=== PATIENT | female | born 1945 | race Caucasian/White ===

== ENCOUNTER → 2016-10-20 | Outpatient (CLI) | payer MEDICARE ==
--- NOTE | 2016-10-21 10:04 | MM ---
Reason for exam: screening (asymptomatic). Last mammogram was performed 4 years and 4 months ago. History: Patient is postmenopausal. Family history of breast cancer in sister at age 60 and breast cancer in sister at age 69. Cyst aspiration of the right breast. Excisional biopsy of the right breast. Physical Findings: A clinical breast exam by your physician is recommended on an annual basis and results should be correlated with mammographic findings. MG 3D Screening Mammo W/Cad Bilateral CC and MLO view(s) were taken. Prior study comparison: June 17, 2012, bilateral digital screening mammo w/CAD. December 24, 2006, bilateral screening mammogram w/CAD. The breast tissue is almost entirely fat. Asymmetric breast tissue in ther right breast negative 3D. ASSESSMENT: Probably benign, BI-RAD 3 RECOMMENDATION: Follow-up diagnostic mammogram of the right breast in 6 months.
== END | disposition home or self-care (01) ==
LOC: RADMAMWWP 13:44
PROVIDERS: ATTEND Family Medicine
DX: Z12.31 Encounter for screening mammogram for malignant neoplasm of breast (principal)
CPT/HCPCS: 77063; G0202

== ENCOUNTER → 2018-06-09 | Outpatient (CLI) | payer MEDICARE ==
[2018-06-09 08:58] LABS: Basophils % (A) 1 %; Eosinophils # (A) 0.1 k/uL (0-0.7); Eosinophils % (A) 2 %; HCT 44.5 % (34.0-46.0); HGB 14.1 gm/dL (11.4-16.0); Lymphocytes # (A) 1.7 k/uL (1.0-4.8); Lymphocytes % (A) 22 %; MCH 28.6 pg (25.0-35.0); MCHC 31.8 g/dL (31.0-37.0); MCV 89.9 fL (80.0-100.0); Mean Platelet Volume 6.6; Monocytes # (A) 0.5 k/uL (0-1.0); Monocytes % (A) 6 %; Neutrophils # (A) 5.2 k/uL (1.3-7.7); Neutrophils % (A) 68 %; Platelet Count 241 k/uL (150-450); RBC 4.95 m/uL (3.80-5.40); RDW 13.5 % (11.5-15.5); WBC 7.6 k/uL (3.8-10.6)
[2018-06-09 09:00] LABS: Albumin 4.2 g/dL (3.5-5.0); Calcium 9.8 mg/dL (8.4-10.2); Potassium 4.7 mmol/L (3.5-5.1); Total Bilirubin 0.4 mg/dL (0.2-1.3); Total Protein 7.2 g/dL (6.3-8.2)
[2018-06-09 20:05] LABS: Hemoglobin A1C 9.2 % (4.0-6.0)
--- NOTE | 2018-06-13 10:34 | MM ---
Reason for exam: screening (asymptomatic). Last mammogram was performed 1 year and 8 months ago. History: Patient is postmenopausal. Family history of breast cancer in sister at age 60 and breast cancer in sister at age 69. Cyst aspiration of the right breast. Excisional biopsy of the right breast. Physical Findings: A clinical breast exam by your physician is recommended on an annual basis and results should be correlated with mammographic findings. MG 3D Screening Mammo W/Cad Bilateral CC and MLO view(s) were taken. XCCL view(s) were taken of the left breast. Prior study comparison: October 20, 2016, bilateral MG 3d screening mammo w/cad. June 17, 2012, bilateral digital screening mammo w/CAD. The breast tissue is heterogeneously dense. This may lower the sensitivity of mammography. Finding: There are typically benign vascular, dystrophic, round calcifications in both breasts. There is no discrete abnormality. ASSESSMENT: Benign, BI-RAD 2 RECOMMENDATION: Routine screening mammogram of both breasts in 1 year.
== END | disposition home or self-care (01) ==
LOC: RADMAMWWP 08:01
PROVIDERS: ATTEND Family Medicine
DX: Z12.31 Encounter for screening mammogram for malignant neoplasm of breast (principal); E11.9 Type 2 diabetes mellitus without complications; I10 Essential (primary) hypertension; E55.9 Vitamin D deficiency, unspecified
CPT/HCPCS: 77063; 77067; 80053; 80061; 82306; 83036; 84443; 85025

== ENCOUNTER → 2019-02-11 | Outpatient (CLI) | payer MEDICARE | END | disposition home or self-care (01) | LOC: LABWHC1 09:27 | PROVIDERS: ATTEND Family Medicine | DX: E11.9 Type 2 diabetes mellitus without complications (principal) | CPT/HCPCS: 36415; 80061; 82550; 84450; 84460 ==

== ENCOUNTER 2023-08-07 18:30 | Inpatient (IN) | payer MEDICARE ==
[2023-08-07] MEDS ORDERED: SODIUM CHLORIDE 0.9% 1,000 ML IV STA (18:36)
[2023-08-07] MEDS ORDERED: SODIUM CHLORIDE 0.9% 500 ML 500 ML IV ONE (18:36)
--- NOTE | 2023-08-07 18:43 | ED ---
Altered Mental Status HPI - General Stated Complaint: Possible CVA Time Seen by Provider: 08/07/23 18:30 Source: patient, EMS, RN notes reviewed, old records reviewed Mode of arrival: EMS - History of Present Illness Initial Comments: 77-year-old female with a history of thyroid disorder possibly heart disease who apparently does not like to see doctors who is brought in by EMS after they were called because the patient was less responsive only awake alert oriented times one with generalized weakness she apparently found on the floor with broken glasses on the floor. Her twin sister apparently been trying to get over last several days and neighbor states that she's talked her yesterday and she seemed the most part okay. Formation at this time is otherwise limited she was noted per paramedics have a markedly elevated blood pressure 180/122 blood glucose of 411 on Accu-Chek. Report also of a possible history of diabetes. MD Complaint: altered mental status, confusion, decreased responsiveness, weakness - Related Data Home Medications Medication Instructions Recorded Confirmed LORazepam [Ativan] 1 mg PO TID PRN 08/07/23 08/07/23 Losartan Potassium 100 mg PO DAILY 08/07/23 08/07/23 Metoprolol Tartrate [Lopressor] 25 mg PO TID 08/07/23 08/07/23 Allergies Allergy/AdvReac Type Severity Reaction Status Date / Time Penicillins Allergy Unknown Verified 08/07/23 21:01 metformin AdvReac Nausea & Verified 08/07/23 21:01 Vomiting & Diarrhea Review of Systems ROS Statement: Those systems with pertinent positive or pertinent negative responses have been documented in the HPI. ROS Other: All systems not noted in ROS Statement are negative. Limitations: ROS unobtainable due to patients medical condition General Exam - General Exam Comments Initial Comments: This a well-developed lethargic female who is slow to respond. No evidence of external trauma General appearance: lethargic Head exam: Present: atraumatic, normocephalic, normal inspection Eye exam: Present: normal appearance, PERRL, EOMI. Absent: scleral icterus, conjunctival injection, periorbital swelling ENT exam: Present: mucous membranes dry Neck exam: Present: normal inspection, full ROM, other (No stridor JVD or bru its). Absent: tenderness, meningismus, lymphadenopathy Respiratory exam: Present: decreased breath sounds. Absent: respiratory distress, wheezes, rales, rhonchi, stridor Cardiovascular Exam: Present: regular rate, normal rhythm, normal heart sounds. Absent: systolic murmur, diastolic murmur, rubs, gallop, clicks GI/Abdominal exam: Present: soft, normal bowel sounds. Absent: distended, tenderness, guarding, rebound, rigid, bruit, pulsatile mass Rectal exam: Present: deferred Extremities exam: Present: normal inspection, full ROM, normal capillary refill. Absent: tenderness, pedal edema, joint swelling, calf tenderness Back exam: Present: normal inspection, full ROM Neurological exam: Present: alert, altered, CN II-XII intact. Absent: motor sensory deficit (She does demonstrate generalized weakness but has equal good music manager strength bilaterally she is able to raise both her arms and does attempt to raise both legs though they're weak she can move her feet without difficulty. Her toes without difficulty no apparent sensory deficits) Psychiatric exam: Present: flat affect Skin exam: Present: warm, dry, intact, normal color. Absent: rash Course Vital Signs 08/07/23 08/07/23 08/07/23 18:30 19:53 20:55 Temperature 97.0 F L Pulse Rate 82 79 89 Respiratory 18 17 21 Rate Blood Pressure 94/63 113/76 113/76 O2 Sat by Pulse 95 94 L 95 Oximetry 08/07/23 22:31 Temperature Pulse Rate 94 Respiratory 25 H Rate Blood Pressure 124/64 O2 Sat by Pulse 95 Oximetry Medical Decision Making - Medical Decision Making I did reevaluate the patient on multiple occasions she does appear to be responding to fluids I did discuss case also with patient with sister was present. Patient was found to have hyperglycemia she is a type II diabetic additionally she also was found have acute kidney injury and a markedly elevated BNP over lung sounds are actually fairly clear at this time with good oxygenation. Patient will be placed on IV antibiotics for what appears to be UTI evidence. Gentle hydration subcutaneous insulin and Lasix and also nephrology will be consulted. Was pt. sent in by a medical professional or institution (LORENE Dimas, CHIEF TELEPHONE OPERATOR, urgent care, hospital, or custodial...) When possible be specific @ -No Did you speak to anyone other than the patient for history (EMS, parent, family, police, friend...)? What history was obtained from this source @ -[place]ax upon arrival also the patient's twin sister Did you review nursing and triage notes (agree or disagree)? Why? @ -I reviewed and agree with nursing and triage notes Were old charts reviewed (outside hosp., previous admission, EMS record, old EKG, old radiological studies, urgent care reports/EKG's, custodial records)? Report findings @ - old charts were reviewed Differential Diagnosis (chest pain, altered mental status, abdominal pain women, abdominal pain men, vaginal bleeding, weakness, fever, dyspnea, syncope, headache, dizziness, GI bleed, back pain, seizure, CVA, palpatations, mental health, musculoskeletal)? @ -CVA, altered mental status, hyperglycemia, dehydration EKG interpreted by me (3pts min.). @ -As above EKG interpreted by me normal sinus rhythm 82. Interval 160 QRS duration 91 QT/QTC 399/437 X-rays interpreted by me (1pt min.). @ -Chest x-ray. By me evidence of increased pulmonary vascular markings CT interpreted by me (1pt min.). @ -CT brain interpreted by me no acute process at this time U/S interpreted by me (1pt. min.). @ -None done What testing was considered but not performed or refused? (CT, X-rays, U/S, labs)? Why? @ -None What meds were considered but not given or refused? Why? @ -None Did you discuss the management of the patient with other professionals (pro fessionals i.e. , PA, CHIEF TELEPHONE OPERATOR, lab, RT, psych nurse, social worker assistant, gm video, teacher, safety patrol officer, pillowcase folder)? Give summary @ -Roslyn Boucher Was smoking cessation discussed for >3mins.? @ -No Was critical care preformed (if so, how long)? @ -49 minutes Were there social determinants of health that impacted care today? How? (Homelessness, low income, unemployed, alcoholism, drug addiction, transportation, low edu. Level, literacy, decrease access to med. care, longterm, r ehab)? @ -No Was there de-escalation of care discussed even if they declined (Discuss DNR or withdrawal of care, Hospice)? DNR status @ -No What co-morbidities impacted this encounter? (DM, HTN, Smoking, COPD, CAD, Cancer, CVA, ARF, Chemo, Hep., AIDS, mental health diagnosis, sleep apnea, morbid obesity)? @ -Type 2 diabetes] Was patient admitted / discharged? Hospital course, mention meds given and route, prescriptions, significant lab abnormalities, going to OR and other pertinent info. @ -hospital course the patient was admitted for inpatient evaluation and treatment Undiagnosed new problem with uncertain prognosis? @ -Acute kidney injury, lactic acidosis, uncontrolled diabetes Drug Therapy requiring intensive monitoring for toxicity (Heparin, Nitro, Insulin, Cardizem)? @ -Insulin Were any procedures done? @ -No Diagnosis/symptom? @ -Altered mental status, dehydration, acute kidney injury, hyperglycemia, lactic acidosis, UTI, hypomagnesemia, elevated troponin, elevated BNP Acute, or Chronic, or Acute on Chronic? @ -Acute Uncomplicated (without systemic symptoms) or Complicated (systemic symptoms)? @ -Complicated Side effects of treatment? @ -No Exacerbation, Progression, or Severe Exacerbation? @ -No Poses a threat to life or bodily function? How? (Chest pain, [place], [place], pneumonia, PE, COPD, DKA, ARF, appy, cholecystitis, CVA, Diverticulitis, Homicidal, Suicidal, threat to staff... and all critical care pts) @ -Uncontrolled diabetes, acute kidney injury, elevated troponin - Lab Data Result diagrams: 08/07/23 18:58 08/07/23 18:58 Lab Results 08/07/23 08/07/23 08/07/23 Range/Units 16:35 18:45 18:58 WBC 30.8 H (3.8-10.6) k/uL RBC 5.12 (3.80-5.40) m/uL Hgb 15.2 (11.4-16.0) gm/dL Hct 46.3 H (34.0-46.0) % MCV 90.5 (80.0-100.0) fL MCH 29.6 (25.0-35.0) pg MCHC 32.7 (31.0-37.0) g/dL RDW 13.3 (11.5-15.5) % Plt Count 124 L (150-450) k/uL MPV 10.4 Neutrophils % Not Reportable Neutrophils % (Manual) 59 % Band Neuts % (Manual) 33 % Lymphocytes % Not Reportable Lymphocytes % (Manual) 2 % Monocytes % Not Reportable Monocytes % (Manual) 4 % Eosinophils % Not Reportable Basophils % Not Reportable Metamyelocytes % 2 % Myelocytes % 1 % Neutrophils # Not Reportable Neutrophils # (Manual) 28.30 H (1.3-7.7) k/uL Lymphocytes # Not Reportable Lymphocytes # (Manual) 0.62 L (1.0-4.8) k/uL Monocytes # Not Reportable Monocytes # (Manual) 1.23 H (0-1.0) k/uL Eosinophils # Not Reportable Basophils # Not Reportable Metamyelocytes # (Man) 0.62 H (0) k/uL Myelocytes # (Manual) 0.31 H (0) k/uL Nucleated RBCs 0 (0-0) /100 WBC Manual Slide Review Performed Toxic Granulation Present Toxic Vacuolation Present RBC Morphology Normal PT (10.0-12.5) sec INR (<1.2) APTT (22.0-30.0) sec VBG pH 7.26 L (7.31-7.41) VBG pCO2 45 (37-51) mmHg VBG HCO3 20 L (24-28) mmol/L Sodium (137-145) mmol/L Potassium (3.5-5.1) mmol/L Chloride (98-107) mmol/L Carbon Dioxide (22-30) mmol/L Anion Gap mmol/L BUN (7-17) mg/dL Creatinine (0.52-1.04) mg/dL Est GFR (CKD-EPI)AfAm (>60 ml/min/1.73 sqM) Est GFR (CKD-EPI)NonAf (>60 ml/min/1.73 sqM) Glucose (74-99) mg/dL POC Glucose (mg/dL) 311 H (70-110) mg/dL POC Glu Military Equipment Specialist ID Tesha Petersen Lactic Ac Sepsis Rflx Plasma Lactic Acid Raghavendra (0.7-2.0) mmol/L Calcium (8.4-10.2) mg/dL Magnesium (1.6-2.3) mg/dL Total Bilirubin (0.2-1.3) mg/dL AST (14-36) U/L ALT (4-34) U/L Alkaline Phosphatase (38-126) U/L Ammonia (<30) umol/L Troponin I (0.000-0.034) ng/mL NT-Pro-B Natriuret Pep pg/mL Total Protein (6.3-8.2) g/dL Albumin (3.5-5.0) g/dL TSH (0.465-4.680) mIU/L Urine Color Urine Appearance (Clear) Urine pH (5.0-8.0) Ur Specific [place] (1.001-1.035) Urine Protein (Negative) Urine Glucose (UA) (Negative) Urine Ketones (Negative) Urine Blood (Negative) Urine Nitrite (Negative) Urine Bilirubin (Negative) Urine Urobilinogen (<2.0) mg/dL Ur Leukocyte Esterase (Negative) Urine RBC (0-5) /hpf Urine WBC (0-5) /hpf Ur Squamous Epith Cells (0-4) /hpf Urine Bacteria (None) /hpf Hyaline Casts (0-2) /lpf Urine Mucus (None) /hpf Urine Opiates Screen (NotDetected) Ur Oxycodone Screen (NotDetected) Urine Methadone Screen (NotDetected) Ur Propoxyphene Screen (NotDetected) Ur Barbiturates Screen (NotDetected) U Tricyclic Antidepress (NotDetected) Ur Phencyclidine Scrn (NotDetected) Ur Amphetamines Screen (NotDetected) U Methamphetamines Scrn (NotDetected) U Benzodiazepines Scrn (NotDetected) Urine Cocaine Screen (NotDetected) U Marijuana (THC) Screen (NotDetected) Acetone, Qual (Negative) Influenza Type A (PCR) (Not Detectd) Influenza Type B (PCR) (Not Detectd) RSV (PCR) (Not Detectd) SARS-CoV-2 (PCR) (Not Detectd) 08/07/23 08/07/23 08/07/23 Range/Units 18:58 18:58 18:58 WBC (3.8-10.6) k/uL RBC (3.80-5.40) m/uL Hgb (11.4-16.0) gm/dL Hct (34.0-46.0) % MCV (80.0-100.0) fL MCH (25.0-35.0) pg MCHC (31.0-37.0) g/dL RDW (11.5-15.5) % Plt Count (150-450) k/uL MPV Neutrophils % Neutrophils % (Manual) % Band Neuts % (Manual) % Lymphocytes % Lymphocytes % (Manual) % Monocytes % Monocytes % (Manual) % Eosinophils % Basophils % Metamyelocytes % % Myelocytes % % Neutrophils # Neutrophils # (Manual) (1.3-7.7) k/uL Lymphocytes # Lymphocytes # (Manual) (1.0-4.8) k/uL Monocytes # Monocytes # (Manual) (0-1.0) k/uL Eosinophils # Basophils # Metamyelocytes # (Man) (0) k/uL Myelocytes # (Manual) (0) k/uL Nucleated RBCs (0-0) /100 WBC Manual Slide Review Toxic Granulation Toxic Vacuolation RBC Morphology PT 14.1 H (10.0-12.5) sec INR 1.4 H (<1.2) APTT 28.0 (22.0-30.0) sec VBG pH (7.31-7.41) VBG pCO2 (37-51) mmHg VBG HCO3 (24-28) mmol/L Sodium 131 L (137-145) mmol/L Potassium 4.8 (3.5-5.1) mmol/L Chloride 93 L (98-107) mmol/L Carbon Dioxide 15 L (22-30) mmol/L Anion Gap 23 mmol/L BUN 57 H (7-17) mg/dL Creatinine 4.26 H (0.52-1.04) mg/dL Est GFR (CKD-EPI)AfAm 11 (>60 ml/min/1.73 sqM) Est GFR (CKD-EPI)NonAf 10 (>60 ml/min/1.73 sqM) Glucose 456 H (74-99) mg/dL POC Glucose (mg/dL) (70-110) mg/dL POC Glu Military Equipment Specialist ID Lactic Ac Sepsis Rflx Plasma Lactic Acid Raghavendra (0.7-2.0) mmol/L Calcium 8.6 (8.4-10.2) mg/dL Magnesium 1.2 L (1.6-2.3) mg/dL Total Bilirubin 1.1 (0.2-1.3) mg/dL AST 58 H (14-36) U/L ALT 33 (4-34) U/L Alkaline Phosphatase 105 (38-126) U/L Ammonia (<30) umol/L Troponin I (0.000-0.034) ng/mL NT-Pro-B Natriuret Pep 14034 pg/mL Total Protein 6.9 (6.3-8.2) g/dL Albumin 3.6 (3.5-5.0) g/dL TSH 1.650 (0.465-4.680) mIU/L Urine Color Colorless Urine Appearance Cloudy H (Clear) Urine pH 5.0 (5.0-8.0) Ur Specific [place] 1.014 (1.001-1.035) Urine Protein Trace H (Negative) Urine Glucose (UA) 4+ H (Negative) Urine Ketones Negative (Negative) Urine Blood Negative (Negative) Urine Nitrite Negative (Negative) Urine Bilirubin Negative (Negative) Urine Urobilinogen <2.0 (<2.0) mg/dL Ur Leukocyte Esterase Large H (Negative) Urine RBC 2 (0-5) /hpf Urine WBC 72 H (0-5) /hpf Ur Squamous Epith Cells 1 (0-4) /hpf Urine Bacteria Many H (None) /hpf Hyaline Casts 14 H (0-2) /lpf Urine Mucus Rare H (None) /hpf Urine Opiates Screen Not Detected (NotDetected) Ur Oxycodone Screen Not Detected (NotDetected) Urine Methadone Screen Not Detected (NotDetected) Ur Propoxyphene Screen Not Detected (NotDetected) Ur Barbiturates Screen Not Detected (NotDetected) U Tricyclic Antidepress Not Detected (NotDetected) Ur Phencyclidine Scrn Not Detected (NotDetected) Ur Amphetamines Screen Not Detected (NotDetected) U Methamphetamines Scrn Not Detected (NotDetected) U Benzodiazepines Scrn Detected H (NotDetected) Urine Cocaine Screen Not Detected (NotDetected) U Marijuana (THC) Screen Not Detected (NotDetected) Acetone, Qual Negative (Negative) Influenza Type A (PCR) (Not Detectd) Influenza Type B (PCR) (Not Detectd) RSV (PCR) (Not Detectd) SARS-CoV-2 (PCR) (Not Detectd) 08/07/23 08/07/23 08/07/23 Range/Units 18:58 18:58 18:58 WBC (3.8-10.6) k/uL RBC (3.80-5.40) m/uL Hgb (11.4-16.0) gm/dL Hct (34.0-46.0) % MCV (80.0-100.0) fL MCH (25.0-35.0) pg MCHC (31.0-37.0) g/dL RDW (11.5-15.5) % Plt Count (150-450) k/uL MPV Neutrophils % Neutrophils % (Manual) % Band Neuts % (Manual) % Lymphocytes % Lymphocytes % (Manual) % Monocytes % Monocytes % (Manual) % Eosinophils % Basophils % Metamyelocytes % % Myelocytes % % Neutrophils # Neutrophils # (Manual) (1.3-7.7) k/uL Lymphocytes # Lymphocytes # (Manual) (1.0-4.8) k/uL Monocytes # Monocytes # (Manual) (0-1.0) k/uL Eosinophils # Basophils # Metamyelocytes # (Man) (0) k/uL Myelocytes # (Manual) (0) k/uL Nucleated RBCs (0-0) /100 WBC Manual Slide Review Toxic Granulation Toxic Vacuolation RBC Morphology PT (10.0-12.5) sec INR (<1.2) APTT (22.0-30.0) sec VBG pH (7.31-7.41) VBG pCO2 (37-51) mmHg VBG HCO3 (24-28) mmol/L Sodium (137-145) mmol/L Potassium (3.5-5.1) mmol/L Chloride (98-107) mmol/L Carbon Dioxide (22-30) mmol/L Anion Gap mmol/L BUN (7-17) mg/dL Creatinine (0.52-1.04) mg/dL Est GFR (CKD-EPI)AfAm (>60 ml/min/1.73 sqM) Est GFR (CKD-EPI)NonAf (>60 ml/min/1.73 sqM) Glucose (74-99) mg/dL POC Glucose (mg/dL) (70-110) mg/dL POC Glu Military Equipment Specialist ID Lactic Ac Sepsis Rflx Plasma Lactic Acid Raghavendra 4.6 H* (0.7-2.0) mmol/L Calcium (8.4-10.2) mg/dL Magnesium (1.6-2.3) mg/dL Total Bilirubin (0.2-1.3) mg/dL AST (14-36) U/L ALT (4-34) U/L Alkaline Phosphatase (38-126) U/L Ammonia <9 (<30) umol/L Troponin I 0.076 H* (0.000-0.034) ng/mL NT-Pro-B Natriuret Pep pg/mL Total Protein (6.3-8.2) g/dL Albumin (3.5-5.0) g/dL TSH (0.465-4.680) mIU/L Urine Color Urine Appearance (Clear) Urine pH (5.0-8.0) Ur Specific [place] (1.001-1.035) Urine Protein (Negative) Urine Glucose (UA) (Negative) Urine Ketones (Negative) Urine Blood (Negative) Urine Nitrite (Negative) Urine Bilirubin (Negative) Urine Urobilinogen (<2.0) mg/dL Ur Leukocyte Esterase (Negative) Urine RBC (0-5) /hpf Urine WBC (0-5) /hpf Ur Squamous Epith Cells (0-4) /hpf Urine Bacteria (None) /hpf Hyaline Casts (0-2) /lpf Urine Mucus (None) /hpf Urine Opiates Screen (NotDetected) Ur Oxycodone Screen (NotDetected) Urine Methadone Screen (NotDetected) Ur Propoxyphene Screen (NotDetected) Ur Barbiturates Screen (NotDetected) U Tricyclic Antidepress (NotDetected) Ur Phencyclidine Scrn (NotDetected) Ur Amphetamines Screen (NotDetected) U Methamphetamines Scrn (NotDetected) U Benzodiazepines Scrn (NotDetected) Urine Cocaine Screen (NotDetected) U Marijuana (THC) Screen (NotDetected) Acetone, Qual (Negative) Influenza Type A (PCR) Not Detected (Not Detectd) Influenza Type B (PCR) Not Detected (Not Detectd) RSV (PCR) Not Detected (Not Detectd) SARS-CoV-2 (PCR) Not Detected (Not Detectd) 08/07/23 Range/Units 20:00 WBC (3.8-10.6) k/uL RBC (3.80-5.40) m/uL Hgb (11.4-16.0) gm/dL Hct (34.0-46.0) % MCV (80.0-100.0) fL MCH (25.0-35.0) pg MCHC (31.0-37.0) g/dL RDW (11.5-15.5) % Plt Count (150-450) k/uL MPV Neutrophils % Neutrophils % (Manual) % Band Neuts % (Manual) % Lymphocytes % Lymphocytes % (Manual) % Monocytes % Monocytes % (Manual) % Eosinophils % Basophils % Metamyelocytes % % Myelocytes % % Neutrophils # Neutrophils # (Manual) (1.3-7.7) k/uL Lymphocytes # Lymphocytes # (Manual) (1.0-4.8) k/uL Monocytes # Monocytes # (Manual) (0-1.0) k/uL Eosinophils # Basophils # Metamyelocytes # (Man) (0) k/uL Myelocytes # (Manual) (0) k/uL Nucleated RBCs (0-0) /100 WBC Manual Slide Review Toxic Granulation Toxic Vacuolation RBC Morphology PT (10.0-12.5) sec INR (<1.2) APTT (22.0-30.0) sec VBG pH (7.31-7.41) VBG pCO2 (37-51) mmHg VBG HCO3 (24-28) mmol/L Sodium (137-145) mmol/L Potassium (3.5-5.1) mmol/L Chloride (98-107) mmol/L Carbon Dioxide (22-30) mmol/L Anion Gap mmol/L BUN (7-17) mg/dL Creatinine (0.52-1.04) mg/dL Est GFR (CKD-EPI)AfAm (>60 ml/min/1.73 sqM) Est GFR (CKD-EPI)NonAf (>60 ml/min/1.73 sqM) Glucose (74-99) mg/dL POC Glucose (mg/dL) (70-110) mg/dL POC Glu Military Equipment Specialist ID Lactic Ac Sepsis Rflx Y Plasma Lactic Acid Raghavendra (0.7-2.0) mmol/L Calcium (8.4-10.2) mg/dL Magnesium (1.6-2.3) mg/dL Total Bilirubin (0.2-1.3) mg/dL AST (14-36) U/L ALT (4-34) U/L Alkaline Phosphatase (38-126) U/L Ammonia (<30) umol/L Troponin I (0.000-0.034) ng/mL NT-Pro-B Natriuret Pep pg/mL Total Protein (6.3-8.2) g/dL Albumin (3.5-5.0) g/dL TSH (0.465-4.680) mIU/L Urine Color Urine Appearance (Clear) Urine pH (5.0-8.0) Ur Specific [place] (1.001-1.035) Urine Protein (Negative) Urine Glucose (UA) (Negative) Urine Ketones (Negative) Urine Blood (Negative) Urine Nitrite (Negative) Urine Bilirubin (Negative) Urine Urobilinogen (<2.0) mg/dL Ur Leukocyte Esterase (Negative) Urine RBC (0-5) /hpf Urine WBC (0-5) /hpf Ur Squamous Epith Cells (0-4) /hpf Urine Bacteria (None) /hpf Hyaline Casts (0-2) /lpf Urine Mucus (None) /hpf Urine Opiates Screen (NotDetected) Ur Oxycodone Screen (NotDetected) Urine Methadone Screen (NotDetected) Ur Propoxyphene Screen (NotDetected) Ur Barbiturates Screen (NotDetected) U Tricyclic Antidepress (NotDetected) Ur Phencyclidine Scrn (NotDetected) Ur Amphetamines Screen (NotDetected) U Methamphetamines Scrn (NotDetected) U Benzodiazepines Scrn (NotDetected) Urine Cocaine Screen (NotDetected) U Marijuana (THC) Screen (NotDetected) Acetone, Qual (Negative) Influenza Type A (PCR) (Not Detectd) Influenza Type B (PCR) (Not Detectd) RSV (PCR) (Not Detectd) SARS-CoV-2 (PCR) (Not Detectd) - EKG Data -: EKG Interpreted by Me EKG Comments: EKG interpreted by me sinus rhythm 82. Interval 160 QRS duration 91 QT since QTC 399/[address]-T wave changes - Radiology Data Interpreted by me: Chest x-ray interpreted by me evidence of increase in pulmonary vascular markings CT brain interpreted by me negative for acute process Critical Care Time Critical Care Time: Yes Total Critical Care Time: 49 Disposition Clinical Impression: Acute kidney injury, Altered mental status, Dehydration, Hyperglycemia due to type 2 diabetes mellitus, Lactic acidosis, Hypomagnesemia, Elevated troponin, UTI (urinary tract infection) Disposition: ADMITTED IP TO THIS HOSP Condition: Fair Referrals: Alvin Montez [Primary Care Provider] - 1-2 days Decision Date: 08/07/23 Decision Time: 22:00
[2023-08-07 18:46] LABS: Glucose,Whole Blood 311 mg/dL (70-110)
--- NOTE | 2023-08-07 19:01 | CT ---
EXAMINATION TYPE: CT brain wo con CT DLP: 1261.6 mGycm, Automated exposure control for dose reduction was used. DATE OF EXAM: 08/07/2023 6:43 PM COMPARISON: None. CLINICAL INDICATION:Female, 77 years old with history of CODE STROKE, ams TECHNIQUE: Brain: Axial CT images of the brain were obtained with coronal and sagittal reformats created and rev iewed. Contrast used: None. Oral contrast used: None. FINDINGS: Brain: Extra-axial spaces: No abnormal extra-axial fluid collections. Ventricular system: Dilatation in proportion to cerebral atrophy. Cerebral parenchyma: Cerebral atrophy. No acute intraparenchymal hemorrhage or mass effect. The boyd -white junction is well differentiated. Scattered hypoattenuating areas are seen within the white mat ter. Cerebellum: Unremarkable. Mass effect: No evidence of midline shift. Intracranial vasculature: Atherosclerotic calcifications of the intracranial vessels. Soft tissues: Normal. Calvarium/osseous structures: No depressed skull fracture. Paranasal sinuses and mastoid air cells: Mild scattered paranasal sinus disease. Visualized orbits: Orbital contents are intact. IMPRESSION: 1. No acute intracranial process. 2. Nonspecific white matter changes, likely secondary to chronic small vessel ischemic disease.
[2023-08-07 19:27] LABS: HCT 46.3 % (34.0-46.0); HGB 15.2 gm/dL (11.4-16.0); MCH 29.6 pg (25.0-35.0); MCHC 32.7 g/dL (31.0-37.0); MCV 90.5 fL (80.0-100.0); Mean Platelet Volume 10.4; Platelet Count 124 k/uL (150-450); RBC 5.12 m/uL (3.80-5.40); RDW 13.3 % (11.5-15.5); WBC 30.8 k/uL (3.8-10.6)
--- NOTE | 2023-08-07 19:29 | XR ---
EXAMINATION TYPE: XR chest 1V portable DATE OF EXAM: 08/07/2023 7:22 PM CLINICAL INDICATION:Female, 77 years old with history of altered mental status; [facility] COMPARISON: None TECHNIQUE: XR chest 1V portable Frontal view of the chest. FINDINGS: Lungs/Pleura: There is no evidence of pleural effusion, focal consolidation, or pneumothorax. Pulmonary vascularity: Unremarkable. Heart/mediastinum: Cardiomediastinal silhouette is unremarkable. Musculoskeletal: No acute osseous pathology. IMPRESSION: Low lung volumes with a generalized hazy appearance which could represent atelectasis versus pulmonar y edema correlate with serum BNP.
[2023-08-07 19:35] LABS: ALT 33 U/L (4-34); AST 58 U/L (14-36); African American GFR (CKD) 11 (>60 ml/min/1.73 sqM); Albumin 3.6 g/dL (3.5-5.0); Alkaline Phosphatase 105 U/L (38-126); Anion Gap 23 mmol/L; Blood Urea Nitrogen 57 mg/dL (7-17); Calcium 8.6 mg/dL (8.4-10.2); Carbon Dioxide 15 mmol/L (22-30); Chloride 93 mmol/L (98-107); Glucose 456 mg/dL (74-99); INR 1.4 (<1.2); Magnesium 1.2 mg/dL (1.6-2.3); Non-African American GFR(CKD) 10 (>60 ml/min/1.73 sqM); Potassium 4.8 mmol/L (3.5-5.1); Prothrombin Time 14.1 sec (10.0-12.5); Sodium 131 mmol/L (137-145); Total Bilirubin 1.1 mg/dL (0.2-1.3); Total Protein 6.9 g/dL (6.3-8.2)
[2023-08-07 19:49] LABS: Appearance,Urine Cloudy (Clear); Bacteria,Urine Many /hpf; Bilirubin,Urine Negative (Negative); Blood,Urine Negative (Negative); Color,Urine Colorless; Glucose,Urine (UA) 4+ (Negative); Hyaline Casts,Urine 14 /lpf (0-2); Ketones,Urine Negative (Negative); Leukocyte Esterase,Urine Large (Negative); Mucus,Urine Rare /hpf; Nitrite,Urine Negative (Negative); Protein,Urine Trace (Negative); RBC,Urine 2 /hpf (0-5); Specific Gravity,Urine 1.014 (1.001-1.035); Squamous Epithelial Cell,Urine 1 /hpf (0-4); Urobilinogen,Urine <2.0 mg/dL (<2.0); WBC,Urine 72 /hpf (0-5)
[2023-08-07 19:50] LABS: Amphetamine Screen,Urine Not Detected (NotDetected); Barbiturate Screen,Urine Not Detected (NotDetected); Benzodiazepines Screen,Urine Detected (NotDetected); Cocaine Screen,Urine Not Detected (NotDetected); Methadone Screen, Urine Not Detected (NotDetected); Opiate Screen,Urine Not Detected (NotDetected); Oxycodone Screen, Urine Not Detected (NotDetected); Phencyclidine Screen,Urine Not Detected (NotDetected); Tricyclic Antidepressant,Urine Not Detected (NotDetected); Urn Cannabinoid Scrn Not Detected (NotDetected)
[2023-08-07 20:00] LABS: Lactic Acid, Venous 4.6 mmol/L (0.7-2.0)
[2023-08-07 20:40] LABS: NT-Pro-B-Type Natriuretic Pept 68800 pg/mL
[2023-08-07] MEDS: MAGNESIUM SULFATE-D5W PMX 1 GM in DEXTROSE/WATER 1 100ML.BAG IVPB SCH ×2 (20:40→21:39)
[2023-08-07] MEDS ORDERED: DEXTROSE 50% SYRINGE 50 ML IVP PRN ×2 (21:13)
[2023-08-07] MEDS ORDERED: INSULIN ASPART (NovoLOG) 100 UNIT/ML VIAL SQ ONE (21:14)
[2023-08-07 21:18] LABS: VBG PH 7.26 (7.31-7.41)
[2023-08-07 21:29] LABS: Band Neutrophils % 33 %; Lymphocytes # (M) 0.62 k/uL (1.0-4.8); Metamyelocytes # (M) 0.62 k/uL (0); Metamyelocytes % 2 %; Monocytes # (M) 1.23 k/uL (0-1.0); Myelocytes # (M) 0.31 k/uL (0); Myelocytes % 1 %; Neutrophils % (M) 59 %; Nucleated Red Blood Cells 0 /100 WBC (0-0); RBC Morphology Normal; Total Cells Counted 200; Toxic Granulation Present; Toxic Vacuolation Present
[2023-08-07] MEDS ORDERED: cefTRIAXone IN SWFI 1,000 MG/10 ML SYRINGE IVP STA (22:31)
[2023-08-07] MEDS ORDERED: FUROSEMIDE 10 MG/ML 4 ML VIAL IV STA (22:31)
[2023-08-07] MEDS ORDERED: NALOXONE 0.4 MG/ML 1 ML VIAL IV PRN (22:41)
[2023-08-07] MEDS ORDERED: ONDANSETRON 4 MG/2 ML VIAL IVP PRN (22:41)
[2023-08-07] MEDS: SODIUM CHLORIDE 0.9% 1,000 ML IV SCH (23:22)
[2023-08-07 23:23] LABS: Glucose,Whole Blood 397 mg/dL (70-110)
[2023-08-07] MEDS: HALOPERIDOL LACTATE 5 MG/ML 1 ML VIAL IVP PRN (23:44)
[2023-08-08] MEDS ORDERED: SODIUM CHLORIDE 0.9% 500 ML 500 ML IV ONE (02:25)
[2023-08-08 04:48] LABS: ALT 34 U/L (4-34); AST 57 U/L (14-36); African American GFR (CKD) 11 (>60 ml/min/1.73 sqM); Albumin 2.8 g/dL (3.5-5.0); Alkaline Phosphatase 118 U/L (38-126); Anion Gap 21 mmol/L; Blood Urea Nitrogen 62 mg/dL (7-17); Calcium 7.8 mg/dL (8.4-10.2); Carbon Dioxide 12 mmol/L (22-30); Chloride 101 mmol/L (98-107); Glucose 360 mg/dL (74-99); Magnesium 1.8 mg/dL (1.6-2.3); Non-African American GFR(CKD) 9 (>60 ml/min/1.73 sqM); Potassium 4.3 mmol/L (3.5-5.1); Sodium 134 mmol/L (137-145); Total Bilirubin 0.9 mg/dL (0.2-1.3); Total Protein 5.8 g/dL (6.3-8.2)
[2023-08-08] MEDS: HALOPERIDOL LACTATE 5 MG/ML 1 ML VIAL IVP PRN (05:19)
[2023-08-08] MEDS ORDERED: INSULIN ASPART (NovoLOG) 100 UNIT/ML VIAL SQ SCH (07:30)
[2023-08-08 07:45] LABS: Glucose,Whole Blood 386 mg/dL (70-110)
[2023-08-08] MEDS ORDERED: FUROSEMIDE 10 MG/ML 4 ML VIAL IV SCH (09:00)
[2023-08-08] MEDS ORDERED: LOSARTAN 50 MG TAB PO SCH (09:00)
[2023-08-08] MEDS ORDERED: CEFEPIME 2 GM in SODIUM CHLORIDE 0.9% 100 ML IVPB SCH (09:15)
--- NOTE | 2023-08-08 09:20 | XR ---
EXAM: XR chest 1V portable CLINICAL INDICATION:Female, 77 years old with history of Elevated BNP, progress study; [facility] COMPARISON: 08/07/2023 TECHNIQUE: Chest single view. FINDINGS: Lines/tubes/devices: EKG leads overlie the chest. No indwelling lines are seen. Cardiomediastinum: Cardiac silhouette appears stable, heart size upper normal. Stable mediastinal silhouette. Partially calcified aortic knob. Vasculature: Slightly increased central congestion. Lungs/pleura: Low lung volume exam, accentuating the pulmonary markings and ben. Mild asymmetric elevation of the right hemidiaphragm. No focal consolidation, sizable effusion, or pneumothorax is seen. Bones/soft tissues: Bony thorax appears grossly unchanged as seen. There are the degenerative changes of the shoulders an d spine. Regional soft tissues appear unremarkable. IMPRESSION: Low lung volume exam. Slightly increased central vascular congestion. Slightly increased interstitial markings could be related to the low lung volumes, edema or pneumonitis.
[2023-08-08] MEDS ORDERED: CEFEPIME 1 GM in SODIUM CHLORIDE 0.9% 50 ML IVPB SCH (09:30)
[2023-08-08] MEDS: ACETAMINOPHEN TAB 325 MG TAB PO PRN (10:10)
[2023-08-08] MEDS: INSULIN DETEMIR (LEVEMIR) 100 UNIT/ML SYR SQ SCH ×2 (10:10→20:04)
[2023-08-08] MEDS: ASPIRIN 81 MG PO SCH (10:10)
[2023-08-08] MEDS: METOPROLOL TARTRATE 25 MG TAB PO SCH ×3 (10:10→22:26)
[2023-08-08 10:23] LABS: HCT 42.3 % (34.0-46.0); MCHC 33.2 g/dL (31.0-37.0); MCV 90.3 fL (80.0-100.0); Platelet Count 101 k/uL (150-450); RBC 4.68 m/uL (3.80-5.40); RDW 13.7 % (11.5-15.5)
[2023-08-08 10:28] LABS: Glucose,Whole Blood 343 mg/dL (70-110)
[2023-08-08] MEDS: INSULIN ASPART (NovoLOG) 100 UNIT/ML VIAL SQ SCH ×4 (10:28→20:03)
[2023-08-08 10:38] LABS: African American GFR (CKD) 10 (>60 ml/min/1.73 sqM); Anion Gap 22 mmol/L; Blood Urea Nitrogen 67 mg/dL (7-17); Carbon Dioxide 12 mmol/L (22-30); Chloride 101 mmol/L (98-107); Glucose 376 mg/dL (74-99); Non-African American GFR(CKD) 9 (>60 ml/min/1.73 sqM); Potassium 4.4 mmol/L (3.5-5.1); Sodium 135 mmol/L (137-145)
[2023-08-08] MEDS: SODIUM CHLORIDE 0.9% 1,000 ML IV SCH (10:43)
[2023-08-08 10:51] LABS: Lymphocytes # (M) 0.52 k/uL (1.0-4.8); Monocytes # (M) 0.78 k/uL (0-1.0); Neutrophils % (M) 87 %
[2023-08-08 10:52] LABS: Band Neutrophils % 6 %; Metamyelocytes # (M) 0.78 k/uL (0); Metamyelocytes % 3 %; Myelocytes # (M) 0.26 k/uL (0); Myelocytes % 1 %; Nucleated Red Blood Cells 0 /100 WBC (0-0); Total Cells Counted 200
[2023-08-08 10:53] LABS: Toxic Granulation Present; Toxic Vacuolation Present
--- NOTE | 2023-08-08 12:03 | P.NPCON ---
History of Present Illness - Reason for Consult acute renal failure - History of Present Illness Patient is a 77-year-old female who is admitted to the hospital with mental status changes. Patient has been complaining of increased weakness recently. She was found on the floor with Palmer and glasses on the flow. Patient's sister was trying to get in touch with her and EMS was called. Patient is currently awake but confused and unable to provide any history. Patient is otherwise independent. Blood sugar was elevated at 411. Patient had apparently not been taking any of her medications. Initial blood pressure documented here was 84/63 mmHg. Serum creatinine was 4.2 mg/dL on admission and increased to 4.49 today. Previous creatinine was 0.8 on 06/09/2018. Patient is maintained on losartan at home No documented history of NSAIDs. Patient has an indwelling Rendon catheter. Currently maintained on IV fluids and IV antibiotics. UA is suggestive of UTI. Review of Systems As per HPI Past Medical History Past Medical History: No Reported History History of Any Multi-Drug Resistant Organisms: None Reported Past Surgical History: No Surgical Hx Reported Past Psychological History: No Psychological Hx Reported Smoking Status: Never smoker Past Alcohol Use History: None Reported Past Drug Use History: None Reported Medications and Allergies Home Medications Medication Instructions Recorded Confirmed Type LORazepam [Ativan] 1 mg PO TID PRN 08/07/23 08/07/23 History Losartan Potassium 100 mg PO DAILY 08/07/23 08/07/23 History Metoprolol Tartrate [Lopressor] 25 mg PO TID 08/07/23 08/07/23 History Allergies Allergy/AdvReac Type Severity Reaction Status Date / Time Penicillins Allergy Unknown Verified 08/07/23 21:01 metformin AdvReac Nausea & Verified 08/07/23 21:01 Vomiting & Diarrhea Physical Exam Vitals: Vital Signs Temp Pulse Pulse Resp BP BP Pulse Ox 08/08/23 07:32 87 30 H 130/89 92 L 08/08/23 05:00 108 H 22 124/63 97 08/08/23 04:00 98.2 F 98 20 124/63 92 L 08/08/23 02:00 98 20 08/08/23 00:00 97.3 F L 110 H 24 115/73 94 L 08/07/23 23:46 116 H 27 H 121/88 08/07/23 22:31 94 25 H 124/64 95 08/07/23 20:55 89 21 113/76 95 08/07/23 19:53 79 17 113/76 94 L 08/07/23 18:30 97.0 F L 82 18 94/63 95 Intake and Output 08/07/23 08/08/23 08/08/23 22:59 06:59 14:59 Intake Total 100 Output Total 75 Balance 25 Intake: Intake, IV Titration 100 Amount Sodium Chloride 0.9% 1, 100 000 ml @ 100 mls/hr IV . Q10H [facility] Rx#:[id number] Output: Urine 75 Other: Voiding Method Indwelling Catheter Weight 77.111 kg Patient is awake, confused. No acute distress. Examination of the heart S1 and S2 Examination of the lungs bilateral breath sounds are heard Abdomen is soft nontender Examination of lower extremities shows no significant edema. [employer] exam shows patient is moving all 4 extremities. She is confused Results - Lab Results Most recent lab results Calcium 8.0 mg/dL (8.4-10.2) L 08/08/23 09:52 Magnesium 1.8 mg/dL (1.6-2.3) 08/08/23 03:59 08/08/23 09:52 08/08/23 09:52 Assessment and Plan Assessment: 1. Acute kidney injury ATN from hypoperfusion. Systolic blood pressure documented at 94 mmHg on initial admission. UA shows trace protein no blood, WBC 72. Currently with indwelling Rendon catheter. Check ultrasound of the kidneys. Previous creatinine 0.8 in 2018. 2. Hypertension with low blood pressure documented here. Initial blood pressure was 94/63 mmHg. Losartan is currently on hold. 3. Volume depletion currently maintained on IV fluids 4. Pyuria rule out UTI 5. Mental status changes secondary to underlying infection, volume depletion and possible element of uremia. 6. Anion gap metabolic acidosis secondary to acute kidney injury and lactic acidosis. Serum acetone was negative. Plan: Continue IV fluids Change to IV bicarb Continue IV antibiotics Check ultrasound of the kidneys Repeat labs in a.m. Continue to hold off on losartan If renal function continues to worsen patient will need renal replacement therapy. We will continue to monitor on a daily basis. Thank you for the consultation. We will continue to follow the patient with you during her hospitalization.
[2023-08-08] MEDS ORDERED: SODIUM CHLORIDE 0.9% 1,000 ML IV ONE (12:17)
[2023-08-08] MEDS ORDERED: HEPARIN SODIUM 1,000 UN/ML (10ML VL) IV PRN (12:18)
--- NOTE | 2023-08-08 12:21 | P.HPIM ---
History of Present Illness H&P Date: 08/08/23 Chief Complaint: Altered mental status * 77-year-old lady with past medical history significant for hypertension, presents to the emergency department with altered mental status. * Per chart review patient was last well-known 08/06/23. Patient was brought by EMS and was noted to be less responsive and alert and oriented 1 with profound weakness. Patient was apparently found on the floor with broken glass. Patient was last seen by a neighbor and apparently doing well. Upon presentation patient was noted to have profound hypoglycemia Glucose 411, blood pressure 180/22 * Workup initiated included CBC which were WBC of 30.8 hemoglobin 15.2 platelet 124 with elevated neutrophil count. INR of 1.4 serum chemistry showed sodium 134 BUN 57 creatinine 4.26 blood glucose in 400s lactic to 4.7 * Initial troponin obtained 0.076, EKG obtained showed sinus rhythm no significa nt ST segment changes * Patient was given IV Rocephin, urinalysis is obtained showed large leukocyte esterase WBC and many bacteria REVIEW OF SYSTEMS: Limited secondary to disorientation PHYSICAL EXAMINATION: GENERAL: The patient is alert and oriented x 0, ill appearance HEENT: Pupils are round and equally reacting to light. EOMI. CARDIOVASCULAR: S1 and S2 present. No murmurs, rubs, or gallops. PULMONARY: Chest is clear to auscultation, no wheezing or crackles. ABDOMEN: Soft, nontender, nondistended, normoactive bowel sounds. No palpable organomegaly. MUSCULOSKELETAL: No joint swelling or deformity. EXTREMITIES: No cyanosis, clubbing, or pedal edema. NEUROLOGICAL: Exam limited patient disoriented SKIN: No rashes. Past Medical History Past Medical History: No Reported History History of Any Multi-Drug Resistant Organisms: None Reported Past Surgical History: No Surgical Hx Reported Past Psychological History: No Psychological Hx Reported Smoking Status: Never smoker Past Alcohol Use History: None Reported Past Drug Use History: None Reported Medications and Allergies Home Medications Medication Instructions Recorded Confirmed Type LORazepam [Ativan] 1 mg PO TID PRN 08/07/23 08/07/23 History Losartan Potassium 100 mg PO DAILY 08/07/23 08/07/23 History Metoprolol Tartrate [Lopressor] 25 mg PO TID 08/07/23 08/07/23 History Allergies Allergy/AdvReac Type Severity Reaction Status Date / Time Penicillins Allergy Unknown Verified 08/07/23 21:01 metformin AdvReac Nausea & Verified 08/07/23 21:01 Vomiting & Diarrhea Physical Exam Vitals: Vital Signs Temp Pulse Pulse Resp BP BP Pulse Ox 08/08/23 07:32 87 30 H 130/89 92 L 08/08/23 05:00 108 H 22 124/63 97 08/08/23 04:00 98.2 F 98 20 124/63 92 L 08/08/23 02:00 98 20 08/08/23 00:00 97.3 F L 110 H 24 115/73 94 L 08/07/23 23:46 116 H 27 H 121/88 08/07/23 22:31 94 25 H 124/64 95 08/07/23 20:55 89 21 113/76 95 08/07/23 19:53 79 17 113/76 94 L 08/07/23 18:30 97.0 F L 82 18 94/63 95 Intake and Output 08/07/23 08/08/23 08/08/23 22:59 06:59 14:59 Intake Total 100 Output Total 75 Balance 25 Intake: Intake, IV Titration 100 Amount Sodium Chloride 0.9% 1, 100 000 ml @ 100 mls/hr IV . Q10H [facility] Rx#:[id number] Output: Urine 75 Other: Voiding Method Indwelling Catheter Weight 77.111 kg Results CBC & Chem 7: 08/08/23 09:52 08/08/23 09:52 Labs: Abnormal Lab Results - Last 24 Hours (Table) 08/07/23 08/07/23 08/07/23 Range/Units 16:35 18:45 18:58 WBC 30.8 H (3.8-10.6) k/uL Hct 46.3 H (34.0-46.0) % Plt Count 124 L (150-450) k/uL Neutrophils # (Manual) 28.30 H (1.3-7.7) k/uL Lymphocytes # (Manual) 0.62 L (1.0-4.8) k/uL Monocytes # (Manual) 1.23 H (0-1.0) k/uL Metamyelocytes # (Man) 0.62 H (0) k/uL Myelocytes # (Manual) 0.31 H (0) k/uL PT (10.0-12.5) sec INR (<1.2) VBG pH 7.26 L (7.31-7.41) VBG HCO3 20 L (24-28) mmol/L Sodium (137-145) mmol/L Chloride (98-107) mmol/L Carbon Dioxide (22-30) mmol/L BUN (7-17) mg/dL Creatinine (0.52-1.04) mg/dL Glucose (74-99) mg/dL POC Glucose (mg/dL) 311 H (70-110) mg/dL Plasma Lactic Acid Raghavendra (0.7-2.0) mmol/L Calcium (8.4-10.2) mg/dL Magnesium (1.6-2.3) mg/dL AST (14-36) U/L Troponin I (0.000-0.034) ng/mL Total Protein (6.3-8.2) g/dL Albumin (3.5-5.0) g/dL Urine Appearance (Clear) Urine Protein (Negative) Urine Glucose (UA) (Negative) Ur Leukocyte Esterase (Negative) Urine WBC (0-5) /hpf Urine Bacteria (None) /hpf Hyaline Casts (0-2) /lpf Urine Mucus (None) /hpf U Benzodiazepines Scrn (NotDetected) 08/07/23 08/07/23 08/07/23 Range/Units 18:58 18:58 18:58 WBC (3.8-10.6) k/uL Hct (34.0-46.0) % Plt Count (150-450) k/uL Neutrophils # (Manual) (1.3-7.7) k/uL Lymphocytes # (Manual) (1.0-4.8) k/uL Monocytes # (Manual) (0-1.0) k/uL Metamyelocytes # (Man) (0) k/uL Myelocytes # (Manual) (0) k/uL PT 14.1 H (10.0-12.5) sec INR 1.4 H (<1.2) VBG pH (7.31-7.41) VBG HCO3 (24-28) mmol/L Sodium 131 L (137-145) mmol/L Chloride 93 L (98-107) mmol/L Carbon Dioxide 15 L (22-30) mmol/L BUN 57 H (7-17) mg/dL Creatinine 4.26 H (0.52-1.04) mg/dL Glucose 456 H (74-99) mg/dL POC Glucose (mg/dL) (70-110) mg/dL Plasma Lactic Acid Raghavendra (0.7-2.0) mmol/L Calcium (8.4-10.2) mg/dL Magnesium 1.2 L (1.6-2.3) mg/dL AST 58 H (14-36) U/L Troponin I (0.000-0.034) ng/mL Total Protein (6.3-8.2) g/dL Albumin (3.5-5.0) g/dL Urine Appearance Cloudy H (Clear) Urine Protein Trace H (Negative) Urine Glucose (UA) 4+ H (Negative) Ur Leukocyte Esterase Large H (Negative) Urine WBC 72 H (0-5) /hpf Urine Bacteria Many H (None) /hpf Hyaline Casts 14 H (0-2) /lpf Urine Mucus Rare H (None) /hpf U Benzodiazepines Scrn Detected H (NotDetected) 08/07/23 08/07/23 08/07/23 Range/Units 18:58 18:58 23:12 WBC (3.8-10.6) k/uL Hct (34.0-46.0) % Plt Count (150-450) k/uL Neutrophils # (Manual) (1.3-7.7) k/uL Lymphocytes # (Manual) (1.0-4.8) k/uL Monocytes # (Manual) (0-1.0) k/uL Metamyelocytes # (Man) (0) k/uL Myelocytes # (Manual) (0) k/uL PT (10.0-12.5) sec INR (<1.2) VBG pH (7.31-7.41) VBG HCO3 (24-28) mmol/L Sodium (137-145) mmol/L Chloride (98-107) mmol/L Carbon Dioxide (22-30) mmol/L BUN (7-17) mg/dL Creatinine (0.52-1.04) mg/dL Glucose (74-99) mg/dL POC Glucose (mg/dL) 397 H (70-110) mg/dL Plasma Lactic Acid Raghavendra 4.6 H* (0.7-2.0) mmol/L Calcium (8.4-10.2) mg/dL Magnesium (1.6-2.3) mg/dL AST (14-36) U/L Troponin I 0.076 H* (0.000-0.034) ng/mL Total Protein (6.3-8.2) g/dL Albumin (3.5-5.0) g/dL Urine Appearance (Clear) Urine Protein (Negative) Urine Glucose (UA) (Negative) Ur Leukocyte Esterase (Negative) Urine WBC (0-5) /hpf Urine Bacteria (None) /hpf Hyaline Casts (0-2) /lpf Urine Mucus (None) /hpf U Benzodiazepines Scrn (NotDetected) 08/07/23 08/08/23 08/08/23 Range/Units 23:35 03:59 03:59 WBC (3.8-10.6) k/uL Hct (34.0-46.0) % Plt Count (150-450) k/uL Neutrophils # (Manual) (1.3-7.7) k/uL Lymphocytes # (Manual) (1.0-4.8) k/uL Monocytes # (Manual) (0-1.0) k/uL Metamyelocytes # (Man) (0) k/uL Myelocytes # (Manual) (0) k/uL PT (10.0-12.5) sec INR (<1.2) VBG pH (7.31-7.41) VBG HCO3 (24-28) mmol/L Sodium 134 L (137-145) mmol/L Chloride (98-107) mmol/L Carbon Dioxide 12 L (22-30) mmol/L BUN 62 H (7-17) mg/dL Creatinine 4.31 H (0.52-1.04) mg/dL Glucose 360 H (74-99) mg/dL POC Glucose (mg/dL) (70-110) mg/dL Plasma Lactic Acid Raghavendra 4.7 H* 3.5 H* (0.7-2.0) mmol/L Calcium 7.8 L (8.4-10.2) mg/dL Magnesium (1.6-2.3) mg/dL AST 57 H (14-36) U/L Troponin I (0.000-0.034) ng/mL Total Protein 5.8 L (6.3-8.2) g/dL Albumin 2.8 L (3.5-5.0) g/dL Urine Appearance (Clear) Urine Protein (Negative) Urine Glucose (UA) (Negative) Ur Leukocyte Esterase (Negative) Urine WBC (0-5) /hpf Urine Bacteria (None) /hpf Hyaline Casts (0-2) /lpf Urine Mucus (None) /hpf U Benzodiazepines Scrn (NotDetected) 08/08/23 08/08/23 Range/Units 07:39 07:44 WBC (3.8-10.6) k/uL Hct (34.0-46.0) % Plt Count (150-450) k/uL Neutrophils # (Manual) (1.3-7.7) k/uL Lymphocytes # (Manual) (1.0-4.8) k/uL Monocytes # (Manual) (0-1.0) k/uL Metamyelocytes # (Man) (0) k/uL Myelocytes # (Manual) (0) k/uL PT (10.0-12.5) sec INR (<1.2) VBG pH (7.31-7.41) VBG HCO3 (24-28) mmol/L Sodium (137-145) mmol/L Chloride (98-107) mmol/L Carbon Dioxide (22-30) mmol/L BUN (7-17) mg/dL Creatinine (0.52-1.04) mg/dL Glucose (74-99) mg/dL POC Glucose (mg/dL) 386 H (70-110) mg/dL Plasma Lactic Acid Raghavendra 2.9 H* (0.7-2.0) mmol/L Calcium (8.4-10.2) mg/dL Magnesium (1.6-2.3) mg/dL AST (14-36) U/L Troponin I (0.000-0.034) ng/mL Total Protein (6.3-8.2) g/dL Albumin (3.5-5.0) g/dL Urine Appearance (Clear) Urine Protein (Negative) Urine Glucose (UA) (Negative) Ur Leukocyte Esterase (Negative) Urine WBC (0-5) /hpf Urine Bacteria (None) /hpf Hyaline Casts (0-2) /lpf Urine Mucus (None) /hpf U Benzodiazepines Scrn (NotDetected) Assessment and Plan Assessment: Assessment and plan * Severe sepsis secondary to urinary tract infection * Elevated troponin rule out ACS * Acute metabolic encephalopathy * Acute renal failure * Diabetes mellitus type 2 * In regards to severe sepsis, blood cultures ordered, urine cultures ordered continue patient on cefepime. Infectious disease, nephrology consulted him a serial lactate levels ordered continue with fluid hydration * In regards to elevated troponin, serial troponins ordered echocardiogram ordered cardiology consulted patient started on aspirin, continue metoprolol, patient started on IV heparin drip * In regards to renal failure, losartan discontinued continue with fluid resuscitation nephrology consulted continue to monitor intake and output * In regards to diabetes mellitus, HbA1c was 9 in 2018, patient started on Lantus, continue correctional insulin * CODE STATUS is full code
[2023-08-08] MEDS ORDERED: HEPARIN SOD,PORK IN 0.45% NACL 25,000 UNIT in 0.45% NACL 1 250ML.BAG IV SCH (12:30)
[2023-08-08] MEDS ORDERED: HEPARIN SODIUM 1,000 UN/ML (10ML VL) IV ONE (12:30)
--- NOTE | 2023-08-08 12:42 | US ---
EXAMINATION TYPE: US kidneys/renal and bladder DATE OF EXAM: 08/08/2023 COMPARISON: US 2010 CLINICAL INDICATION: Female, 77 years old with history of junior; JUNIOR EXAM MEASUREMENTS: Right Kidney: 10.6 x 5.1 x 4.7 cm Left Kidney: 10.9 x 5.3 x 5.1 cm Right Kidney: Lobulated contour, no evidence of hydro Left Kidney: Lobulated contour, no evidence of hydro Bladder: Pt has nuñez cath in place There is no evidence for hydronephrosis at this point in time. No nephrolithiasis is seen. No bry s are identified. The urinary bladder is anechoic. Bilateral ureteral jets are seen. IMPRESSION: No evidence for obstructive uropathy. Cortical medullary differentiation maintained.
[2023-08-08] MEDS: DEXTROSE 5% IN WATER 1,000 ML with SODIUM BICARB (1 MEQ/ML) 150 ML IV SCH (13:14)
[2023-08-08 13:23] LABS: INR 1.1 (<1.2); Partial Thromboplastin Time 23.8 sec (22.0-30.0); Prothrombin Time 11.4 sec (10.0-12.5)
[2023-08-08 13:47] LABS: ABG HCO3 15 mmol/L (21-25); ABG Oxygen Saturation 92.8 % (94-97); ABG PCO2 30 mmHg (35-45); ABG PO2 67 mmHg (83-108)
[2023-08-08 13:56] LABS: Glucose,Whole Blood 263 mg/dL (70-110)
[2023-08-08 14:21] LABS: HCT 39.2 % (34.0-46.0); MCH 30.2 pg (25.0-35.0); MCHC 33.2 g/dL (31.0-37.0); MCV 90.8 fL (80.0-100.0); Mean Platelet Volume 10.5; Platelet Count 77 k/uL (150-450); RBC 4.32 m/uL (3.80-5.40); RDW 13.4 % (11.5-15.5); WBC 15.6 k/uL (3.8-10.6)
[2023-08-08 15:01] LABS: Band Neutrophils % 10 %; Lymphocytes # (M) 0.31 k/uL (1.0-4.8); Metamyelocytes # (M) 0.31 k/uL (0); Metamyelocytes % 2 %; Monocytes # (M) 0.31 k/uL (0-1.0); Neutrophils % (M) 86 %; Nucleated Red Blood Cells 0 /100 WBC (0-0); Total Cells Counted 200
[2023-08-08 15:02] LABS: Crenated RBC Present; Toxic Granulation Present; Toxic Vacuolation Present
[2023-08-08] MEDS ORDERED: ZINC OXIDE PASTE (Z-GUARD) 1 APPLIC APPLIC TOPICAL PRN (15:08)
[2023-08-08 15:21] LABS: Glucose,Whole Blood 271 mg/dL (70-110)
[2023-08-08] MEDS: MAGNESIUM SULFATE-D5W PMX 1 GM in DEXTROSE/WATER 1 100ML.BAG IVPB SCH ×2 (15:27→16:48)
[2023-08-08 17:21] LABS: Glucose,Whole Blood 288 mg/dL (70-110)
--- NOTE | 2023-08-08 18:41 | P.CARDCATH ---
Date of Procedure: 08/08/23 Description of Procedure: HISTORY OF PRESENTING ILLNESS 77-year-old female with past medical history of hypertension presented to the ER with altered mental status. She was found in confused state and with significant weakness. Apparently she was found for with broken glass. On admission she was noticed to be significantly hyperglycemic with blood glucose 400, evidence of JUNIOR with creatinine of 4.26. Prior baseline was normal. Lactate of 4.2. Cardiogenic consulted for elevation of troponin. Init ial troponin was negative with a repeat troponin of 0.07 with a flat pattern. ECG did not show any significant ST-T wave changes diagnostic for ischemia. There was normal sinus rhythm. She's been transferred to ICU for septic shock management REVIEW OF SYSTEMS 14 point review of system is negative except what is mentioned above in HPI. PHYSICAL EXAMINATION Vital signs reviewed. Head: Normocephalic. Eyes: Sclerae nonicteric. Neck: Brisk carotid upstroke, no jugular venous distention. Lungs: Poor inspiratory effort, rhonchi audible. Heart: Regular rate and rhythm, S1-S2, no S3, no murmur or rub. Abdomen: Soft nontender,. Extremities: No significant swelling in bilateral lower extremity Neuro: Somnolent, only mumbling to verbal commands were drawn to pain, detailed exam was not performed ASSESSMENT Elevation of troponin due to septic shock, and poor renal clearance Septic shock likely UTI Acute metabolic encephalopathy JUNIOR Lactic acidosis Poorly controlled diabetes PLAN Discontinue IV heparin drip Obtain echocardiogram Hold nephrotoxic medications including losartan. Hold metoprolol at this time. Septic shock management as per ICU and primary team
[2023-08-08 20:03] LABS: Glucose,Whole Blood 251 mg/dL (70-110)
--- NOTE | 2023-08-08 23:26 | P.CONS ---
History of Present Illness - Reason for Consult Consult date: 08/08/23 Severe sepsis Requesting physician: Lady Juarez - Chief Complaint Weakness x few days - History of Present Illness Patient is a 77-year-old female with a past medical his significant for hypertension the patient has been brought into the ER concerning for mental status changes with the history provided mostly by the daughter mention the patient was not answering her phone so when they went to check on her the patient was noticed to be weak lethargic and confused for the patient has been brought into the hospital on presentation to the hospital patient was afebrile and no fever has been recorded subsequently patient was mildly tachycardic not hypotensive or hypoxic patient did have elevated lactic acid and a white count of 30,000 with a left shift BUN/creatinine has been elevated liver exams AST was mildly elevated ALT was normal urine has been positive patient did have a chest x-ray low lung volumes with generalized hazy appearance patient received a dose of cefepime has been admitted to hospital infectious disease was consulted for further management of antibiotic therapy patient at time of my evaluation was lethargic but arousable patient denies having any headache or URI symptoms no chest pain shortness of breath or cough no abdominal pain and no diarrhea has been reported did have some vague urinary symptoms Review of Systems Positive point and negatives has been mentioned in the HPI, complete review of systems was performed and all other systems are negative Past Medical History Past Medical History: No Reported History History of Any Multi-Drug Resistant Organisms: None Reported Past Surgical History: No Surgical Hx Reported Past Psychological History: No Psychological Hx Reported Smoking Status: Never smoker Past Alcohol Use History: None Reported Past Drug Use History: None Reported Medications and Allergies Home Medications Medication Instructions Recorded Confirmed Type LORazepam [Ativan] 1 mg PO TID PRN 08/07/23 08/07/23 History Losartan Potassium 100 mg PO DAILY 08/07/23 08/07/23 History Metoprolol Tartrate [Lopressor] 25 mg PO TID 08/07/23 08/07/23 History Allergies Allergy/AdvReac Type Severity Reaction Status Date / Time Penicillins Allergy Unknown Verified 08/07/23 21:01 metformin AdvReac Nausea & Verified 08/07/23 21:01 Vomiting & Diarrhea Physical Exam Vitals: Vital Signs Temp Pulse Pulse Resp BP BP Pulse Ox 08/08/23 07:32 87 30 H 130/89 92 L 08/08/23 05:00 108 H 22 124/63 97 08/08/23 04:00 98.2 F 98 20 124/63 92 L 08/08/23 02:00 98 20 08/08/23 00:00 97.3 F L 110 H 24 115/73 94 L 08/07/23 23:46 116 H 27 H 121/88 08/07/23 22:31 94 25 H 124/64 95 08/07/23 20:55 89 21 113/76 95 08/07/23 19:53 79 17 113/76 94 L 08/07/23 18:30 97.0 F L 82 18 94/63 95 Intake and Output 08/07/23 08/08/23 08/08/23 22:59 06:59 14:59 Intake Total 100 Output Total 75 Balance 25 Intake: Intake, IV Titration 100 Amount Sodium Chloride 0.9% 1, 100 000 ml @ 100 mls/hr IV . Q10H [facility] Rx#:[id number] Output: Urine 75 Other: Voiding Method Indwelling Catheter Weight 77.111 kg GENERAL DESCRIPTION: Elderly female lying in bed, no distress. No tachypnea or accessory muscle of respiration use. HEENT: Shows Pallor , no scleral icterus. Oral mucous membrane is dry. No pharyngeal erythema or thrush NECK: Trachea central, no thyromegaly. LUNGS: Unlabored breathing. Clear to auscultation anteriorly. HEART: S1, S2, regular rate and rhythm. No loud murmur ABDOMEN: Soft, no tenderness , guarding or rigidity, EXTREMITIES: No edema of feet. SKIN: No rash, no masses palpable. NEUROLOGICAL: The patient is lethargic but arousable mood and affect is normal. Results CBC & Chem 7: 08/08/23 14:07 08/08/23 09:52 Labs: Abnormal Lab Results - Last 24 Hours (Table) 08/07/23 08/07/23 08/07/23 Range/Units 16:35 18:45 18:58 WBC 30.8 H (3.8-10.6) k/uL Hct 46.3 H (34.0-46.0) % Plt Count 124 L (150-450) k/uL Neutrophils # (Manual) 28.30 H (1.3-7.7) k/uL Lymphocytes # (Manual) 0.62 L (1.0-4.8) k/uL Monocytes # (Manual) 1.23 H (0-1.0) k/uL Metamyelocytes # (Man) 0.62 H (0) k/uL Myelocytes # (Manual) 0.31 H (0) k/uL PT (10.0-12.5) sec INR (<1.2) VBG pH 7.26 L (7.31-7.41) VBG HCO3 20 L (24-28) mmol/L Sodium (137-145) mmol/L Chloride (98-107) mmol/L Carbon Dioxide (22-30) mmol/L BUN (7-17) mg/dL Creatinine (0.52-1.04) mg/dL Glucose (74-99) mg/dL POC Glucose (mg/dL) 311 H (70-110) mg/dL Plasma Lactic Acid Raghavendra (0.7-2.0) mmol/L Calcium (8.4-10.2) mg/dL Magnesium (1.6-2.3) mg/dL AST (14-36) U/L Troponin I (0.000-0.034) ng/mL Total Protein (6.3-8.2) g/dL Albumin (3.5-5.0) g/dL Urine Appearance (Clear) Urine Protein (Negative) Urine Glucose (UA) (Negative) Ur Leukocyte Esterase (Negative) Urine WBC (0-5) /hpf Urine Bacteria (None) /hpf Hyaline Casts (0-2) /lpf Urine Mucus (None) /hpf U Benzodiazepines Scrn (NotDetected) 08/07/23 08/07/23 08/07/23 Range/Units 18:58 18:58 18:58 WBC (3.8-10.6) k/uL Hct (34.0-46.0) % Plt Count (150-450) k/uL Neutrophils # (Manual) (1.3-7.7) k/uL Lymphocytes # (Manual) (1.0-4.8) k/uL Monocytes # (Manual) (0-1.0) k/uL Metamyelocytes # (Man) (0) k/uL Myelocytes # (Manual) (0) k/uL PT 14.1 H (10.0-12.5) sec INR 1.4 H (<1.2) VBG pH (7.31-7.41) VBG HCO3 (24-28) mmol/L Sodium 131 L (137-145) mmol/L Chloride 93 L (98-107) mmol/L Carbon Dioxide 15 L (22-30) mmol/L BUN 57 H (7-17) mg/dL Creatinine 4.26 H (0.52-1.04) mg/dL Glucose 456 H (74-99) mg/dL POC Glucose (mg/dL) (70-110) mg/dL Plasma Lactic Acid Raghavendra (0.7-2.0) mmol/L Calcium (8.4-10.2) mg/dL Magnesium 1.2 L (1.6-2.3) mg/dL AST 58 H (14-36) U/L Troponin I (0.000-0.034) ng/mL Total Protein (6.3-8.2) g/dL Albumin (3.5-5.0) g/dL Urine Appearance Cloudy H (Clear) Urine Protein Trace H (Negative) Urine Glucose (UA) 4+ H (Negative) Ur Leukocyte Esterase Large H (Negative) Urine WBC 72 H (0-5) /hpf Urine Bacteria Many H (None) /hpf Hyaline Casts 14 H (0-2) /lpf Urine Mucus Rare H (None) /hpf U Benzodiazepines Scrn Detected H (NotDetected) 08/07/23 08/07/23 08/07/23 Range/Units 18:58 18:58 23:12 WBC (3.8-10.6) k/uL Hct (34.0-46.0) % Plt Count (150-450) k/uL Neutrophils # (Manual) (1.3-7.7) k/uL Lymphocytes # (Manual) (1.0-4.8) k/uL Monocytes # (Manual) (0-1.0) k/uL Metamyelocytes # (Man) (0) k/uL Myelocytes # (Manual) (0) k/uL PT (10.0-12.5) sec INR (<1.2) VBG pH (7.31-7.41) VBG HCO3 (24-28) mmol/L Sodium (137-145) mmol/L Chloride (98-107) mmol/L Carbon Dioxide (22-30) mmol/L BUN (7-17) mg/dL Creatinine (0.52-1.04) mg/dL Glucose (74-99) mg/dL POC Glucose (mg/dL) 397 H (70-110) mg/dL Plasma Lactic Acid Raghavendra 4.6 H* (0.7-2.0) mmol/L Calcium (8.4-10.2) mg/dL Magnesium (1.6-2.3) mg/dL AST (14-36) U/L Troponin I 0.076 H* (0.000-0.034) ng/mL Total Protein (6.3-8.2) g/dL Albumin (3.5-5.0) g/dL Urine Appearance (Clear) Urine Protein (Negative) Urine Glucose (UA) (Negative) Ur Leukocyte Esterase (Negative) Urine WBC (0-5) /hpf Urine Bacteria (None) /hpf Hyaline Casts (0-2) /lpf Urine Mucus (None) /hpf U Benzodiazepines Scrn (NotDetected) 08/07/23 08/08/23 08/08/23 Range/Units 23:35 03:59 03:59 WBC (3.8-10.6) k/uL Hct (34.0-46.0) % Plt Count (150-450) k/uL Neutrophils # (Manual) (1.3-7.7) k/uL Lymphocytes # (Manual) (1.0-4.8) k/uL Monocytes # (Manual) (0-1.0) k/uL Metamyelocytes # (Man) (0) k/uL Myelocytes # (Manual) (0) k/uL PT (10.0-12.5) sec INR (<1.2) VBG pH (7.31-7.41) VBG HCO3 (24-28) mmol/L Sodium 134 L (137-145) mmol/L Chloride (98-107) mmol/L Carbon Dioxide 12 L (22-30) mmol/L BUN 62 H (7-17) mg/dL Creatinine 4.31 H (0.52-1.04) mg/dL Glucose 360 H (74-99) mg/dL POC Glucose (mg/dL) (70-110) mg/dL Plasma Lactic Acid Raghavendra 4.7 H* 3.5 H* (0.7-2.0) mmol/L Calcium 7.8 L (8.4-10.2) mg/dL Magnesium (1.6-2.3) mg/dL AST 57 H (14-36) U/L Troponin I (0.000-0.034) ng/mL Total Protein 5.8 L (6.3-8.2) g/dL Albumin 2.8 L (3.5-5.0) g/dL Urine Appearance (Clear) Urine Protein (Negative) Urine Glucose (UA) (Negative) Ur Leukocyte Esterase (Negative) Urine WBC (0-5) /hpf Urine Bacteria (None) /hpf Hyaline Casts (0-2) /lpf Urine Mucus (None) /hpf U Benzodiazepines Scrn (NotDetected) 08/08/23 08/08/23 08/08/23 Range/Units 07:39 07:44 09:52 WBC (3.8-10.6) k/uL Hct (34.0-46.0) % Plt Count (150-450) k/uL Neutrophils # (Manual) (1.3-7.7) k/uL Lymphocytes # (Manual) (1.0-4.8) k/uL Monocytes # (Manual) (0-1.0) k/uL Metamyelocytes # (Man) (0) k/uL Myelocytes # (Manual) (0) k/uL PT (10.0-12.5) sec INR (<1.2) VBG pH (7.31-7.41) VBG HCO3 (24-28) mmol/L Sodium (137-145) mmol/L Chloride (98-107) mmol/L Carbon Dioxide (22-30) mmol/L BUN (7-17) mg/dL Creatinine (0.52-1.04) mg/dL Glucose (74-99) mg/dL POC Glucose (mg/dL) 386 H (70-110) mg/dL Plasma Lactic Acid Raghavendra 2.9 H* (0.7-2.0) mmol/L Calcium (8.4-10.2) mg/dL Magnesium (1.6-2.3) mg/dL AST (14-36) U/L Troponin I 0.050 H* (0.000-0.034) ng/mL Total Protein (6.3-8.2) g/dL Albumin (3.5-5.0) g/dL Urine Appearance (Clear) Urine Protein (Negative) Urine Glucose (UA) (Negative) Ur Leukocyte Esterase (Negative) Urine WBC (0-5) /hpf Urine Bacteria (None) /hpf Hyaline Casts (0-2) /lpf Urine Mucus (None) /hpf U Benzodiazepines Scrn (NotDetected) 08/08/23 08/08/23 08/08/23 Range/Units 09:52 09:52 09:52 WBC 26.0 H (3.8-10.6) k/uL Hct (34.0-46.0) % Plt Count 101 L (150-450) k/uL Neutrophils # (Manual) 24.10 H (1.3-7.7) k/uL Lymphocytes # (Manual) 0.52 L (1.0-4.8) k/uL Monocytes # (Manual) (0-1.0) k/uL Metamyelocytes # (Man) 0.78 H (0) k/uL Myelocytes # (Manual) 0.26 H (0) k/uL PT (10.0-12.5) sec INR (<1.2) VBG pH (7.31-7.41) VBG HCO3 (24-28) mmol/L Sodium 135 L (137-145) mmol/L Chloride (98-107) mmol/L Carbon Dioxide 12 L (22-30) mmol/L BUN 67 H (7-17) mg/dL Creatinine 4.49 H (0.52-1.04) mg/dL Glucose 376 H (74-99) mg/dL POC Glucose (mg/dL) (70-110) mg/dL Plasma Lactic Acid Raghavendra 3.6 H* (0.7-2.0) mmol/L Calcium 8.0 L (8.4-10.2) mg/dL Magnesium (1.6-2.3) mg/dL AST (14-36) U/L Troponin I (0.000-0.034) ng/mL Total Protein (6.3-8.2) g/dL Albumin (3.5-5.0) g/dL Urine Appearance (Clear) Urine Protein (Negative) Urine Glucose (UA) (Negative) Ur Leukocyte Esterase (Negative) Urine WBC (0-5) /hpf Urine Bacteria (None) /hpf Hyaline Casts (0-2) /lpf Urine Mucus (None) /hpf U Benzodiazepines Scrn (NotDetected) 08/08/23 Range/Units 10:25 WBC (3.8-10.6) k/uL Hct (34.0-46.0) % Plt Count (150-450) k/uL Neutrophils # (Manual) (1.3-7.7) k/uL Lymphocytes # (Manual) (1.0-4.8) k/uL Monocytes # (Manual) (0-1.0) k/uL Metamyelocytes # (Man) (0) k/uL Myelocytes # (Manual) (0) k/uL PT (10.0-12.5) sec INR (<1.2) VBG pH (7.31-7.41) VBG HCO3 (24-28) mmol/L Sodium (137-145) mmol/L Chloride (98-107) mmol/L Carbon Dioxide (22-30) mmol/L BUN (7-17) mg/dL Creatinine (0.52-1.04) mg/dL Glucose (74-99) mg/dL POC Glucose (mg/dL) 343 H (70-110) mg/dL Plasma Lactic Acid Raghavendra (0.7-2.0) mmol/L Calcium (8.4-10.2) mg/dL Magnesium (1.6-2.3) mg/dL AST (14-36) U/L Troponin I (0.000-0.034) ng/mL Total Protein (6.3-8.2) g/dL Albumin (3.5-5.0) g/dL Urine Appearance (Clear) Urine Protein (Negative) Urine Glucose (UA) (Negative) Ur Leukocyte Esterase (Negative) Urine WBC (0-5) /hpf Urine Bacteria (None) /hpf Hyaline Casts (0-2) /lpf Urine Mucus (None) /hpf U Benzodiazepines Scrn (NotDetected) Assessment and Plan (1) Sepsis Current Visit: Yes Status: Acute Code(s): A41.9 - SEPSIS, UNSPECIFIED ORGANISM SNOMED Code(s): 27833018 (2) Penicillin allergy Current Visit: Yes Status: Acute Code(s): Z88.0 - ALLERGY STATUS TO PENICILLIN SNOMED Code(s): 59028899 (3) UTI (urinary tract infection) Current Visit: Yes Status: Acute Code(s): N39.0 - URINARY TRACT INFECTION, SITE NOT SPECIFIED SNOMED Code(s): 01687780 Plan: 1patient presented hospital with weakness mental status changes source is likely multifactorial in this patient with significant dehydration and prerenal also have a positive UA and likely a component of symptomatic urinary tract infection from enteric gram-negative pathogen 2-Penicillin allergy that been admitted number of antibiotics safe to use 3-we will continue patient on cefepime while waiting for the culture to finalize 4-gentle IV fluid Family at the bedside questions concern answered We will follow on clinical condition and cultures to further adjust medication if needed Thank you for this consultation we will follow the patient along with you Dictation was produced using [employer] dictation software. please excuse any grammatical, word or spelling errors. Time with Patient: Greater than 30
[2023-08-08 23:57] LABS: Glucose,Whole Blood 255 mg/dL (70-110)
[2023-08-09] MEDS: DEXTROSE 5% IN WATER 1,000 ML with SODIUM BICARB (1 MEQ/ML) 150 ML IV SCH (00:44)
[2023-08-09 00:51] LABS: Glucose,Whole Blood 237 mg/dL (70-110)
[2023-08-09 02:25] LABS: Glucose,Whole Blood 217 mg/dL (70-110)
[2023-08-09] MEDS: INSULIN ASPART (NovoLOG) 100 UNIT/ML VIAL SQ SCH ×5 (02:26→20:40)
--- NOTE | 2023-08-09 03:42 | P.CNPUL ---
History of Present Illness Consult date: 08/09/23 Requesting physician: Lady Juarez Reason for consult: other (Urosepsis; ICU management) Chief complaint: Altered mental status, weakness History of present illness: I am seeing this patient in consultation today 08/09/2023 in the intensive care unit after the patient was found down on the floor and confused by her neighbor. Patient is a 77-year-old female with unknown past medical history. She is currently confused and unable to provide meaningful information in regard to her HPI and events leading this hospitalization. Apparently, the patient was found down on the floor, confused, by her neighbor. Downtime is unknown. Patient was evaluated by EMS and transferred to the emergency room on July. Brain CT on arrival did not show any acute intracranial process. Initially, the patient was placed on a heparin infusion for possible NSTEMI, which has been ruled out. Patient was felt to be septic, and admitted to the intensive care unit. Patient is currently sitting in the bed, on 2 L/m nasal cannula, in no acute distress. Blood pressure is normotensive. Not requiring any vasopressors. Heart rhythm appears normal sinus on bedside monitor. Chest x- ray on arrival showed low lung volumes and slightly increased central vascular congestion. Slightly increased interstitial markings could be related to low lung volumes, edema, or pneumonitis. Patient's urinalysis was consistent with UTI, and the patient's preliminary blood results have come back positive with E. coli. Patient is currently on Rocephin. Most recent CBC from yesterday shows an improvement WBC count down to 15.6, hemoglobin 13, hematocrit 39.2, platelets 77. ABG from yesterday shows a pO2 of 67, pCO2 of 30, pH is 7.3. This was done on room air. BMP from yesterday shows a sodium 135, potassium 4.4, chloride 101, serum bicarb down to 12, BUN 67, creatinine 4.49, glucose 376. Lactic acid level was elevated at 4.7 is down to 1.5. CPK is elevated at 1588. 3 A Sodium bicarb and D5W is currently infusing at 100 ML's per hour. Normal saline is infusing at 20 ML's per hour. Urine output is oliguric, but improving around 50-60 ML's per hour. Troponins are 0.076, 0.05, 0.056 respectively. NT proBNP was elevated at 16,800. Toxicology screen positive for benzodiazepines. Patient will be monitored in the intensive care unit. Review of Systems REVIEW OF SYSTEMS: CONSTITUTIONAL: Denies any recent significant weight loss or weight gain. EYES: Denies change in vision. EARS, NOSE, MOUTH, THROAT: Denies headaches, denies sore throat. CARDIOVASCULAR: Denies chest pain, palpitations or syncopal episodes. RESPIRATORY: Denies shortness of breath, cough, congestion or hemoptysis. GASTROINTESTINAL: Denies change in appetite, abdominal pain, nausea and vomiting, or diarrhea GENITOURINARY: Denies hematuria, denies dysuria, frequency. Admits suprapubic tenderness MUSKULOSKELETAL: Denies pain, denies swelling. INTEGUMENTARY: Denies rash, denies eczema. NEUROLOGICAL: Denies recent memory loss, no recent seizure activity. PSYCHIATRIC: Denies anxiety, denies depression. HEMATOLOGIC/LYMPHATIC: Denies anemia, denies enlarged lymph node Past Medical History Past Medical History: No Reported History Additional Past Medical History / Comment(s): pts son states "my mom doesn't go to the doctor, I'm pretty sure she was taking medicaiton for her sugar and blood pressure." History of Any Multi-Drug Resistant Organisms: None Reported Past Surgical History: No Surgical Hx Reported Past Psychological History: No Psychological Hx Reported Smoking Status: Never smoker Past Alcohol Use History: None Reported Past Drug Use History: None Reported Medications and Allergies Home Medications Medication Instructions Recorded Confirmed Type LORazepam [Ativan] 1 mg PO TID PRN 08/07/23 08/07/23 History Losartan Potassium 100 mg PO DAILY 08/07/23 08/07/23 History Metoprolol Tartrate [Lopressor] 25 mg PO TID 08/07/23 08/07/23 History Allergies Allergy/AdvReac Type Severity Reaction Status Date / Time Penicillins Allergy Unknown Verified 08/07/23 21:01 metformin AdvReac Nausea & Verified 08/07/23 21:01 Vomiting & Diarrhea Physical Exam Vitals: Vital Signs Temp Pulse Pulse Resp BP BP Pulse Ox 08/09/23 01:00 68 22 98/51 99 08/09/23 00:00 98 F 74 21 123/65 97 08/08/23 23:00 84 22 128/80 96 08/08/23 22:14 72 25 H 133/70 96 08/08/23 22:00 77 24 119/70 96 08/08/23 21:00 65 23 116/59 95 08/08/23 20:00 97.8 F 77 21 109/66 96 08/08/23 19:00 72 25 H 121/63 95 08/08/23 18:00 78 29 H 93/55 95 08/08/23 17:00 87 28 H 106/53 97 08/08/23 16:00 98.4 F 82 28 H 101/57 95 08/08/23 15:13 101/51 96 08/08/23 14:00 80 28 H 91/45 95 08/08/23 13:41 92 L 08/08/23 13:00 98.3 F 95 34 H 146/135 93 L 08/08/23 12:00 92 30 H 87/75 95 08/08/23 07:32 87 30 H 130/89 92 L 08/08/23 05:00 108 H 22 124/63 97 08/08/23 04:00 98.2 F 98 20 124/63 92 L Intake and Output 08/08/23 08/08/23 08/09/23 14:59 22:59 06:59 Intake Total 934.699 550 Output Total 75 55 135 Balance -75 879.699 415 Intake: IV 900 550 Dextrose 5% in Water 1, 700 500 000 ml @ 100 mls/hr IV . [id number] [facility] with Sodium Bicarb (1 Meq/ml) 150 ml Rx#:[id number] Magnesium Sulfate-D5w Pmx 200 1 gm In Dextrose/Water 1 100ml.bag @ 100 mls/hr IVPB Q1H [facility] Rx#: [id number] cefTRIAXone 2 gm In 50 Sodium Chloride 0.9% 50 ml @ 100 mls/hr IVPB Q24H [facility] Rx#:[id number] Intake, IV Titration 34.699 Amount Heparin Sod,Pork in 0.45% 34.699 NaCl 25,000 unit In 0.45 % NaCl 1 250ml.bag @ 12 UNITS/KG/HR 9.253 mls/hr IV .Q24H [facility] Rx#: [id number] Output: Urine 75 55 135 Other: Voiding Method Indwelling Catheter Indwelling Catheter # Voids 0 GENERAL EXAM: Alert but disoriented to time and situation, 77-year-old white female, comfortable in no apparent distress. HEAD: Normocephalic and atraumatic EYES: Normal reaction of pupils, equal size. Left periorbital ecchymosis NOSE: Clear with pink turbinates. THROAT: No erythema or exudates. NECK: No masses, no JVD. CHEST: No chest wall deformity. LUNGS: Equal air entry with diminished lung sounds throughout. no crackles, wheeze, rhonchi or dullness. On 2 L/m nasal cannula. No conversational dyspnea or accessory muscle use.. CVS: S1 and S2 normal with no audible murmur, regular rhythm. No extra heart sounds ABDOMEN: No hepatosplenomegaly, active bowel sounds, no guarding or rigidity. SPINE: No scoliosis or deformity SKIN: No rashes CENTRAL NERVOUS SYSTEM: No focal deficits, tone is normal in all 4 extremities. EXTREMITIES: There is no peripheral edema, clubbing, or cyanosis. Peripheral pulses are intact. Results - Laboratory Findings CBC and BMP: 08/09/23 04:24 08/09/23 04:24 ABG ABG pH 7.30 (7.35-7.45) L 08/08/23 13:45 ABG pCO2 30 mmHg (35-45) L 08/08/23 13:45 ABG pO2 67 mmHg (83-108) L 08/08/23 13:45 ABG O2 Saturation 92.8 % (94-97) L 08/08/23 13:45 PT/INR, D-dimer PT 11.4 sec (10.0-12.5) 08/08/23 12:38 INR 1.1 (<1.2) 08/08/23 12:38 Abnormal lab findings: Abnormal Labs 08/07/23 08/07/23 08/07/23 16:35 18:45 18:58 WBC 30.8 H Hct 46.3 H Plt Count 124 L Neutrophils # (Manual) 28.30 H Lymphocytes # (Manual) 0.62 L Monocytes # (Manual) 1.23 H Metamyelocytes # (Man) 0.62 H Myelocytes # (Manual) 0.31 H PT INR ABG pH ABG pCO2 ABG pO2 ABG HCO3 ABG O2 Saturation VBG pH 7.26 L VBG HCO3 20 L Sodium Chloride Carbon Dioxide BUN Creatinine Glucose POC Glucose (mg/dL) 311 H Hemoglobin A1c Plasma Lactic Acid Raghavendra Calcium Magnesium AST Creatine Kinase Troponin I Total Protein Albumin Urine Appearance Urine Protein Urine Glucose (UA) Ur Leukocyte Esterase Urine WBC Urine Bacteria Hyaline Casts Urine Mucus U Benzodiazepines Scrn 08/07/23 08/07/23 08/07/23 18:58 18:58 18:58 WBC Hct Plt Count Neutrophils # (Manual) Lymphocytes # (Manual) Monocytes # (Manual) Metamyelocytes # (Man) Myelocytes # (Manual) PT 14.1 H INR 1.4 H ABG pH ABG pCO2 ABG pO2 ABG HCO3 ABG O2 Saturation VBG pH VBG HCO3 Sodium 131 L Chloride 93 L Carbon Dioxide 15 L BUN 57 H Creatinine 4.26 H Glucose 456 H POC Glucose (mg/dL) Hemoglobin A1c Plasma Lactic Acid Raghavendra Calcium Magnesium 1.2 L AST 58 H Creatine Kinase Troponin I Total Protein Albumin Urine Appearance Cloudy H Urine Protein Trace H Urine Glucose (UA) 4+ H Ur Leukocyte Esterase Large H Urine WBC 72 H Urine Bacteria Many H Hyaline Casts 14 H Urine Mucus Rare H U Benzodiazepines Scrn Detected H 08/07/23 08/07/23 08/07/23 18:58 18:58 23:12 WBC Hct Plt Count Neutrophils # (Manual) Lymphocytes # (Manual) Monocytes # (Manual) Metamyelocytes # (Man) Myelocytes # (Manual) PT INR ABG pH ABG pCO2 ABG pO2 ABG HCO3 ABG O2 Saturation VBG pH VBG HCO3 Sodium Chloride Carbon Dioxide BUN Creatinine Glucose POC Glucose (mg/dL) 397 H Hemoglobin A1c Plasma Lactic Acid Raghavendra 4.6 H* Calcium Magnesium AST Creatine Kinase Troponin I 0.076 H* Total Protein Albumin Urine Appearance Urine Protein Urine Glucose (UA) Ur Leukocyte Esterase Urine WBC Urine Bacteria Hyaline Casts Urine Mucus U Benzodiazepines Scrn 08/07/23 08/08/23 08/08/23 23:35 03:59 03:59 WBC Hct Plt Count Neutrophils # (Manual) Lymphocytes # (Manual) Monocytes # (Manual) Metamyelocytes # (Man) Myelocytes # (Manual) PT INR ABG pH ABG pCO2 ABG pO2 ABG HCO3 ABG O2 Saturation VBG pH VBG HCO3 Sodium 134 L Chloride Carbon Dioxide 12 L BUN 62 H Creatinine 4.31 H Glucose 360 H POC Glucose (mg/dL) Hemoglobin A1c 12.3 H Plasma Lactic Acid Raghavendra 4.7 H* Calcium 7.8 L Magnesium AST 57 H Creatine Kinase Troponin I Total Protein 5.8 L Albumin 2.8 L Urine Appearance Urine Protein Urine Glucose (UA) Ur Leukocyte Esterase Urine WBC Urine Bacteria Hyaline Casts Urine Mucus U Benzodiazepines Scrn 08/08/23 08/08/23 08/08/23 03:59 07:39 07:44 WBC Hct Plt Count Neutrophils # (Manual) Lymphocytes # (Manual) Monocytes # (Manual) Metamyelocytes # (Man) Myelocytes # (Manual) PT INR ABG pH ABG pCO2 ABG pO2 ABG HCO3 ABG O2 Saturation VBG pH VBG HCO3 Sodium Chloride Carbon Dioxide BUN Creatinine Glucose POC Glucose (mg/dL) 386 H Hemoglobin A1c Plasma Lactic Acid Raghavendra 3.5 H* 2.9 H* Calcium Magnesium AST Creatine Kinase Troponin I Total Protein Albumin Urine Appearance Urine Protein Urine Glucose (UA) Ur Leukocyte Esterase Urine WBC Urine Bacteria Hyaline Casts Urine Mucus U Benzodiazepines Scrn 08/08/23 08/08/23 08/08/23 09:52 09:52 09:52 WBC 26.0 H Hct Plt Count 101 L Neutrophils # (Manual) 24.10 H Lymphocytes # (Manual) 0.52 L Monocytes # (Manual) Metamyelocytes # (Man) 0.78 H Myelocytes # (Manual) 0.26 H PT INR ABG pH ABG pCO2 ABG pO2 ABG HCO3 ABG O2 Saturation VBG pH VBG HCO3 Sodium 135 L Chloride Carbon Dioxide 12 L BUN 67 H Creatinine 4.49 H Glucose 376 H POC Glucose (mg/dL) Hemoglobin A1c Plasma Lactic Acid Raghavendra Calcium 8.0 L Magnesium AST Creatine Kinase Troponin I 0.050 H* Total Protein Albumin Urine Appearance Urine Protein Urine Glucose (UA) Ur Leukocyte Esterase Urine WBC Urine Bacteria Hyaline Casts Urine Mucus U Benzodiazepines Scrn 08/08/23 08/08/23 08/08/23 09:52 09:52 10:25 WBC Hct Plt Count Neutrophils # (Manual) Lymphocytes # (Manual) Monocytes # (Manual) Metamyelocytes # (Man) Myelocytes # (Manual) PT INR ABG pH ABG pCO2 ABG pO2 ABG HCO3 ABG O2 Saturation VBG pH VBG HCO3 Sodium Chloride Carbon Dioxide BUN Creatinine Glucose POC Glucose (mg/dL) 343 H Hemoglobin A1c Plasma Lactic Acid Raghavendra 3.6 H* Calcium Magnesium AST Creatine Kinase 1588 H* Troponin I Total Protein Albumin Urine Appearance Urine Protein Urine Glucose (UA) Ur Leukocyte Esterase Urine WBC Urine Bacteria Hyaline Casts Urine Mucus U Benzodiazepines Scrn 08/08/23 08/08/23 08/08/23 12:38 12:43 13:45 WBC Hct Plt Count Neutrophils # (Manual) Lymphocytes # (Manual) Monocytes # (Manual) Metamyelocytes # (Man) Myelocytes # (Manual) PT INR ABG pH 7.30 L ABG pCO2 30 L ABG pO2 67 L ABG HCO3 15 L ABG O2 Saturation 92.8 L VBG pH VBG HCO3 Sodium Chloride Carbon Dioxide BUN Creatinine Glucose POC Glucose (mg/dL) Hemoglobin A1c Plasma Lactic Acid Raghavendra 3.5 H* Calcium Magnesium AST Creatine Kinase Troponin I 0.056 H* Total Protein Albumin Urine Appearance Urine Protein Urine Glucose (UA) Ur Leukocyte Esterase Urine WBC Urine Bacteria Hyaline Casts Urine Mucus U Benzodiazepines Scrn 08/08/23 08/08/23 08/08/23 13:53 14:07 14:07 WBC 15.6 H Hct Plt Count 77 L Neutrophils # (Manual) 14.90 H Lymphocytes # (Manual) 0.31 L Monocytes # (Manual) Metamyelocytes # (Man) 0.31 H Myelocytes # (Manual) PT INR ABG pH ABG pCO2 ABG pO2 ABG HCO3 ABG O2 Saturation VBG pH VBG HCO3 Sodium Chloride Carbon Dioxide BUN Creatinine Glucose POC Glucose (mg/dL) 263 H Hemoglobin A1c Plasma Lactic Acid Raghavendra 3.4 H* Calcium Magnesium AST Creatine Kinase Troponin I Total Protein Albumin Urine Appearance Urine Protein Urine Glucose (UA) Ur Leukocyte Esterase Urine WBC Urine Bacteria Hyaline Casts Urine Mucus U Benzodiazepines Scrn 08/08/23 08/08/23 08/08/23 15:19 15:50 17:20 WBC Hct Plt Count Neutrophils # (Manual) Lymphocytes # (Manual) Monocytes # (Manual) Metamyelocytes # (Man) Myelocytes # (Manual) PT INR ABG pH ABG pCO2 ABG pO2 ABG HCO3 ABG O2 Saturation VBG pH VBG HCO3 Sodium Chloride Carbon Dioxide BUN Creatinine Glucose POC Glucose (mg/dL) 271 H 288 H Hemoglobin A1c Plasma Lactic Acid Raghavendra 3.2 H* Calcium Magnesium AST Creatine Kinase Troponin I Total Protein Albumin Urine Appearance Urine Protein Urine Glucose (UA) Ur Leukocyte Esterase Urine WBC Urine Bacteria Hyaline Casts Urine Mucus U Benzodiazepines Scrn 08/08/23 08/08/23 08/09/23 20:02 23:55 00:49 WBC Hct Plt Count Neutrophils # (Manual) Lymphocytes # (Manual) Monocytes # (Manual) Metamyelocytes # (Man) Myelocytes # (Manual) PT INR ABG pH ABG pCO2 ABG pO2 ABG HCO3 ABG O2 Saturation VBG pH VBG HCO3 Sodium Chloride Carbon Dioxide BUN Creatinine Glucose POC Glucose (mg/dL) 251 H 255 H 237 H Hemoglobin A1c Plasma Lactic Acid Raghavendra Calcium Magnesium AST Creatine Kinase Troponin I Total Protein Albumin Urine Appearance Urine Protein Urine Glucose (UA) Ur Leukocyte Esterase Urine WBC Urine Bacteria Hyaline Casts Urine Mucus U Benzodiazepines Scrn 08/09/23 02:23 WBC Hct Plt Count Neutrophils # (Manual) Lymphocytes # (Manual) Monocytes # (Manual) Metamyelocytes # (Man) Myelocytes # (Manual) PT INR ABG pH ABG pCO2 ABG pO2 ABG HCO3 ABG O2 Saturation VBG pH VBG HCO3 Sodium Chloride Carbon Dioxide BUN Creatinine Glucose POC Glucose (mg/dL) 217 H Hemoglobin A1c Plasma Lactic Acid Raghavendra Calcium Magnesium AST Creatine Kinase Troponin I Total Protein Albumin Urine Appearance Urine Protein Urine Glucose (UA) Ur Leukocyte Esterase Urine WBC Urine Bacteria Hyaline Casts Urine Mucus U Benzodiazepines Scrn - Diagnostic Findings Chest x-ray: image reviewed Assessment and Plan Assessment: Urinary tract infection and Urosepsis Lactic acidosis, improved Metabolic anion gap acidosis, secondary to above Leukocytosis Acute kidney injury, secondary to acute tubular necrosis Rhabdomyolysis Suspected diabetes mellitus type 2, hyperglycemic and hemoglobin A1c 12.3 Elevated troponins, flat, not felt to reflect ACS Altered mental status, nonenhanced brain CT did not show any acute intracranial abnormality, likely related to toxic metabolic encephalopathy and urosepsis Plan: Patient's medications, labs, chest x-ray reviewed Currently on 2 L/m nasal cannula, with an SpO2 of 99%. Patient's blood cultures positive for E. coli without resistance Antibiotics have been deescalated, currently receiving IV Rocephin Patient's blood pressure is currently stable, not requiring vasopressors IV hydration currently in the form of 3 A sodium bicarbonate and D5W infusing at 100 ML's per hour and normal saline infusing at 20 ML's per hour. Monitor CPK. Blood glucose is being managed with Levemir 10 units subcu twice a day and sliding scale NovoLog every 4 hours Heparin for DVT prophylaxis and Protonix for GI prophylaxis We will continue to follow while in the intensive care unit, further recommendations are forthcoming I have personally seen and examined the patient, performed the documentation and the assessment and plan as written. Number of minutes spent on the visit:20 08/09/2023, I'm seeing the patient in conjunction with the nurse practitioner. His evaluation within a more than 30 minutes. In summary, the patient is presenting with septic shock and acute kidney injury. The patient has E. coli in the blood and the patient is currently on IV Rocephin. The patient has sustained an acute kidney injury. There is also troponin leak related to underlying sepsis. Currently hemodynamically stable and a bicarb infusion which is running at a rate of 100 mL an hour. Echocardiogram is pending. If function continues to be impaired and the creatinine remains elevated and the patient is producing urine operas in order of 10-15 mL an hour. Serum bicarb is currently at 19. The potassium levels at 3.7. Creatinine is at 4.4. The white suppositive 14.3 with hemoglobin 12.3. She is lethargic. She is quite sleepy and encephalopathic. She is arousable. She remains on oxygen at 2 L. Infectious diseases on the case. The lactic acid level is improving. Mental status is gradually improving. Time with Patient: Greater than 30
[2023-08-09 05:13] LABS: Glucose,Whole Blood 250 mg/dL (70-110)
[2023-08-09 05:57] LABS: HGB 12.3 gm/dL (11.4-16.0); MCH 29.3 pg (25.0-35.0); MCHC 32.3 g/dL (31.0-37.0); MCV 90.7 fL (80.0-100.0); Mean Platelet Volume 10.5; RBC 4.18 m/uL (3.80-5.40); RDW 13.5 % (11.5-15.5); WBC 14.3 k/uL (3.8-10.6)
[2023-08-09 06:11] LABS: ALT 50 U/L (4-34); AST 119 U/L (14-36); African American GFR (CKD) 11 (>60 ml/min/1.73 sqM); Albumin 2.3 g/dL (3.5-5.0); Alkaline Phosphatase 165 U/L (38-126); Anion Gap 15 mmol/L; Blood Urea Nitrogen 73 mg/dL (7-17); Calcium 7.5 mg/dL (8.4-10.2); Carbon Dioxide 19 mmol/L (22-30); Chloride 99 mmol/L (98-107); Glucose 235 mg/dL (74-99); Non-African American GFR(CKD) 9 (>60 ml/min/1.73 sqM); Potassium 3.7 mmol/L (3.5-5.1); Sodium 133 mmol/L (137-145); Total Bilirubin 0.7 mg/dL (0.2-1.3); Total Protein 4.9 g/dL (6.3-8.2)
[2023-08-09 06:21] LABS: Platelet Count 63 k/uL (150-450)
[2023-08-09] MEDS ORDERED: Potassium Replacement Protocol 1 EACH MISC MISCELLANE PRN (06:42)
[2023-08-09 06:46] LABS: Allen Test Performed? YES
[2023-08-09] MEDS: POTASSIUM CHLORIDE 10 MEQ in WATER FOR INJECTION 1 100ML.BAG IVPB SCH ×2 (06:49→08:40)
[2023-08-09 06:59] LABS: Anisocytosis (M) Present; Band Neutrophils % 3 %; Lymphocytes # (M) 0.43 k/uL (1.0-4.8); Monocytes # (M) 1.14 k/uL (0-1.0); Neutrophils % (M) 86 %; Nucleated Red Blood Cells 0 /100 WBC (0-0); Polychromasia Present; Total Cells Counted 100
[2023-08-09] MEDS: PANTOPRAZOLE 40 MG/10 ML VIAL IVP SCH (08:39)
[2023-08-09] MEDS: HEPARIN SODIUM,PORCINE 5,000 UNIT/ML 1 ML VIAL SQ SCH ×2 (08:40→20:39)
[2023-08-09] MEDS: METOPROLOL TARTRATE 25 MG TAB PO SCH ×3 (08:40→20:38)
[2023-08-09] MEDS: ASPIRIN 81 MG PO SCH (08:40)
[2023-08-09] MEDS: INSULIN DETEMIR (LEVEMIR) 100 UNIT/ML SYR SQ SCH ×2 (08:47→20:39)
[2023-08-09] MEDS ORDERED: ENOXAPARIN 30 MG/0.3 ML SYRINGE SQ SCH (09:00)
[2023-08-09] MEDS ORDERED: ENOXAPARIN 40 MG/0.4 ML SYRINGE SQ SCH (09:00)
[2023-08-09 11:21] LABS: Glucose,Whole Blood 210 mg/dL (70-110)
--- NOTE | 2023-08-09 11:23 | P.PN ---
Subjective Patient is seen for follow-up for acute kidney injury. She was admitted to the hospital with mental status changes and weakness. Patient is noted to have a serum creatinine of 4.2 with a previous reading of 0.8 on 06/09/2018. No other labs available in between. Currently maintained on IV fluids. Patient was hypotensive with systolic blood pressure in the 80s Being treated for UTI. Blood cultures are growing E. coli. Patient is currently seen in the ICU. She is awake. Patient is not able to communicate much but does answer simple questions. Urine output at 20-40 mL per hour No obstruction noted on ultrasound Creatinine remains elevated at 4.4. Objective - Vital Signs Vital signs: Vital Signs Temp 98.1 F 08/09/23 08:00 Pulse 85 08/09/23 08:00 Resp 34 H 08/09/23 08:00 BP 95/65 08/09/23 08:00 Pulse Ox 96 08/09/23 08:00 FiO2 Intake & Output 08/08/23 08/09/23 08/09/23 18:59 06:59 18:59 Intake Total 347.666 8184 Output Total 85 280 Balance 411.476 6243 Weight 89.2 kg Intake: IV 500 1350 Dextrose 5% in Water 1, 300 1300 000 ml @ 100 mls/hr IV . [id number] [facility] with Sodium Bicarb (1 Meq/ml) 150 ml Rx#:[id number] Magnesium Sulfate-D5w Pmx 200 1 gm In Dextrose/Water 1 100ml.bag @ 100 mls/hr IVPB Q1H [facility] Rx#: [id number] cefTRIAXone 2 gm In 50 Sodium Chloride 0.9% 50 ml @ 100 mls/hr IVPB Q24H [facility] Rx#:[id number] Intake, IV Titration 34.699 Amount Heparin Sod,Pork in 0.45% 34.699 NaCl 25,000 unit In 0.45 % NaCl 1 250ml.bag @ 12 UNITS/KG/HR 9.253 mls/hr IV .Q24H [facility] Rx#: [id number] Output: Urine 85 280 Other: Voiding Method Indwelling Catheter Indwelling Catheter # Voids 0 - Exam Patient is awake, comfortable, no acute distress Examination of the heart S1 and S2 Examination of the lungs bilateral breath sounds are heard Abdomen is soft nontender Examination of lower extremities shows no significant edema - Labs CBC & Chem 7: 10/23/23 04:24 08/09/23 04:24 Labs: Abnormal Lab Results - Last 24 Hours (Table) 08/08/23 08/08/23 08/08/23 Range/Units 03:59 09:52 12:38 WBC (3.8-10.6) k/uL Plt Count (150-450) k/uL Neutrophils # (Manual) (1.3-7.7) k/uL Lymphocytes # (Manual) (1.0-4.8) k/uL Monocytes # (Manual) (0-1.0) k/uL Metamyelocytes # (Man) (0) k/uL ABG pH (7.35-7.45) ABG pCO2 (35-45) mmHg ABG pO2 (83-108) mmHg ABG HCO3 (21-25) mmol/L ABG O2 Saturation (94-97) % Sodium (137-145) mmol/L Carbon Dioxide (22-30) mmol/L BUN (7-17) mg/dL Creatinine (0.52-1.04) mg/dL Glucose (74-99) mg/dL POC Glucose (mg/dL) (70-110) mg/dL Hemoglobin A1c 12.3 H (<=6.0) % Plasma Lactic Acid Raghavendra (0.7-2.0) mmol/L Calcium (8.4-10.2) mg/dL Magnesium (1.6-2.3) mg/dL AST (14-36) U/L ALT (4-34) U/L Alkaline Phosphatase (38-126) U/L Creatine Kinase 1588 H* (30-135) U/L Troponin I 0.056 H* (0.000-0.034) ng/mL Total Protein (6.3-8.2) g/dL Albumin (3.5-5.0) g/dL 08/08/23 08/08/23 08/08/23 Range/Units 12:43 13:45 13:53 WBC (3.8-10.6) k/uL Plt Count (150-450) k/uL Neutrophils # (Manual) (1.3-7.7) k/uL Lymphocytes # (Manual) (1.0-4.8) k/uL Monocytes # (Manual) (0-1.0) k/uL Metamyelocytes # (Man) (0) k/uL ABG pH 7.30 L (7.35-7.45) ABG pCO2 30 L (35-45) mmHg ABG pO2 67 L (83-108) mmHg ABG HCO3 15 L (21-25) mmol/L ABG O2 Saturation 92.8 L (94-97) % Sodium (137-145) mmol/L Carbon Dioxide (22-30) mmol/L BUN (7-17) mg/dL Creatinine (0.52-1.04) mg/dL Glucose (74-99) mg/dL POC Glucose (mg/dL) 263 H (70-110) mg/dL Hemoglobin A1c (<=6.0) % Plasma Lactic Acid Raghavendra 3.5 H* (0.7-2.0) mmol/L Calcium (8.4-10.2) mg/dL Magnesium (1.6-2.3) mg/dL AST (14-36) U/L ALT (4-34) U/L Alkaline Phosphatase (38-126) U/L Creatine Kinase (30-135) U/L Troponin I (0.000-0.034) ng/mL Total Protein (6.3-8.2) g/dL Albumin (3.5-5.0) g/dL 08/08/23 08/08/23 08/08/23 Range/Units 14:07 14:07 15:19 WBC 15.6 H (3.8-10.6) k/uL Plt Count 77 L (150-450) k/uL Neutrophils # (Manual) 14.90 H (1.3-7.7) k/uL Lymphocytes # (Manual) 0.31 L (1.0-4.8) k/uL Monocytes # (Manual) (0-1.0) k/uL Metamyelocytes # (Man) 0.31 H (0) k/uL ABG pH (7.35-7.45) ABG pCO2 (35-45) mmHg ABG pO2 (83-108) mmHg ABG HCO3 (21-25) mmol/L ABG O2 Saturation (94-97) % Sodium (137-145) mmol/L Carbon Dioxide (22-30) mmol/L BUN (7-17) mg/dL Creatinine (0.52-1.04) mg/dL Glucose (74-99) mg/dL POC Glucose (mg/dL) 271 H (70-110) mg/dL Hemoglobin A1c (<=6.0) % Plasma Lactic Acid Raghavendra 3.4 H* (0.7-2.0) mmol/L Calcium (8.4-10.2) mg/dL Magnesium (1.6-2.3) mg/dL AST (14-36) U/L ALT (4-34) U/L Alkaline Phosphatase (38-126) U/L Creatine Kinase (30-135) U/L Troponin I (0.000-0.034) ng/mL Total Protein (6.3-8.2) g/dL Albumin (3.5-5.0) g/dL 08/08/23 08/08/23 08/08/23 Range/Units 15:50 17:20 20:02 WBC (3.8-10.6) k/uL Plt Count (150-450) k/uL Neutrophils # (Manual) (1.3-7.7) k/uL Lymphocytes # (Manual) (1.0-4.8) k/uL Monocytes # (Manual) (0-1.0) k/uL Metamyelocytes # (Man) (0) k/uL ABG pH (7.35-7.45) ABG pCO2 (35-45) mmHg ABG pO2 (83-108) mmHg ABG HCO3 (21-25) mmol/L ABG O2 Saturation (94-97) % Sodium (137-145) mmol/L Carbon Dioxide (22-30) mmol/L BUN (7-17) mg/dL Creatinine (0.52-1.04) mg/dL Glucose (74-99) mg/dL POC Glucose (mg/dL) 288 H 251 H (70-110) mg/dL Hemoglobin A1c (<=6.0) % Plasma Lactic Acid Raghavendra 3.2 H* (0.7-2.0) mmol/L Calcium (8.4-10.2) mg/dL Magnesium (1.6-2.3) mg/dL AST (14-36) U/L ALT (4-34) U/L Alkaline Phosphatase (38-126) U/L Creatine Kinase (30-135) U/L Troponin I (0.000-0.034) ng/mL Total Protein (6.3-8.2) g/dL Albumin (3.5-5.0) g/dL 08/08/23 08/09/23 08/09/23 Range/Units 23:55 00:49 02:23 WBC (3.8-10.6) k/uL Plt Count (150-450) k/uL Neutrophils # (Manual) (1.3-7.7) k/uL Lymphocytes # (Manual) (1.0-4.8) k/uL Monocytes # (Manual) (0-1.0) k/uL Metamyelocytes # (Man) (0) k/uL ABG pH (7.35-7.45) ABG pCO2 (35-45) mmHg ABG pO2 (83-108) mmHg ABG HCO3 (21-25) mmol/L ABG O2 Saturation (94-97) % Sodium (137-145) mmol/L Carbon Dioxide (22-30) mmol/L BUN (7-17) mg/dL Creatinine (0.52-1.04) mg/dL Glucose (74-99) mg/dL POC Glucose (mg/dL) 255 H 237 H 217 H (70-110) mg/dL Hemoglobin A1c (<=6.0) % Plasma Lactic Acid Raghavendra (0.7-2.0) mmol/L Calcium (8.4-10.2) mg/dL Magnesium (1.6-2.3) mg/dL AST (14-36) U/L ALT (4-34) U/L Alkaline Phosphatase (38-126) U/L Creatine Kinase (30-135) U/L Troponin I (0.000-0.034) ng/mL Total Protein (6.3-8.2) g/dL Albumin (3.5-5.0) g/dL 08/09/23 08/09/23 08/09/23 Range/Units 04:24 04:24 04:24 WBC 14.3 H (3.8-10.6) k/uL Plt Count 63 L (150-450) k/uL Neutrophils # (Manual) 12.70 H (1.3-7.7) k/uL Lymphocytes # (Manual) 0.43 L (1.0-4.8) k/uL Monocytes # (Manual) 1.14 H (0-1.0) k/uL Metamyelocytes # (Man) (0) k/uL ABG pH (7.35-7.45) ABG pCO2 (35-45) mmHg ABG pO2 (83-108) mmHg ABG HCO3 (21-25) mmol/L ABG O2 Saturation (94-97) % Sodium 133 L (137-145) mmol/L Carbon Dioxide 19 L (22-30) mmol/L BUN 73 H (7-17) mg/dL Creatinine 4.40 H (0.52-1.04) mg/dL Glucose 235 H (74-99) mg/dL POC Glucose (mg/dL) (70-110) mg/dL Hemoglobin A1c 13.7 H (<=6.0) % Plasma Lactic Acid Raghavendra (0.7-2.0) mmol/L Calcium 7.5 L (8.4-10.2) mg/dL Magnesium (1.6-2.3) mg/dL AST 119 H (14-36) U/L ALT 50 H (4-34) U/L Alkaline Phosphatase 165 H (38-126) U/L Creatine Kinase (30-135) U/L Troponin I (0.000-0.034) ng/mL Total Protein 4.9 L (6.3-8.2) g/dL Albumin 2.3 L (3.5-5.0) g/dL 08/09/23 08/09/23 Range/Units 04:24 05:11 WBC (3.8-10.6) k/uL Plt Count (150-450) k/uL Neutrophils # (Manual) (1.3-7.7) k/uL Lymphocytes # (Manual) (1.0-4.8) k/uL Monocytes # (Manual) (0-1.0) k/uL Metamyelocytes # (Man) (0) k/uL ABG pH (7.35-7.45) ABG pCO2 (35-45) mmHg ABG pO2 (83-108) mmHg ABG HCO3 (21-25) mmol/L ABG O2 Saturation (94-97) % Sodium (137-145) mmol/L Carbon Dioxide (22-30) mmol/L BUN (7-17) mg/dL Creatinine (0.52-1.04) mg/dL Glucose (74-99) mg/dL POC Glucose (mg/dL) 250 H (70-110) mg/dL Hemoglobin A1c (<=6.0) % Plasma Lactic Acid Raghavendra (0.7-2.0) mmol/L Calcium (8.4-10.2) mg/dL Magnesium 2.4 H (1.6-2.3) mg/dL AST (14-36) U/L ALT (4-34) U/L Alkaline Phosphatase (38-126) U/L Creatine Kinase (30-135) U/L Troponin I (0.000-0.034) ng/mL Total Protein (6.3-8.2) g/dL Albumin (3.5-5.0) g/dL Microbiology - Last 24 Hours (Table) 08/07/23 23:00 Blood Culture Gram Stain - Preliminary Blood 08/07/23 23:15 Blood Culture Gram Stain - Preliminary Blood Assessment and Plan Assessment: 1. Acute kidney injury ATN from hypoperfusion. Systolic blood pressure documented at 94 mmHg on initial admission. UA shows trace protein no blood, WBC 72. Currently with indwelling Rendon catheter. No obstruction on ultrasound. Previous creatinine 0.8 in 2018. 2. Hypertension with low blood pressure documented here. Initial blood pressure was 94/63 mmHg. Losartan is currently on hold. 3. Volume depletion currently maintained on IV fluids 4. Pyuria rule out UTI 5. Mental status changes secondary to underlying infection, volume depletion and possible element of uremia. 6. Anion gap metabolic acidosis secondary to acute kidney injury and lactic acidosis. Serum acetone was negative. 7. Sepsis with blood cultures growing gram-negative bacilli Plan: Continue IV bicarb but changed to base of half normal saline instead of D5W due to elevated blood sugars. Continue antibiotics Repeat labs in a.m. Continue to avoid nephrotoxic agents No indication for hemodialysis today. We will continue to monitor on a daily basis.
--- NOTE | 2023-08-09 12:36 | CA ---
Transthoracic Echo Report Name: Deb Salas Age: 77 Gender: F : 1945 Exam Date: 08/09/2023 07:52 Exam Location: [facility] Ht (in): 66 Wt (lb): 170 Ordering Physician: Lady Juarez MD Attending/Referring Phys: Flare Maker Rashmi Garza RDCS Procedure CPT: Indications: Congestive heart failure Cardiac Hx: Technical Quality: Good Contrast 1: Total Dose (mL): Contrast 2: Total Dose (mL): MEASUREMENTS (Male / Female) Normal Values 2D ECHO LV Diastolic Diameter PLAX 4.3 cm 4.2 - 5.9 / 3.9 - 5.3 cm LV Systolic Diameter PLAX 3.3 cm IVS Diastolic Thickness 1.0 cm 0.6 - 1.0 / 0.6 - 0.9 cm LVPW Diastolic Thickness 1.1 cm 0.6 - 1.0 / 0.6 - 0.9 cm LV Relative Wall Thickness 0.5 RV Internal Dim ED PLAX 3.2 cm LA Systolic Diameter LX 3.4 cm 3.0 - 4.0 / 2.7 - 3.8 cm LA Volume 50.9 cm??? 18 - 58 / 22 - 52 cm??? LA Volume Index 26.6 cm???/m??? 16 - 28 cm???/m??? M-MODE Aortic Root Diameter MM 2.5 cm MV E Point Septal Separation 0.5 cm AV Cusp Separation MM 1.7 cm DOPPLER AV Peak Velocity 202.0 cm/s AV Peak Gradient 16.3 mmHg AV Mean Velocity 150.5 cm/s AV Mean Gradient 10.0 mmHg AV Velocity Time Integral 39.6 cm AI Peak Velocity 275.9 cm/s AI Peak Gradient 30.5 mmHg AI Pressure Half Time 599.3 ms LVOT Peak Velocity 113.8 cm/s LVOT Peak Gradient 5.2 mmHg MV Area PHT 2.5 cm??? Mitral E Point Velocity 98.7 cm/s Mitral A Point Velocity 137.0 cm/s Mitral E to A Ratio 0.7 MV Deceleration Time 301.8 ms MV E' Velocity 6.1 cm/s Mitral E to MV E' Ratio 16.2 TR Peak Velocity 261.6 cm/s TR Peak Gradient 27.4 mmHg Right Ventricular Systolic Press 32.2 mmHg FINDINGS Left Ventricle Left ventricular ejection fraction is estimated at 60-65 %. Left ventricular cavity size normal. Mild concentric LVH Right Ventricle Normal right ventricular size. Right ventricular systolic pressure within normal limits. Right Atrium Normal right atrial size. Left Atrium Normal left atrial size. Mitral Valve Structurally normal mitral valve. Mitral annular calcification. Aortic Valve Trileaflet and calcified aortic valve, mild aortic regurgitation. Mild aortic stenosis, mean gradient 10 mmHg Tricuspid Valve Structurally normal tricuspid valve. Mild tricuspid regurgitation. Pulmonic Valve Structurally normal pulmonic valve. No pulmonic regurgitation. Pericardium No pericardial effusion. Aorta Normal size aortic root and proximal ascending aorta. CONCLUSIONS Normal LV size and systolic function. LVEF estimated at 60% No significant regional wall motion abnormality Mild concentric LVH IVC is not dilated and is collapsible Calcific aortic valve with mild aortic stenosis and mild aortic regurgitation No pleural effusion Normal LV size and function. No prior echo to compare with Previewed by: Dr Sebastián Ferrer (Electronically Signed) Final Date: 09 August 2023 12:35
--- NOTE | 2023-08-09 12:36 | P.PN ---
Subjective Progress Note Date: 08/09/23 * 77-year-old lady with past medical history significant for hypertension, presents to the emergency department with altered mental status. * Per chart review patient was last well-known 08/06/23. Patient was brought by EMS and was noted to be less responsive and alert and oriented 1 with profound weakness. Patient was apparently found on the floor with broken glass. Patient was last seen by a neighbor and apparently doing well. Upon presentation patient was noted to have profound hypoglycemia Glucose 411, blood pressure 180/22 * Workup initiated included CBC which were WBC of 30.8 hemoglobin 15.2 platelet 124 with elevated neutrophil count. INR of 1.4 serum chemistry showed sodium 134 BUN 57 creatinine 4.26 blood glucose in 400s lactic to 4.7 * Initial troponin obtained 0.076, EKG obtained showed sinus rhythm no significant ST segment changes * Patient was given IV Rocephin, urinalysis is obtained showed large leukocyte esterase WBC and many bacteria * 08/09/23: Patient was seen and evaluated bedside, patient seen in ICU, mentation has improved alert and oriented to person place and situation. Appreciate input from nephrology, continue patient on IV bicarbonate, continue to monitor renal profile Objective - Vital Signs Vital signs: Vital Signs Temp 97.9 F 08/09/23 12:00 Pulse 71 08/09/23 12:00 Resp 25 H 08/09/23 12:00 BP 113/60 08/09/23 12:00 Pulse Ox 98 08/09/23 12:00 FiO2 50 08/09/23 10:00 Intake & Output 08/08/23 08/09/23 08/09/23 18:59 06:59 18:59 Intake Total 356.662 7164 400 Output Total 85 280 100 Balance 528.799 7328 300 Weight 89.2 kg 89.2 kg Intake: IV 500 1350 400 Dextrose 5% in Water 1, 300 1300 400 000 ml @ 100 mls/hr IV . [id number] [facility] with Sodium Bicarb (1 Meq/ml) 150 ml Rx#:[id number] Magnesium Sulfate-D5w Pmx 200 1 gm In Dextrose/Water 1 100ml.bag @ 100 mls/hr IVPB Q1H [facility] Rx#: [id number] cefTRIAXone 2 gm In 50 Sodium Chloride 0.9% 50 ml @ 100 mls/hr IVPB Q24H [facility] Rx#:[id number] Intake, IV Titration 34.699 Amount Heparin Sod,Pork in 0.45% 34.699 NaCl 25,000 unit In 0.45 % NaCl 1 250ml.bag @ 12 UNITS/KG/HR 9.253 mls/hr IV .Q24H [facility] Rx#: [id number] Output: Urine 85 280 100 Other: Voiding Method Indwelling Catheter Indwelling Catheter Indwelling Catheter # Voids 0 - Exam PHYSICAL EXAMINATION: GENERAL: The patient is alert and oriented x3, not in any acute distress. Well developed, well nourished. HEENT: Pupils are round and equally reacting to light. EOMI. No scleral icterus. No conjunctival pallor. Normocephalic, atraumatic. No pharyngeal erythema. No thyromegaly. CARDIOVASCULAR: S1 and S2 present. No murmurs, rubs, or gallops. PULMONARY: Chest is clear to auscultation, no wheezing or crackles. ABDOMEN: Soft, nontender, nondistended, normoactive bowel sounds. No palpable organomegaly. MUSCULOSKELETAL: No joint swelling or deformity. EXTREMITIES: No cyanosis, clubbing, or pedal edema. NEUROLOGICAL: Gross neurological examination did not reveal any focal deficits. SKIN: No rashes. - Labs CBC & Chem 7: 08/09/23 04:24 08/09/23 04:24 Labs: Abnormal Lab Results - Last 24 Hours (Table) 08/08/23 08/08/23 08/08/23 Range/Units 03:59 09:52 12:38 WBC (3.8-10.6) k/uL Plt Count (150-450) k/uL Neutrophils # (Manual) (1.3-7.7) k/uL Lymphocytes # (Manual) (1.0-4.8) k/uL Monocytes # (Manual) (0-1.0) k/uL Metamyelocytes # (Man) (0) k/uL ABG pH (7.35-7.45) ABG pCO2 (35-45) mmHg ABG pO2 (83-108) mmHg ABG HCO3 (21-25) mmol/L ABG O2 Saturation (94-97) % Sodium (137-145) mmol/L Carbon Dioxide (22-30) mmol/L BUN (7-17) mg/dL Creatinine (0.52-1.04) mg/dL Glucose (74-99) mg/dL POC Glucose (mg/dL) (70-110) mg/dL Hemoglobin A1c 12.3 H (<=6.0) % Plasma Lactic Acid Raghavendra (0.7-2.0) mmol/L Calcium (8.4-10.2) mg/dL Magnesium (1.6-2.3) mg/dL AST (14-36) U/L ALT (4-34) U/L Alkaline Phosphatase (38-126) U/L Creatine Kinase 1588 H* (30-135) U/L Troponin I 0.056 H* (0.000-0.034) ng/mL Total Protein (6.3-8.2) g/dL Albumin (3.5-5.0) g/dL 08/08/23 08/08/23 08/08/23 Range/Units 12:43 13:45 13:53 WBC (3.8-10.6) k/uL Plt Count (150-450) k/uL Neutrophils # (Manual) (1.3-7.7) k/uL Lymphocytes # (Manual) (1.0-4.8) k/uL Monocytes # (Manual) (0-1.0) k/uL Metamyelocytes # (Man) (0) k/uL ABG pH 7.30 L (7.35-7.45) ABG pCO2 30 L (35-45) mmHg ABG pO2 67 L (83-108) mmHg ABG HCO3 15 L (21-25) mmol/L ABG O2 Saturation 92.8 L (94-97) % Sodium (137-145) mmol/L Carbon Dioxide (22-30) mmol/L BUN (7-17) mg/dL Creatinine (0.52-1.04) mg/dL Glucose (74-99) mg/dL POC Glucose (mg/dL) 263 H (70-110) mg/dL Hemoglobin A1c (<=6.0) % Plasma Lactic Acid Raghavendra 3.5 H* (0.7-2.0) mmol/L Calcium (8.4-10.2) mg/dL Magnesium (1.6-2.3) mg/dL AST (14-36) U/L ALT (4-34) U/L Alkaline Phosphatase (38-126) U/L Creatine Kinase (30-135) U/L Troponin I (0.000-0.034) ng/mL Total Protein (6.3-8.2) g/dL Albumin (3.5-5.0) g/dL 08/08/23 08/08/23 08/08/23 Range/Units 14:07 14:07 15:19 WBC 15.6 H (3.8-10.6) k/uL Plt Count 77 L (150-450) k/uL Neutrophils # (Manual) 14.90 H (1.3-7.7) k/uL Lymphocytes # (Manual) 0.31 L (1.0-4.8) k/uL Monocytes # (Manual) (0-1.0) k/uL Metamyelocytes # (Man) 0.31 H (0) k/uL ABG pH (7.35-7.45) ABG pCO2 (35-45) mmHg ABG pO2 (83-108) mmHg ABG HCO3 (21-25) mmol/L ABG O2 Saturation (94-97) % Sodium (137-145) mmol/L Carbon Dioxide (22-30) mmol/L BUN (7-17) mg/dL Creatinine (0.52-1.04) mg/dL Glucose (74-99) mg/dL POC Glucose (mg/dL) 271 H (70-110) mg/dL Hemoglobin A1c (<=6.0) % Plasma Lactic Acid Raghavendra 3.4 H* (0.7-2.0) mmol/L Calcium (8.4-10.2) mg/dL Magnesium (1.6-2.3) mg/dL AST (14-36) U/L ALT (4-34) U/L Alkaline Phosphatase (38-126) U/L Creatine Kinase (30-135) U/L Troponin I (0.000-0.034) ng/mL Total Protein (6.3-8.2) g/dL Albumin (3.5-5.0) g/dL 08/08/23 08/08/23 08/08/23 Range/Units 15:50 17:20 20:02 WBC (3.8-10.6) k/uL Plt Count (150-450) k/uL Neutrophils # (Manual) (1.3-7.7) k/uL Lymphocytes # (Manual) (1.0-4.8) k/uL Monocytes # (Manual) (0-1.0) k/uL Metamyelocytes # (Man) (0) k/uL ABG pH (7.35-7.45) ABG pCO2 (35-45) mmHg ABG pO2 (83-108) mmHg ABG HCO3 (21-25) mmol/L ABG O2 Saturation (94-97) % Sodium (137-145) mmol/L Carbon Dioxide (22-30) mmol/L BUN (7-17) mg/dL Creatinine (0.52-1.04) mg/dL Glucose (74-99) mg/dL POC Glucose (mg/dL) 288 H 251 H (70-110) mg/dL Hemoglobin A1c (<=6.0) % Plasma Lactic Acid Raghavendra 3.2 H* (0.7-2.0) mmol/L Calcium (8.4-10.2) mg/dL Magnesium (1.6-2.3) mg/dL AST (14-36) U/L ALT (4-34) U/L Alkaline Phosphatase (38-126) U/L Creatine Kinase (30-135) U/L Troponin I (0.000-0.034) ng/mL Total Protein (6.3-8.2) g/dL Albumin (3.5-5.0) g/dL 08/08/23 08/09/23 08/09/23 Range/Units 23:55 00:49 02:23 WBC (3.8-10.6) k/uL Plt Count (150-450) k/uL Neutrophils # (Manual) (1.3-7.7) k/uL Lymphocytes # (Manual) (1.0-4.8) k/uL Monocytes # (Manual) (0-1.0) k/uL Metamyelocytes # (Man) (0) k/uL ABG pH (7.35-7.45) ABG pCO2 (35-45) mmHg ABG pO2 (83-108) mmHg ABG HCO3 (21-25) mmol/L ABG O2 Saturation (94-97) % Sodium (137-145) mmol/L Carbon Dioxide (22-30) mmol/L BUN (7-17) mg/dL Creatinine (0.52-1.04) mg/dL Glucose (74-99) mg/dL POC Glucose (mg/dL) 255 H 237 H 217 H (70-110) mg/dL Hemoglobin A1c (<=6.0) % Plasma Lactic Acid Raghavendra (0.7-2.0) mmol/L Calcium (8.4-10.2) mg/dL Magnesium (1.6-2.3) mg/dL AST (14-36) U/L ALT (4-34) U/L Alkaline Phosphatase (38-126) U/L Creatine Kinase (30-135) U/L Troponin I (0.000-0.034) ng/mL Total Protein (6.3-8.2) g/dL Albumin (3.5-5.0) g/dL 08/09/23 08/09/23 08/09/23 Range/Units 04:24 04:24 04:24 WBC 14.3 H (3.8-10.6) k/uL Plt Count 63 L (150-450) k/uL Neutrophils # (Manual) 12.70 H (1.3-7.7) k/uL Lymphocytes # (Manual) 0.43 L (1.0-4.8) k/uL Monocytes # (Manual) 1.14 H (0-1.0) k/uL Metamyelocytes # (Man) (0) k/uL ABG pH (7.35-7.45) ABG pCO2 (35-45) mmHg ABG pO2 (83-108) mmHg ABG HCO3 (21-25) mmol/L ABG O2 Saturation (94-97) % Sodium 133 L (137-145) mmol/L Carbon Dioxide 19 L (22-30) mmol/L BUN 73 H (7-17) mg/dL Creatinine 4.40 H (0.52-1.04) mg/dL Glucose 235 H (74-99) mg/dL POC Glucose (mg/dL) (70-110) mg/dL Hemoglobin A1c 13.7 H (<=6.0) % Plasma Lactic Acid Raghavendra (0.7-2.0) mmol/L Calcium 7.5 L (8.4-10.2) mg/dL Magnesium (1.6-2.3) mg/dL AST 119 H (14-36) U/L ALT 50 H (4-34) U/L Alkaline Phosphatase 165 H (38-126) U/L Creatine Kinase (30-135) U/L Troponin I (0.000-0.034) ng/mL Total Protein 4.9 L (6.3-8.2) g/dL Albumin 2.3 L (3.5-5.0) g/dL 08/09/23 08/09/23 08/09/23 Range/Units 04:24 05:11 11:19 WBC (3.8-10.6) k/uL Plt Count (150-450) k/uL Neutrophils # (Manual) (1.3-7.7) k/uL Lymphocytes # (Manual) (1.0-4.8) k/uL Monocytes # (Manual) (0-1.0) k/uL Metamyelocytes # (Man) (0) k/uL ABG pH (7.35-7.45) ABG pCO2 (35-45) mmHg ABG pO2 (83-108) mmHg ABG HCO3 (21-25) mmol/L ABG O2 Saturation (94-97) % Sodium (137-145) mmol/L Carbon Dioxide (22-30) mmol/L BUN (7-17) mg/dL Creatinine (0.52-1.04) mg/dL Glucose (74-99) mg/dL POC Glucose (mg/dL) 250 H 210 H (70-110) mg/dL Hemoglobin A1c (<=6.0) % Plasma Lactic Acid Raghavendra (0.7-2.0) mmol/L Calcium (8.4-10.2) mg/dL Magnesium 2.4 H (1.6-2.3) mg/dL AST (14-36) U/L ALT (4-34) U/L Alkaline Phosphatase (38-126) U/L Creatine Kinase (30-135) U/L Troponin I (0.000-0.034) ng/mL Total Protein (6.3-8.2) g/dL Albumin (3.5-5.0) g/dL Microbiology - Last 24 Hours (Table) 08/07/23 23:00 Blood Culture Gram Stain - Preliminary Blood 08/07/23 23:15 Blood Culture Gram Stain - Preliminary Blood Assessment and Plan Assessment: Assessment and plan * Severe sepsis secondary to urinary tract infection * Elevated troponin rule out ACS * Acute metabolic encephalopathy * Acute renal failure * Diabetes mellitus type 2 * In regards to severe sepsis, blood cultures ordered, urine cultures ordered , continue IV Rocephin adjusted by infectious disease * In regards to elevated troponin, serial troponins ordered echocardiogram ordered ,cardiology consulted patient started on aspirin, continue metoprolol, IV heparin drip discontinued by cardiology * In regards to renal failure, losartan discontinued continue with fluid resuscitation nephrology consulted continue to monitor intake and output will continue patient on bicarb drip * In regards to diabetes mellitus, HbA1c 13.7 , patient started on Lantus, continue correctional insulin * CODE STATUS is full code
[2023-08-09] MEDS: SODIUM CHLORIDE 0.45% 1,000 ML with SODIUM BICARB (1 MEQ/ML) 150 ML IV SCH ×4 (13:36→23:54)
[2023-08-09 17:14] LABS: Glucose,Whole Blood 203 mg/dL (70-110)
--- NOTE | 2023-08-09 17:36 | P.PN ---
Subjective 77-year-old female with past medical history of hypertension presented to the ER with altered mental status. She was found in confused state and with significant weakness. Apparently she was found for with broken glass. On admission she was noticed to be significantly hyperglycemic with blood glucose 400, evidence of JUNIOR with creatinine of 4.26. Prior baseline was normal. Lactate of 4.2. Cardiogenic consulted for elevation of troponin. Initial troponin was negative with a repeat troponin of 0.07 with a flat pattern. ECG did not show any significant ST-T wave changes diagnostic for ischemia. There was normal sinus rhythm. 08/09 Patient seen and examined. Patient states she does not have much of an appetite. Has had 1800 mL input with approximately 360 mL output. Denies A chest pain or pressure. Troponins minimally elevated with echo showing preserved EF. Multiple questions answered with the son and family at bedside. REVIEW OF SYSTEMS 14 point review of system is negative except what is mentioned above in HPI. PHYSICAL EXAMINATION Vital signs reviewed. Head: Normocephalic. Eyes: Sclerae nonicteric. Neck: Brisk carotid upstroke, no jugular venous distention. Lungs: Poor inspiratory effort, rhonchi audible. Heart: Regular rate and rhythm, S1-S2, no S3, no murmur or rub. Abdomen: Soft nontender,. Extremities: No significant swelling in bilateral lower extremity Neuro: Somnolent, only mumbling to verbal commands were drawn to pain, detailed exam was not performed ASSESSMENT Elevation of troponin due to septic shock, and poor renal clearance Septic shock likely UTI Acute metabolic encephalopathy JNUIOR Lactic acidosis Poorly controlled diabetes PLAN Minimally elevated troponins appear to be type II non-STEMI related to septic shock and kidney disease. Continue to hold losartan and add back metoprolol as able. Echo showing preserved EF. May consider outpatient stress test if continues to have any symptoms. Continue supportive care. Objective - Vital Signs Vital signs: Vital Signs Temp 97.9 F 08/09/23 12:00 Pulse 77 08/09/23 16:00 Resp 33 H 08/09/23 16:00 BP 120/67 08/09/23 16:00 Pulse Ox 97 08/09/23 16:00 FiO2 50 08/09/23 10:00 Intake & Output 08/08/23 08/09/23 08/09/23 18:59 06:59 18:59 Intake Total 632.101 5286 700 Output Total 85 280 200 Balance 298.602 8388 500 Weight 89.2 kg 89.2 kg Intake: IV 500 1350 700 Dextrose 5% in Water 1, 300 1300 500 000 ml @ 100 mls/hr IV . [id number] [facility] with Sodium Bicarb (1 Meq/ml) 150 ml Rx#:[id number] Magnesium Sulfate-D5w Pmx 200 1 gm In Dextrose/Water 1 100ml.bag @ 100 mls/hr IVPB Q1H [facility] Rx#: [id number] Sodium Chloride 0.45% 1, 200 000 ml @ 100 mls/hr IV . [id number] [facility] with Sodium Bicarb (1 Meq/ml) 150 ml Rx#:[id number] cefTRIAXone 2 gm In 50 Sodium Chloride 0.9% 50 ml @ 100 mls/hr IVPB Q24H [facility] Rx#:[id number] Intake, IV Titration 34.699 Amount Heparin Sod,Pork in 0.45% 34.699 NaCl 25,000 unit In 0.45 % NaCl 1 250ml.bag @ 12 UNITS/KG/HR 9.253 mls/hr IV .Q24H [facility] Rx#: [id number] Output: Urine 85 280 200 Other: Voiding Method Indwelling Catheter Indwelling Catheter Indwelling Catheter # Voids 0 - Labs CBC & Chem 7: 08/09/23 04:24 08/09/23 04:24 Labs: Abnormal Lab Results - Last 24 Hours (Table) 08/08/23 08/08/23 08/08/23 Range/Units 09:52 20:02 23:55 WBC (3.8-10.6) k/uL Plt Count (150-450) k/uL Neutrophils # (Manual) (1.3-7.7) k/uL Lymphocytes # (Manual) (1.0-4.8) k/uL Monocytes # (Manual) (0-1.0) k/uL Sodium (137-145) mmol/L Carbon Dioxide (22-30) mmol/L BUN (7-17) mg/dL Creatinine (0.52-1.04) mg/dL Glucose (74-99) mg/dL POC Glucose (mg/dL) 251 H 255 H (70-110) mg/dL Hemoglobin A1c (<=6.0) % Calcium (8.4-10.2) mg/dL Magnesium (1.6-2.3) mg/dL AST (14-36) U/L ALT (4-34) U/L Alkaline Phosphatase (38-126) U/L Creatine Kinase 1588 H* (30-135) U/L Total Protein (6.3-8.2) g/dL Albumin (3.5-5.0) g/dL 08/09/23 08/09/23 08/09/23 Range/Units 00:49 02:23 04:24 WBC (3.8-10.6) k/uL Plt Count (150-450) k/uL Neutrophils # (Manual) (1.3-7.7) k/uL Lymphocytes # (Manual) (1.0-4.8) k/uL Monocytes # (Manual) (0-1.0) k/uL Sodium (137-145) mmol/L Carbon Dioxide (22-30) mmol/L BUN (7-17) mg/dL Creatinine (0.52-1.04) mg/dL Glucose (74-99) mg/dL POC Glucose (mg/dL) 237 H 217 H (70-110) mg/dL Hemoglobin A1c 13.7 H (<=6.0) % Calcium (8.4-10.2) mg/dL Magnesium (1.6-2.3) mg/dL AST (14-36) U/L ALT (4-34) U/L Alkaline Phosphatase (38-126) U/L Creatine Kinase (30-135) U/L Total Protein (6.3-8.2) g/dL Albumin (3.5-5.0) g/dL 08/09/23 08/09/23 08/09/23 Range/Units 04:24 04:24 04:24 WBC 14.3 H (3.8-10.6) k/uL Plt Count 63 L (150-450) k/uL Neutrophils # (Manual) 12.70 H (1.3-7.7) k/uL Lymphocytes # (Manual) 0.43 L (1.0-4.8) k/uL Monocytes # (Manual) 1.14 H (0-1.0) k/uL Sodium 133 L (137-145) mmol/L Carbon Dioxide 19 L (22-30) mmol/L BUN 73 H (7-17) mg/dL Creatinine 4.40 H (0.52-1.04) mg/dL Glucose 235 H (74-99) mg/dL POC Glucose (mg/dL) (70-110) mg/dL Hemoglobin A1c (<=6.0) % Calcium 7.5 L (8.4-10.2) mg/dL Magnesium 2.4 H (1.6-2.3) mg/dL AST 119 H (14-36) U/L ALT 50 H (4-34) U/L Alkaline Phosphatase 165 H (38-126) U/L Creatine Kinase (30-135) U/L Total Protein 4.9 L (6.3-8.2) g/dL Albumin 2.3 L (3.5-5.0) g/dL 08/09/23 08/09/23 08/09/23 Range/Units 05:11 11:19 17:13 WBC (3.8-10.6) k/uL Plt Count (150-450) k/uL Neutrophils # (Manual) (1.3-7.7) k/uL Lymphocytes # (Manual) (1.0-4.8) k/uL Monocytes # (Manual) (0-1.0) k/uL Sodium (137-145) mmol/L Carbon Dioxide (22-30) mmol/L BUN (7-17) mg/dL Creatinine (0.52-1.04) mg/dL Glucose (74-99) mg/dL POC Glucose (mg/dL) 250 H 210 H 203 H (70-110) mg/dL Hemoglobin A1c (<=6.0) % Calcium (8.4-10.2) mg/dL Magnesium (1.6-2.3) mg/dL AST (14-36) U/L ALT (4-34) U/L Alkaline Phosphatase (38-126) U/L Creatine Kinase (30-135) U/L Total Protein (6.3-8.2) g/dL Albumin (3.5-5.0) g/dL Microbiology - Last 24 Hours (Table) 08/07/23 23:15 Blood Culture Gram Stain - Preliminary Blood Blood Culture - Preliminary Gram Neg Bacilli 08/07/23 23:00 Blood Culture Gram Stain - Preliminary Blood Blood Culture - Preliminary Gram Neg Bacilli
[2023-08-09 20:40] LABS: Glucose,Whole Blood 232 mg/dL (70-110)
[2023-08-10 04:25] LABS: HCT 35.5 % (34.0-46.0); HGB 12.2 gm/dL (11.4-16.0); MCH 30.5 pg (25.0-35.0); MCHC 34.5 g/dL (31.0-37.0); MCV 88.4 fL (80.0-100.0); Mean Platelet Volume 10.7; Platelet Count 41 k/uL (150-450); RBC 4.02 m/uL (3.80-5.40); RDW 13.5 % (11.5-15.5); WBC 8.9 k/uL (3.8-10.6)
[2023-08-10 04:33] LABS: African American GFR (CKD) 12 (>60 ml/min/1.73 sqM); Anion Gap 10 mmol/L; Blood Urea Nitrogen 76 mg/dL (7-17); Calcium 7.5 mg/dL (8.4-10.2); Carbon Dioxide 28 mmol/L (22-30); Chloride 96 mmol/L (98-107); Glucose 143 mg/dL (74-99); Magnesium 2.1 mg/dL (1.6-2.3); Non-African American GFR(CKD) 11 (>60 ml/min/1.73 sqM); Potassium 3.5 mmol/L (3.5-5.1); Sodium 134 mmol/L (137-145)
[2023-08-10 04:36] LABS: Creatine Kinase 1243 U/L (30-135)
[2023-08-10] MEDS: POTASSIUM CHLORIDE ER 20 MEQ TAB.ER PO SCH ×2 (05:00→06:14)
[2023-08-10 05:55] LABS: Partial Thromboplastin Time 24.2 sec (22.0-30.0); Prothrombin Time 10.8 sec (10.0-12.5)
[2023-08-10 06:14] LABS: Glucose,Whole Blood 120 mg/dL (70-110)
[2023-08-10] MEDS: INSULIN ASPART (NovoLOG) 100 UNIT/ML VIAL SQ SCH ×6 (06:14→21:29)
[2023-08-10] MEDS: PANTOPRAZOLE 40 MG/10 ML VIAL IVP SCH (08:39)
[2023-08-10] MEDS: ASPIRIN 81 MG PO SCH (08:39)
[2023-08-10] MEDS: METOPROLOL TARTRATE 25 MG TAB PO SCH ×3 (08:39→21:29)
[2023-08-10] MEDS: INSULIN DETEMIR (LEVEMIR) 100 UNIT/ML SYR SQ SCH ×2 (08:40→21:29)
--- NOTE | 2023-08-10 09:34 | P.PN ---
Subjective Progress Note Date: 08/10/23 I am seeing this patient in consultation today 08/09/2023 in the intensive care unit after the patient was found down on the floor and confused by her neighbor. Patient is a 77-year-old female with unknown past medical history. She is currently confused and unable to provide meaningful information in regard to her HPI and events leading this hospitalization. Apparently, the patient was found down on the floor, confused, by her neighbor. Downtime is unknown. Patient was evaluated by EMS and transferred to the emergency room on July. Brain CT on arrival did not show any acute intracranial process. Initially, the patient was placed on a heparin infusion for possible NSTEMI, which has been ruled out. Patient was felt to be septic, and admitted to the intensive care unit. Patient is currently sitting in the bed, on 2 L/m nasal cannula, in no acute distress. Blood pressure is normotensive. Not requiring any vasopressors. Heart rhythm appears normal sinus on bedside monitor. Chest x- ray on arrival showed low lung volumes and slightly increased central vascular congestion. Slightly increased interstitial markings could be related to low lung volumes, edema, or pneumonitis. Patient's urinalysis was consistent with UTI, and the patient's preliminary blood results have come back positive with E. coli. Patient is currently on Rocephin. Most recent CBC from yesterday shows an improvement WBC count down to 15.6, hemoglobin 13, hematocrit 39.2, platelets 77. ABG from yesterday shows a pO2 of 67, pCO2 of 30, pH is 7.3. This was done on room air. BMP from yesterday shows a sodium 135, potassium 4.4, chloride 101, serum bicarb down to 12, BUN 67, creatinine 4.49, glucose 376. Lactic acid level was elevated at 4.7 is down to 1.5. CPK is elevated at 1588. 3 A Sodium bicarb and D5W is currently infusing at 100 ML's per hour. Normal saline is infusing at 20 ML's per hour. Urine output is oliguric, but improving around 50-60 ML's per hour. Troponins are 0.076, 0.05, 0.056 respectively. NT proBNP was elevated at 16,800. Toxicology screen positive for benzodiazepines. Patient will be monitored in the intensive care unit. On today's evaluation of 08/10/2023, the patient is doing much better neurologically. She is communicating. She is aware that she is in the hospital. She was better but off on the date and the year. However she was aware that she is in a hospital and she has no focal neurological deficit. The patient had gram-negative sepsis and the patient has gram-negative bacillus in the blood on 2 separate blood cultures. This is most likely generating from an underlying urinary tract infection. The patient is currently hemodynamically stable. The patient remains on IV fluids and she is on a bicarbonate drip at the rate of 100 mL an hour. She remains on IV antibiotics with Rocephin. She is afebrile. She is 100 is stable. She is on no pressors. She is on Levemir insulin 10 units twice a day. Her blood work from today shows a WBC count which is down to 8.0 with a hemoglobin 12.2 and a platelet count of 41. Coagulation profile is within normal limits. The creatinine is gradually improving. Creatinine is down to 3.8 with a BUN of 76. Sodium level is at 134. Serum bicarb is up to 28. As such, the bicarb infusion will be discontinued. Troponins were 0.07 0.05 respectively. CPK was at 1243 consistent with some mild rhabdomyolysis. Echocardiogram was done yesterday and the patient has a normal LV function with an ejection fraction of 60%. The patient has mild concentric LVH. Objective - Vital Signs Vital signs: Vital Signs Temp 98.4 F 08/10/23 04:00 Pulse 65 08/10/23 07:00 Resp 20 08/10/23 07:00 BP 137/72 08/10/23 07:00 Pulse Ox 93 L 08/10/23 07:00 FiO2 50 08/09/23 10:00 Intake & Output 08/09/23 08/10/23 08/10/23 18:59 06:59 18:59 Intake Total 1000 1350 Output Total 500 680 Balance 500 670 Weight 89.2 kg 91.1 kg Intake: IV 1000 1350 Dextrose 5% in Water 1, 500 000 ml @ 100 mls/hr IV . [id number] [facility] with Sodium Bicarb (1 Meq/ml) 150 ml Rx#:[id number] Sodium Chloride 0.45% 1, 500 1300 000 ml @ 100 mls/hr IV . [id number] [facility] with Sodium Bicarb (1 Meq/ml) 150 ml Rx#:[id number] cefTRIAXone 2 gm In 50 Sodium Chloride 0.9% 50 ml @ 100 mls/hr IVPB Q24H [facility] Rx#:[id number] Output: Urine 500 680 Other: Voiding Method Indwelling Catheter Indwelling Catheter - Exam GENERAL EXAM: Alert but disoriented to time and situation, 77-year-old white female, comfortable in no apparent distress. The patient is currently on 2 L of O2 nasal cannula. No signs of any respiratory distress HEAD: Normocephalic and atraumatic EYES: Normal reaction of pupils, equal size. Left periorbital ecchymosis NOSE: Clear with pink turbinates. THROAT: No erythema or exudates. NECK: No masses, no JVD. CHEST: No chest wall deformity. LUNGS: Equal air entry with diminished lung sounds throughout. no crackles, wheeze, rhonchi or dullness. On 2 L/m nasal cannula. No conversational dyspnea or accessory muscle use.. CVS: S1 and S2 normal with no audible murmur, regular rhythm. No extra heart sounds ABDOMEN: No hepatosplenomegaly, active bowel sounds, no guarding or rigidity. SPINE: No scoliosis or deformity SKIN: No rashes CENTRAL NERVOUS SYSTEM: No focal deficits, tone is normal in all 4 extremities. EXTREMITIES: There is no peripheral edema, clubbing, or cyanosis. Peripheral pulses are intact. - Labs CBC & Chem 7: 08/10/23 03:57 08/10/23 03:57 Labs: Abnormal Lab Results - Last 24 Hours (Table) 08/09/23 08/09/23 08/09/23 Range/Units 11:19 17:13 20:40 Plt Count (150-450) k/uL Sodium (137-145) mmol/L Chloride (98-107) mmol/L BUN (7-17) mg/dL Creatinine (0.52-1.04) mg/dL Glucose (74-99) mg/dL POC Glucose (mg/dL) 210 H 203 H 232 H (70-110) mg/dL Calcium (8.4-10.2) mg/dL Creatine Kinase (30-135) U/L 08/10/23 08/10/23 08/10/23 Range/Units 03:57 03:57 06:13 Plt Count 41 L (150-450) k/uL Sodium 134 L (137-145) mmol/L Chloride 96 L (98-107) mmol/L BUN 76 H (7-17) mg/dL Creatinine 3.87 H (0.52-1.04) mg/dL Glucose 143 H (74-99) mg/dL POC Glucose (mg/dL) 120 H (70-110) mg/dL Calcium 7.5 L (8.4-10.2) mg/dL Creatine Kinase 1243 H* (30-135) U/L Microbiology - Last 24 Hours (Table) 08/07/23 23:15 Blood Culture Gram Stain - Preliminary Blood Blood Culture - Preliminary Gram Neg Bacilli 08/07/23 23:00 Blood Culture Gram Stain - Preliminary Blood Blood Culture - Preliminary Gram Neg Bacilli Assessment and Plan Assessment: Urinary tract infection and Urosepsis, and the patient has positive blood cultures with gram-negative bacillus and the patient remains on IV Rocephin Lactic acidosis, improved Metabolic anion gap acidosis, secondary to above, improved and the patient is still on bicarb infusion Leukocytosis, improved Acute kidney injury, secondary to acute tubular necrosis, improving and the creatinine is down to 3.8 Rhabdomyolysis, CPK is still mildly elevated, improving Suspected diabetes mellitus type 2, hyperglycemic and hemoglobin A1c 12.3 Elevated troponins, flat, not felt to reflect ACS Altered mental status, nonenhanced brain CT did not show any acute intracranial abnormality, likely related to toxic metabolic encephalopathy and urosepsis, improving Thrombocytopenia, likely consumptive secondary to sepsis. No signs of any DIC. Coagulation profile is within normal limits. Plan: Continue IV Rocephin Change IV fluids normal saline at rate of 100 mL an hour Awaiting final urine and blood cultures Echocardiogram was noted and the patient is a preserved LV function Ultrasound the kidney was done and there is no evidence of any hydronephrosis Renal function continues to improve and the urine output is adequate at this point Blood sugar management with Levemir insulin 10 units twice a day DVT and GI prophylaxis Increase oral intake monitor platelet count We'll continue to follow. She did be potentially transferred out of the intensive care unit today.
--- NOTE | 2023-08-10 09:41 | P.PN ---
Subjective 77-year-old female with past medical history of hypertension presented to the ER with altered mental status. She was found in confused state and with significant weakness. Apparently she was found for with broken glass. On admission she was noticed to be significantly hyperglycemic with blood glucose 400, evidence of JUNIOR with creatinine of 4.26. Prior baseline was normal. Lactate of 4.2. Cardiogenic consulted for elevation of troponin. Initial troponin was negative with a repeat troponin of 0.07 with a flat pattern. ECG did not show any significant ST-T wave changes diagnostic for ischemia. There was normal sinus rhythm. 08/09 Patient seen and examined. Patient states she does not have much of an appetite. Has had 1800 mL input with approximately 360 mL output. Denies A chest pain or pressure. Troponins minimally elevated with echo showing preserved EF. Multiple questions answered with the son and family at bedside. 08/10 Patient seen and examined. Patient denies any chest pain or pressure. Blood pressures much better today mainly in the 140s to 150s however yesterday was more in the 110 range. Creatinine mildly improving to 3.8 and has had adequate urine output. REVIEW OF SYSTEMS 14 point review of system is negative except what is mentioned above in HPI. PHYSICAL EXAMINATION Vital signs reviewed. Head: Normocephalic. Eyes: Sclerae nonicteric. Neck: Brisk carotid upstroke, no jugular venous distention. Lungs: Poor inspiratory effort, rhonchi audible. Heart: Regular rate and rhythm, S1-S2, no S3, no murmur or rub. Abdomen: Soft nontender,. Extremities: No significant swelling in bilateral lower extremity Neuro: Somnolent, only mumbling to verbal commands were drawn to pain, detailed exam was not performed ASSESSMENT Elevation of troponin due to septic shock, and poor renal clearance Septic shock likely UTI Acute metabolic encephalopathy JUNIOR Lactic acidosis Poorly controlled diabetes PLAN Minimally elevated troponins appear to be type II non-STEMI related to septic shock and kidney disease. Continue to hold losartan and continue with metoprolol. Echo showing preserved EF. May consider outpatient stress test if she has any anginal symptoms. Continue supportive care, possibly add amlodipine or losartan if blood pressure remains elevated. Objective - Vital Signs Vital signs: Vital Signs Temp 98.4 F 08/10/23 04:00 Pulse 65 08/10/23 07:00 Resp 20 08/10/23 07:00 BP 137/72 08/10/23 07:00 Pulse Ox 93 L 08/10/23 07:00 FiO2 50 08/09/23 10:00 Intake & Output 08/09/23 08/10/23 08/10/23 18:59 06:59 18:59 Intake Total 1000 1350 Output Total 500 680 Balance 500 670 Weight 89.2 kg 91.1 kg Intake: IV 1000 1350 Dextrose 5% in Water 1, 500 000 ml @ 100 mls/hr IV . [id number] [facility] with Sodium Bicarb (1 Meq/ml) 150 ml Rx#:[id number] Sodium Chloride 0.45% 1, 500 1300 000 ml @ 100 mls/hr IV . [id number] [facility] with Sodium Bicarb (1 Meq/ml) 150 ml Rx#:[id number] cefTRIAXone 2 gm In 50 Sodium Chloride 0.9% 50 ml @ 100 mls/hr IVPB Q24H [facility] Rx#:[id number] Output: Urine 500 680 Other: Voiding Method Indwelling Catheter Indwelling Catheter - Labs CBC & Chem 7: 08/10/23 03:57 08/10/23 03:57 Labs: Abnormal Lab Results - Last 24 Hours (Table) 08/09/23 08/09/23 08/09/23 Range/Units 11:19 17:13 20:40 Plt Count (150-450) k/uL Sodium (137-145) mmol/L Chloride (98-107) mmol/L BUN (7-17) mg/dL Creatinine (0.52-1.04) mg/dL Glucose (74-99) mg/dL POC Glucose (mg/dL) 210 H 203 H 232 H (70-110) mg/dL Calcium (8.4-10.2) mg/dL Creatine Kinase (30-135) U/L 08/10/23 08/10/23 08/10/23 Range/Units 03:57 03:57 06:13 Plt Count 41 L (150-450) k/uL Sodium 134 L (137-145) mmol/L Chloride 96 L (98-107) mmol/L BUN 76 H (7-17) mg/dL Creatinine 3.87 H (0.52-1.04) mg/dL Glucose 143 H (74-99) mg/dL POC Glucose (mg/dL) 120 H (70-110) mg/dL Calcium 7.5 L (8.4-10.2) mg/dL Creatine Kinase 1243 H* (30-135) U/L Microbiology - Last 24 Hours (Table) 08/07/23 23:15 Blood Culture Gram Stain - Preliminary Blood Blood Culture - Preliminary Gram Neg Bacilli 08/07/23 23:00 Blood Culture Gram Stain - Preliminary Blood Blood Culture - Preliminary Gram Neg Bacilli
[2023-08-10] MEDS: SODIUM CHLORIDE 0.9% 1,000 ML IV SCH ×2 (10:37→18:37)
--- NOTE | 2023-08-10 10:50 | P.PN ---
Subjective Patient is seen for follow-up for acute kidney injury. She was admitted to the hospital with mental status changes and weakness. Patient is noted to have a serum creatinine of 4.2 with a previous reading of 0.8 on 06/09/2018. No other labs available in between. Currently maintained on IV fluids. Patient was hypotensive with systolic blood pressure in the 80s Being treated for UTI. Blood cultures are growing E. coli. Patient is currently seen in the ICU. She is awake. Sitting in a bedside chair. Tonsils questions appropriately. Urine output at 20-40 mL per hour No obstruction noted on ultrasound Creatinine decreased to 3.8 Objective - Vital Signs Vital signs: Vital Signs Temp 98.4 F 08/10/23 08:00 Pulse 65 08/10/23 10:00 Resp 23 08/10/23 10:00 BP 159/80 08/10/23 10:00 Pulse Ox 95 08/10/23 10:00 FiO2 50 08/09/23 10:00 Intake & Output 08/09/23 08/10/23 08/10/23 18:59 06:59 18:59 Intake Total 1000 1350 Output Total 500 680 Balance 500 670 Weight 89.2 kg 91.1 kg Intake: IV 1000 1350 Dextrose 5% in Water 1, 500 000 ml @ 100 mls/hr IV . [id number] [facility] with Sodium Bicarb (1 Meq/ml) 150 ml Rx#:[id number] Sodium Chloride 0.45% 1, 500 1300 000 ml @ 100 mls/hr IV . [id number] [facility] with Sodium Bicarb (1 Meq/ml) 150 ml Rx#:[id number] cefTRIAXone 2 gm In 50 Sodium Chloride 0.9% 50 ml @ 100 mls/hr IVPB Q24H [facility] Rx#:[id number] Output: Urine 500 680 Other: Voiding Method Indwelling Catheter Indwelling Catheter - Exam Patient is awake, comfortable, no acute distress Examination of the heart S1 and S2 Examination of the lungs bilateral breath sounds are heard Abdomen is soft nontender Examination of lower extremities shows no significant edema - Labs CBC & Chem 7: 08/10/23 03:57 08/10/23 03:57 Labs: Abnormal Lab Results - Last 24 Hours (Table) 08/09/23 08/09/23 08/09/23 Range/Units 11:19 17:13 20:40 Plt Count (150-450) k/uL Sodium (137-145) mmol/L Chloride (98-107) mmol/L BUN (7-17) mg/dL Creatinine (0.52-1.04) mg/dL Glucose (74-99) mg/dL POC Glucose (mg/dL) 210 H 203 H 232 H (70-110) mg/dL Calcium (8.4-10.2) mg/dL Creatine Kinase (30-135) U/L 08/10/23 08/10/23 08/10/23 Range/Units 03:57 03:57 06:13 Plt Count 41 L (150-450) k/uL Sodium 134 L (137-145) mmol/L Chloride 96 L (98-107) mmol/L BUN 76 H (7-17) mg/dL Creatinine 3.87 H (0.52-1.04) mg/dL Glucose 143 H (74-99) mg/dL POC Glucose (mg/dL) 120 H (70-110) mg/dL Calcium 7.5 L (8.4-10.2) mg/dL Creatine Kinase 1243 H* (30-135) U/L Microbiology - Last 24 Hours (Table) 08/07/23 23:15 Blood Culture Gram Stain - Final Blood Blood Culture - Final Escherichia coli 08/07/23 23:00 Blood Culture Gram Stain - Final Blood Blood Culture - Final Escherichia coli Assessment and Plan Assessment: 1. Acute kidney injury ATN from hypoperfusion. Improving. Systolic blood pressure documented at 94 mmHg on initial admission. UA shows trace protein no blood, WBC 72. Currently with indwelling Rendon catheter. No obstruction on ultrasound. Previous creatinine 0.8 in 2018. 2. Hypertension with low blood pressure documented here. Initial blood pressure was 94/63 mmHg. Losartan is currently on hold. 3. Volume depletion currently maintained on IV fluids 4. Pyuria rule out UTI. Urine culture is not available 5. Mental status changes secondary to underlying infection, volume depletion and possible element of uremia. 6. Anion gap metabolic acidosis secondary to acute kidney injury and lactic acidosis. Serum acetone was negative. 7. Sepsis with blood cultures growing E. coli Plan: DC bicarb drip Continue IV fluids Continue antibiotics Repeat labs in a.m. Continue to avoid nephrotoxic agents No indication for hemodialysis today. We will continue to monitor on a daily basis.
--- NOTE | 2023-08-10 11:35 | P.PN ---
Subjective Progress Note Date: 08/10/23 * 77-year-old lady with past medical history significant for hypertension, presents to the emergency department with altered mental status. * Per chart review patient was last well-known 08/06/23. Patient was brought by EMS and was noted to be less responsive and alert and oriented 1 with profound weakness. Patient was apparently found on the floor with broken glass. Patient was last seen by a neighbor and apparently doing well. Upon presentation patient was noted to have profound hypoglycemia Glucose 411, blood pressure 180/22 * Workup initiated included CBC which were WBC of 30.8 hemoglobin 15.2 platelet 124 with elevated neutrophil count. INR of 1.4 serum chemistry showed sodium 134 BUN 57 creatinine 4.26 blood glucose in 400s lactic to 4.7 * Initial troponin obtained 0.076, EKG obtained showed sinus rhythm no significant ST segment changes * Patient was given IV Rocephin, urinalysis is obtained showed large leukocyte esterase WBC and many bacteria * 08/09/23: Patient was seen and evaluated bedside, patient seen in ICU, mentation has improved alert and oriented to person place and situation. Appreciate input from nephrology, continue patient on IV bicarbonate, continue to monitor renal profile * 08/10/23: Patient seen and evaluated bedside, patient alert and oriented to person and situation, patient sitting in recliner. CBC reviewed noted to have thrombocytopenia aspirin discontinued serum chemistry reviewed creatinine 3.87. CK trending down. Blood culture showed E. coli bacteremia antibiotic transitioned to Rocephin Objective - Vital Signs Vital signs: Vital Signs Temp 98.4 F 08/10/23 08:00 Pulse 64 08/10/23 11:00 Resp 26 H 08/10/23 11:00 BP 164/83 08/10/23 11:00 Pulse Ox 94 L 08/10/23 11:00 FiO2 50 08/09/23 10:00 Intake & Output 08/09/23 08/10/23 08/10/23 18:59 06:59 18:59 Intake Total 1000 1350 300 Output Total 500 680 195 Balance 500 670 105 Weight 89.2 kg 91.1 kg Intake: IV 1000 1350 300 Dextrose 5% in Water 1, 500 000 ml @ 100 mls/hr IV . [id number] [facility] with Sodium Bicarb (1 Meq/ml) 150 ml Rx#:[id number] Sodium Chloride 0.45% 1, 500 1300 300 000 ml @ 100 mls/hr IV . [id number] [facility] with Sodium Bicarb (1 Meq/ml) 150 ml Rx#:[id number] cefTRIAXone 2 gm In 50 Sodium Chloride 0.9% 50 ml @ 100 mls/hr IVPB Q24H [facility] Rx#:[id number] Output: Urine 500 680 195 Other: Voiding Method Indwelling Catheter Indwelling Catheter Indwelling Catheter - Exam PHYSICAL EXAMINATION: GENERAL: The patient is alert and oriented x 2 , not in any acute distress. Well developed, well nourished. HEENT: Pupils are round and equally reacting to light. EOMI. CARDIOVASCULAR: S1 and S2 present. No murmurs, rubs, or gallops. PULMONARY: Chest is clear to auscultation, no wheezing or crackles. ABDOMEN: Soft, nontender, nondistended, normoactive bowel sounds. No palpable organomegaly. MUSCULOSKELETAL: No joint swelling or deformity. EXTREMITIES: No cyanosis, clubbing, or pedal edema. NEUROLOGICAL: Gross neurological examination did not reveal any focal deficits. SKIN: No rashes. - Labs CBC & Chem 7: 08/10/23 03:57 08/10/23 03:57 Labs: Abnormal Lab Results - Last 24 Hours (Table) 08/09/23 08/09/23 08/10/23 Range/Units 17:13 20:40 03:57 Plt Count (150-450) k/uL Sodium 134 L (137-145) mmol/L Chloride 96 L (98-107) mmol/L BUN 76 H (7-17) mg/dL Creatinine 3.87 H (0.52-1.04) mg/dL Glucose 143 H (74-99) mg/dL POC Glucose (mg/dL) 203 H 232 H (70-110) mg/dL Calcium 7.5 L (8.4-10.2) mg/dL Creatine Kinase 1243 H* (30-135) U/L 08/10/23 08/10/23 Range/Units 03:57 06:13 Plt Count 41 L (150-450) k/uL Sodium (137-145) mmol/L Chloride (98-107) mmol/L BUN (7-17) mg/dL Creatinine (0.52-1.04) mg/dL Glucose (74-99) mg/dL POC Glucose (mg/dL) 120 H (70-110) mg/dL Calcium (8.4-10.2) mg/dL Creatine Kinase (30-135) U/L Microbiology - Last 24 Hours (Table) 08/07/23 23:15 Blood Culture Gram Stain - Final Blood Blood Culture - Final Escherichia coli 08/07/23 23:00 Blood Culture Gram Stain - Final Blood Blood Culture - Final Escherichia coli Assessment and Plan Assessment: Assessment and plan * Severe sepsis secondary to urinary tract infection * E. coli bacteremia * Elevated troponin rule out ACS * Acute thrombocytopenia * Acute metabolic encephalopathy * Acute renal failure * Diabetes mellitus type 2 * In regards to severe sepsis, blood cultures show E. coli bacteremia, urine cultures pending. Antibiotic transitioned from cefepime to Rocephin * In regards to elevated troponin, serial troponins ordered echocardiogram ordered ,cardiology consulted , continue metoprolol, IV heparin drip discontinued by cardiology, aspirin discontinued, we'll check for hit panel secondary to thrombocytopenia platelet count does not improve * In regards to renal failure, losartan discontinued continue with fluid resuscitation nephrology consulted continue to monitor intake and output, patient was transitioned from bicarbonate drip to normal saline * In regards to diabetes mellitus, HbA1c 13.7 , patient started on Lantus, continue correctional insulin * CODE STATUS is full code
[2023-08-10 11:36] LABS: Glucose,Whole Blood 134 mg/dL (70-110)
--- NOTE | 2023-08-10 14:13 | P.PN ---
Subjective Progress Note Date: 08/09/23 Principal diagnosis: Sepsis and UTI and bacteremia Patient is a 77-year-old female with a past medical history significant for hypertension the patient has been brought into the ER concerning for mental status changes, patient noticed to be septic secondary to urinary s ource and significant prerenal azotemia requiring admission to the ICU On today's evaluation that is08/09/2023, the patient continues to be afebrile, the patient is breathing comfortably on 2 L nasal cannula oxygen and denies any chest pain or cough, patient denies abdominal pain, and denies any gracia sea/vomiting or diarrhea Patient white count is down to 14.3, creatinine is 4.40 blood culture with gram- negative bacilli Objective - Vital Signs Vital signs: Vital Signs Temp 98.1 F 08/09/23 08:00 Pulse 71 08/09/23 11:00 Resp 24 08/09/23 11:00 BP 118/53 08/09/23 11:00 Pulse Ox 96 08/09/23 11:00 FiO2 50 08/09/23 11:00 Intake & Output 08/08/23 08/09/23 08/09/23 18:59 06:59 18:59 Intake Total 440.004 7103 300 Output Total 85 280 50 Balance 670.290 0817 250 Weight 89.2 kg 89.2 kg Intake: IV 500 1350 300 Dextrose 5% in Water 1, 300 1300 300 000 ml @ 100 mls/hr IV . [id number] [facility] with Sodium Bicarb (1 Meq/ml) 150 ml Rx#:[id number] Magnesium Sulfate-D5w Pmx 200 1 gm In Dextrose/Water 1 100ml.bag @ 100 mls/hr IVPB Q1H [facility] Rx#: [id number] cefTRIAXone 2 gm In 50 Sodium Chloride 0.9% 50 ml @ 100 mls/hr IVPB Q24H [facility] Rx#:[id number] Intake, IV Titration 34.699 Amount Heparin Sod,Pork in 0.45% 34.699 NaCl 25,000 unit In 0.45 % NaCl 1 250ml.bag @ 12 UNITS/KG/HR 9.253 mls/hr IV .Q24H [facility] Rx#: [id number] Output: Urine 85 280 50 Other: Voiding Method Indwelling Catheter Indwelling Catheter Indwelling Catheter # Voids 0 - Exam GENERAL DESCRIPTION: An elderly female lying in bed in no distress RESPIRATORY SYSTEM: Unlabored breathing , clear to auscultation anteriorly HEART: S1 S2 regular rate and rhythm , ABDOMEN: Soft , no tenderness EXTREMITIES: No edema feet - Labs CBC & Chem 7: 08/10/23 03:57 08/10/23 03:57 Labs: Abnormal Lab Results - Last 24 Hours (Table) 08/08/23 08/08/23 08/08/23 Range/Units 03:59 09:52 12:38 WBC (3.8-10.6) k/uL Plt Count (150-450) k/uL Neutrophils # (Manual) (1.3-7.7) k/uL Lymphocytes # (Manual) (1.0-4.8) k/uL Monocytes # (Manual) (0-1.0) k/uL Metamyelocytes # (Man) (0) k/uL ABG pH (7.35-7.45) ABG pCO2 (35-45) mmHg ABG pO2 (83-108) mmHg ABG HCO3 (21-25) mmol/L ABG O2 Saturation (94-97) % Sodium (137-145) mmol/L Carbon Dioxide (22-30) mmol/L BUN (7-17) mg/dL Creatinine (0.52-1.04) mg/dL Glucose (74-99) mg/dL POC Glucose (mg/dL) (70-110) mg/dL Hemoglobin A1c 12.3 H (<=6.0) % Plasma Lactic Acid Raghavendra (0.7-2.0) mmol/L Calcium (8.4-10.2) mg/dL Magnesium (1.6-2.3) mg/dL AST (14-36) U/L ALT (4-34) U/L Alkaline Phosphatase (38-126) U/L Creatine Kinase 1588 H* (30-135) U/L Troponin I 0.056 H* (0.000-0.034) ng/mL Total Protein (6.3-8.2) g/dL Albumin (3.5-5.0) g/dL 08/08/23 08/08/23 08/08/23 Range/Units 12:43 13:45 13:53 WBC (3.8-10.6) k/uL Plt Count (150-450) k/uL Neutrophils # (Manual) (1.3-7.7) k/uL Lymphocytes # (Manual) (1.0-4.8) k/uL Monocytes # (Manual) (0-1.0) k/uL Metamyelocytes # (Man) (0) k/uL ABG pH 7.30 L (7.35-7.45) ABG pCO2 30 L (35-45) mmHg ABG pO2 67 L (83-108) mmHg ABG HCO3 15 L (21-25) mmol/L ABG O2 Saturation 92.8 L (94-97) % Sodium (137-145) mmol/L Carbon Dioxide (22-30) mmol/L BUN (7-17) mg/dL Creatinine (0.52-1.04) mg/dL Glucose (74-99) mg/dL POC Glucose (mg/dL) 263 H (70-110) mg/dL Hemoglobin A1c (<=6.0) % Plasma Lactic Acid Raghavendra 3.5 H* (0.7-2.0) mmol/L Calcium (8.4-10.2) mg/dL Magnesium (1.6-2.3) mg/dL AST (14-36) U/L ALT (4-34) U/L Alkaline Phosphatase (38-126) U/L Creatine Kinase (30-135) U/L Troponin I (0.000-0.034) ng/mL Total Protein (6.3-8.2) g/dL Albumin (3.5-5.0) g/dL 08/08/23 08/08/23 08/08/23 Range/Units 14:07 14:07 15:19 WBC 15.6 H (3.8-10.6) k/uL Plt Count 77 L (150-450) k/uL Neutrophils # (Manual) 14.90 H (1.3-7.7) k/uL Lymphocytes # (Manual) 0.31 L (1.0-4.8) k/uL Monocytes # (Manual) (0-1.0) k/uL Metamyelocytes # (Man) 0.31 H (0) k/uL ABG pH (7.35-7.45) ABG pCO2 (35-45) mmHg ABG pO2 (83-108) mmHg ABG HCO3 (21-25) mmol/L ABG O2 Saturation (94-97) % Sodium (137-145) mmol/L Carbon Dioxide (22-30) mmol/L BUN (7-17) mg/dL Creatinine (0.52-1.04) mg/dL Glucose (74-99) mg/dL POC Glucose (mg/dL) 271 H (70-110) mg/dL Hemoglobin A1c (<=6.0) % Plasma Lactic Acid Raghavendra 3.4 H* (0.7-2.0) mmol/L Calcium (8.4-10.2) mg/dL Magnesium (1.6-2.3) mg/dL AST (14-36) U/L ALT (4-34) U/L Alkaline Phosphatase (38-126) U/L Creatine Kinase (30-135) U/L Troponin I (0.000-0.034) ng/mL Total Protein (6.3-8.2) g/dL Albumin (3.5-5.0) g/dL 08/08/23 08/08/23 08/08/23 Range/Units 15:50 17:20 20:02 WBC (3.8-10.6) k/uL Plt Count (150-450) k/uL Neutrophils # (Manual) (1.3-7.7) k/uL Lymphocytes # (Manual) (1.0-4.8) k/uL Monocytes # (Manual) (0-1.0) k/uL Metamyelocytes # (Man) (0) k/uL ABG pH (7.35-7.45) ABG pCO2 (35-45) mmHg ABG pO2 (83-108) mmHg ABG HCO3 (21-25) mmol/L ABG O2 Saturation (94-97) % Sodium (137-145) mmol/L Carbon Dioxide (22-30) mmol/L BUN (7-17) mg/dL Creatinine (0.52-1.04) mg/dL Glucose (74-99) mg/dL POC Glucose (mg/dL) 288 H 251 H (70-110) mg/dL Hemoglobin A1c (<=6.0) % Plasma Lactic Acid Raghavendra 3.2 H* (0.7-2.0) mmol/L Calcium (8.4-10.2) mg/dL Magnesium (1.6-2.3) mg/dL AST (14-36) U/L ALT (4-34) U/L Alkaline Phosphatase (38-126) U/L Creatine Kinase (30-135) U/L Troponin I (0.000-0.034) ng/mL Total Protein (6.3-8.2) g/dL Albumin (3.5-5.0) g/dL 08/08/23 08/09/23 08/09/23 Range/Units 23:55 00:49 02:23 WBC (3.8-10.6) k/uL Plt Count (150-450) k/uL Neutrophils # (Manual) (1.3-7.7) k/uL Lymphocytes # (Manual) (1.0-4.8) k/uL Monocytes # (Manual) (0-1.0) k/uL Metamyelocytes # (Man) (0) k/uL ABG pH (7.35-7.45) ABG pCO2 (35-45) mmHg ABG pO2 (83-108) mmHg ABG HCO3 (21-25) mmol/L ABG O2 Saturation (94-97) % Sodium (137-145) mmol/L Carbon Dioxide (22-30) mmol/L BUN (7-17) mg/dL Creatinine (0.52-1.04) mg/dL Glucose (74-99) mg/dL POC Glucose (mg/dL) 255 H 237 H 217 H (70-110) mg/dL Hemoglobin A1c (<=6.0) % Plasma Lactic Acid Raghavendra (0.7-2.0) mmol/L Calcium (8.4-10.2) mg/dL Magnesium (1.6-2.3) mg/dL AST (14-36) U/L ALT (4-34) U/L Alkaline Phosphatase (38-126) U/L Creatine Kinase (30-135) U/L Troponin I (0.000-0.034) ng/mL Total Protein (6.3-8.2) g/dL Albumin (3.5-5.0) g/dL 08/09/23 08/09/23 08/09/23 Range/Units 04:24 04:24 04:24 WBC 14.3 H (3.8-10.6) k/uL Plt Count 63 L (150-450) k/uL Neutrophils # (Manual) 12.70 H (1.3-7.7) k/uL Lymphocytes # (Manual) 0.43 L (1.0-4.8) k/uL Monocytes # (Manual) 1.14 H (0-1.0) k/uL Metamyelocytes # (Man) (0) k/uL ABG pH (7.35-7.45) ABG pCO2 (35-45) mmHg ABG pO2 (83-108) mmHg ABG HCO3 (21-25) mmol/L ABG O2 Saturation (94-97) % Sodium 133 L (137-145) mmol/L Carbon Dioxide 19 L (22-30) mmol/L BUN 73 H (7-17) mg/dL Creatinine 4.40 H (0.52-1.04) mg/dL Glucose 235 H (74-99) mg/dL POC Glucose (mg/dL) (70-110) mg/dL Hemoglobin A1c 13.7 H (<=6.0) % Plasma Lactic Acid Raghavendra (0.7-2.0) mmol/L Calcium 7.5 L (8.4-10.2) mg/dL Magnesium (1.6-2.3) mg/dL AST 119 H (14-36) U/L ALT 50 H (4-34) U/L Alkaline Phosphatase 165 H (38-126) U/L Creatine Kinase (30-135) U/L Troponin I (0.000-0.034) ng/mL Total Protein 4.9 L (6.3-8.2) g/dL Albumin 2.3 L (3.5-5.0) g/dL 08/09/23 08/09/23 08/09/23 Range/Units 04:24 05:11 11:19 WBC (3.8-10.6) k/uL Plt Count (150-450) k/uL Neutrophils # (Manual) (1.3-7.7) k/uL Lymphocytes # (Manual) (1.0-4.8) k/uL Monocytes # (Manual) (0-1.0) k/uL Metamyelocytes # (Man) (0) k/uL ABG pH (7.35-7.45) ABG pCO2 (35-45) mmHg ABG pO2 (83-108) mmHg ABG HCO3 (21-25) mmol/L ABG O2 Saturation (94-97) % Sodium (137-145) mmol/L Carbon Dioxide (22-30) mmol/L BUN (7-17) mg/dL Creatinine (0.52-1.04) mg/dL Glucose (74-99) mg/dL POC Glucose (mg/dL) 250 H 210 H (70-110) mg/dL Hemoglobin A1c (<=6.0) % Plasma Lactic Acid Raghavendra (0.7-2.0) mmol/L Calcium (8.4-10.2) mg/dL Magnesium 2.4 H (1.6-2.3) mg/dL AST (14-36) U/L ALT (4-34) U/L Alkaline Phosphatase (38-126) U/L Creatine Kinase (30-135) U/L Troponin I (0.000-0.034) ng/mL Total Protein (6.3-8.2) g/dL Albumin (3.5-5.0) g/dL Microbiology - Last 24 Hours (Table) 08/07/23 23:00 Blood Culture Gram Stain - Preliminary Blood 08/07/23 23:15 Blood Culture Gram Stain - Preliminary Blood Assessment and Plan (1) Sepsis Current Visit: Yes Status: Acute Code(s): A41.9 - SEPSIS, UNSPECIFIED ORGANISM SNOMED Code(s): 51268103 (2) Penicillin allergy Current Visit: Yes Status: Acute Code(s): Z88.0 - ALLERGY STATUS TO PENICILLIN SNOMED Code(s): 82952125 (3) UTI (urinary tract infection) Current Visit: Yes Status: Acute Code(s): N39.0 - URINARY TRACT INFECTION, SITE NOT SPECIFIED SNOMED Code(s): 47974103 Plan: 1patient presented hospital with weakness mental status changes source is likely multifactorial in this patient with significant dehydration and prerenal also have a positive UA and likely a component of symptomatic urinary tract infection from enteric gram-negative pathogen 2-Penicillin allergy that will limit number of antibiotics safe to use 3- patient blood culture with an E. coli that is sensitive pathogen, antibiotic has been adjusted to Rocephin to continue Dictation was produced using [employer] dictation software. please excuse any grammatical, word or spelling errors. Time with Patient: Less than 30
--- NOTE | 2023-08-10 14:15 | P.PN ---
Subjective Progress Note Date: 08/10/23 Principal diagnosis: Sepsis and UTI and bacteremia Patient is a 77-year-old female with a past medical history significant for hypertension the patient has been brought into the ER concerning for mental status changes, patient noticed to be septic secondary to urinary s ource and significant prerenal azotemia requiring admission to the ICU On today's evaluation that is 08/10/2023, the patient remains to be afebrile, the patient is breathing comfortably on 2 L nasal cannula supplemental oxygen and denies any shortness of breath, the patient denies having any chest pain or cough, patient denies nausea/vomiting /diarrhea and no abdominal pain, Patient white count has normalized to 8.9, creatinine is 3.87 blood culture with E. coli Objective - Vital Signs Vital signs: Vital Signs Temp 98.4 F 08/10/23 08:00 Pulse 65 08/10/23 10:00 Resp 23 08/10/23 10:00 BP 159/80 08/10/23 10:00 Pulse Ox 95 08/10/23 10:00 FiO2 50 08/09/23 10:00 Intake & Output 08/09/23 08/10/23 08/10/23 18:59 06:59 18:59 Intake Total 1000 1350 225 Output Total 500 680 155 Balance 500 670 70 Weight 89.2 kg 91.1 kg Intake: IV 1000 1350 225 Dextrose 5% in Water 1, 500 000 ml @ 100 mls/hr IV . [id number] [facility] with Sodium Bicarb (1 Meq/ml) 150 ml Rx#:[id number] Sodium Chloride 0.45% 1, 500 1300 225 000 ml @ 100 mls/hr IV . [id number] [facility] with Sodium Bicarb (1 Meq/ml) 150 ml Rx#:[id number] cefTRIAXone 2 gm In 50 Sodium Chloride 0.9% 50 ml @ 100 mls/hr IVPB Q24H [facility] Rx#:[id number] Output: Urine 500 680 155 Other: Voiding Method Indwelling Catheter Indwelling Catheter - Exam GENERAL DESCRIPTION: An elderly female lying in bed in no distress RESPIRATORY SYSTEM: Unlabored breathing , clear to auscultation anteriorly HEART: S1 S2 regular rate and rhythm , ABDOMEN: Soft , no tenderness EXTREMITIES: No edema feet - Labs CBC & Chem 7: 08/10/23 03:57 08/10/23 03:57 Labs: Abnormal Lab Results - Last 24 Hours (Table) 08/09/23 08/09/23 08/09/23 Range/Units 11:19 17:13 20:40 Plt Count (150-450) k/uL Sodium (137-145) mmol/L Chloride (98-107) mmol/L BUN (7-17) mg/dL Creatinine (0.52-1.04) mg/dL Glucose (74-99) mg/dL POC Glucose (mg/dL) 210 H 203 H 232 H (70-110) mg/dL Calcium (8.4-10.2) mg/dL Creatine Kinase (30-135) U/L 08/10/23 08/10/23 08/10/23 Range/Units 03:57 03:57 06:13 Plt Count 41 L (150-450) k/uL Sodium 134 L (137-145) mmol/L Chloride 96 L (98-107) mmol/L BUN 76 H (7-17) mg/dL Creatinine 3.87 H (0.52-1.04) mg/dL Glucose 143 H (74-99) mg/dL POC Glucose (mg/dL) 120 H (70-110) mg/dL Calcium 7.5 L (8.4-10.2) mg/dL Creatine Kinase 1243 H* (30-135) U/L Microbiology - Last 24 Hours (Table) 08/07/23 23:15 Blood Culture Gram Stain - Final Blood Blood Culture - Final Escherichia coli 08/07/23 23:00 Blood Culture Gram Stain - Final Blood Blood Culture - Final Escherichia coli Assessment and Plan (1) Sepsis Current Visit: Yes Status: Acute Code(s): A41.9 - SEPSIS, UNSPECIFIED ORGANISM SNOMED Code(s): 53809464 (2) Penicillin allergy Current Visit: Yes Status: Acute Code(s): Z88.0 - ALLERGY STATUS TO PENICILLIN SNOMED Code(s): 60851142 (3) UTI (urinary tract infection) Current Visit: Yes Status: Acute Code(s): N39.0 - URINARY TRACT INFECTION, SITE NOT SPECIFIED SNOMED Code(s): 67720168 Plan: 1patient presented hospital with weakness mental status changes source is likely multifactorial in this patient with significant dehydration and prerenal also have a positive UA and likely a component of symptomatic urinary tract infection from enteric gram-negative pathogen 2-Penicillin allergy that will limit number of antibiotics safe to use 3- patient blood culture with an E. coli that is sensitive pathogen 4-patient is afebrile and the patient white count has normalized, patient to continue Rocephin and monitor clinical course closely Dictation was produced using [employer] dictation software. please excuse any grammatical, word or spelling errors. Time with Patient: Less than 30
[2023-08-10 16:45] LABS: Glucose,Whole Blood 283 mg/dL (70-110)
[2023-08-10 20:34] LABS: Glucose,Whole Blood 301 mg/dL (70-110)
[2023-08-11 01:38] LABS: Glucose,Whole Blood 148 mg/dL (70-110)
[2023-08-11 02:15] LABS: ABG Base Excess 4.3 mmol/L; ABG HCO3 27 mmol/L (21-25); ABG Oxygen Saturation 97.3 % (94-97); ABG PCO2 35 mmHg (35-45); ABG PH 7.51 (7.35-7.45); ABG PO2 81 mmHg (83-108); ABG TCO2 29 mmol/L (19-24); Allen Test Performed? Yes
--- NOTE | 2023-08-11 02:18 | CT ---
EXAM: CT Head Without Intravenous Contrast CLINICAL HISTORY: ITS.REASON CT Reason: CODE STROKE TECHNIQUE: Axial computed tomography images of the head/brain without intravenous contrast. CTDI is 48.8 mGy and DLP is 1236 mGy-cm. This CT exam was performed using one or more of the following dose reduction techniques: automated exposure control, adjustment of the mA and/or kV according to patient size, and/or use of iterative reconstruction technique. COMPARISON: Comparison made to prior head CT from August 07, 2023. FINDINGS: Brain: Unremarkable. No hemorrhage. No significant white matter disease. No edema. Ventricles: Unremarkable. No ventriculomegaly. Bones/joints: Unremarkable. No acute fracture. Soft tissues: Unremarkable. Sinuses: Chronic left ethmoid sinusitis. No acute sinusitis. Mastoid air cells: Unremarkable as visualized. No mastoid effusion. IMPRESSION: No evidence of acute intracranial pathology.
--- NOTE | 2023-08-11 02:23 | CT ---
EXAM: CT Angiography Head With Intravenous Contrast CLINICAL HISTORY: ITS.REASON CT Reason: CODE STROKE TECHNIQUE: Axial computed tomographic angiography images of the head with intravenous contrast. This CT exam was performed using one or more of the following dose reduction techniques: automated exposure control, adjustment of the mA and/or kV according to patient size, and/or use of iterative reconstruction technique. MIP reconstructed images were created and reviewed. COMPARISON: No relevant prior studies available. FINDINGS: This study is suboptimal secondary to motion artifact. The dural venous sinuses are patent. Right internal carotid artery: No acute findings. Intracranial segment is patent with no significant stenosis. No aneurysm. Right anterior cerebral artery: Unremarkable. No occlusion or significant stenosis. No aneurysm. Right middle cerebral artery: Unremarkable. No occlusion or significant stenosis. No aneurysm. Right posterior cerebral artery: Unremarkable. No occlusion or significant stenosis. No aneurysm. Right vertebral artery: Unremarkable as visualized. Left internal carotid artery: No acute findings. Intracranial segment is patent with no significant stenosis. No aneurysm. Left anterior cerebral artery: Unremarkable. No occlusion or significant stenosis. No aneurysm. Left middle cerebral artery: Unremarkable. No occlusion or significant stenosis. No aneurysm. Left posterior cerebral artery: Unremarkable. No occlusion or significant stenosis. No aneurysm. Left vertebral artery: Unremarkable as visualized. Basilar artery: Unremarkable. No occlusion or significant stenosis. No aneurysm. IMPRESSION: Negative CT angiogram of the head. EXAM: CT Angiography Neck With Intravenous Contrast CLINICAL HISTORY: ITS.REASON CT Reason: CODE STROKE TECHNIQUE: Routine carotid CT angiography protocol was performed with intravenous contrast. NASCET criteria using the distal ICAs for comparison were used for evaluation of stenoses. CTDI is 29.4 mGy and DLP is 433.6 mGy-cm. This CT exam was performed using one or more of the following dose reduction techniques: automated exposure control, adjustment of the mA and/or kV according to patient size, and/or use of iterative reconstruction technique. MIP reconstructed images were created and reviewed. COMPARISON: None. FINDINGS: VASCULATURE: Right common carotid artery: Unremarkable. No occlusion or significant stenosis. No dissection. Right internal carotid artery: Unremarkable. Extracranial segment is patent with no occlusion or significant stenosis. No dissection. Right external carotid artery: Unremarkable. No occlusion. Right vertebral artery: Unremarkable. No occlusion or significant stenosis. No dissection. Left common carotid artery: Unremarkable. No occlusion or significant stenosis. No dissection. Left internal carotid artery: Unremarkable. Extracranial segment is patent with no occlusion or significant stenosis. No dissection. Left external carotid artery: Unremarkable. No occlusion. Left vertebral artery: Unremarkable. No occlusion or significant stenosis. No dissection. NECK: Bones/joints: Advanced disc degeneration at C6-7 with critical spinal canal stenosis. Recommend MRI of the cervical spine to evaluate for myelopathy. Soft tissues: Prominent mediastinal lymph nodes. Lung apices: Bronchitis with pneumonitis, which may be of infectious or inflammatory etiologies. CAROTID STENOSIS REFERENCE USING NASCET CRITERIA: % ICA stenosis = (1 - narrowest ICA diameter/diameter of distal cervical ICA) x 100. Mild - <50% stenosis. Moderate - 50-69% stenosis. Severe - 70-94% stenosis. Near occlusion - 95-99% stenosis. Occluded - 100% stenosis. IMPRESSION: Negative CTA neck.
--- NOTE | 2023-08-11 02:28 | XR ---
EXAM: XR Chest, 1 View CLINICAL HISTORY: ITS.REASON XR Reason: shortness of breath TECHNIQUE: Frontal view of the chest. COMPARISON: Comparison made to prior chest x-ray from August 08, 2023. FINDINGS: Lungs: Moderate to heavy peribronchial thickening of the central and peripheral bronchi. Diffuse increased interstitial opacities throughout the lungs. No consolidation. Pleural space: Unremarkable. No pneumothorax. Heart: Mild cardiomegaly. Mediastinum: Unremarkable. Bones/joints: Unremarkable. IMPRESSION: Bronchitis with extensive pneumonitis concerning for atypical pneumonia. No consolidation.
[2023-08-11 02:42] LABS: ALT 72 U/L (4-34); AST 135 U/L (14-36); African American GFR (CKD) 14 (>60 ml/min/1.73 sqM); Alkaline Phosphatase 486 U/L (38-126); Anion Gap 11 mmol/L; Blood Urea Nitrogen 83 mg/dL (7-17); Calcium 7.8 mg/dL (8.4-10.2); Carbon Dioxide 24 mmol/L (22-30); Chloride 98 mmol/L (98-107); Glucose 148 mg/dL (74-99); Non-African American GFR(CKD) 12 (>60 ml/min/1.73 sqM); Potassium 3.9 mmol/L (3.5-5.1); Sodium 133 mmol/L (137-145); Total Protein 4.5 g/dL (6.3-8.2)
[2023-08-11 02:48] LABS: HCT 37.4 % (34.0-46.0); HGB 12.3 gm/dL (11.4-16.0); MCH 29.7 pg (25.0-35.0); MCHC 32.9 g/dL (31.0-37.0); MCV 90.4 fL (80.0-100.0); RBC 4.14 m/uL (3.80-5.40)
[2023-08-11 03:18] LABS: Platelet Count 35 k/uL (150-450)
[2023-08-11 04:44] LABS: Band Neutrophils % 1 %; Eosinophils # (M) 0.12 k/uL (0-0.7); Lymphocytes # (M) 0.48 k/uL (1.0-4.8); Monocytes # (M) 0.08 k/uL (0-1.0); Neutrophils % (M) 82 %; Nucleated Red Blood Cells 0 /100 WBC (0-0); Total Cells Counted 100
[2023-08-11 04:45] LABS: Toxic Vacuolation Present
[2023-08-11 04:50] LABS: African American GFR (CKD) 13 (>60 ml/min/1.73 sqM); Anion Gap 13 mmol/L; Blood Urea Nitrogen 83 mg/dL (7-17); Calcium 7.9 mg/dL (8.4-10.2); Carbon Dioxide 24 mmol/L (22-30); Chloride 99 mmol/L (98-107); Creatine Kinase 915 U/L (30-135); Glucose 118 mg/dL (74-99); Non-African American GFR(CKD) 11 (>60 ml/min/1.73 sqM); Potassium 3.6 mmol/L (3.5-5.1); Sodium 136 mmol/L (137-145)
[2023-08-11 05:02] LABS: HCT 37.2 % (34.0-46.0); HGB 12.5 gm/dL (11.4-16.0); MCH 30.3 pg (25.0-35.0); MCHC 33.7 g/dL (31.0-37.0); MCV 89.9 fL (80.0-100.0); Mean Platelet Volume 12.1; RBC 4.14 m/uL (3.80-5.40); RDW 13.5 % (11.5-15.5); WBC 8.5 k/uL (3.8-10.6)
[2023-08-11 05:04] LABS: Platelet Count 34 k/uL (150-450)
[2023-08-11 06:28] LABS: Glucose,Whole Blood 102 mg/dL (70-110)
[2023-08-11 08:28] LABS: Glucose,Whole Blood 104 mg/dL (70-110)
[2023-08-11] MEDS: METOPROLOL TARTRATE 25 MG TAB PO SCH ×2 (08:35→17:25)
[2023-08-11] MEDS: INSULIN ASPART (NovoLOG) 100 UNIT/ML VIAL SQ SCH ×4 (08:35→21:51)
[2023-08-11] MEDS: PANTOPRAZOLE 40 MG/10 ML VIAL IVP SCH (08:44)
[2023-08-11] MEDS: INSULIN DETEMIR (LEVEMIR) 100 UNIT/ML SYR SQ SCH ×2 (09:49→21:52)
--- NOTE | 2023-08-11 10:17 | P.PN ---
Subjective Progress Note Date: 08/11/23 I am seeing this patient in consultation today 08/09/2023 in the intensive care unit after the patient was found down on the floor and confused by her neighbor. Patient is a 77-year-old female with unknown past medical history. She is currently confused and unable to provide meaningful information in regard to her HPI and events leading this hospitalization. Apparently, the patient was found down on the floor, confused, by her neighbor. Downtime is unknown. Patient was evaluated by EMS and transferred to the emergency room on July. Brain CT on arrival did not show any acute intracranial process. Initially, the patient was placed on a heparin infusion for possible NSTEMI, which has been ruled out. Patient was felt to be septic, and admitted to the intensive care unit. Patient is currently sitting in the bed, on 2 L/m nasal cannula, in no acute distress. Blood pressure is normotensive. Not requiring any vasopressors. Heart rhythm appears normal sinus on bedside monitor. Chest x- ray on arrival showed low lung volumes and slightly increased central vascular congestion. Slightly increased interstitial markings could be related to low lung volumes, edema, or pneumonitis. Patient's urinalysis was consistent with UTI, and the patient's preliminary blood results have come back positive with E. coli. Patient is currently on Rocephin. Most recent CBC from yesterday shows an improvement WBC count down to 15.6, hemoglobin 13, hematocrit 39.2, platelets 77. ABG from yesterday shows a pO2 of 67, pCO2 of 30, pH is 7.3. This was done on room air. BMP from yesterday shows a sodium 135, potassium 4.4, chloride 101, serum bicarb down to 12, BUN 67, creatinine 4.49, glucose 376. Lactic acid level was elevated at 4.7 is down to 1.5. CPK is elevated at 1588. 3 A Sodium bicarb and D5W is currently infusing at 100 ML's per hour. Normal saline is infusing at 20 ML's per hour. Urine output is oliguric, but improving around 50-60 ML's per hour. Troponins are 0.076, 0.05, 0.056 respectively. NT proBNP was elevated at 16,800. Toxicology screen positive for benzodiazepines. Patient will be monitored in the intensive care unit. On today's evaluation of 08/10/2023, the patient is doing much better neurologically. She is communicating. She is aware that she is in the hospital. She was better but off on the date and the year. However she was aware that she is in a hospital and she has no focal neurological deficit. The patient had gram-negative sepsis and the patient has gram-negative bacillus in the blood on 2 separate blood cultures. This is most likely generating from an underlying urinary tract infection. The patient is currently hemodynamically stable. The patient remains on IV fluids and she is on a bicarbonate drip at the rate of 100 mL an hour. She remains on IV antibiotics with Rocephin. She is afebrile. She is 100 is stable. She is on no pressors. She is on Levemir insulin 10 units twice a day. Her blood work from today shows a WBC count which is down to 8.0 with a hemoglobin 12.2 and a platelet count of 41. Coagulation profile is within normal limits. The creatinine is gradually improving. Creatinine is down to 3.8 with a BUN of 76. Sodium level is at 134. Serum bicarb is up to 28. As such, the bicarb infusion will be discontinued. Troponins were 0.07 0.05 respectively. CPK was at 1243 consistent with some mild rhabdomyolysis. Echocardiogram was done yesterday and the patient has a normal LV function with an ejection fraction of 60%. The patient has mild concentric LVH. On 08/11/2023, the patient is being seen for a follow-up. After doing some progress neurologically. The patient's sepsis was being treated, the patient overnight became unresponsive, she developed garbled speech and her arms were flaccid along with unresponsiveness. This was quite a change in her neurologic functions and status. Based on that, a code stroke was called and the patient underwent a CT angiogram that showed no acute abnormalities. Based on the records, the patient was only withdrawing to sternal rubs and she was unable to speak and her speech was mumbled and she was unable to maintain a conversation. The CT angiogram was done and the CTA showed no acute abnormalities. CAT scan of the brain was also done that showed no evidence of any bleed or any stroke. Currently the patient is having an EEG. She arouses and she opens her eyes spontaneously. She is breathing withdrawing to painful stimulation and there is no focal neurological deficit. Her speech is not fully recovered yet. She was able to tell me that she was in the hospital and she was doing fine. The white cell count today's of 3.5 with a hemoglobin of 12.5, the sodium is at 136 with a potassium level of 3.6, BUN is at 80 with a creatinine of 3.6. AST is 135, ALT 72, alkaline phosphatase is 486, troponins of 0.03. Also, blood gas was done yesterday that showed a pH of 7.5 with a pCO2 of 35 and a pO2 of 81. She is currently on oxygen at 2 L. Chest x-ray from today shows no areas of consolidation. There is some increase in pulmonary vascular markings bilaterally. Patient denies having any cough or sputum production. As mentioned, her white cell count was gradually improving and the patient remains on IV Rocephin. Her blood culture was positive for E. coli. Had echocardiogram that was done on 08/09/2023 showed a preserved LV function with an ejection fraction of 60% Objective - Vital Signs Vital signs: Vital Signs Temp 98.2 F 08/10/23 20:00 Pulse 101 H 08/11/23 02:00 Resp 30 H 08/11/23 02:00 BP 128/62 08/11/23 02:00 Pulse Ox 98 08/11/23 02:00 FiO2 50 08/09/23 10:00 Intake & Output 08/10/23 08/11/23 08/11/23 18:59 06:59 18:59 Intake Total 825 750 Output Total 195 750 Balance 630 0 Intake: IV 825 750 Sodium Chloride 0.45% 1, 825 000 ml @ 100 mls/hr IV . [id number] HEAVEN[facility] with Sodium Bicarb (1 Meq/ml) 150 ml Rx#:[id number] Sodium Chloride 0.9% 1, 750 000 ml @ 75 mls/hr IV . [id number] HEAVENLY Rx#:[id number] Output: Urine 195 750 Other: Voiding Method Indwelling Catheter Indwelling Catheter - Exam GENERAL EXAM: Alert but disoriented to time and situation, 77-year-old white fe male, comfortable in no apparent distress. The patient is currently on 2 L of O2 nasal cannula. No signs of any respiratory distress HEAD: Normocephalic and atraumatic EYES: Normal reaction of pupils, equal size. Left periorbital ecchymosis NOSE: Clear with pink turbinates. THROAT: No erythema or exudates. NECK: No masses, no JVD. CHEST: No chest wall deformity. LUNGS: Equal air entry with diminished lung sounds throughout. no crackles, wheeze, rhonchi or dullness. On 2 L/m nasal cannula. No conversational dyspnea or accessory muscle use.. CVS: S1 and S2 normal with no audible murmur, regular rhythm. No extra heart sounds ABDOMEN: No hepatosplenomegaly, active bowel sounds, no guarding or rigidity. SPINE: No scoliosis or deformity SKIN: No rashes CENTRAL NERVOUS SYSTEM: No focal deficits, tone is normal in all 4 extremities. EXTREMITIES: There is no peripheral edema, clubbing, or cyanosis. Peripheral pulses are intact. - Labs CBC & Chem 7: 08/11/23 03:56 08/11/23 03:56 Labs: Abnormal Lab Results - Last 24 Hours (Table) 08/10/23 08/10/23 08/10/23 Range/Units 11:35 16:42 20:33 Plt Count (150-450) k/uL Lymphocytes # (Manual) (1.0-4.8) k/uL APTT (22.0-30.0) sec ABG pH (7.35-7.45) ABG pO2 (83-108) mmHg ABG HCO3 (21-25) mmol/L ABG Total CO2 (19-24) mmol/L ABG O2 Saturation (94-97) % Sodium (137-145) mmol/L BUN (7-17) mg/dL Creatinine (0.52-1.04) mg/dL Glucose (74-99) mg/dL POC Glucose (mg/dL) 134 H 283 H 301 H (70-110) mg/dL Calcium (8.4-10.2) mg/dL Total Bilirubin (0.2-1.3) mg/dL AST (14-36) U/L ALT (4-34) U/L Alkaline Phosphatase (38-126) U/L Creatine Kinase (30-135) U/L Troponin I (0.000-0.034) ng/mL Total Protein (6.3-8.2) g/dL Albumin (3.5-5.0) g/dL 08/11/23 08/11/23 08/11/23 Range/Units 01:35 02:09 02:09 Plt Count 35 L (150-450) k/uL Lymphocytes # (Manual) 0.48 L (1.0-4.8) k/uL APTT (22.0-30.0) sec ABG pH (7.35-7.45) ABG pO2 (83-108) mmHg ABG HCO3 (21-25) mmol/L ABG Total CO2 (19-24) mmol/L ABG O2 Saturation (94-97) % Sodium 133 L (137-145) mmol/L BUN 83 H (7-17) mg/dL Creatinine 3.41 H (0.52-1.04) mg/dL Glucose 148 H (74-99) mg/dL POC Glucose (mg/dL) 148 H (70-110) mg/dL Calcium 7.8 L (8.4-10.2) mg/dL Total Bilirubin 2.0 H (0.2-1.3) mg/dL AST 135 H (14-36) U/L ALT 72 H (4-34) U/L Alkaline Phosphatase 486 H (38-126) U/L Creatine Kinase (30-135) U/L Troponin I (0.000-0.034) ng/mL Total Protein 4.5 L (6.3-8.2) g/dL Albumin 2.0 L (3.5-5.0) g/dL 08/11/23 08/11/23 08/11/23 Range/Units 02:09 02:09 02:10 Plt Count (150-450) k/uL Lymphocytes # (Manual) (1.0-4.8) k/uL APTT 21.1 L (22.0-30.0) sec ABG pH 7.51 H (7.35-7.45) ABG pO2 81 L (83-108) mmHg ABG HCO3 27 H (21-25) mmol/L ABG Total CO2 29 H (19-24) mmol/L ABG O2 Saturation 97.3 H (94-97) % Sodium (137-145) mmol/L BUN (7-17) mg/dL Creatinine (0.52-1.04) mg/dL Glucose (74-99) mg/dL POC Glucose (mg/dL) (70-110) mg/dL Calcium (8.4-10.2) mg/dL Total Bilirubin (0.2-1.3) mg/dL AST (14-36) U/L ALT (4-34) U/L Alkaline Phosphatase (38-126) U/L Creatine Kinase (30-135) U/L Troponin I 0.037 H* (0.000-0.034) ng/mL Total Protein (6.3-8.2) g/dL Albumin (3.5-5.0) g/dL 08/11/23 08/11/23 Range/Units 03:56 03:56 Plt Count 34 L (150-450) k/uL Lymphocytes # (Manual) (1.0-4.8) k/uL APTT (22.0-30.0) sec ABG pH (7.35-7.45) ABG pO2 (83-108) mmHg ABG HCO3 (21-25) mmol/L ABG Total CO2 (19-24) mmol/L ABG O2 Saturation (94-97) % Sodium 136 L (137-145) mmol/L BUN 83 H (7-17) mg/dL Creatinine 3.65 H (0.52-1.04) mg/dL Glucose 118 H (74-99) mg/dL POC Glucose (mg/dL) (70-110) mg/dL Calcium 7.9 L (8.4-10.2) mg/dL Total Bilirubin (0.2-1.3) mg/dL AST (14-36) U/L ALT (4-34) U/L Alkaline Phosphatase (38-126) U/L Creatine Kinase 915 H (30-135) U/L Troponin I (0.000-0.034) ng/mL Total Protein (6.3-8.2) g/dL Albumin (3.5-5.0) g/dL Microbiology - Last 24 Hours (Table) 08/07/23 23:15 Blood Culture Gram Stain - Final Blood Blood Culture - Final Escherichia coli 08/07/23 23:00 Blood Culture Gram Stain - Final Blood Blood Culture - Final Escherichia coli Assessment and Plan Assessment: Urinary tract infection and Urosepsis, with ECOLI and the patient remains on IV Rocephin, final cultures are equal and the patient remains on IV Rocephin Lactic acidosis, improved Metabolic anion gap acidosis, secondary to above, improved and the patient is on 0.9 at 75 mL an hour Leukocytosis, improved Acute kidney injury, secondary to acute tubular necrosis, improving and the creatinine is down to 3.65 Rhabdomyolysis, CPK is still mildly elevated, improving Suspected diabetes mellitus type 2, hyperglycemic and hemoglobin A1c 12.3 Elevated troponins, flat, not felt to reflect ACS Altered mental status, nonenhanced brain CT did not show any acute intracranial abnormality, likely related to toxic metabolic encephalopathy and urosepsis, improving mental status, however this morning at 1 AM, there was an altered mentation and based on that the patient underwent further neuro workup including a CT of the brain and the CAT scan of the brain that showed no acute abnormalities. She is gradually recovering from that. EEG is in progress. Thrombocytopenia, likely consumptive secondary to sepsis. No signs of any DIC. Coagulation profile is within normal limits. The platelet count is down to 34. Plan: Continue IV Rocephin Change IV fluids normal saline at rate of 100 mL an hour Echocardiogram was noted and the patient is a preserved LV function Ultrasound the kidney was done and there is no evidence of any hydronephrosis Renal function continues to improve and the urine output is adequate at this p oint Blood sugar management with Levemir insulin 10 units twice a day Neurologic consultation in progress Monitor the mental status EEG today Possible MRI of the later stage I would say there is some improvement in neuro status since ui programmer. We'll continue to follow DVT and GI prophylaxis Increase oral intake monitor platelet count We'll continue to follow. She did be potentially transferred out of the intensive care unit today.
--- NOTE | 2023-08-11 10:54 | P.PN ---
Subjective Progress Note Date: 08/11/23 * 77-year-old lady with past medical history significant for hypertension, presents to the emergency department with altered mental status. * Per chart review patient was last well-known 08/06/23. Patient was brought by EMS and was noted to be less responsive and alert and oriented 1 with profound weakness. Patient was apparently found on the floor with broken glass. Patient was last seen by a neighbor and apparently doing well. Upon presentation patient was noted to have profound hypoglycemia Glucose 411, blood pressure 180/22 * Workup initiated included CBC which were WBC of 30.8 hemoglobin 15.2 platelet 124 with elevated neutrophil count. INR of 1.4 serum chemistry showed sodium 134 BUN 57 creatinine 4.26 blood glucose in 400s lactic to 4.7 * Initial troponin obtained 0.076, EKG obtained showed sinus rhythm no significant ST segment changes * Patient was given IV Rocephin, urinalysis is obtained showed large leukocyte esterase WBC and many bacteria * 08/09/23: Patient was seen and evaluated bedside, patient seen in ICU, mentation has improved alert and oriented to person place and situation. Appreciate input from nephrology, continue patient on IV bicarbonate, continue to monitor renal profile * 08/10/23: Patient seen and evaluated bedside, patient alert and oriented to person and situation, patient sitting in recliner. CBC reviewed noted to have thrombocytopenia aspirin discontinued serum chemistry reviewed creatinine 3.87. CK trending down. Blood culture showed E. coli bacteremia antibiotic transitioned to Rocephin * 08/11/23: Patient seen and evaluated bedside, overnight patient had episode of confusion, patient had garbled speech and also flaccid. Patient had a code s troke called and CT angiogram head and neck was done which was negative for acute abnormality CT brain was negative for any acute bleed or stroke as well. Neurology consulted and EEG is ordered patient does open her eyes to verbal stimulus and painful stimulus. MRI brain ordered as stat. Card work reviewed arterial blood gas reviewed as well. Continue close monitoring in ICU. CBC showed improvement in leukocytosis. Patient remains afebrile blood pressure map around 84 Objective - Vital Signs Vital signs: Vital Signs Temp 98.2 F 08/10/23 20:00 Pulse 101 H 08/11/23 02:00 Resp 30 H 08/11/23 02:00 BP 128/62 08/11/23 02:00 Pulse Ox 98 08/11/23 02:00 FiO2 50 08/09/23 10:00 Intake & Output 08/10/23 08/11/23 08/11/23 18:59 06:59 18:59 Intake Total 825 750 Output Total 195 750 Balance 630 0 Intake: IV 825 750 Sodium Chloride 0.45% 1, 825 000 ml @ 100 mls/hr IV . [id number] [facility] with Sodium Bicarb (1 Meq/ml) 150 ml Rx#:[id number] Sodium Chloride 0.9% 1, 750 000 ml @ 75 mls/hr IV . [id number] [facility] Rx#:[id number] Output: Urine 195 750 Other: Voiding Method Indwelling Catheter Indwelling Catheter - Exam PHYSICAL EXAMINATION: GENERAL: The patient is alert and oriented x 0 , wakes up to verbal stimuli a phasic HEENT: Pupils are round and equally reacting to light. EOMI. CARDIOVASCULAR: S1 and S2 present. No murmurs, rubs, or gallops. PULMONARY: Chest is clear to auscultation, no wheezing or crackles. ABDOMEN: Soft, nontender, nondistended, normoactive bowel sounds. No palpable organomegaly. MUSCULOSKELETAL: No joint swelling or deformity. EXTREMITIES: No cyanosis, clubbing, or pedal edema. NEUROLOGICAL: Disoriented neurological exam limited extraocular movements intact not moving upper lower extremity secondary to altered mental status - Labs CBC & Chem 7: 08/11/23 03:56 08/11/23 03:56 Labs: Abnormal Lab Results - Last 24 Hours (Table) 08/10/23 08/10/23 08/10/23 Range/Units 11:35 16:42 20:33 Plt Count (150-450) k/uL Lymphocytes # (Manual) (1.0-4.8) k/uL APTT (22.0-30.0) sec ABG pH (7.35-7.45) ABG pO2 (83-108) mmHg ABG HCO3 (21-25) mmol/L ABG Total CO2 (19-24) mmol/L ABG O2 Saturation (94-97) % Sodium (137-145) mmol/L BUN (7-17) mg/dL Creatinine (0.52-1.04) mg/dL Glucose (74-99) mg/dL POC Glucose (mg/dL) 134 H 283 H 301 H (70-110) mg/dL Calcium (8.4-10.2) mg/dL Total Bilirubin (0.2-1.3) mg/dL AST (14-36) U/L ALT (4-34) U/L Alkaline Phosphatase (38-126) U/L Creatine Kinase (30-135) U/L Troponin I (0.000-0.034) ng/mL Total Protein (6.3-8.2) g/dL Albumin (3.5-5.0) g/dL 08/11/23 08/11/23 08/11/23 Range/Units 01:35 02:09 02:09 Plt Count 35 L (150-450) k/uL Lymphocytes # (Manual) 0.48 L (1.0-4.8) k/uL APTT (22.0-30.0) sec ABG pH (7.35-7.45) ABG pO2 (83-108) mmHg ABG HCO3 (21-25) mmol/L ABG Total CO2 (19-24) mmol/L ABG O2 Saturation (94-97) % Sodium 133 L (137-145) mmol/L BUN 83 H (7-17) mg/dL Creatinine 3.41 H (0.52-1.04) mg/dL Glucose 148 H (74-99) mg/dL POC Glucose (mg/dL) 148 H (70-110) mg/dL Calcium 7.8 L (8.4-10.2) mg/dL Total Bilirubin 2.0 H (0.2-1.3) mg/dL AST 135 H (14-36) U/L ALT 72 H (4-34) U/L Alkaline Phosphatase 486 H (38-126) U/L Creatine Kinase (30-135) U/L Troponin I (0.000-0.034) ng/mL Total Protein 4.5 L (6.3-8.2) g/dL Albumin 2.0 L (3.5-5.0) g/dL 08/11/23 08/11/23 08/11/23 Range/Units 02:09 02:09 02:10 Plt Count (150-450) k/uL Lymphocytes # (Manual) (1.0-4.8) k/uL APTT 21.1 L (22.0-30.0) sec ABG pH 7.51 H (7.35-7.45) ABG pO2 81 L (83-108) mmHg ABG HCO3 27 H (21-25) mmol/L ABG Total CO2 29 H (19-24) mmol/L ABG O2 Saturation 97.3 H (94-97) % Sodium (137-145) mmol/L BUN (7-17) mg/dL Creatinine (0.52-1.04) mg/dL Glucose (74-99) mg/dL POC Glucose (mg/dL) (70-110) mg/dL Calcium (8.4-10.2) mg/dL Total Bilirubin (0.2-1.3) mg/dL AST (14-36) U/L ALT (4-34) U/L Alkaline Phosphatase (38-126) U/L Creatine Kinase (30-135) U/L Troponin I 0.037 H* (0.000-0.034) ng/mL Total Protein (6.3-8.2) g/dL Albumin (3.5-5.0) g/dL 08/11/23 08/11/23 Range/Units 03:56 03:56 Plt Count 34 L (150-450) k/uL Lymphocytes # (Manual) (1.0-4.8) k/uL APTT (22.0-30.0) sec ABG pH (7.35-7.45) ABG pO2 (83-108) mmHg ABG HCO3 (21-25) mmol/L ABG Total CO2 (19-24) mmol/L ABG O2 Saturation (94-97) % Sodium 136 L (137-145) mmol/L BUN 83 H (7-17) mg/dL Creatinine 3.65 H (0.52-1.04) mg/dL Glucose 118 H (74-99) mg/dL POC Glucose (mg/dL) (70-110) mg/dL Calcium 7.9 L (8.4-10.2) mg/dL Total Bilirubin (0.2-1.3) mg/dL AST (14-36) U/L ALT (4-34) U/L Alkaline Phosphatase (38-126) U/L Creatine Kinase 915 H (30-135) U/L Troponin I (0.000-0.034) ng/mL Total Protein (6.3-8.2) g/dL Albumin (3.5-5.0) g/dL Microbiology - Last 24 Hours (Table) 08/07/23 23:15 Blood Culture Gram Stain - Final Blood Blood Culture - Final Escherichia coli 08/07/23 23:00 Blood Culture Gram Stain - Final Blood Blood Culture - Final Escherichia coli Assessment and Plan Assessment: Assessment and plan * Severe sepsis secondary to urinary tract infection * E. coli bacteremia * Acute encephalopathy rule out CVA with dysarthria * Elevated troponin rule out ACS * Acute thrombocytopenia * Acute metabolic encephalopathy * Acute renal failure * Diabetes mellitus type 2 * In regards to severe sepsis, blood cultures show E. coli bacteremia, urine cultures pending. Antibiotic transitioned from cefepime to Rocephin * In regards to elevated troponin, serial troponins ordered echocardiogram shows preserved ejection fraction ,cardiology consulted , continue metoprolol, IV heparin drip discontinued by cardiology, aspirin discontinued, we'll check for hit panel secondary to thrombocytopenia platelet count does not improve * In regards to suspicion for CVA, CT head CT angina head and neck negative, MRI brain ordered, neurology consulted, EKG ordered * In regards to renal failure, losartan discontinued continue with fluid resusc itation nephrology consulted continue to monitor intake and output, patient was transitioned from bicarbonate drip to normal saline * In regards to diabetes mellitus, HbA1c 13.7 , patient started on Lantus, continue correctional insulin * CODE STATUS is full code
[2023-08-11 10:56] LABS: Amorphous Sediment,Urine Moderate /hpf; Appearance,Urine Cloudy (Clear); Color,Urine Dark Yellow; Mucus,Urine Rare /hpf; RBC,Urine 1 /hpf (0-5); Squamous Epithelial Cell,Urine <1 /hpf (0-4); WBC,Urine 14 /hpf (0-5)
[2023-08-11 10:57] LABS: Bilirubin,Urine 1+ (Negative); Blood,Urine Large (Negative); Glucose,Urine (UA) Negative (Negative); Ketones,Urine Negative (Negative); PH, Urine 5.5 (5.0-8.0); Protein,Urine 1+ (Negative); Urobilinogen,Urine <2.0 mg/dL (<2.0)
[2023-08-11 10:58] LABS: Leukocyte Esterase,Urine Moderate (Negative); Nitrite,Urine Negative (Negative)
--- NOTE | 2023-08-11 11:02 | P.PN ---
Subjective Patient is seen for follow-up for acute kidney injury. She was admitted to the hospital with mental status changes and weakness. Patient is noted to have a serum creatinine of 4.2 with a previous reading of 0.8 on 06/09/2018. No other labs available in between. Currently maintained on IV fluids. Being treated for UTI. Blood cultures are growing E. coli. Patient had an episode of confusion last night with elevated blood pressure and heart rate. She did have CT angiogram which did not show any acute findings. Seems to have improved slightly this morning although patient still remains confused. EEG is being performed. Urine output at about 40 mL an hour Serum creatinine increased slightly to 3.6 mg/dL today. No hypotension noted. Objective - Vital Signs Vital signs: Vital Signs Temp 98.2 F 08/10/23 20:00 Pulse 101 H 08/11/23 02:00 Resp 30 H 08/11/23 02:00 BP 128/62 08/11/23 02:00 Pulse Ox 98 08/11/23 02:00 FiO2 50 08/09/23 10:00 Intake & Output 08/10/23 08/11/23 08/11/23 18:59 06:59 18:59 Intake Total 825 750 Output Total 195 750 Balance 630 0 Intake: IV 825 750 Sodium Chloride 0.45% 1, 825 000 ml @ 100 mls/hr IV . [id number] [facility] with Sodium Bicarb (1 Meq/ml) 150 ml Rx#:[id number] Sodium Chloride 0.9% 1, 750 000 ml @ 75 mls/hr IV . [id number] [facility] Rx#:[id number] Output: Urine 195 750 Other: Voiding Method Indwelling Catheter Indwelling Catheter - Exam Patient is awake, comfortable, no acute distress Confused Examination of the heart S1 and S2 Examination of the lungs bilateral breath sounds are heard Abdomen is soft nontender Examination of lower extremities shows no significant edema - Labs CBC & Chem 7: 08/11/23 03:56 08/11/23 03:56 Labs: Abnormal Lab Results - Last 24 Hours (Table) 08/10/23 08/10/23 08/10/23 Range/Units 11:35 16:42 20:33 Plt Count (150-450) k/uL Lymphocytes # (Manual) (1.0-4.8) k/uL APTT (22.0-30.0) sec ABG pH (7.35-7.45) ABG pO2 (83-108) mmHg ABG HCO3 (21-25) mmol/L ABG Total CO2 (19-24) mmol/L ABG O2 Saturation (94-97) % Sodium (137-145) mmol/L BUN (7-17) mg/dL Creatinine (0.52-1.04) mg/dL Glucose (74-99) mg/dL POC Glucose (mg/dL) 134 H 283 H 301 H (70-110) mg/dL Calcium (8.4-10.2) mg/dL Total Bilirubin (0.2-1.3) mg/dL AST (14-36) U/L ALT (4-34) U/L Alkaline Phosphatase (38-126) U/L Creatine Kinase (30-135) U/L Troponin I (0.000-0.034) ng/mL Total Protein (6.3-8.2) g/dL Albumin (3.5-5.0) g/dL 08/11/23 08/11/23 08/11/23 Range/Units 01:35 02:09 02:09 Plt Count 35 L (150-450) k/uL Lymphocytes # (Manual) 0.48 L (1.0-4.8) k/uL APTT (22.0-30.0) sec ABG pH (7.35-7.45) ABG pO2 (83-108) mmHg ABG HCO3 (21-25) mmol/L ABG Total CO2 (19-24) mmol/L ABG O2 Saturation (94-97) % Sodium 133 L (137-145) mmol/L BUN 83 H (7-17) mg/dL Creatinine 3.41 H (0.52-1.04) mg/dL Glucose 148 H (74-99) mg/dL POC Glucose (mg/dL) 148 H (70-110) mg/dL Calcium 7.8 L (8.4-10.2) mg/dL Total Bilirubin 2.0 H (0.2-1.3) mg/dL AST 135 H (14-36) U/L ALT 72 H (4-34) U/L Alkaline Phosphatase 486 H (38-126) U/L Creatine Kinase (30-135) U/L Troponin I (0.000-0.034) ng/mL Total Protein 4.5 L (6.3-8.2) g/dL Albumin 2.0 L (3.5-5.0) g/dL 08/11/23 08/11/23 08/11/23 Range/Units 02:09 02:09 02:10 Plt Count (150-450) k/uL Lymphocytes # (Manual) (1.0-4.8) k/uL APTT 21.1 L (22.0-30.0) sec ABG pH 7.51 H (7.35-7.45) ABG pO2 81 L (83-108) mmHg ABG HCO3 27 H (21-25) mmol/L ABG Total CO2 29 H (19-24) mmol/L ABG O2 Saturation 97.3 H (94-97) % Sodium (137-145) mmol/L BUN (7-17) mg/dL Creatinine (0.52-1.04) mg/dL Glucose (74-99) mg/dL POC Glucose (mg/dL) (70-110) mg/dL Calcium (8.4-10.2) mg/dL Total Bilirubin (0.2-1.3) mg/dL AST (14-36) U/L ALT (4-34) U/L Alkaline Phosphatase (38-126) U/L Creatine Kinase (30-135) U/L Troponin I 0.037 H* (0.000-0.034) ng/mL Total Protein (6.3-8.2) g/dL Albumin (3.5-5.0) g/dL 08/11/23 08/11/23 Range/Units 03:56 03:56 Plt Count 34 L (150-450) k/uL Lymphocytes # (Manual) (1.0-4.8) k/uL APTT (22.0-30.0) sec ABG pH (7.35-7.45) ABG pO2 (83-108) mmHg ABG HCO3 (21-25) mmol/L ABG Total CO2 (19-24) mmol/L ABG O2 Saturation (94-97) % Sodium 136 L (137-145) mmol/L BUN 83 H (7-17) mg/dL Creatinine 3.65 H (0.52-1.04) mg/dL Glucose 118 H (74-99) mg/dL POC Glucose (mg/dL) (70-110) mg/dL Calcium 7.9 L (8.4-10.2) mg/dL Total Bilirubin (0.2-1.3) mg/dL AST (14-36) U/L ALT (4-34) U/L Alkaline Phosphatase (38-126) U/L Creatine Kinase 915 H (30-135) U/L Troponin I (0.000-0.034) ng/mL Total Protein (6.3-8.2) g/dL Albumin (3.5-5.0) g/dL Microbiology - Last 24 Hours (Table) 08/07/23 23:15 Blood Culture Gram Stain - Final Blood Blood Culture - Final Escherichia coli 08/07/23 23:00 Blood Culture Gram Stain - Final Blood Blood Culture - Final Escherichia coli Assessment and Plan Assessment: 1. Acute kidney injury ATN from hypoperfusion. Improving. Creatinine is slightly higher today. UA shows trace protein no blood, WBC 72. Currently with indwelling Rendon catheter. No obstruction on ultrasound. Previous creatinine 0.8 in 2018. 2. Hypertension with low blood pressure documented here. Initial blood pressure was 94/63 mmHg. Losartan is currently on hold. 3. Volume depletion currently maintained on IV fluids 4. Pyuria rule out UTI. Urine culture is not available 5. Mental status changes secondary to underlying infection, volume depletion. Status post CT angiogram 08/10/2023 due to significant change in mentation last night. EEG being performed. Patient is being followed by neurology. 6. Anion gap metabolic acidosis secondary to acute kidney injury and lactic acidosis. Serum acetone was negative. 7. Sepsis with blood cultures growing E. coli Plan: Continue IV fluids Continue antibiotics Repeat labs in a.m. Continue to avoid nephrotoxic agents I will proceed with renal replacement therapy if renal function is worse tomorrow and patient remains confused.
[2023-08-11 11:46] LABS: Glucose,Whole Blood 113 mg/dL (70-110)
[2023-08-11] MEDS: SODIUM CHLORIDE 0.9% 1,000 ML IV SCH (11:53)
--- NOTE | 2023-08-11 11:56 | US ---
EXAMINATION TYPE: US abdomen limited DATE OF EXAM: 08/11/2023 COMPARISON: NONE CLINICAL INDICATION: Female, 77 years old with history of Transaminitis; transaminitis TECHNIQUE: Multiple sonographic images of the right upper quadrant are obtained. FINDINGS: EXAM MEASUREMENTS: Liver Length: 17.3 cm Gallbladder Wall: 0.2 cm CBD: 0.4 cm Right Kidney: 11.2x6.2x4.5 cm EYELET [employer]ER NOTES: Pancreas: Duct slightly dilated, Tail obscured by overlying bowel gas Liver: enlarged, nodular contour, free fluid noted inferior/lateral right lobe. Heterogenous echotexture. Focal diffuse hyperechoic areas. Best demonstrated on image 22 with dynamic range adjusted. Focal fatty infiltration vs. other Gallbladder: wnl Evidence for sonographic Kaur's sign: No CBD: wnl Right Kidney: wnl exam limited by bowel gas and body habitus IMPRESSION: 1. Hepatic steatosis with nodular hepatic contour which may reflect cirrhotic liver disease. Areas of focal fatty sparing suggested.
--- NOTE | 2023-08-11 12:16 | P.CNNES ---
History of Present Illness Consult date: 08/11/23 Requesting physician: Jarrett Jacobo Reason for Consult: ams History of Present Illness: 6 is a 77-year-old woman was found on the floor and confused by her neighbor. History was obtained from medical record. Neurology is consulted for altered mental status. Per the ICU is seems the patient was found down on the floor confused by her neighbor and unknown downtime. The patient presented to the hospital on August 07 and she had a CT of the head which was reported as negative she was placed on heparin drip for possible NSTEMI. During his hospital visit was felt the patient was septic. It seems overnight the patient became unresponsive had garbled speech and her arms were flaccid as a result of code stroke was activated and she had CT of the head and CT angiography of the head and neck which were negative. Since the patient was withdrawing to sternal rub and was unable to speak and her speech was mumbled and unable to maintain conversation. Per the ICU attending and nurse the patient to was a following some simple commands and stated her name correctly earlier today but upon seeing her she was not the verbalizing or following commands. According to the ICU attending she's having fluctuation of her mentation. Some of the other workup consisted of: Patient has been afebrile during this hospital visit. Initial white blood cell is 26,000 and most recent ones 8.5 the. Predominantly neutrophilic. Creatinine is 4.26 and most recent ones 3.65 prior to that the her creatinine 2018 last seen in our facility was normal. Magnesium on initial presentation was 1.2 most recent one is 2.1 Urinalysis seen suggestive of acute urinary tract infection. Urine drug screen is positive for benzos otherwise dresses nondetected and acetone is negative. SARS2 PCR was not detected. RSV, influenza A/B are nondetected Blood cultures is positive for E. coli. TSH is 1.650 Ammonia is less than 9. AST is 135 ALT is 72 CK levels thousand 588 and the repeated is a 9 or 15 Review of Systems Review of system is limited in the positive and negative as per HPI. Past Medical History Past Medical History: No Reported History Additional Past Medical History / Comment(s): pts son states "my mom doesn't go to the doctor, I'm pretty sure she was taking medicaiton for her sugar and blood pressure." History of Any Multi-Drug Resistant Organisms: None Reported Past Surgical History: No Surgical Hx Reported Past Psychological History: No Psychological Hx Reported Smoking Status: Never smoker Past Alcohol Use History: None Reported Past Drug Use History: None Reported Medications and Allergies Home Medications Medication Instructions Recorded Confirmed Type LORazepam [Ativan] 1 mg PO TID PRN 08/07/23 08/07/23 History Losartan Potassium 100 mg PO DAILY 08/07/23 08/07/23 History Metoprolol Tartrate [Lopressor] 25 mg PO TID 08/07/23 08/07/23 History Allergies Allergy/AdvReac Type Severity Reaction Status Date / Time Penicillins Allergy Unknown Verified 08/07/23 21:01 metformin AdvReac Nausea & Verified 08/07/23 21:01 Vomiting & Diarrhea Physical Examination - Vital Signs Vital Signs: Vital Signs Temp Pulse Pulse Resp BP BP Pulse Ox 08/11/23 02:00 101 H 30 H 128/62 98 08/10/23 20:00 98.2 F 66 16 119/47 08/10/23 14:00 98.4 F 145/83 94 L 08/10/23 13:00 58 L 19 145/83 94 L 08/10/23 12:00 64 22 130/67 93 L Intake and Output 08/10/23 08/11/23 08/11/23 22:59 06:59 14:59 Intake Total 525 750 Output Total 750 Balance 525 0 Intake: IV 525 750 Sodium Chloride 0.45% 1, 525 000 ml @ 100 mls/hr IV . [id number] HEAVENLY with Sodium Bicarb (1 Meq/ml) 150 ml Rx#:[id number] Sodium Chloride 0.9% 1, 750 000 ml @ 75 mls/hr IV . [id number] HEAVENLY Rx#:[id number] Output: Urine 750 Other: Voiding Method Indwelling Catheter GENERAL: The patient is lying in bed and is not in acute distress. HENT: Unable to assess neck because of patient cooperation. NEUROLOGICAL: Severely drowsy. Not verbalizing or following commands. No facial weakness. Motor: Strength hard to assess individual muscles. No spontaneous movement. Reflex: 1+ throughout. Plantars are mute bilaterally. Results - Laboratory Findings CBC and BMP: 08/11/23 03:56 08/11/23 03:56 Abnormal Lab Findings: Abnormal Labs 08/07/23 08/07/23 08/07/23 16:35 18:45 18:58 WBC 30.8 H Hct 46.3 H Plt Count 124 L Neutrophils # (Manual) 28.30 H Lymphocytes # (Manual) 0.62 L Monocytes # (Manual) 1.23 H Metamyelocytes # (Man) 0.62 H Myelocytes # (Manual) 0.31 H PT INR APTT ABG pH ABG pCO2 ABG pO2 ABG HCO3 ABG Total CO2 ABG O2 Saturation VBG pH 7.26 L VBG HCO3 20 L Sodium Chloride Carbon Dioxide BUN Creatinine Glucose POC Glucose (mg/dL) 311 H Hemoglobin A1c Plasma Lactic Acid Raghavendra Calcium Magnesium Total Bilirubin AST ALT Alkaline Phosphatase Creatine Kinase Troponin I Total Protein Albumin Urine Appearance Urine Protein Urine Glucose (UA) Ur Leukocyte Esterase Urine WBC Amorphous Sediment Urine Bacteria Hyaline Casts Urine Mucus U Benzodiazepines Scrn 08/07/23 08/07/23 08/07/23 18:58 18:58 18:58 WBC Hct Plt Count Neutrophils # (Manual) Lymphocytes # (Manual) Monocytes # (Manual) Metamyelocytes # (Man) Myelocytes # (Manual) PT 14.1 H INR 1.4 H APTT ABG pH ABG pCO2 ABG pO2 ABG HCO3 ABG Total CO2 ABG O2 Saturation VBG pH VBG HCO3 Sodium 131 L Chloride 93 L Carbon Dioxide 15 L BUN 57 H Creatinine 4.26 H Glucose 456 H POC Glucose (mg/dL) Hemoglobin A1c Plasma Lactic Acid Raghavendra Calcium Magnesium 1.2 L Total Bilirubin AST 58 H ALT Alkaline Phosphatase Creatine Kinase Troponin I Total Protein Albumin Urine Appearance Cloudy H Urine Protein Trace H Urine Glucose (UA) 4+ H Ur Leukocyte Esterase Large H Urine WBC 72 H Amorphous Sediment Urine Bacteria Many H Hyaline Casts 14 H Urine Mucus Rare H U Benzodiazepines Scrn Detected H 08/07/23 08/07/23 08/07/23 18:58 18:58 23:12 WBC Hct Plt Count Neutrophils # (Manual) Lymphocytes # (Manual) Monocytes # (Manual) Metamyelocytes # (Man) Myelocytes # (Manual) PT INR APTT ABG pH ABG pCO2 ABG pO2 ABG HCO3 ABG Total CO2 ABG O2 Saturation VBG pH VBG HCO3 Sodium Chloride Carbon Dioxide BUN Creatinine Glucose POC Glucose (mg/dL) 397 H Hemoglobin A1c Plasma Lactic Acid Raghavendra 4.6 H* Calcium Magnesium Total Bilirubin AST ALT Alkaline Phosphatase Creatine Kinase Troponin I 0.076 H* Total Protein Albumin Urine Appearance Urine Protein Urine Glucose (UA) Ur Leukocyte Esterase Urine WBC Amorphous Sediment Urine Bacteria Hyaline Casts Urine Mucus U Benzodiazepines Scrn 08/07/23 08/08/23 08/08/23 23:35 03:59 03:59 WBC Hct Plt Count Neutrophils # (Manual) Lymphocytes # (Manual) Monocytes # (Manual) Metamyelocytes # (Man) Myelocytes # (Manual) PT INR APTT ABG pH ABG pCO2 ABG pO2 ABG HCO3 ABG Total CO2 ABG O2 Saturation VBG pH VBG HCO3 Sodium 134 L Chloride Carbon Dioxide 12 L BUN 62 H Creatinine 4.31 H Glucose 360 H POC Glucose (mg/dL) Hemoglobin A1c 12.3 H Plasma Lactic Acid Raghavendra 4.7 H* Calcium 7.8 L Magnesium Total Bilirubin AST 57 H ALT Alkaline Phosphatase Creatine Kinase Troponin I Total Protein 5.8 L Albumin 2.8 L Urine Appearance Urine Protein Urine Glucose (UA) Ur Leukocyte Esterase Urine WBC Amorphous Sediment Urine Bacteria Hyaline Casts Urine Mucus U Benzodiazepines Scrn 08/08/23 08/08/23 08/08/23 03:59 07:39 07:44 WBC Hct Plt Count Neutrophils # (Manual) Lymphocytes # (Manual) Monocytes # (Manual) Metamyelocytes # (Man) Myelocytes # (Manual) PT INR APTT ABG pH ABG pCO2 ABG pO2 ABG HCO3 ABG Total CO2 ABG O2 Saturation VBG pH VBG HCO3 Sodium Chloride Carbon Dioxide BUN Creatinine Glucose POC Glucose (mg/dL) 386 H Hemoglobin A1c Plasma Lactic Acid Raghavendra 3.5 H* 2.9 H* Calcium Magnesium Total Bilirubin AST ALT Alkaline Phosphatase Creatine Kinase Troponin I Total Protein Albumin Urine Appearance Urine Protein Urine Glucose (UA) Ur Leukocyte Esterase Urine WBC Amorphous Sediment Urine Bacteria Hyaline Casts Urine Mucus U Benzodiazepines Scrn 08/08/23 08/08/23 08/08/23 09:52 09:52 09:52 WBC 26.0 H Hct Plt Count 101 L Neutrophils # (Manual) 24.10 H Lymphocytes # (Manual) 0.52 L Monocytes # (Manual) Metamyelocytes # (Man) 0.78 H Myelocytes # (Manual) 0.26 H PT INR APTT ABG pH ABG pCO2 ABG pO2 ABG HCO3 ABG Total CO2 ABG O2 Saturation VBG pH VBG HCO3 Sodium 135 L Chloride Carbon Dioxide 12 L BUN 67 H Creatinine 4.49 H Glucose 376 H POC Glucose (mg/dL) Hemoglobin A1c Plasma Lactic Acid Raghavendra Calcium 8.0 L Magnesium Total Bilirubin AST ALT Alkaline Phosphatase Creatine Kinase Troponin I 0.050 H* Total Protein Albumin Urine Appearance Urine Protein Urine Glucose (UA) Ur Leukocyte Esterase Urine WBC Amorphous Sediment Urine Bacteria Hyaline Casts Urine Mucus U Benzodiazepines Scrn 08/08/23 08/08/23 08/08/23 09:52 09:52 10:25 WBC Hct Plt Count Neutrophils # (Manual) Lymphocytes # (Manual) Monocytes # (Manual) Metamyelocytes # (Man) Myelocytes # (Manual) PT INR APTT ABG pH ABG pCO2 ABG pO2 ABG HCO3 ABG Total CO2 ABG O2 Saturation VBG pH VBG HCO3 Sodium Chloride Carbon Dioxide BUN Creatinine Glucose POC Glucose (mg/dL) 343 H Hemoglobin A1c Plasma Lactic Acid Raghavendra 3.6 H* Calcium Magnesium Total Bilirubin AST ALT Alkaline Phosphatase Creatine Kinase 1588 H* Troponin I Total Protein Albumin Urine Appearance Urine Protein Urine Glucose (UA) Ur Leukocyte Esterase Urine WBC Amorphous Sediment Urine Bacteria Hyaline Casts Urine Mucus U Benzodiazepines Scrn 08/08/23 08/08/23 08/08/23 12:38 12:43 13:45 WBC Hct Plt Count Neutrophils # (Manual) Lymphocytes # (Manual) Monocytes # (Manual) Metamyelocytes # (Man) Myelocytes # (Manual) PT INR APTT ABG pH 7.30 L ABG pCO2 30 L ABG pO2 67 L ABG HCO3 15 L ABG Total CO2 ABG O2 Saturation 92.8 L VBG pH VBG HCO3 Sodium Chloride Carbon Dioxide BUN Creatinine Glucose POC Glucose (mg/dL) Hemoglobin A1c Plasma Lactic Acid Raghavendra 3.5 H* Calcium Magnesium Total Bilirubin AST ALT Alkaline Phosphatase Creatine Kinase Troponin I 0.056 H* Total Protein Albumin Urine Appearance Urine Protein Urine Glucose (UA) Ur Leukocyte Esterase Urine WBC Amorphous Sediment Urine Bacteria Hyaline Casts Urine Mucus U Benzodiazepines Scrn 08/08/23 08/08/23 08/08/23 13:53 14:07 14:07 WBC 15.6 H Hct Plt Count 77 L Neutrophils # (Manual) 14.90 H Lymphocytes # (Manual) 0.31 L Monocytes # (Manual) Metamyelocytes # (Man) 0.31 H Myelocytes # (Manual) PT INR APTT ABG pH ABG pCO2 ABG pO2 ABG HCO3 ABG Total CO2 ABG O2 Saturation VBG pH VBG HCO3 Sodium Chloride Carbon Dioxide BUN Creatinine Glucose POC Glucose (mg/dL) 263 H Hemoglobin A1c Plasma Lactic Acid Raghavendra 3.4 H* Calcium Magnesium Total Bilirubin AST ALT Alkaline Phosphatase Creatine Kinase Troponin I Total Protein Albumin Urine Appearance Urine Protein Urine Glucose (UA) Ur Leukocyte Esterase Urine WBC Amorphous Sediment Urine Bacteria Hyaline Casts Urine Mucus U Benzodiazepines Scrn 08/08/23 08/08/23 08/08/23 15:19 15:50 17:20 WBC Hct Plt Count Neutrophils # (Manual) Lymphocytes # (Manual) Monocytes # (Manual) Metamyelocytes # (Man) Myelocytes # (Manual) PT INR APTT ABG pH ABG pCO2 ABG pO2 ABG HCO3 ABG Total CO2 ABG O2 Saturation VBG pH VBG HCO3 Sodium Chloride Carbon Dioxide BUN Creatinine Glucose POC Glucose (mg/dL) 271 H 288 H Hemoglobin A1c Plasma Lactic Acid Raghavendra 3.2 H* Calcium Magnesium Total Bilirubin AST ALT Alkaline Phosphatase Creatine Kinase Troponin I Total Protein Albumin Urine Appearance Urine Protein Urine Glucose (UA) Ur Leukocyte Esterase Urine WBC Amorphous Sediment Urine Bacteria Hyaline Casts Urine Mucus U Benzodiazepines Scrn 08/08/23 08/08/23 08/09/23 20:02 23:55 00:49 WBC Hct Plt Count Neutrophils # (Manual) Lymphocytes # (Manual) Monocytes # (Manual) Metamyelocytes # (Man) Myelocytes # (Manual) PT INR APTT ABG pH ABG pCO2 ABG pO2 ABG HCO3 ABG Total CO2 ABG O2 Saturation VBG pH VBG HCO3 Sodium Chloride Carbon Dioxide BUN Creatinine Glucose POC Glucose (mg/dL) 251 H 255 H 237 H Hemoglobin A1c Plasma Lactic Acid Raghavendra Calcium Magnesium Total Bilirubin AST ALT Alkaline Phosphatase Creatine Kinase Troponin I Total Protein Albumin Urine Appearance Urine Protein Urine Glucose (UA) Ur Leukocyte Esterase Urine WBC Amorphous Sediment Urine Bacteria Hyaline Casts Urine Mucus U Benzodiazepines Scrn 08/09/23 08/09/23 08/09/23 02:23 04:24 04:24 WBC 14.3 H Hct Plt Count 63 L Neutrophils # (Manual) 12.70 H Lymphocytes # (Manual) 0.43 L Monocytes # (Manual) 1.14 H Metamyelocytes # (Man) Myelocytes # (Manual) PT INR APTT ABG pH ABG pCO2 ABG pO2 ABG HCO3 ABG Total CO2 ABG O2 Saturation VBG pH VBG HCO3 Sodium Chloride Carbon Dioxide BUN Creatinine Glucose POC Glucose (mg/dL) 217 H Hemoglobin A1c 13.7 H Plasma Lactic Acid Raghavendra Calcium Magnesium Total Bilirubin AST ALT Alkaline Phosphatase Creatine Kinase Troponin I Total Protein Albumin Urine Appearance Urine Protein Urine Glucose (UA) Ur Leukocyte Esterase Urine WBC Amorphous Sediment Urine Bacteria Hyaline Casts Urine Mucus U Benzodiazepines Scrn 08/09/23 08/09/23 08/09/23 04:24 04:24 05:11 WBC Hct Plt Count Neutrophils # (Manual) Lymphocytes # (Manual) Monocytes # (Manual) Metamyelocytes # (Man) Myelocytes # (Manual) PT INR APTT ABG pH ABG pCO2 ABG pO2 ABG HCO3 ABG Total CO2 ABG O2 Saturation VBG pH VBG HCO3 Sodium 133 L Chloride Carbon Dioxide 19 L BUN 73 H Creatinine 4.40 H Glucose 235 H POC Glucose (mg/dL) 250 H Hemoglobin A1c Plasma Lactic Acid Raghavendra Calcium 7.5 L Magnesium 2.4 H Total Bilirubin AST 119 H ALT 50 H Alkaline Phosphatase 165 H Creatine Kinase Troponin I Total Protein 4.9 L Albumin 2.3 L Urine Appearance Urine Protein Urine Glucose (UA) Ur Leukocyte Esterase Urine WBC Amorphous Sediment Urine Bacteria Hyaline Casts Urine Mucus U Benzodiazepines Scrn 08/09/23 08/09/23 08/09/23 11:19 17:13 20:40 WBC Hct Plt Count Neutrophils # (Manual) Lymphocytes # (Manual) Monocytes # (Manual) Metamyelocytes # (Man) Myelocytes # (Manual) PT INR APTT ABG pH ABG pCO2 ABG pO2 ABG HCO3 ABG Total CO2 ABG O2 Saturation VBG pH VBG HCO3 Sodium Chloride Carbon Dioxide BUN Creatinine Glucose POC Glucose (mg/dL) 210 H 203 H 232 H Hemoglobin A1c Plasma Lactic Acid Raghavendra Calcium Magnesium Total Bilirubin AST ALT Alkaline Phosphatase Creatine Kinase Troponin I Total Protein Albumin Urine Appearance Urine Protein Urine Glucose (UA) Ur Leukocyte Esterase Urine WBC Amorphous Sediment Urine Bacteria Hyaline Casts Urine Mucus U Benzodiazepines Scrn 08/10/23 08/10/23 08/10/23 03:57 03:57 06:13 WBC Hct Plt Count 41 L Neutrophils # (Manual) Lymphocytes # (Manual) Monocytes # (Manual) Metamyelocytes # (Man) Myelocytes # (Manual) PT INR APTT ABG pH ABG pCO2 ABG pO2 ABG HCO3 ABG Total CO2 ABG O2 Saturation VBG pH VBG HCO3 Sodium 134 L Chloride 96 L Carbon Dioxide BUN 76 H Creatinine 3.87 H Glucose 143 H POC Glucose (mg/dL) 120 H Hemoglobin A1c Plasma Lactic Acid Raghavendra Calcium 7.5 L Magnesium Total Bilirubin AST ALT Alkaline Phosphatase Creatine Kinase 1243 H* Troponin I Total Protein Albumin Urine Appearance Urine Protein Urine Glucose (UA) Ur Leukocyte Esterase Urine WBC Amorphous Sediment Urine Bacteria Hyaline Casts Urine Mucus U Benzodiazepines Scrn 08/10/23 08/10/23 08/10/23 11:35 16:42 20:33 WBC Hct Plt Count Neutrophils # (Manual) Lymphocytes # (Manual) Monocytes # (Manual) Metamyelocytes # (Man) Myelocytes # (Manual) PT INR APTT ABG pH ABG pCO2 ABG pO2 ABG HCO3 ABG Total CO2 ABG O2 Saturation VBG pH VBG HCO3 Sodium Chloride Carbon Dioxide BUN Creatinine Glucose POC Glucose (mg/dL) 134 H 283 H 301 H Hemoglobin A1c Plasma Lactic Acid Raghavendra Calcium Magnesium Total Bilirubin AST ALT Alkaline Phosphatase Creatine Kinase Troponin I Total Protein Albumin Urine Appearance Urine Protein Urine Glucose (UA) Ur Leukocyte Esterase Urine WBC Amorphous Sediment Urine Bacteria Hyaline Casts Urine Mucus U Benzodiazepines Scrn 08/11/23 08/11/23 08/11/23 01:35 02:09 02:09 WBC Hct Plt Count 35 L Neutrophils # (Manual) Lymphocytes # (Manual) 0.48 L Monocytes # (Manual) Metamyelocytes # (Man) Myelocytes # (Manual) PT INR APTT ABG pH ABG pCO2 ABG pO2 ABG HCO3 ABG Total CO2 ABG O2 Saturation VBG pH VBG HCO3 Sodium 133 L Chloride Carbon Dioxide BUN 83 H Creatinine 3.41 H Glucose 148 H POC Glucose (mg/dL) 148 H Hemoglobin A1c Plasma Lactic Acid Raghavendra Calcium 7.8 L Magnesium Total Bilirubin 2.0 H AST 135 H ALT 72 H Alkaline Phosphatase 486 H Creatine Kinase Troponin I Total Protein 4.5 L Albumin 2.0 L Urine Appearance Urine Protein Urine Glucose (UA) Ur Leukocyte Esterase Urine WBC Amorphous Sediment Urine Bacteria Hyaline Casts Urine Mucus U Benzodiazepines Scrn 08/11/23 08/11/23 08/11/23 02:09 02:09 02:10 WBC Hct Plt Count Neutrophils # (Manual) Lymphocytes # (Manual) Monocytes # (Manual) Metamyelocytes # (Man) Myelocytes # (Manual) PT INR APTT 21.1 L ABG pH 7.51 H ABG pCO2 ABG pO2 81 L ABG HCO3 27 H ABG Total CO2 29 H ABG O2 Saturation 97.3 H VBG pH VBG HCO3 Sodium Chloride Carbon Dioxide BUN Creatinine Glucose POC Glucose (mg/dL) Hemoglobin A1c Plasma Lactic Acid Raghavendra Calcium Magnesium Total Bilirubin AST ALT Alkaline Phosphatase Creatine Kinase Troponin I 0.037 H* Total Protein Albumin Urine Appearance Urine Protein Urine Glucose (UA) Ur Leukocyte Esterase Urine WBC Amorphous Sediment Urine Bacteria Hyaline Casts Urine Mucus U Benzodiazepines Scrn 08/11/23 08/11/23 08/11/23 03:56 03:56 08:10 WBC Hct Plt Count 34 L Neutrophils # (Manual) Lymphocytes # (Manual) Monocytes # (Manual) Metamyelocytes # (Man) Myelocytes # (Manual) PT INR APTT ABG pH ABG pCO2 ABG pO2 ABG HCO3 ABG Total CO2 ABG O2 Saturation VBG pH VBG HCO3 Sodium 136 L Chloride Carbon Dioxide BUN 83 H Creatinine 3.65 H Glucose 118 H POC Glucose (mg/dL) Hemoglobin A1c Plasma Lactic Acid Raghavendra Calcium 7.9 L Magnesium Total Bilirubin AST ALT Alkaline Phosphatase Creatine Kinase 915 H Troponin I Total Protein Albumin Urine Appearance Cloudy H Urine Protein Urine Glucose (UA) Ur Leukocyte Esterase Urine WBC 14 H Amorphous Sediment Moderate H Urine Bacteria Hyaline Casts Urine Mucus Rare H U Benzodiazepines Scrn 08/11/23 11:45 WBC Hct Plt Count Neutrophils # (Manual) Lymphocytes # (Manual) Monocytes # (Manual) Metamyelocytes # (Man) Myelocytes # (Manual) PT INR APTT ABG pH ABG pCO2 ABG pO2 ABG HCO3 ABG Total CO2 ABG O2 Saturation VBG pH VBG HCO3 Sodium Chloride Carbon Dioxide BUN Creatinine Glucose POC Glucose (mg/dL) 113 H Hemoglobin A1c Plasma Lactic Acid Raghavendra Calcium Magnesium Total Bilirubin AST ALT Alkaline Phosphatase Creatine Kinase Troponin I Total Protein Albumin Urine Appearance Urine Protein Urine Glucose (UA) Ur Leukocyte Esterase Urine WBC Amorphous Sediment Urine Bacteria Hyaline Casts Urine Mucus U Benzodiazepines Scrn Assessment and Plan Assessment: This is a 77-year-old woman who presented to the emergency department on since that she was found down on the floor confused by her neighbor. Unknown downtime. Was felt the patient possibly had an STEMI and she was on heparin drip that. During his hospital stay it was felt the patient had sepsis and that had positive E. coli on the blood cultures as well as possible underlying UTI. Also she has acute kidney insufficiency It seems that the patient was responding during the hospital stay and the overnight the patient developed garbled speech her arms were flaccid then she became unresponsive as a result a code stroke was activated and she had CT of the head CTA head and neck which were unremarkable. According to the ICU attending today the patient was following some simple commands appropriately and she has fluctuation in mentation. Upon seeing her she was not following commands or responding to me. Altered mental status with fluctuation of mentation seems Delerium from septic encephalopathy as well as that due to acute kidney insufficiency, slightly elevated at ASD more than ALT. component of metabolic encephalopathy. Episode Garbled speech with the flaccid of the arms with unresponsiveness--possibly due to above. Rule out underlying stroke or subacute stroke. Initial CT of the head and CT angiography head and neck are negative Underlying sepsis blood culture E. coli. and felt urosepsis. Acute kidney insufficiency slightly trending down Slightly elevated AST more than ALT Slight hypomagnesemia resolved Plan: I ordered a routine EEG. MRI of the brain is ordered by the primary team to rule out stroke. If EEG and MRI and negative and the patient continues to have continued confusion then consider lumbar puncture. We'll defer the rest of the medical management to primary team and other specialist. The plan was discussed with the patient ICU attending. Thank you for the consultation Time with Patient: Greater than 30
--- NOTE | 2023-08-11 12:31 | P.PN ---
Subjective 77-year-old female with past medical history of hypertension presented to the ER with altered mental status. She was found in confused state and with significant weakness. Apparently she was found for with broken glass. On admission she was noticed to be significantly hyperglycemic with blood glucose 400, evidence of JUNIOR with creatinine of 4.26. Prior baseline was normal. Lactate of 4.2. Cardiogenic consulted for elevation of troponin. Initial troponin was negative with a repeat troponin of 0.07 with a flat pattern. ECG did not show any significant ST-T wave changes diagnostic for ischemia. There was normal sinus rhythm. 08/09 Patient seen and examined. Patient states she does not have much of an appetite. Has had 1800 mL input with approximately 360 mL output. Denies A chest pain or pressure. Troponins minimally elevated with echo showing preserved EF. Multiple questions answered with the son and family at bedside. 08/10 Patient seen and examined. Patient denies any chest pain or pressure. Blood pressures much better today mainly in the 140s to 150s however yesterday was more in the 110 range. Creatinine mildly improving to 3.8 and has had adequate urine output. 08/11 Patient had episode of unresponsiveness and code stroke was called and workup performed with CAT scan as well as CTA. Currently remains somnolent. Troponin was repeated and mildly improved at 0.03. Blood pressures are in episodes were more elevated however currently in the 120s systolic range. REVIEW OF SYSTEMS 14 point review of system is negative except what is mentioned above in HPI. PHYSICAL EXAMINATION Vital signs reviewed. Head: Normocephalic. Eyes: Sclerae nonicteric. Neck: Brisk carotid upstroke, no jugular venous distention. Lungs: Poor inspiratory effort, rhonchi audible. Heart: Regular rate and rhythm, S1-S2, no S3, no murmur or rub. Abdomen: Soft nontender,. Extremities: No significant swelling in bilateral lower extremity Neuro: Somnolent, ASSESSMENT Elevation of troponin due to septic shock, and poor renal clearance Septic shock likely UTI Acute metabolic encephalopathy JUNIOR Lactic acidosis Poorly controlled diabetes PLAN Minimally elevated troponins appear to be type II non-STEMI related to septic shock and kidney disease. Continue to hold losartan and continue with metoprolol. Echo showing preserved EF. May consider outpatient stress test if she has any anginal symptoms. Appears stable from a cardiac standpoint. Further neurologic workup of her altered mental status. Blood pressure appears fairly well controlled. No further recommendations as an inpatient. Follow-up in one week. Please call with any questions. Objective - Vital Signs Vital signs: Vital Signs Temp 98.2 F 08/10/23 20:00 Pulse 101 H 08/11/23 02:00 Resp 30 H 08/11/23 02:00 BP 128/62 08/11/23 02:00 Pulse Ox 98 08/11/23 02:00 FiO2 50 08/09/23 10:00 Intake & Output 08/10/23 08/11/23 08/11/23 18:59 06:59 18:59 Intake Total 825 750 Output Total 195 750 Balance 630 0 Intake: IV 825 750 Sodium Chloride 0.45% 1, 825 000 ml @ 100 mls/hr IV . [id number] [facility] with Sodium Bicarb (1 Meq/ml) 150 ml Rx#:[id number] Sodium Chloride 0.9% 1, 750 000 ml @ 75 mls/hr IV . [id number] [facility] Rx#:[id number] Output: Urine 195 750 Other: Voiding Method Indwelling Catheter Indwelling Catheter - Labs CBC & Chem 7: 08/11/23 03:56 08/11/23 03:56 Labs: Abnormal Lab Results - Last 24 Hours (Table) 08/10/23 08/10/23 08/11/23 Range/Units 16:42 20:33 01:35 Plt Count (150-450) k/uL Lymphocytes # (Manual) (1.0-4.8) k/uL APTT (22.0-30.0) sec ABG pH (7.35-7.45) ABG pO2 (83-108) mmHg ABG HCO3 (21-25) mmol/L ABG Total CO2 (19-24) mmol/L ABG O2 Saturation (94-97) % Sodium (137-145) mmol/L BUN (7-17) mg/dL Creatinine (0.52-1.04) mg/dL Glucose (74-99) mg/dL POC Glucose (mg/dL) 283 H 301 H 148 H (70-110) mg/dL Calcium (8.4-10.2) mg/dL Total Bilirubin (0.2-1.3) mg/dL AST (14-36) U/L ALT (4-34) U/L Alkaline Phosphatase (38-126) U/L Creatine Kinase (30-135) U/L Troponin I (0.000-0.034) ng/mL Total Protein (6.3-8.2) g/dL Albumin (3.5-5.0) g/dL Urine Appearance (Clear) Urine WBC (0-5) /hpf Amorphous Sediment (None) /hpf Urine Mucus (None) /hpf 08/11/23 08/11/23 08/11/23 Range/Units 02:09 02:09 02:09 Plt Count 35 L (150-450) k/uL Lymphocytes # (Manual) 0.48 L (1.0-4.8) k/uL APTT 21.1 L (22.0-30.0) sec ABG pH (7.35-7.45) ABG pO2 (83-108) mmHg ABG HCO3 (21-25) mmol/L ABG Total CO2 (19-24) mmol/L ABG O2 Saturation (94-97) % Sodium 133 L (137-145) mmol/L BUN 83 H (7-17) mg/dL Creatinine 3.41 H (0.52-1.04) mg/dL Glucose 148 H (74-99) mg/dL POC Glucose (mg/dL) (70-110) mg/dL Calcium 7.8 L (8.4-10.2) mg/dL Total Bilirubin 2.0 H (0.2-1.3) mg/dL AST 135 H (14-36) U/L ALT 72 H (4-34) U/L Alkaline Phosphatase 486 H (38-126) U/L Creatine Kinase (30-135) U/L Troponin I (0.000-0.034) ng/mL Total Protein 4.5 L (6.3-8.2) g/dL Albumin 2.0 L (3.5-5.0) g/dL Urine Appearance (Clear) Urine WBC (0-5) /hpf Amorphous Sediment (None) /hpf Urine Mucus (None) /hpf 08/11/23 08/11/23 08/11/23 Range/Units 02:09 02:10 03:56 Plt Count (150-450) k/uL Lymphocytes # (Manual) (1.0-4.8) k/uL APTT (22.0-30.0) sec ABG pH 7.51 H (7.35-7.45) ABG pO2 81 L (83-108) mmHg ABG HCO3 27 H (21-25) mmol/L ABG Total CO2 29 H (19-24) mmol/L ABG O2 Saturation 97.3 H (94-97) % Sodium 136 L (137-145) mmol/L BUN 83 H (7-17) mg/dL Creatinine 3.65 H (0.52-1.04) mg/dL Glucose 118 H (74-99) mg/dL POC Glucose (mg/dL) (70-110) mg/dL Calcium 7.9 L (8.4-10.2) mg/dL Total Bilirubin (0.2-1.3) mg/dL AST (14-36) U/L ALT (4-34) U/L Alkaline Phosphatase (38-126) U/L Creatine Kinase 915 H (30-135) U/L Troponin I 0.037 H* (0.000-0.034) ng/mL Total Protein (6.3-8.2) g/dL Albumin (3.5-5.0) g/dL Urine Appearance (Clear) Urine WBC (0-5) /hpf Amorphous Sediment (None) /hpf Urine Mucus (None) /hpf 08/11/23 08/11/23 08/11/23 Range/Units 03:56 08:10 11:45 Plt Count 34 L (150-450) k/uL Lymphocytes # (Manual) (1.0-4.8) k/uL APTT (22.0-30.0) sec ABG pH (7.35-7.45) ABG pO2 (83-108) mmHg ABG HCO3 (21-25) mmol/L ABG Total CO2 (19-24) mmol/L ABG O2 Saturation (94-97) % Sodium (137-145) mmol/L BUN (7-17) mg/dL Creatinine (0.52-1.04) mg/dL Glucose (74-99) mg/dL POC Glucose (mg/dL) 113 H (70-110) mg/dL Calcium (8.4-10.2) mg/dL Total Bilirubin (0.2-1.3) mg/dL AST (14-36) U/L ALT (4-34) U/L Alkaline Phosphatase (38-126) U/L Creatine Kinase (30-135) U/L Troponin I (0.000-0.034) ng/mL Total Protein (6.3-8.2) g/dL Albumin (3.5-5.0) g/dL Urine Appearance Cloudy H (Clear) Urine WBC 14 H (0-5) /hpf Amorphous Sediment Moderate H (None) /hpf Urine Mucus Rare H (None) /hpf Microbiology - Last 24 Hours (Table) 08/07/23 23:15 Blood Culture Gram Stain - Final Blood Blood Culture - Final Escherichia coli 08/07/23 23:00 Blood Culture Gram Stain - Final Blood Blood Culture - Final Escherichia coli
--- NOTE | 2023-08-11 16:24 | MR ---
EXAMINATION TYPE: MR brain wo con DATE OF EXAM: 08/11/2023 4:09 PM COMPARISON: NONE HISTORY: CVA suspected, left side neglect FINDINGS: The ventricles, basal cisterns and sulci overlying the cerebral convexities are mildly enlarged. There is evidence of mild periventricular white matter ischemic demyelination. Remote deep white matter insults are also noted. Diffusion-weighted imaging demonstrates multiple small focal areas of increased signal on diffusion-w eighted imaging compatible with embolic process. There is abnormal signal within the right cerebellum , bilateral external and internal capsules, left inferior colliculus with subcortical left temporal r egion as well as the centrum semiovale ca radiata bilaterally. Correlate for embolic process. There is no evidence for midline shift or mass effect. Acute intracranial hemorrhage or extra-axial collection is not evident. The paranasal sinuses and mastoid air cells are well-aerated. IMPRESSION: Acute embolic process is suspected.
[2023-08-11] MEDS: POTASSIUM CHLORIDE 10 MEQ in WATER FOR INJECTION 1 100ML.BAG IVPB SCH ×2 (17:28→20:43)
[2023-08-11 17:37] LABS: Glucose,Whole Blood 116 mg/dL (70-110)
[2023-08-11 21:30] LABS: Glucose,Whole Blood 108 mg/dL (70-110)
[2023-08-12] MEDS: METOPROLOL TARTRATE 25 MG TAB PO SCH ×4 (00:29→21:48)
--- NOTE | 2023-08-12 02:11 | EEG ---
ELECTROENCEPHALOGRAM REPORT CLINICAL HISTORY: This is a 77-year-old woman with altered mental status. The video EEG is obtained to evaluate for seizure epileptiform activity. RELEVANT MEDICATION: The patient is not on any antiepileptic drugs. EEG TYPE: A routine 21-channel EEG with video using the 10/20 electrode placement system. DESCRIPTION: Wakefulness is only obtained. The background consists of [id number] voltage of 5.5 to 6 hertz activity that is polymorphic nonrhythmic intermixed with delta activity. There is no physiological sleep activity. There is no focal slowing. Interictal and ictal is none. ACTIVATION PROCEDURE: Photic stimulation did not evoke a posterior driving response. There is no abnormality during the photic stimulation. Hyperventilation is not performed. CLINICAL INTERPRETATION: This is an abnormal routine EEG. The background slowing is suggestive of moderate-to- severe encephalopathy. Otherwise, there is no focal slowing, epileptiform discharges, or seizure on the EEG. Clinical correlation is recommended. MARRY / ALYSON: [id number] / MTDPaulie
[2023-08-12 03:25] LABS: Chol/HDL Ratio 12.12 Ratio; LDL Cholesterol,Calculated 82.3 mg/dL (0.0-131.0)
[2023-08-12 05:43] LABS: HCT 39.2 % (34.0-46.0); HGB 12.4 gm/dL (11.4-16.0); MCH 29.1 pg (25.0-35.0); MCHC 31.5 g/dL (31.0-37.0); MCV 92.3 fL (80.0-100.0); Mean Platelet Volume 11.6; RBC 4.25 m/uL (3.80-5.40); RDW 14.1 % (11.5-15.5); WBC 18.2 k/uL (3.8-10.6)
[2023-08-12 05:44] LABS: Platelet Count 49 k/uL (150-450)
[2023-08-12 06:10] LABS: AST 83 U/L (14-36); African American GFR (CKD) 13 (>60 ml/min/1.73 sqM); Albumin 2.2 g/dL (3.5-5.0); Alkaline Phosphatase 535 U/L (38-126); Anion Gap 16 mmol/L; Blood Urea Nitrogen 88 mg/dL (7-17); Calcium 8.1 mg/dL (8.4-10.2); Carbon Dioxide 21 mmol/L (22-30); Chloride 102 mmol/L (98-107); Glucose 149 mg/dL (74-99); Non-African American GFR(CKD) 12 (>60 ml/min/1.73 sqM); Potassium 4.6 mmol/L (3.5-5.1); Sodium 139 mmol/L (137-145); Total Bilirubin 2.3 mg/dL (0.2-1.3); Total Protein 4.8 g/dL (6.3-8.2)
[2023-08-12 06:40] LABS: C Reactive Protein 13.9 mg/dL (<1.0)
[2023-08-12] MEDS: INSULIN ASPART (NovoLOG) 100 UNIT/ML VIAL SQ SCH ×4 (07:13→21:49)
[2023-08-12 08:33] LABS: ALT 65 U/L (4-34)
[2023-08-12] MEDS: PANTOPRAZOLE 40 MG/10 ML VIAL IVP SCH (09:18)
[2023-08-12 09:25] LABS: Glucose,Whole Blood 157 mg/dL (70-110)
--- NOTE | 2023-08-12 09:43 | P.PN ---
Subjective Progress Note Date: 08/12/23 I am seeing this patient in consultation today 08/09/2023 in the intensive care unit after the patient was found down on the floor and confused by her neighbor. Patient is a 77-year-old female with unknown past medical history. She is currently confused and unable to provide meaningful information in regard to her HPI and events leading this hospitalization. Apparently, the patient was found down on the floor, confused, by her neighbor. Downtime is unknown. Patient was evaluated by EMS and transferred to the emergency room on July. Brain CT on arrival did not show any acute intracranial process. Initially, the patient was placed on a heparin infusion for possible NSTEMI, which has been ruled out. Patient was felt to be septic, and admitted to the intensive care unit. Patient is currently sitting in the bed, on 2 L/m nasal cannula, in no acute distress. Blood pressure is normotensive. Not requiring any vasopressors. Heart rhythm appears normal sinus on bedside monitor. Chest x- ray on arrival showed low lung volumes and slightly increased central vascular congestion. Slightly increased interstitial markings could be related to low lung volumes, edema, or pneumonitis. Patient's urinalysis was consistent with UTI, and the patient's preliminary blood results have come back positive with E. coli. Patient is currently on Rocephin. Most recent CBC from yesterday shows an improvement WBC count down to 15.6, hemoglobin 13, hematocrit 39.2, platelets 77. ABG from yesterday shows a pO2 of 67, pCO2 of 30, pH is 7.3. This was done on room air. BMP from yesterday shows a sodium 135, potassium 4.4, chloride 101, serum bicarb down to 12, BUN 67, creatinine 4.49, glucose 376. Lactic acid level was elevated at 4.7 is down to 1.5. CPK is elevated at 1588. 3 A Sodium bicarb and D5W is currently infusing at 100 ML's per hour. Normal saline is infusing at 20 ML's per hour. Urine output is oliguric, but improving around 50-60 ML's per hour. Troponins are 0.076, 0.05, 0.056 respectively. NT proBNP was elevated at 16,800. Toxicology screen positive for benzodiazepines. Patient will be monitored in the intensive care unit. On today's evaluation of 08/10/2023, the patient is doing much better neurologically. She is communicating. She is aware that she is in the hospital. She was better but off on the date and the year. However she was aware that she is in a hospital and she has no focal neurological deficit. The patient had gram-negative sepsis and the patient has gram-negative bacillus in the blood on 2 separate blood cultures. This is most likely generating from an underlying urinary tract infection. The patient is currently hemodynamically stable. The patient remains on IV fluids and she is on a bicarbonate drip at the rate of 100 mL an hour. She remains on IV antibiotics with Rocephin. She is afebrile. She is 100 is stable. She is on no pressors. She is on Levemir insulin 10 units twice a day. Her blood work from today shows a WBC count which is down to 8.0 with a hemoglobin 12.2 and a platelet count of 41. Coagulation profile is within normal limits. The creatinine is gradually improving. Creatinine is down to 3.8 with a BUN of 76. Sodium level is at 134. Serum bicarb is up to 28. As such, the bicarb infusion will be discontinued. Troponins were 0.07 0.05 respectively. CPK was at 1243 consistent with some mild rhabdomyolysis. Echocardiogram was done yesterday and the patient has a normal LV function with an ejection fraction of 60%. The patient has mild concentric LVH. On 08/11/2023, the patient is being seen for a follow-up. After doing some progress neurologically. The patient's sepsis was being treated, the patient overnight became unresponsive, she developed garbled speech and her arms were flaccid along with unresponsiveness. This was quite a change in her neurologic functions and status. Based on that, a code stroke was called and the patient underwent a CT angiogram that showed no acute abnormalities. Based on the records, the patient was only withdrawing to sternal rubs and she was unable to speak and her speech was mumbled and she was unable to maintain a conversation. The CT angiogram was done and the CTA showed no acute abnormalities. CAT scan of the brain was also done that showed no evidence of any bleed or any stroke. Currently the patient is having an EEG. She arouses and she opens her eyes spontaneously. She is breathing withdrawing to painful stimulation and there is no focal neurological deficit. Her speech is not fully recovered yet. She was able to tell me that she was in the hospital and she was doing fine. The white cell count today's of 3.5 with a hemoglobin of 12.5, the sodium is at 136 with a potassium level of 3.6, BUN is at 80 with a creatinine of 3.6. AST is 135, ALT 72, alkaline phosphatase is 486, troponins of 0.03. Also, blood gas was done yesterday that showed a pH of 7.5 with a pCO2 of 35 and a pO2 of 81. She is currently on oxygen at 2 L. Chest x-ray from today shows no areas of consolidation. There is some increase in pulmonary vascular markings bilaterally. Patient denies having any cough or sputum production. As mentioned, her white cell count was gradually improving and the patient remains on IV Rocephin. Her blood culture was positive for E. coli. Had echocardiogram that was done on 08/09/2023 showed a preserved LV function with an ejection fraction of 60% On 08/12/2023, the patient's mentation is improved considerably. She is communicating. She is answering questions appropriately. She has no focal neurological deficit. No seizure activity has been noted. Noted the patient also underwent a MRI of the brain and this was completed yesterday. This was reviewed by neurology and MRI showed multiple small foci of increased signal density compatible with an embolic phenomena. There was also abnormal signal within the right cerebellum, bilateral external and internal capsules, left inferior colliculus with subcortical left temporal region as well as the central semiovale coronary radiata bilaterally. Based on this, and embolic phenomena was suspected. Meanwhile, the patient is still being treated for an underlying septicemia with E. coli. The patient remains on IV Rocephin. The patient remains on normal sed rate of 75 mL an hour. The white cell count of 18.2 on today's evaluation with a hemoglobin 12.4 and a platelet count is improved compared to yesterday to 249. The BUN is at 88 and a creatinine of 3.6 which is essentially stable compared to yesterday. Sodium levels of 139. Height antibodies were negative. EEG was also compared to yesterday that showed background slowing suggestive of encephalopathy. No focal seizure activity was noted. Her rhabdomyolysis also improving. Objective - Vital Signs Vital signs: Vital Signs Temp 97.5 F L 08/12/23 08:00 Pulse 60 08/12/23 08:00 Resp 18 08/12/23 08:00 BP 142/57 08/12/23 08:00 Pulse Ox 93 L 08/12/23 08:00 FiO2 50 08/09/23 10:00 Intake & Output 08/11/23 08/12/23 08/12/23 18:59 06:59 18:59 Intake Total 925 470 Output Total 380 820 85 Balance 545 -350 -85 Intake: IV 825 470 Sodium Chloride 0.9% 1, 825 420 000 ml @ 75 mls/hr IV . [id number] [facility] Rx#:[id number] cefTRIAXone 2 gm In 50 Sodium Chloride 0.9% 50 ml @ 100 mls/hr IVPB Q24H [facility] Rx#:[id number] Intake, IV Titration 100 Amount Potassium Chloride 10 meq 100 In Water For Injection 1 100ml.bag @ 100 mls/hr IVPB Q1H [facility] Rx#: [id number] Output: Urine 380 820 85 Other: Voiding Method Indwelling Catheter Indwelling Catheter # Bowel Movements 1 - Exam GENERAL EXAM: Alert and oriented 3 HEAD: Normocephalic and atraumatic EYES: Normal reaction of pupils, equal size. Left periorbital ecchymosis NOSE: Clear with pink turbinates. THROAT: No erythema or exudates. NECK: No masses, no JVD. CHEST: No chest wall deformity. LUNGS: Equal air entry with diminished lung sounds throughout. no crackles, wheeze, rhonchi or dullness. On 2 L/m nasal cannula. No conversational dyspnea or accessory muscle use.. CVS: S1 and S2 normal with no audible murmur, regular rhythm. No extra heart sounds ABDOMEN: No hepatosplenomegaly, active bowel sounds, no guarding or rigidity. SPINE: No scoliosis or deformity SKIN: No rashes CENTRAL NERVOUS SYSTEM: No focal deficits, tone is normal in all 4 extremities. The patient is communicating. She is alert and oriented 3 which EXTREMITIES: There is no peripheral edema, clubbing, or cyanosis. Peripheral pulses are intact. - Labs CBC & Chem 7: 08/12/23 05:10 08/12/23 05:10 Labs: Abnormal Lab Results - Last 24 Hours (Table) 10/25/23 10/25/23 10/25/23 Range/Units 03:56 03:56 03:56 WBC (3.8-10.6) k/uL Plt Count (150-450) k/uL ESR 74 H (0-30) mm/Hr Carbon Dioxide (22-30) mmol/L BUN (7-17) mg/dL Creatinine (0.52-1.04) mg/dL Glucose (74-99) mg/dL POC Glucose (mg/dL) (70-110) mg/dL Calcium (8.4-10.2) mg/dL Total Bilirubin (0.2-1.3) mg/dL AST (14-36) U/L ALT (4-34) U/L Alkaline Phosphatase (38-126) U/L C-Reactive Protein (<1.0) mg/dL Total Protein (6.3-8.2) g/dL Albumin (3.5-5.0) g/dL Triglycerides 217.00 H (0.00-149.00) mg/dL VLDL Cholesterol, Calc 43.40 H (5.00-40.00) mg/dL HDL Cholesterol 11.30 L (40.00-60.00) mg/dL Vitamin B12 >3600.0 H (200.0-944.0) pg/mL Urine Appearance (Clear) Urine WBC (0-5) /hpf Amorphous Sediment (None) /hpf Urine Mucus (None) /hpf 08/11/23 08/11/23 08/11/23 Range/Units 08:10 11:45 17:35 WBC (3.8-10.6) k/uL Plt Count (150-450) k/uL ESR (0-30) mm/Hr Carbon Dioxide (22-30) mmol/L BUN (7-17) mg/dL Creatinine (0.52-1.04) mg/dL Glucose (74-99) mg/dL POC Glucose (mg/dL) 113 H 116 H (70-110) mg/dL Calcium (8.4-10.2) mg/dL Total Bilirubin (0.2-1.3) mg/dL AST (14-36) U/L ALT (4-34) U/L Alkaline Phosphatase (38-126) U/L C-Reactive Protein (<1.0) mg/dL Total Protein (6.3-8.2) g/dL Albumin (3.5-5.0) g/dL Triglycerides (0.00-149.00) mg/dL VLDL Cholesterol, Calc (5.00-40.00) mg/dL HDL Cholesterol (40.00-60.00) mg/dL Vitamin B12 (200.0-944.0) pg/mL Urine Appearance Cloudy H (Clear) Urine WBC 14 H (0-5) /hpf Amorphous Sediment Moderate H (None) /hpf Urine Mucus Rare H (None) /hpf 08/12/23 08/12/23 08/12/23 Range/Units 05:10 05:10 09:23 WBC 18.2 H (3.8-10.6) k/uL Plt Count 49 L (150-450) k/uL ESR (0-30) mm/Hr Carbon Dioxide 21 L (22-30) mmol/L BUN 88 H (7-17) mg/dL Creatinine 3.64 H (0.52-1.04) mg/dL Glucose 149 H (74-99) mg/dL POC Glucose (mg/dL) 157 H (70-110) mg/dL Calcium 8.1 L (8.4-10.2) mg/dL Total Bilirubin 2.3 H (0.2-1.3) mg/dL AST 83 H (14-36) U/L ALT 65 H (4-34) U/L Alkaline Phosphatase 535 H (38-126) U/L C-Reactive Protein 13.9 H (<1.0) mg/dL Total Protein 4.8 L (6.3-8.2) g/dL Albumin 2.2 L (3.5-5.0) g/dL Triglycerides (0.00-149.00) mg/dL VLDL Cholesterol, Calc (5.00-40.00) mg/dL HDL Cholesterol (40.00-60.00) mg/dL Vitamin B12 (200.0-944.0) pg/mL Urine Appearance (Clear) Urine WBC (0-5) /hpf Amorphous Sediment (None) /hpf Urine Mucus (None) /hpf Assessment and Plan Assessment: Urinary tract infection and Urosepsis, with ECOLI and the patient remains on IV Rocephin, final cultures are equal and the patient remains on IV Rocephin Lactic acidosis, improved Metabolic anion gap acidosis, secondary to above, improved and the patient is on 0.9 at 75 mL an hour Leukocytosis, the white cell count remains elevated Acute kidney injury, secondary to acute tubular necrosis, improving and the creatinine is down to 3.65, stable compared to yesterday Rhabdomyolysis, CPK is still mildly elevated, improving Suspected diabetes mellitus type 2, hyperglycemic and hemoglobin A1c 12.3 Elevated troponins, flat, not felt to reflect ACS Altered mental status, nonenhanced brain CT did not show any acute intracranial abnormality, likely related to toxic metabolic encephalopathy and urosepsis, improving mental status, however this morning at 1 AM, there was an altered mentation and based on that the patient underwent further neuro workup including a CT of the brain and the CAT scan of the brain that showed no acute abnormaliti es. She is gradually recovering from that. This morning, the patient is fully alert and awake. 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 Based on that, a ALLISON was recommended. Thrombocytopenia, likely consumptive secondary to sepsis. No signs of any DIC. Coagulation profile is within normal limits. The platelet count is improving and the patient had negative HIT antibodies. Plan: Continue IV Rocephin Change IV fluids normal saline at rate of 100 mL an hour Echocardiogram was noted and the patient is a preserved LV function, recommending a ALLISON for the possibility of embolic stroke Ultrasound the kidney was done and there is no evidence of any hydronephrosis Renal function is stable and the urine output is adequate at this point Blood sugar management with Levemir insulin 10 units twice a day Neurologic consultation is appreciated Monitor the mental status EEG showed no seizure activity MRI of the brain was noted I would say there is some improvement in neuro status since user experience team lead. We'll continue to follow DVT and GI prophylaxis Increase oral intake monitor platelet count We'll continue to follow. She did be potentially transferred out of the intensive care unit today.
[2023-08-12] MEDS: INSULIN DETEMIR (LEVEMIR) 100 UNIT/ML SYR SQ SCH ×2 (09:48→22:11)
--- NOTE | 2023-08-12 10:26 | P.PN ---
Subjective 77-year-old female with past medical history of hypertension presented to the ER with altered mental status. She was found in confused state and with significant weakness. Apparently she was found for with broken glass. On admission she was noticed to be significantly hyperglycemic with blood glucose 400, evidence of JUNIOR with creatinine of 4.26. Prior baseline was normal. Lactate of 4.2. Cardiogenic consulted for elevation of troponin. Initial troponin was negative with a repeat troponin of 0.07 with a flat pattern. ECG did not show any significant ST-T wave changes diagnostic for ischemia. There was normal sinus rhythm. 08/09 Patient seen and examined. Patient states she does not have much of an appetite. Has had 1800 mL input with approximately 360 mL output. Denies A chest pain or pressure. Troponins minimally elevated with echo showing preserved EF. Multiple questions answered with the son and family at bedside. 08/10 Patient seen and examined. Patient denies any chest pain or pressure. Blood pressures much better today mainly in the 140s to 150s however yesterday was more in the 110 range. Creatinine mildly improving to 3.8 and has had adequate urine output. 08/11 Patient had episode of unresponsiveness and code stroke was called and workup performed with CAT scan as well as CTA. Currently remains somnolent. Troponin was repeated and mildly improved at 0.03. Blood pressures are in episodes were more elevated however currently in the 120s systolic range. 08/12 Patient more alert today. MRI showing concern of acute stroke. Neurology reconsult to us regarding ALLISON to rule out cardiac source of emboli. Remains in sinus rhythm. Creatinine mildly improved at 3.6. PHYSICAL EXAMINATION Vital signs reviewed. Head: Normocephalic. Eyes: Sclerae nonicteric. Neck: Brisk carotid upstroke, no jugular venous distention. Lungs: Poor inspiratory effort, rhonchi audible. Heart: Regular rate and rhythm, S1-S2, no S3, no murmur or rub. Abdomen: Soft nontender,. Extremities: No significant swelling in bilateral lower extremity Neuro: Somnolent, ASSESSMENT Elevation of troponin due to septic shock, and poor renal clearance Septic shock likely UTI Acute metabolic encephalopathy JUNIOR Lactic acidosis Poorly controlled diabetes Acute stroke PLAN Minimally elevated troponins appear to be type II non-STEMI related to septic shock and kidney disease. Continue to hold losartan and continue with metoprolol. Echo showing preserved EF. May consider outpatient stress test if she has any anginal symptoms. Concern of cryptogenic stroke and we will check ALLISON. Objective - Vital Signs Vital signs: Vital Signs Temp 97.5 F L 08/12/23 08:00 Pulse 60 08/12/23 08:00 Resp 18 08/12/23 08:00 BP 142/57 08/12/23 08:00 Pulse Ox 93 L 08/12/23 08:00 FiO2 50 08/09/23 10:00 Intake & Output 08/11/23 08/12/23 08/12/23 18:59 06:59 18:59 Intake Total 925 470 Output Total 380 820 85 Balance 545 -350 -85 Intake: IV 825 470 Sodium Chloride 0.9% 1, 825 420 000 ml @ 75 mls/hr IV . [id number] [facility] Rx#:[id number] cefTRIAXone 2 gm In 50 Sodium Chloride 0.9% 50 ml @ 100 mls/hr IVPB Q24H [facility] Rx#:[id number] Intake, IV Titration 100 Amount Potassium Chloride 10 meq 100 In Water For Injection 1 100ml.bag @ 100 mls/hr IVPB Q1H [facility] Rx#: [id number] Output: Urine 380 820 85 Other: Voiding Method Indwelling Catheter Indwelling Catheter # Bowel Movements 1 - Labs CBC & Chem 7: 08/12/23 05:10 08/12/23 05:10 Labs: Abnormal Lab Results - Last 24 Hours (Table) 08/11/23 08/11/23 08/11/23 Range/Units 03:56 03:56 03:56 WBC (3.8-10.6) k/uL Plt Count (150-450) k/uL ESR 74 H (0-30) mm/Hr Carbon Dioxide (22-30) mmol/L BUN (7-17) mg/dL Creatinine (0.52-1.04) mg/dL Glucose (74-99) mg/dL POC Glucose (mg/dL) (70-110) mg/dL Calcium (8.4-10.2) mg/dL Total Bilirubin (0.2-1.3) mg/dL AST (14-36) U/L ALT (4-34) U/L Alkaline Phosphatase (38-126) U/L C-Reactive Protein (<1.0) mg/dL Total Protein (6.3-8.2) g/dL Albumin (3.5-5.0) g/dL Triglycerides 217.00 H (0.00-149.00) mg/dL VLDL Cholesterol, Calc 43.40 H (5.00-40.00) mg/dL HDL Cholesterol 11.30 L (40.00-60.00) mg/dL Vitamin B12 >3600.0 H (200.0-944.0) pg/mL Urine Appearance (Clear) Urine WBC (0-5) /hpf Amorphous Sediment (None) /hpf Urine Mucus (None) /hpf 08/11/23 08/11/23 08/11/23 Range/Units 08:10 11:45 17:35 WBC (3.8-10.6) k/uL Plt Count (150-450) k/uL ESR (0-30) mm/Hr Carbon Dioxide (22-30) mmol/L BUN (7-17) mg/dL Creatinine (0.52-1.04) mg/dL Glucose (74-99) mg/dL POC Glucose (mg/dL) 113 H 116 H (70-110) mg/dL Calcium (8.4-10.2) mg/dL Total Bilirubin (0.2-1.3) mg/dL AST (14-36) U/L ALT (4-34) U/L Alkaline Phosphatase (38-126) U/L C-Reactive Protein (<1.0) mg/dL Total Protein (6.3-8.2) g/dL Albumin (3.5-5.0) g/dL Triglycerides (0.00-149.00) mg/dL VLDL Cholesterol, Calc (5.00-40.00) mg/dL HDL Cholesterol (40.00-60.00) mg/dL Vitamin B12 (200.0-944.0) pg/mL Urine Appearance Cloudy H (Clear) Urine WBC 14 H (0-5) /hpf Amorphous Sediment Moderate H (None) /hpf Urine Mucus Rare H (None) /hpf 08/12/23 08/12/23 08/12/23 Range/Units 05:10 05:10 09:23 WBC 18.2 H (3.8-10.6) k/uL Plt Count 49 L (150-450) k/uL ESR (0-30) mm/Hr Carbon Dioxide 21 L (22-30) mmol/L BUN 88 H (7-17) mg/dL Creatinine 3.64 H (0.52-1.04) mg/dL Glucose 149 H (74-99) mg/dL POC Glucose (mg/dL) 157 H (70-110) mg/dL Calcium 8.1 L (8.4-10.2) mg/dL Total Bilirubin 2.3 H (0.2-1.3) mg/dL AST 83 H (14-36) U/L ALT 65 H (4-34) U/L Alkaline Phosphatase 535 H (38-126) U/L C-Reactive Protein 13.9 H (<1.0) mg/dL Total Protein 4.8 L (6.3-8.2) g/dL Albumin 2.2 L (3.5-5.0) g/dL Triglycerides (0.00-149.00) mg/dL VLDL Cholesterol, Calc (5.00-40.00) mg/dL HDL Cholesterol (40.00-60.00) mg/dL Vitamin B12 (200.0-944.0) pg/mL Urine Appearance (Clear) Urine WBC (0-5) /hpf Amorphous Sediment (None) /hpf Urine Mucus (None) /hpf
--- NOTE | 2023-08-12 11:20 | P.PN ---
Subjective Patient is seen for follow-up for acute kidney injury. She was admitted to the hospital with mental status changes and weakness. Patient is noted to have a serum creatinine of 4.2 with a previous reading of 0.8 on 06/09/2018. No other labs available in between. Currently maintained on IV fluids. Being treated for UTI. Blood cultures are growing E. coli. Patient had an episode of confusion with elevated blood pressure and heart rate. She did have CT angiogram which did not show any acute findings. Mentation has improved today. MRI showed evidence of acute embolic process with multiple small focal areas of increased signal. A ALLISON is recommended. Urine output at about 1200 mL over 24 hours Serum creatinine staying at 3.6 mg/dL. Objective - Vital Signs Vital signs: Vital Signs Temp 97.5 F L 08/12/23 08:00 Pulse 60 08/12/23 08:00 Resp 18 08/12/23 08:00 BP 142/57 08/12/23 08:00 Pulse Ox 93 L 08/12/23 08:00 FiO2 50 08/09/23 10:00 Intake & Output 08/11/23 08/12/23 08/12/23 18:59 06:59 18:59 Intake Total 925 470 Output Total 380 820 85 Balance 545 -350 -85 Intake: IV 825 470 Sodium Chloride 0.9% 1, 825 420 000 ml @ 75 mls/hr IV . [id number] [facility] Rx#:[id number] cefTRIAXone 2 gm In 50 Sodium Chloride 0.9% 50 ml @ 100 mls/hr IVPB Q24H [facility] Rx#:[id number] Intake, IV Titration 100 Amount Potassium Chloride 10 meq 100 In Water For Injection 1 100ml.bag @ 100 mls/hr IVPB Q1H [facility] Rx#: [id number] Output: Urine 380 820 85 Other: Voiding Method Indwelling Catheter Indwelling Catheter # Bowel Movements 1 - Exam Patient is awake, comfortable, no acute distress Mentation has improved. Answering questions appropriately. Examination of the heart S1 and S2 Examination of the lungs bilateral breath sounds are heard Abdomen is soft nontender Examination of lower extremities shows no significant edema - Labs CBC & Chem 7: 08/12/23 05:10 08/12/23 05:10 Labs: Abnormal Lab Results - Last 24 Hours (Table) 08/11/23 08/11/23 08/11/23 Range/Units 03:56 03:56 03:56 WBC (3.8-10.6) k/uL Plt Count (150-450) k/uL ESR 74 H (0-30) mm/Hr Carbon Dioxide (22-30) mmol/L BUN (7-17) mg/dL Creatinine (0.52-1.04) mg/dL Glucose (74-99) mg/dL POC Glucose (mg/dL) (70-110) mg/dL Calcium (8.4-10.2) mg/dL Total Bilirubin (0.2-1.3) mg/dL AST (14-36) U/L ALT (4-34) U/L Alkaline Phosphatase (38-126) U/L C-Reactive Protein (<1.0) mg/dL Total Protein (6.3-8.2) g/dL Albumin (3.5-5.0) g/dL Triglycerides 217.00 H (0.00-149.00) mg/dL VLDL Cholesterol, Calc 43.40 H (5.00-40.00) mg/dL HDL Cholesterol 11.30 L (40.00-60.00) mg/dL Vitamin B12 >3600.0 H (200.0-944.0) pg/mL 08/11/23 08/11/23 08/12/23 Range/Units 11:45 17:35 05:10 WBC 18.2 H (3.8-10.6) k/uL Plt Count 49 L (150-450) k/uL ESR (0-30) mm/Hr Carbon Dioxide (22-30) mmol/L BUN (7-17) mg/dL Creatinine (0.52-1.04) mg/dL Glucose (74-99) mg/dL POC Glucose (mg/dL) 113 H 116 H (70-110) mg/dL Calcium (8.4-10.2) mg/dL Total Bilirubin (0.2-1.3) mg/dL AST (14-36) U/L ALT (4-34) U/L Alkaline Phosphatase (38-126) U/L C-Reactive Protein (<1.0) mg/dL Total Protein (6.3-8.2) g/dL Albumin (3.5-5.0) g/dL Triglycerides (0.00-149.00) mg/dL VLDL Cholesterol, Calc (5.00-40.00) mg/dL HDL Cholesterol (40.00-60.00) mg/dL Vitamin B12 (200.0-944.0) pg/mL 08/12/23 08/12/23 Range/Units 05:10 09:23 WBC (3.8-10.6) k/uL Plt Count (150-450) k/uL ESR (0-30) mm/Hr Carbon Dioxide 21 L (22-30) mmol/L BUN 88 H (7-17) mg/dL Creatinine 3.64 H (0.52-1.04) mg/dL Glucose 149 H (74-99) mg/dL POC Glucose (mg/dL) 157 H (70-110) mg/dL Calcium 8.1 L (8.4-10.2) mg/dL Total Bilirubin 2.3 H (0.2-1.3) mg/dL AST 83 H (14-36) U/L ALT 65 H (4-34) U/L Alkaline Phosphatase 535 H (38-126) U/L C-Reactive Protein 13.9 H (<1.0) mg/dL Total Protein 4.8 L (6.3-8.2) g/dL Albumin 2.2 L (3.5-5.0) g/dL Triglycerides (0.00-149.00) mg/dL VLDL Cholesterol, Calc (5.00-40.00) mg/dL HDL Cholesterol (40.00-60.00) mg/dL Vitamin B12 (200.0-944.0) pg/mL Assessment and Plan Assessment: 1. Acute kidney injury ATN from hypoperfusion. Improving. Creatinine is staying around 3.6 mg/dL.. UA shows trace protein no blood, WBC 72. Currently with indwelling Rendon catheter. No obstruction on ultrasound. Previous creatinine 0.8 in 2018. 2. Hypertension with low blood pressure on initial admission. Initial blood pressure was 94/63 mmHg. Losartan is currently on hold. 3. Volume depletion currently maintained on IV fluids 4. Pyuria rule out UTI. Urine culture is not available. Blood cultures are growing E. coli 5. Mental status changes secondary to underlying infection, volume depletion. Status post CT angiogram 08/10/2023 due to significant change in mentation last night. MRI of the brain shows evidence of acute embolic phenomenon. Patient is being followed by neurology. 6. Anion gap metabolic acidosis secondary to acute kidney injury and lactic acidosis. Serum acetone was negative. 7. Sepsis with blood cultures growing E. coli 8. Acute CVA with MRI showing evidence of embolic process. ALLISON recommended Plan: Maintain IV fluids at 50 mL an hour Continue antibiotics Repeat labs in a.m. Continue to avoid nephrotoxic agents No plans for renal replacement therapy as of now. Another etiology for altered mentation has been identified which is acute embolic CVA. We will continue to monitor on a daily basis.
--- NOTE | 2023-08-12 11:35 | P.PN ---
Subjective Progress Note Date: 08/12/23 * 77-year-old lady with past medical history significant for hypertension, presents to the emergency department with altered mental status. * Per chart review patient was last well-known 08/06/23. Patient was brought by EMS and was noted to be less responsive and alert and oriented 1 with profound weakness. Patient was apparently found on the floor with broken glass. Patient was last seen by a neighbor and apparently doing well. Upon presentation patient was noted to have profound hypoglycemia Glucose 411, blood pressure 180/22 * Workup initiated included CBC which were WBC of 30.8 hemoglobin 15.2 platelet 124 with elevated neutrophil count. INR of 1.4 serum chemistry showed sodium 134 BUN 57 creatinine 4.26 blood glucose in 400s lactic to 4.7 * Initial troponin obtained 0.076, EKG obtained showed sinus rhythm no significant ST segment changes * Patient was given IV Rocephin, urinalysis is obtained showed large leukocyte esterase WBC and many bacteria * 08/09/23: Patient was seen and evaluated bedside, patient seen in ICU, mentation has improved alert and oriented to person place and situation. Appreciate input from nephrology, continue patient on IV bicarbonate, continue to monitor renal profile * 08/10/23: Patient seen and evaluated bedside, patient alert and oriented to person and situation, patient sitting in recliner. CBC reviewed noted to have thrombocytopenia aspirin discontinued serum chemistry reviewed creatinine 3.87. CK trending down. Blood culture showed E. coli bacteremia antibiotic transitioned to Rocephin * 08/11/23: Patient seen and evaluated bedside, overnight patient had episode of confusion, patient had garbled speech and also flaccid. Patient had a code s troke called and CT angiogram head and neck was done which was negative for acute abnormality CT brain was negative for any acute bleed or stroke as well. Neurology consulted and EEG is ordered patient does open her eyes to verbal stimulus and painful stimulus. MRI brain ordered as stat. Card work reviewed arterial blood gas reviewed as well. Continue close monitoring in ICU. CBC showed improvement in leukocytosis. Patient remains afebrile blood pressure map around 84 * 08/12/23: Patient seen and evaluated bedside, patient alert to person and situation. Mentation has improved significantly. MRI brain completedembolic stroke, patient started on aspirin and Lipitor. Liver profile trending down. A panel negative as well continue to monitor for worsening thrombocytopenia. Cardiology consulted to evaluate for intracardiac thrombus. Planning ALLISON patient nothing by mouth Objective - Vital Signs Vital signs: Vital Signs Temp 97.5 F L 08/12/23 08:00 Pulse 60 08/12/23 08:00 Resp 18 08/12/23 08:00 BP 142/57 08/12/23 08:00 Pulse Ox 93 L 08/12/23 08:00 FiO2 50 08/09/23 10:00 Intake & Output 08/11/23 08/12/23 08/12/23 18:59 06:59 18:59 Intake Total 925 470 Output Total 380 820 85 Balance 545 -350 -85 Intake: IV 825 470 Sodium Chloride 0.9% 1, 825 420 000 ml @ 75 mls/hr IV . [id number] [facility] Rx#:[id number] cefTRIAXone 2 gm In 50 Sodium Chloride 0.9% 50 ml @ 100 mls/hr IVPB Q24H [facility] Rx#:[id number] Intake, IV Titration 100 Amount Potassium Chloride 10 meq 100 In Water For Injection 1 100ml.bag @ 100 mls/hr IVPB Q1H [facility] Rx#: [id number] Output: Urine 380 820 85 Other: Voiding Method Indwelling Catheter Indwelling Catheter # Bowel Movements 1 - Exam PHYSICAL EXAMINATION: GENERAL: The patient is alert and oriented x 2 , mentation has improved as compared to 08/11 HEENT: Pupils are round and equally reacting to light. EOMI. CARDIOVASCULAR: S1 and S2 present. No murmurs, rubs, or gallops. PULMONARY: Chest is clear to auscultation, no wheezing or crackles. ABDOMEN: Soft, nontender, nondistended, normoactive bowel sounds. No palpable organomegaly. MUSCULOSKELETAL: No joint swelling or deformity. EXTREMITIES: No cyanosis, clubbing, or pedal edema. NEUROLOGICAL: Alert to person and situation, moving upper and lower extremities nonfocal exam, mentation does wax and wane - Labs CBC & Chem 7: 08/12/23 05:10 08/12/23 05:10 Labs: Abnormal Lab Results - Last 24 Hours (Table) 08/11/23 08/11/23 08/11/23 Range/Units 03:56 03:56 03:56 WBC (3.8-10.6) k/uL Plt Count (150-450) k/uL ESR 74 H (0-30) mm/Hr Carbon Dioxide (22-30) mmol/L BUN (7-17) mg/dL Creatinine (0.52-1.04) mg/dL Glucose (74-99) mg/dL POC Glucose (mg/dL) (70-110) mg/dL Calcium (8.4-10.2) mg/dL Total Bilirubin (0.2-1.3) mg/dL AST (14-36) U/L ALT (4-34) U/L Alkaline Phosphatase (38-126) U/L C-Reactive Protein (<1.0) mg/dL Total Protein (6.3-8.2) g/dL Albumin (3.5-5.0) g/dL Triglycerides 217.00 H (0.00-149.00) mg/dL VLDL Cholesterol, Calc 43.40 H (5.00-40.00) mg/dL HDL Cholesterol 11.30 L (40.00-60.00) mg/dL Vitamin B12 >3600.0 H (200.0-944.0) pg/mL 08/11/23 08/11/23 08/12/23 Range/Units 11:45 17:35 05:10 WBC 18.2 H (3.8-10.6) k/uL Plt Count 49 L (150-450) k/uL ESR (0-30) mm/Hr Carbon Dioxide (22-30) mmol/L BUN (7-17) mg/dL Creatinine (0.52-1.04) mg/dL Glucose (74-99) mg/dL POC Glucose (mg/dL) 113 H 116 H (70-110) mg/dL Calcium (8.4-10.2) mg/dL Total Bilirubin (0.2-1.3) mg/dL AST (14-36) U/L ALT (4-34) U/L Alkaline Phosphatase (38-126) U/L C-Reactive Protein (<1.0) mg/dL Total Protein (6.3-8.2) g/dL Albumin (3.5-5.0) g/dL Triglycerides (0.00-149.00) mg/dL VLDL Cholesterol, Calc (5.00-40.00) mg/dL HDL Cholesterol (40.00-60.00) mg/dL Vitamin B12 (200.0-944.0) pg/mL 08/12/23 08/12/23 Range/Units 05:10 09:23 WBC (3.8-10.6) k/uL Plt Count (150-450) k/uL ESR (0-30) mm/Hr Carbon Dioxide 21 L (22-30) mmol/L BUN 88 H (7-17) mg/dL Creatinine 3.64 H (0.52-1.04) mg/dL Glucose 149 H (74-99) mg/dL POC Glucose (mg/dL) 157 H (70-110) mg/dL Calcium 8.1 L (8.4-10.2) mg/dL Total Bilirubin 2.3 H (0.2-1.3) mg/dL AST 83 H (14-36) U/L ALT 65 H (4-34) U/L Alkaline Phosphatase 535 H (38-126) U/L C-Reactive Protein 13.9 H (<1.0) mg/dL Total Protein 4.8 L (6.3-8.2) g/dL Albumin 2.2 L (3.5-5.0) g/dL Triglycerides (0.00-149.00) mg/dL VLDL Cholesterol, Calc (5.00-40.00) mg/dL HDL Cholesterol (40.00-60.00) mg/dL Vitamin B12 (200.0-944.0) pg/mL Microbiology - Last 24 Hours (Table) 08/11/23 08:10 Urine Culture - Final Urine,Voided Assessment and Plan Assessment: Assessment and plan * Severe sepsis secondary to urinary tract infection * E. 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 coli bacteremia, urine cultures pending. Antibiotic transitioned from cefepime to Rocephin * In regards to elevated troponin, serial troponins ordered echocardiogram shows preserved ejection fraction ,cardiology consulted , continue metoprolol, IV heparin drip discontinued by cardiology, * In regards to thrombocytopenia, hit panel negative, aspirin was intermittently held however resumed after CVA s * In regards to for CVA, CT head CT angina head and neck negative, MRI brain shows embolic stroke, neurology consulted continue patient on aspirin and Lipitor, ALLISON ordered * In regards to renal failure, losartan discontinued continue with fluid resuscitation nephrology consulted continue to monitor intake and output, patient was transitioned from bicarbonate drip to normal saline * In regards to diabetes mellitus, HbA1c 13.7 , patient started on Lantus, continue correctional insulin * CODE STATUS is full code
[2023-08-12] MEDS: SODIUM CHLORIDE 0.9% 1,000 ML IV SCH ×2 (11:36→16:56)
[2023-08-12 12:10] LABS: Glucose,Whole Blood 155 mg/dL (70-110)
[2023-08-12] MEDS: ASPIRIN 81 MG PO SCH (12:10)
--- NOTE | 2023-08-12 13:25 | P.PN ---
Subjective Progress Note Date: 08/12/23 Yesterday the patient had MRI shows embolic stroke for bilateral hemisphere. Today her mentation is drastically better per the ICU attending a nurse. The patient feels she is doing better. Denies of any headache any nausea any vomiting. She stated a couple days ago she had nausea but not any further. Denies of any neck pain or any stiffness in the neck. Denies of any focal weakness. She feels she is doing much better. Objective - Vital Signs Vital signs: Vital Signs Temp 98 F 08/12/23 13:12 Pulse 65 08/12/23 13:12 Resp 18 08/12/23 13:12 BP 154/76 08/12/23 13:12 Pulse Ox 94 L 08/12/23 13:12 FiO2 50 08/09/23 10:00 Intake & Output 08/11/23 08/12/23 08/12/23 18:59 06:59 18:59 Intake Total 925 470 Output Total 380 820 85 Balance 545 -350 -85 Intake: IV 825 470 Sodium Chloride 0.9% 1, 825 420 000 ml @ 75 mls/hr IV . [id number] [facility] Rx#:[id number] cefTRIAXone 2 gm In 50 Sodium Chloride 0.9% 50 ml @ 100 mls/hr IVPB Q24H [facility] Rx#:[id number] Intake, IV Titration 100 Amount Potassium Chloride 10 meq 100 In Water For Injection 1 100ml.bag @ 100 mls/hr IVPB Q1H [facility] Rx#: [id number] Output: Urine 380 820 85 Other: Voiding Method Indwelling Catheter Indwelling Catheter Indwelling Catheter # Bowel Movements 1 - Exam GENERAL: Patient is sitting on a recliner chair and is not in acute distress. NEUROLOGICAL: Higher mental function: The patient is awake, alert, oriented to self, place and time. Patient is following commands. No aphasia and no neglect. Cranial nerves: The pupils are round, equal and reactive to light. Visual ramos are full to confrontation throughout. Extraocular movement is intact no nystagmus is noted. Facial sensation is normal to touch throughout. The facial strength is normal throughout. Tongue is midline and moved [id number] without any difficulty. No dysarthria is noted. Shoulder shrug is normal bilaterally. Motor: The strength is 5 over 5 throughout upper is why the lowers she minimally lift them above gravity and she states she has knee pain so hard to assess indiv idual muscle strength especially that she was sitting on Joseph chair.. Normal tone and bulk. Cerebellum: Normal finger to nose bilaterally. Sensation: Sensation is normal to touch throughout. Some of the workup consisted of: Patient has been afebrile during this hospital visit. Initial white blood cell is 26,000 and most recent ones 8.5 the. Predominantly neutrophilic. Creatinine is 4.26 and most recent ones 3.65 prior to that the her creatinine 2018 last seen in our facility was normal. Magnesium on initial presentation was 1.2 most recent one is 2.1 Urinalysis seen suggestive of acute urinary tract infection. Urine drug screen is positive for benzos otherwise dresses nondetected and acetone is negative. SARS2 PCR was not detected. RSV, influenza A/B are nondetected Blood cultures is positive for E. coli. TSH is 1.650 Ammonia is less than 9. AST is 135 ALT is 72 Hemoglobin A1c is 12.3 and the repeated one day later was 13.7. Visit panel is triglycerides 217, cholesterol is 137, LDLs 82 and HDL is 11. B12 is more than 3600 Folate is 14.70 CK levels thousand 588 and the repeated is a 9 or 15 2-D echo was reported as normal left ventricular size and systolic function. Ejection fraction the estimated at 60%. No significant regional wall motion abnormality. Mild concentric ventricular hypertrophy. IVC is not dilated and is collapsible. Calcific aortic valve with mild aortic stenosis and mild aortic regurgitation. Routine EEG is abnormal. The background slowing suggestive of moderate to severe encephalopathy. Otherwise there is no focal slowing, epileptiform discharges or seizure on the EEG. MRI the brain is reported as acute embolic processes suspected. It seems that the patient has bilateral hemispheric ischemic stroke upon reviewing the image. - Labs CBC & Chem 7: 08/12/23 05:10 08/12/23 05:10 Labs: Abnormal Lab Results - Last 24 Hours (Table) 08/11/23 08/11/23 08/11/23 Range/Units 03:56 03:56 03:56 WBC (3.8-10.6) k/uL Plt Count (150-450) k/uL ESR 74 H (0-30) mm/Hr Carbon Dioxide (22-30) mmol/L BUN (7-17) mg/dL Creatinine (0.52-1.04) mg/dL Glucose (74-99) mg/dL POC Glucose (mg/dL) (70-110) mg/dL Calcium (8.4-10.2) mg/dL Total Bilirubin (0.2-1.3) mg/dL AST (14-36) U/L ALT (4-34) U/L Alkaline Phosphatase (38-126) U/L C-Reactive Protein (<1.0) mg/dL Total Protein (6.3-8.2) g/dL Albumin (3.5-5.0) g/dL Triglycerides 217.00 H (0.00-149.00) mg/dL VLDL Cholesterol, Calc 43.40 H (5.00-40.00) mg/dL HDL Cholesterol 11.30 L (40.00-60.00) mg/dL Vitamin B12 >3600.0 H (200.0-944.0) pg/mL 08/11/23 08/12/23 08/12/23 Range/Units 17:35 05:10 05:10 WBC 18.2 H (3.8-10.6) k/uL Plt Count 49 L (150-450) k/uL ESR (0-30) mm/Hr Carbon Dioxide 21 L (22-30) mmol/L BUN 88 H (7-17) mg/dL Creatinine 3.64 H (0.52-1.04) mg/dL Glucose 149 H (74-99) mg/dL POC Glucose (mg/dL) 116 H (70-110) mg/dL Calcium 8.1 L (8.4-10.2) mg/dL Total Bilirubin 2.3 H (0.2-1.3) mg/dL AST 83 H (14-36) U/L ALT 65 H (4-34) U/L Alkaline Phosphatase 535 H (38-126) U/L C-Reactive Protein 13.9 H (<1.0) mg/dL Total Protein 4.8 L (6.3-8.2) g/dL Albumin 2.2 L (3.5-5.0) g/dL Triglycerides (0.00-149.00) mg/dL VLDL Cholesterol, Calc (5.00-40.00) mg/dL HDL Cholesterol (40.00-60.00) mg/dL Vitamin B12 (200.0-944.0) pg/mL 08/12/23 08/12/23 Range/Units 09:23 12:09 WBC (3.8-10.6) k/uL Plt Count (150-450) k/uL ESR (0-30) mm/Hr Carbon Dioxide (22-30) mmol/L BUN (7-17) mg/dL Creatinine (0.52-1.04) mg/dL Glucose (74-99) mg/dL POC Glucose (mg/dL) 157 H 155 H (70-110) mg/dL Calcium (8.4-10.2) mg/dL Total Bilirubin (0.2-1.3) mg/dL AST (14-36) U/L ALT (4-34) U/L Alkaline Phosphatase (38-126) U/L C-Reactive Protein (<1.0) mg/dL Total Protein (6.3-8.2) g/dL Albumin (3.5-5.0) g/dL Triglycerides (0.00-149.00) mg/dL VLDL Cholesterol, Calc (5.00-40.00) mg/dL HDL Cholesterol (40.00-60.00) mg/dL Vitamin B12 (200.0-944.0) pg/mL Microbiology - Last 24 Hours (Table) 08/11/23 08:10 Urine Culture - Final Urine,Voided Assessment and Plan Assessment: This is a 77-year-old woman who presented to the emergency department on 08/07/2023 since that she was found down on the floor confused by her neighbor. Unknown downtime. Was felt the patient possibly had an STEMI and she was on heparin drip that. During his hospital stay it was felt the patient had sepsis and that had positive E. coli on the blood cultures as well as possible underlying UTI. Also she has acute kidney insufficiency It seems that the patient was responding during the hospital stay and the overnight the patient developed garbled speech her arms were flaccid then she became unresponsive as a result a code stroke was activated and she had CT of the head CTA head and neck which were unremarkable. According to the ICU attending today the patient was following some simple commands appropriately and she has fluctuation in mentation. Upon seeing her she was not following commands or responding to me. Bilateral hemispheric and is seems embolic in nature. She had garbled speech and her arms were flaccid and was unresponsive. Mentation has improved. Rule out cardioembolic. Also rule out infective endocarditis. Altered mental status seems septic encephalopathy as well as underlying stroke--- mentation improved Underlying sepsis blood culture E. coli. and felt urosepsis. Acute kidney insufficiency slightly trending down Slightly elevated AST more than ALT Slight hypomagnesemia resolved Uncontrolled diabetes mellitus and most recent hemoglobin A1c was 13.7 Plan: I ordered a transesophageal echocardiogram which is pending to be done today. If ALLISON is negative for any vegetation concerning for endocarditis then its safe to pursue with antiplatelet such as aspirin. Patient was also started on Lipi tor 40 mg daily at bedtime by primary team. Continue neuro checks Cardiac monitoring PT OT and PEDIATRIC RADIOLOGIST are consulted Cardiology team is a on board We'll defer the rest of the medical management to primary team and other specialist. For DVT prophylaxis I start the patient on subcu heparin 5000 units every 12 hours. The plan was discussed with the patient and ICU attending. Will continue to follow. Time with Patient: Less than 30
[2023-08-12 14:00] VITALS: BMI 32.4
--- NOTE | 2023-08-12 14:39 | P.PN ---
Subjective Progress Note Date: 08/11/23 Principal diagnosis: Sepsis and UTI and bacteremia Patient is a 77-year-old female with a past medical history significant for hypertension the patient has been brought into the ER concerning for mental status changes, patient noticed to be septic secondary to urinary s ource and significant prerenal azotemia requiring admission to the ICU On today's evaluation that is 08/11/2023, the patient is afebrile, the patient is breathing comfortably on 2 L nasal cannula supplemental oxygen a, the patient is more lethargic today per the daughter at the bedside no vomiting diarrhea only the changes reported Patient white count his normal at 8.5 , creatinine is 3.65, blood culture with E. coli Objective - Vital Signs Vital signs: Vital Signs Temp 98.2 F 08/10/23 20:00 Pulse 101 H 08/11/23 02:00 Resp 30 H 08/11/23 02:00 BP 128/62 08/11/23 02:00 Pulse Ox 98 08/11/23 02:00 FiO2 50 08/09/23 10:00 Intake & Output 08/10/23 08/11/23 08/11/23 18:59 06:59 18:59 Intake Total 825 750 Output Total 195 750 Balance 630 0 Intake: IV 825 750 Sodium Chloride 0.45% 1, 825 000 ml @ 100 mls/hr IV . [id number] [facility] with Sodium Bicarb (1 Meq/ml) 150 ml Rx#:[id number] Sodium Chloride 0.9% 1, 750 000 ml @ 75 mls/hr IV . [id number] [facility] Rx#:[id number] Output: Urine 195 750 Other: Voiding Method Indwelling Catheter Indwelling Catheter - Exam GENERAL DESCRIPTION: An elderly female lying in bed in no distress RESPIRATORY SYSTEM: Unlabored breathing , clear to auscultation anteriorly HEART: S1 S2 regular rate and rhythm , ABDOMEN: Soft , no tenderness EXTREMITIES: No edema feet - Labs CBC & Chem 7: 08/12/23 05:10 08/12/23 05:10 Labs: Abnormal Lab Results - Last 24 Hours (Table) 08/10/23 08/10/23 08/11/23 Range/Units 16:42 20:33 01:35 Plt Count (150-450) k/uL Lymphocytes # (Manual) (1.0-4.8) k/uL APTT (22.0-30.0) sec ABG pH (7.35-7.45) ABG pO2 (83-108) mmHg ABG HCO3 (21-25) mmol/L ABG Total CO2 (19-24) mmol/L ABG O2 Saturation (94-97) % Sodium (137-145) mmol/L BUN (7-17) mg/dL Creatinine (0.52-1.04) mg/dL Glucose (74-99) mg/dL POC Glucose (mg/dL) 283 H 301 H 148 H (70-110) mg/dL Calcium (8.4-10.2) mg/dL Total Bilirubin (0.2-1.3) mg/dL AST (14-36) U/L ALT (4-34) U/L Alkaline Phosphatase (38-126) U/L Creatine Kinase (30-135) U/L Troponin I (0.000-0.034) ng/mL Total Protein (6.3-8.2) g/dL Albumin (3.5-5.0) g/dL Urine Appearance (Clear) Urine WBC (0-5) /hpf Amorphous Sediment (None) /hpf Urine Mucus (None) /hpf 08/11/23 08/11/23 08/11/23 Range/Units 02:09 02:09 02:09 Plt Count 35 L (150-450) k/uL Lymphocytes # (Manual) 0.48 L (1.0-4.8) k/uL APTT 21.1 L (22.0-30.0) sec ABG pH (7.35-7.45) ABG pO2 (83-108) mmHg ABG HCO3 (21-25) mmol/L ABG Total CO2 (19-24) mmol/L ABG O2 Saturation (94-97) % Sodium 133 L (137-145) mmol/L BUN 83 H (7-17) mg/dL Creatinine 3.41 H (0.52-1.04) mg/dL Glucose 148 H (74-99) mg/dL POC Glucose (mg/dL) (70-110) mg/dL Calcium 7.8 L (8.4-10.2) mg/dL Total Bilirubin 2.0 H (0.2-1.3) mg/dL AST 135 H (14-36) U/L ALT 72 H (4-34) U/L Alkaline Phosphatase 486 H (38-126) U/L Creatine Kinase (30-135) U/L Troponin I (0.000-0.034) ng/mL Total Protein 4.5 L (6.3-8.2) g/dL Albumin 2.0 L (3.5-5.0) g/dL Urine Appearance (Clear) Urine WBC (0-5) /hpf Amorphous Sediment (None) /hpf Urine Mucus (None) /hpf 08/11/23 08/11/23 08/11/23 Range/Units 02:09 02:10 03:56 Plt Count (150-450) k/uL Lymphocytes # (Manual) (1.0-4.8) k/uL APTT (22.0-30.0) sec ABG pH 7.51 H (7.35-7.45) ABG pO2 81 L (83-108) mmHg ABG HCO3 27 H (21-25) mmol/L ABG Total CO2 29 H (19-24) mmol/L ABG O2 Saturation 97.3 H (94-97) % Sodium 136 L (137-145) mmol/L BUN 83 H (7-17) mg/dL Creatinine 3.65 H (0.52-1.04) mg/dL Glucose 118 H (74-99) mg/dL POC Glucose (mg/dL) (70-110) mg/dL Calcium 7.9 L (8.4-10.2) mg/dL Total Bilirubin (0.2-1.3) mg/dL AST (14-36) U/L ALT (4-34) U/L Alkaline Phosphatase (38-126) U/L Creatine Kinase 915 H (30-135) U/L Troponin I 0.037 H* (0.000-0.034) ng/mL Total Protein (6.3-8.2) g/dL Albumin (3.5-5.0) g/dL Urine Appearance (Clear) Urine WBC (0-5) /hpf Amorphous Sediment (None) /hpf Urine Mucus (None) /hpf 08/11/23 08/11/23 08/11/23 Range/Units 03:56 08:10 11:45 Plt Count 34 L (150-450) k/uL Lymphocytes # (Manual) (1.0-4.8) k/uL APTT (22.0-30.0) sec ABG pH (7.35-7.45) ABG pO2 (83-108) mmHg ABG HCO3 (21-25) mmol/L ABG Total CO2 (19-24) mmol/L ABG O2 Saturation (94-97) % Sodium (137-145) mmol/L BUN (7-17) mg/dL Creatinine (0.52-1.04) mg/dL Glucose (74-99) mg/dL POC Glucose (mg/dL) 113 H (70-110) mg/dL Calcium (8.4-10.2) mg/dL Total Bilirubin (0.2-1.3) mg/dL AST (14-36) U/L ALT (4-34) U/L Alkaline Phosphatase (38-126) U/L Creatine Kinase (30-135) U/L Troponin I (0.000-0.034) ng/mL Total Protein (6.3-8.2) g/dL Albumin (3.5-5.0) g/dL Urine Appearance Cloudy H (Clear) Urine WBC 14 H (0-5) /hpf Amorphous Sediment Moderate H (None) /hpf Urine Mucus Rare H (None) /hpf Microbiology - Last 24 Hours (Table) 08/07/23 23:15 Blood Culture Gram Stain - Final Blood Blood Culture - Final Escherichia coli 08/07/23 23:00 Blood Culture Gram Stain - Final Blood Blood Culture - Final Escherichia coli Assessment and Plan (1) Sepsis Current Visit: Yes Status: Acute Code(s): A41.9 - SEPSIS, UNSPECIFIED ORGANISM SNOMED Code(s): 38495423 (2) Penicillin allergy Current Visit: Yes Status: Acute Code(s): Z88.0 - ALLERGY STATUS TO PENICILLIN SNOMED Code(s): 93432135 (3) UTI (urinary tract infection) Current Visit: Yes Status: Acute Code(s): N39.0 - URINARY TRACT INFECTION, SITE NOT SPECIFIED SNOMED Code(s): 77934437 Plan: 1patient presented hospital with weakness mental status changes source is likely multifactorial in this patient with significant dehydration and prerenal also have a positive UA and likely a component of symptomatic urinary tract infection from enteric gram-negative pathogen 2-Penicillin allergy that will limit number of antibiotics safe to use 3- patient blood culture with an E. coli that is sensitive pathogen 4-patient is afebrile and the patient white count has normalized, patient did have significant mental status changes for which further workup is in progress, patient to continue Rocephin daughter at the bedside questions were answered Dictation was produced using [employer] dictation software. please excuse any grammatical, word or spelling errors. Time with Patient: Less than 30
--- NOTE | 2023-08-12 14:42 | P.PN ---
Subjective Progress Note Date: 08/12/23 Principal diagnosis: Sepsis and UTI and bacteremia Patient is a 77-year-old female with a past medical history significant for hypertension the patient has been brought into the ER concerning for mental status changes, patient noticed to be septic secondary to urinary s ource and significant prerenal azotemia requiring admission to the ICU On today's evaluation that is 08/12/2023, the patient continues to be afebrile, the patient is baked to her baseline today, breathing comfortably on 2 L nasal cannula oxygen, the patient denies any chest pain or cough, patient denies abdominal pain, and denies any nausea/vomiting or diarrhea Patient white count is up to 18.2 today , creatinine is 3.65, blood culture with E. coli, MRI with possible embolic stroke Objective - Vital Signs Vital signs: Vital Signs Temp 97.5 F L 08/12/23 08:00 Pulse 60 08/12/23 08:00 Resp 18 08/12/23 08:00 BP 142/57 08/12/23 08:00 Pulse Ox 93 L 08/12/23 08:00 FiO2 50 08/09/23 10:00 Intake & Output 08/11/23 08/12/23 08/12/23 18:59 06:59 18:59 Intake Total 925 470 Output Total 380 820 85 Balance 545 -350 -85 Intake: IV 825 470 Sodium Chloride 0.9% 1, 825 420 000 ml @ 75 mls/hr IV . [id number] [facility] Rx#:[id number] cefTRIAXone 2 gm In 50 Sodium Chloride 0.9% 50 ml @ 100 mls/hr IVPB Q24H [facility] Rx#:[id number] Intake, IV Titration 100 Amount Potassium Chloride 10 meq 100 In Water For Injection 1 100ml.bag @ 100 mls/hr IVPB Q1H [facility] Rx#: [id number] Output: Urine 380 820 85 Other: Voiding Method Indwelling Catheter Indwelling Catheter Indwelling Catheter # Bowel Movements 1 - Exam GENERAL DESCRIPTION: An elderly female lying in bed in no distress RESPIRATORY SYSTEM: Unlabored breathing , clear to auscultation anteriorly HEART: S1 S2 regular rate and rhythm , ABDOMEN: Soft , no tenderness EXTREMITIES: No edema feet - Labs CBC & Chem 7: 08/12/23 05:10 08/12/23 05:10 Labs: Abnormal Lab Results - Last 24 Hours (Table) 08/11/23 08/11/23 08/11/23 Range/Units 03:56 03:56 03:56 WBC (3.8-10.6) k/uL Plt Count (150-450) k/uL ESR 74 H (0-30) mm/Hr Carbon Dioxide (22-30) mmol/L BUN (7-17) mg/dL Creatinine (0.52-1.04) mg/dL Glucose (74-99) mg/dL POC Glucose (mg/dL) (70-110) mg/dL Calcium (8.4-10.2) mg/dL Total Bilirubin (0.2-1.3) mg/dL AST (14-36) U/L ALT (4-34) U/L Alkaline Phosphatase (38-126) U/L C-Reactive Protein (<1.0) mg/dL Total Protein (6.3-8.2) g/dL Albumin (3.5-5.0) g/dL Triglycerides 217.00 H (0.00-149.00) mg/dL VLDL Cholesterol, Calc 43.40 H (5.00-40.00) mg/dL HDL Cholesterol 11.30 L (40.00-60.00) mg/dL Vitamin B12 >3600.0 H (200.0-944.0) pg/mL 08/11/23 08/12/23 08/12/23 Range/Units 17:35 05:10 05:10 WBC 18.2 H (3.8-10.6) k/uL Plt Count 49 L (150-450) k/uL ESR (0-30) mm/Hr Carbon Dioxide 21 L (22-30) mmol/L BUN 88 H (7-17) mg/dL Creatinine 3.64 H (0.52-1.04) mg/dL Glucose 149 H (74-99) mg/dL POC Glucose (mg/dL) 116 H (70-110) mg/dL Calcium 8.1 L (8.4-10.2) mg/dL Total Bilirubin 2.3 H (0.2-1.3) mg/dL AST 83 H (14-36) U/L ALT 65 H (4-34) U/L Alkaline Phosphatase 535 H (38-126) U/L C-Reactive Protein 13.9 H (<1.0) mg/dL Total Protein 4.8 L (6.3-8.2) g/dL Albumin 2.2 L (3.5-5.0) g/dL Triglycerides (0.00-149.00) mg/dL VLDL Cholesterol, Calc (5.00-40.00) mg/dL HDL Cholesterol (40.00-60.00) mg/dL Vitamin B12 (200.0-944.0) pg/mL 08/12/23 Range/Units 09:23 WBC (3.8-10.6) k/uL Plt Count (150-450) k/uL ESR (0-30) mm/Hr Carbon Dioxide (22-30) mmol/L BUN (7-17) mg/dL Creatinine (0.52-1.04) mg/dL Glucose (74-99) mg/dL POC Glucose (mg/dL) 157 H (70-110) mg/dL Calcium (8.4-10.2) mg/dL Total Bilirubin (0.2-1.3) mg/dL AST (14-36) U/L ALT (4-34) U/L Alkaline Phosphatase (38-126) U/L C-Reactive Protein (<1.0) mg/dL Total Protein (6.3-8.2) g/dL Albumin (3.5-5.0) g/dL Triglycerides (0.00-149.00) mg/dL VLDL Cholesterol, Calc (5.00-40.00) mg/dL HDL Cholesterol (40.00-60.00) mg/dL Vitamin B12 (200.0-944.0) pg/mL Microbiology - Last 24 Hours (Table) 08/11/23 08:10 Urine Culture - Final Urine,Voided Assessment and Plan (1) Sepsis Current Visit: Yes Status: Acute Code(s): A41.9 - SEPSIS, UNSPECIFIED ORGANISM SNOMED Code(s): 55534675 (2) Penicillin allergy Current Visit: Yes Status: Acute Code(s): Z88.0 - ALLERGY STATUS TO PENICILLIN SNOMED Code(s): 73729352 (3) UTI (urinary tract infection) Current Visit: Yes Status: Acute Code(s): N39.0 - URINARY TRACT INFECTION, SITE NOT SPECIFIED SNOMED Code(s): 74424355 Plan: 1patient presented hospital with weakness mental status changes source is likely multifactorial in this patient with significant dehydration and prerenal also have a positive UA and likely a component of symptomatic urinary tract infection from enteric gram-negative pathogen 2-Penicillin allergy that will limit number of antibiotics safe to use 3- patient blood culture with an E. coli that is sensitive pathogen 4-patient patient did have significant mental status changes, patient did have MRI of the brain suspicious for embolic phenomena clinical suspicion is low for septic emboli as E. coli not a common pathogen to cause infective endocarditis, patient benefit from the knee which has been ordered 5-we will repeat her blood cultures and continue with Rocephin Dictation was produced using [employer] dictation software. please excuse any grammatical, word or spelling errors. Time with Patient: Less than 30
[2023-08-12 16:33] LABS: Glucose,Whole Blood 179 mg/dL (70-110)
[2023-08-12 20:25] LABS: Glucose,Whole Blood 278 mg/dL (70-110)
[2023-08-12] MEDS: HEPARIN SODIUM,PORCINE 5,000 UNIT/ML 1 ML VIAL SQ SCH (21:48)
[2023-08-12] MEDS: ATORVASTATIN 40 MG TAB PO SCH (21:48)
[2023-08-13 06:10] LABS: Glucose,Whole Blood 192 mg/dL (70-110)
[2023-08-13] MEDS: INSULIN ASPART (NovoLOG) 100 UNIT/ML VIAL SQ SCH ×4 (06:14→21:47)
[2023-08-13 07:56] LABS: Basophils # (A) 0.1 k/uL (0-0.2); Basophils % (A) 1 %; Eosinophils # (A) 0.3 k/uL (0-0.7); Eosinophils % (A) 2 %; HCT 38.6 % (34.0-46.0); HGB 12.6 gm/dL (11.4-16.0); Lymphocytes % (A) 5 %; MCH 29.7 pg (25.0-35.0); MCHC 32.6 g/dL (31.0-37.0); MCV 91.3 fL (80.0-100.0); Mean Platelet Volume 11.7; Monocytes # (A) 0.6 k/uL (0-1.0); Monocytes % (A) 3 %; Neutrophils # (A) 17.4 k/uL (1.3-7.7); Neutrophils % (A) 87 %; RBC 4.23 m/uL (3.80-5.40); WBC 19.9 k/uL (3.8-10.6)
[2023-08-13 09:17] LABS: ALT 49 U/L (4-34); AST 50 U/L (14-36); African American GFR (CKD) 16 (>60 ml/min/1.73 sqM); Albumin 2.1 g/dL (3.5-5.0); Alkaline Phosphatase 591 U/L (38-126); Anion Gap 12 mmol/L; Blood Urea Nitrogen 92 mg/dL (7-17); C Reactive Protein 6.1 mg/dL (<1.0); Carbon Dioxide 22 mmol/L (22-30); Chloride 101 mmol/L (98-107); Glucose 190 mg/dL (74-99); Non-African American GFR(CKD) 14 (>60 ml/min/1.73 sqM); Potassium 4.1 mmol/L (3.5-5.1); Sodium 135 mmol/L (137-145); Total Bilirubin 1.2 mg/dL (0.2-1.3); Total Protein 4.8 g/dL (6.3-8.2)
[2023-08-13 09:31] LABS: Platelet Count 70 k/uL (150-450)
[2023-08-13 09:32] LABS: RBC Morphology Normal
[2023-08-13] MEDS: ASPIRIN 81 MG PO SCH (10:23)
[2023-08-13] MEDS: METOPROLOL TARTRATE 25 MG TAB PO SCH ×3 (10:23→21:48)
[2023-08-13] MEDS: PANTOPRAZOLE 40 MG/10 ML VIAL IVP SCH (10:25)
[2023-08-13] MEDS: INSULIN DETEMIR (LEVEMIR) 100 UNIT/ML SYR SQ SCH ×2 (10:30→21:47)
[2023-08-13] MEDS: HEPARIN SODIUM,PORCINE 5,000 UNIT/ML 1 ML VIAL SQ SCH ×2 (10:33→21:48)
--- NOTE | 2023-08-13 11:07 | P.PN ---
Subjective Patient is seen in follow-up for acute kidney injury. Renal function improving. Receiving IV fluids. Mentation improved. Currently awake and alert. Family present at bedside. Hemodynamically stable. Nonoliguric. Vital signs are stable. General: NAD. HEENT: Head exam is unremarkable. LUNGS: No audible rhonchi or wheezes. HEART: Rate and Rhythm are regular. ABDOMEN: Nontender. EXTREMITITES: No edema. Objective - Vital Signs Vital signs: Vital Signs Temp 97.6 F 08/13/23 08:00 Pulse 66 08/13/23 08:00 Resp 20 08/13/23 08:00 BP 149/63 08/13/23 08:00 Pulse Ox 94 L 08/13/23 08:00 FiO2 50 08/09/23 10:00 Intake & Output 08/12/23 08/13/23 08/13/23 18:59 06:59 18:59 Intake Total 205 590 Output Total 245 700 Balance -40 -110 Weight 91.1 kg Intake: IV 205 50 Sodium Chloride 0.9% 1, 205 50 000 ml @ 50 mls/hr IV . Q20H [facility] Rx#:[id number] Oral 540 Output: Urine 245 700 Other: Voiding Method Indwelling Catheter Indwelling Catheter - Labs CBC & Chem 7: 08/13/23 06:34 08/13/23 06:34 Labs: Abnormal Lab Results - Last 24 Hours (Table) 08/12/23 08/12/23 08/12/23 Range/Units 12:09 16:31 20:23 WBC (3.8-10.6) k/uL Plt Count (150-450) k/uL Neutrophils # (1.3-7.7) k/uL Sodium (137-145) mmol/L BUN (7-17) mg/dL Creatinine (0.52-1.04) mg/dL Glucose (74-99) mg/dL POC Glucose (mg/dL) 155 H 179 H 278 H (70-110) mg/dL Calcium (8.4-10.2) mg/dL AST (14-36) U/L ALT (4-34) U/L Alkaline Phosphatase (38-126) U/L C-Reactive Protein (<1.0) mg/dL Total Protein (6.3-8.2) g/dL Albumin (3.5-5.0) g/dL 10/27/23 10/27/23 10/27/23 Range/Units 06:08 06:34 06:34 WBC 19.9 H (3.8-10.6) k/uL Plt Count 70 L (150-450) k/uL Neutrophils # 17.4 H (1.3-7.7) k/uL Sodium 135 L (137-145) mmol/L BUN 92 H (7-17) mg/dL Creatinine 3.17 H (0.52-1.04) mg/dL Glucose 190 H (74-99) mg/dL POC Glucose (mg/dL) 192 H (70-110) mg/dL Calcium 8.0 L (8.4-10.2) mg/dL AST 50 H (14-36) U/L ALT 49 H (4-34) U/L Alkaline Phosphatase 591 H (38-126) U/L C-Reactive Protein 6.1 H (<1.0) mg/dL Total Protein 4.8 L (6.3-8.2) g/dL Albumin 2.1 L (3.5-5.0) g/dL Microbiology - Last 24 Hours (Table) 08/11/23 08:10 Urine Culture - Final Urine,Voided Assessment and Plan Plan: Assessment: 1. Acute kidney injury secondary to ATN secondary to septic shock. Creatinine peaked at 4.49 this admission and is 3.17 today. No hydronephrosis noted on kidney ultrasound. Creatinine 0.8 in 2018. UA benign dated 08/11/2023. 2. Septic shock secondary to E. coli bacteremia on antibiotics. ID following. 3. Acute CVA being followed by neurology. Concern for embolic process. ALLISON pending. 4. Encephalopathy related to sepsis, CVA. Improved. 5. Diabetes mellitus. Plan: Maintain IV hydration. Avoid nephrotoxins. Continue to monitor renal function and urine output. ALLISON pending.
[2023-08-13 12:04] LABS: Glucose,Whole Blood 187 mg/dL (70-110)
--- NOTE | 2023-08-13 12:12 | P.PN ---
Subjective Progress Note Date: 08/13/23 On follow-up with the patient and she is accompanied with her son. Patient the is pending to have that transesophageal echocardiogram today. Denies of any further neurological issues. Objective - Vital Signs Vital signs: Vital Signs Temp 97.6 F 08/13/23 08:00 Pulse 66 08/13/23 08:00 Resp 20 08/13/23 08:00 BP 149/63 08/13/23 08:00 Pulse Ox 94 L 08/13/23 08:00 FiO2 50 08/09/23 10:00 Intake & Output 08/12/23 08/13/23 08/13/23 18:59 06:59 18:59 Intake Total 205 590 Output Total 245 700 Balance -40 -110 Weight 91.1 kg Intake: IV 205 50 Sodium Chloride 0.9% 1, 205 50 000 ml @ 50 mls/hr IV . Q20H [facility] Rx#:[id number] Oral 540 Output: Urine 245 700 Other: Voiding Method Indwelling Catheter Indwelling Catheter - Exam GENERAL: Patient is sitting on a recliner chair and is not in acute distress. NEUROLOGICAL: Higher mental function: The patient is awake, alert, oriented to self, place and time. Patient is following commands. No aphasia and no neglect. Cranial nerves: The pupils are round, equal and reactive to light. Visual ramos are full to confrontation throughout. Extraocular movement is intact no nystagmus is noted. Facial sensation is normal to touch throughout. The facial strength is normal throughout. Tongue is midline and moved [id number] without any difficulty. No dysarthria is noted. Shoulder shrug is normal bilaterally. Motor: The strength is 5 over 5 throughout upper is why the lowers she minimally lift them above gravity and she states she has knee pain so hard to assess individual muscle strength especially that she was sitting on Joseph chair.. Normal tone and bulk. Cerebellum: Normal finger to nose bilaterally. Sensation: Sensation is normal to touch throughout. Some of the workup consisted of: Patient has been afebrile during this hospital visit. Initial white blood cell is 26,000 and most recent ones 8.5 the. Predominantly neutrophilic. Creatinine is 4.26 and most recent ones 3.65 prior to that the her creatinine 2018 last seen in our facility was normal. Magnesium on initial presentation was 1.2 most recent one is 2.1 Urinalysis seen suggestive of acute urinary tract infection. Urine drug screen is positive for benzos otherwise dresses nondetected and acetone is negative. SARS2 PCR was not detected. RSV, influenza A/B are nondetected Blood cultures is positive for E. coli. TSH is 1.650 Ammonia is less than 9. AST is 135 ALT is 72 ESR 74. Hemoglobin A1c is 12.3 and the repeated one day later was 13.7. Lipid panel is triglycerides 217, cholesterol is 137, LDLs 82 and HDL is 11. B12 is more than 3600 Folate is 14.70 CK levels thousand 588 and the repeated is a 9 or 15 2-D echo was reported as normal left ventricular size and systolic function. Ejection fraction the estimated at 60%. No significant regional wall motion abnormality. Mild concentric ventricular hypertrophy. IVC is not dilated and is collapsible. Calcific aortic valve with mild aortic stenosis and mild aortic regurgitation. Routine EEG is abnormal. The background slowing suggestive of moderate to severe encephalopathy. Otherwise there is no focal slowing, epileptiform discharges or seizure on the EEG. MRI the brain is reported as acute embolic processes suspected. It seems that the patient has bilateral hemispheric ischemic stroke upon reviewing the image. - Labs CBC & Chem 7: 08/13/23 06:34 08/13/23 06:34 Labs: Abnormal Lab Results - Last 24 Hours (Table) 08/12/23 08/12/23 08/12/23 Range/Units 12:09 16:31 20:23 WBC (3.8-10.6) k/uL Plt Count (150-450) k/uL Neutrophils # (1.3-7.7) k/uL Sodium (137-145) mmol/L BUN (7-17) mg/dL Creatinine (0.52-1.04) mg/dL Glucose (74-99) mg/dL POC Glucose (mg/dL) 155 H 179 H 278 H (70-110) mg/dL Calcium (8.4-10.2) mg/dL AST (14-36) U/L ALT (4-34) U/L Alkaline Phosphatase (38-126) U/L C-Reactive Protein (<1.0) mg/dL Total Protein (6.3-8.2) g/dL Albumin (3.5-5.0) g/dL 08/13/23 08/13/23 08/13/23 Range/Units 06:08 06:34 06:34 WBC 19.9 H (3.8-10.6) k/uL Plt Count 70 L (150-450) k/uL Neutrophils # 17.4 H (1.3-7.7) k/uL Sodium 135 L (137-145) mmol/L BUN 92 H (7-17) mg/dL Creatinine 3.17 H (0.52-1.04) mg/dL Glucose 190 H (74-99) mg/dL POC Glucose (mg/dL) 192 H (70-110) mg/dL Calcium 8.0 L (8.4-10.2) mg/dL AST 50 H (14-36) U/L ALT 49 H (4-34) U/L Alkaline Phosphatase 591 H (38-126) U/L C-Reactive Protein 6.1 H (<1.0) mg/dL Total Protein 4.8 L (6.3-8.2) g/dL Albumin 2.1 L (3.5-5.0) g/dL 08/13/23 Range/Units 12:02 WBC (3.8-10.6) k/uL Plt Count (150-450) k/uL Neutrophils # (1.3-7.7) k/uL Sodium (137-145) mmol/L BUN (7-17) mg/dL Creatinine (0.52-1.04) mg/dL Glucose (74-99) mg/dL POC Glucose (mg/dL) 187 H (70-110) mg/dL Calcium (8.4-10.2) mg/dL AST (14-36) U/L ALT (4-34) U/L Alkaline Phosphatase (38-126) U/L C-Reactive Protein (<1.0) mg/dL Total Protein (6.3-8.2) g/dL Albumin (3.5-5.0) g/dL Microbiology - Last 24 Hours (Table) 08/11/23 08:10 Urine Culture - Final Urine,Voided Assessment and Plan Assessment: This is a 77-year-old woman who presented to the emergency department on 08/07/2023 since that she was found down on the floor confused by her neighbor. Unknown downtime. Was felt the patient possibly had an STEMI and she was on heparin drip that. During his hospital stay it was felt the patient had sepsis and that had positive E. coli on the blood cultures as well as possible underlying UTI. Also she has acute kidney insufficiency It seems that the patient was responding during the hospital stay and the overnight the patient developed garbled speech her arms were flaccid then she became unresponsive as a result a code stroke was activated and she had CT of the head CTA head and neck which were unremarkable. According to the ICU attending today the patient was following some simple commands appropriately and she has fluctuation in mentation. Upon seeing her she was not following commands or responding to me. Bilateral hemispheric and is seems embolic in nature. She had garbled speech and her arms were flaccid and was unresponsive. Mentation has improved. Rule out cardioembolic. Also rule out infective endocarditis. Altered mental status seems septic encephalopathy as well as underlying stroke--- mentation improved Underlying sepsis blood culture E. coli. and felt urosepsis. Acute kidney insufficiency slightly trending down Slightly elevated AST more than ALT Slight hypomagnesemia resolved Uncontrolled diabetes mellitus and most recent hemoglobin A1c was 13.7 Plan: I ordered a transesophageal echocardiogram which is pending. She is currently on aspirin 81 mg (new during this admission) and Lipitor 40 mg daily at bedtime. If patient does have infective endocarditis then the underlying treatment is antibiotic and is not on antiplatelet. Patient was also started on Lipitor 40 mg daily at bedtime by primary team. Continue neuro checks Cardiac monitoring PT OT and COMPREHENSIVE ADVISOR are consulted Cardiology team is a on board We'll defer the rest of the medical management to primary team and other specialist. For DVT prophylaxis On subcu heparin 5000 units every 12 hours. The plan was discussed with the patient, her son who is at bedside and Pulmonary attending. Will continue to follow. Dr. Scruggs will start neurology service tomorrow A.M. Time with Patient: Less than 30
[2023-08-13] MEDS: ACETAMINOPHEN TAB 325 MG TAB PO PRN (12:33)
[2023-08-13] MEDS ORDERED: fentaNYL (PF) 50 MCG/ML 2 ML AMP ONE (12:51)
[2023-08-13] MEDS ORDERED: IV FLUID CONTINUATION 400 ML IV ONE (12:55)
[2023-08-13] MEDS: BENZOCAINE SPRAY 1 CAN TOPICAL ONE ×2 (13:05→13:22)
--- NOTE | 2023-08-13 13:05 | P.PN ---
Subjective Progress Note Date: 08/13/23 Principal diagnosis: Sepsis and UTI and bacteremia Patient is a 77-year-old female with a past medical history significant for hypertension the patient has been brought into the ER concerning for mental status changes, patient noticed to be septic secondary to urinary s ource and significant prerenal azotemia requiring admission to the ICU On today's evaluation that is 08/13/2023, the patient denies any fever or any chills, the patient is breathing comfortably on room air and no need for supplemental oxygen, the patient denies any chest pain or cough, patient denies any nausea/vomiting or diarrhea and no abdominal pain Patient white count is slightly up from 19.9 today , creatinine is 3.17, blood culture with E. coli, MRI with possible embolic stroke Objective - Vital Signs Vital signs: Vital Signs Temp 97.6 F 08/13/23 08:00 Pulse 66 08/13/23 08:00 Resp 20 08/13/23 08:00 BP 149/63 08/13/23 08:00 Pulse Ox 94 L 08/13/23 08:00 FiO2 50 08/09/23 10:00 Intake & Output 08/12/23 08/13/23 08/13/23 18:59 06:59 18:59 Intake Total 205 590 Output Total 245 700 Balance -40 -110 Weight 91.1 kg Intake: IV 205 50 Sodium Chloride 0.9% 1, 205 50 000 ml @ 50 mls/hr IV . Q20H [facility] Rx#:[id number] Oral 540 Output: Urine 245 700 Other: Voiding Method Indwelling Catheter Indwelling Catheter - Exam GENERAL DESCRIPTION: An elderly female lying in bed in no distress RESPIRATORY SYSTEM: Unlabored breathing , clear to auscultation anteriorly HEART: S1 S2 regular rate and rhythm , ABDOMEN: Soft , no tenderness EXTREMITIES: No edema feet - Labs CBC & Chem 7: 08/13/23 06:34 08/13/23 06:34 Labs: Abnormal Lab Results - Last 24 Hours (Table) 08/12/23 08/12/23 08/12/23 Range/Units 12:09 16:31 20:23 WBC (3.8-10.6) k/uL Plt Count (150-450) k/uL Neutrophils # (1.3-7.7) k/uL Sodium (137-145) mmol/L BUN (7-17) mg/dL Creatinine (0.52-1.04) mg/dL Glucose (74-99) mg/dL POC Glucose (mg/dL) 155 H 179 H 278 H (70-110) mg/dL Calcium (8.4-10.2) mg/dL AST (14-36) U/L ALT (4-34) U/L Alkaline Phosphatase (38-126) U/L C-Reactive Protein (<1.0) mg/dL Total Protein (6.3-8.2) g/dL Albumin (3.5-5.0) g/dL 08/13/23 08/13/23 08/13/23 Range/Units 06:08 06:34 06:34 WBC 19.9 H (3.8-10.6) k/uL Plt Count 70 L (150-450) k/uL Neutrophils # 17.4 H (1.3-7.7) k/uL Sodium 135 L (137-145) mmol/L BUN 92 H (7-17) mg/dL Creatinine 3.17 H (0.52-1.04) mg/dL Glucose 190 H (74-99) mg/dL POC Glucose (mg/dL) 192 H (70-110) mg/dL Calcium 8.0 L (8.4-10.2) mg/dL AST 50 H (14-36) U/L ALT 49 H (4-34) U/L Alkaline Phosphatase 591 H (38-126) U/L C-Reactive Protein 6.1 H (<1.0) mg/dL Total Protein 4.8 L (6.3-8.2) g/dL Albumin 2.1 L (3.5-5.0) g/dL 08/13/23 Range/Units 12:02 WBC (3.8-10.6) k/uL Plt Count (150-450) k/uL Neutrophils # (1.3-7.7) k/uL Sodium (137-145) mmol/L BUN (7-17) mg/dL Creatinine (0.52-1.04) mg/dL Glucose (74-99) mg/dL POC Glucose (mg/dL) 187 H (70-110) mg/dL Calcium (8.4-10.2) mg/dL AST (14-36) U/L ALT (4-34) U/L Alkaline Phosphatase (38-126) U/L C-Reactive Protein (<1.0) mg/dL Total Protein (6.3-8.2) g/dL Albumin (3.5-5.0) g/dL Microbiology - Last 24 Hours (Table) 08/11/23 08:10 Urine Culture - Final Urine,Voided Assessment and Plan (1) Sepsis Current Visit: Yes Status: Acute Code(s): A41.9 - SEPSIS, UNSPECIFIED ORGANISM SNOMED Code(s): 66057056 (2) Penicillin allergy Current Visit: Yes Status: Acute Code(s): Z88.0 - ALLERGY STATUS TO PENICILLIN SNOMED Code(s): 61698975 (3) UTI (urinary tract infection) Current Visit: Yes Status: Acute Code(s): N39.0 - URINARY TRACT INFECTION, SITE NOT SPECIFIED SNOMED Code(s): 14352157 Plan: 1patient presented hospital with weakness mental status changes source is likely multifactorial in this patient with significant dehydration and prerenal also have a positive UA and likely a component of symptomatic urinary tract infection from enteric gram-negative pathogen 2-Penicillin allergy that will limit number of antibiotics safe to use 3- patient blood culture with an E. coli that is sensitive pathogen 4-patient patient did have significant mental status changes, patient did have MRI of the brain suspicious for embolic phenomena clinical suspicion is low for septic emboli as E. coli not a common pathogen to cause infective endocarditis, patient benefit from the ALLISON which has been ordered, patient to continue with Rocephin Son at the bedside questions were answered Dictation was produced using [employer] dictation software. please excuse any grammatical, word or spelling errors. Time with Patient: Less than 30
[2023-08-13] MEDS: MIDAZOLAM 2 MG/2 ML VIAL IVP ONE ×2 (13:24→13:27)
[2023-08-13] MEDS: fentaNYL (PF) 50 MCG/ML 2 ML AMP IVP ONE ×2 (13:24→13:26)
--- NOTE | 2023-08-13 13:37 | P.TEE ---
Description of Procedure(s): Procedure performed: Transesophageal Echocardiogram with color flow doppler, pulsed wave doppler and continuous wave doppler, moderate conscious sedation Moderate conscious sedation: Moderate conscious sedation was supplied with direct supervision of myself using Versed and Fentanyl. Complications: none Indications: Cryptogenic stroke PROCEDURE: After the risks, benefits and alternatives of the above mentioned procedure was explained in detail with the patient, informed consent was obtained. Patient was brought to the lab in a fasting state. Patient was given IV Versed and Fentanyl for sedation. The throat was sprayed with Hurricane to anesthetize the throat. A lubricated Omni probe was then introduced into the es ophagus and stomach and multiple views were obtained. 2D echo with color flow doppler, pulsed wave doppler and continuous wave doppler was utilized. Agitated saline bubbles were injected to assess for any intra-atrial shunt. The probe was then removed. Patient tolerated the procedure well. Patient was transferred to the post procedure area in stable and satisfactory condition. FINDINGS: 1. The aortic valve is tricuspid with normal function with mild aortic regurgitation. 2. The mitral valve appears be normal mild mitral regurgitation. 3. Tricuspid valve and mild tricuspid regurgitation. 4. The interatrial septum is intact. No evidence of PFO. 5. Left atrial appendage is free of clot. 6. Left ventricular ejection fraction 55%
--- NOTE | 2023-08-13 14:44 | P.PN ---
Subjective Progress Note Date: 08/13/23 I am seeing this patient in consultation today 08/09/2023 in the intensive care unit after the patient was found down on the floor and confused by her neighbor. Patient is a 77-year-old female with unknown past medical history. She is currently confused and unable to provide meaningful information in regard to her HPI and events leading this hospitalization. Apparently, the patient was found down on the floor, confused, by her neighbor. Downtime is unknown. Patient was evaluated by EMS and transferred to the emergency room on July. Brain CT on arrival did not show any acute intracranial process. Initially, the patient was placed on a heparin infusion for possible NSTEMI, which has been ruled out. Patient was felt to be septic, and admitted to the intensive care unit. Patient is currently sitting in the bed, on 2 L/m nasal cannula, in no acute distress. Blood pressure is normotensive. Not requiring any vasopressors. Heart rhythm appears normal sinus on bedside monitor. Chest x- ray on arrival showed low lung volumes and slightly increased central vascular congestion. Slightly increased interstitial markings could be related to low lung volumes, edema, or pneumonitis. Patient's urinalysis was consistent with UTI, and the patient's preliminary blood results have come back positive with E. coli. Patient is currently on Rocephin. Most recent CBC from yesterday shows an improvement WBC count down to 15.6, hemoglobin 13, hematocrit 39.2, platelets 77. ABG from yesterday shows a pO2 of 67, pCO2 of 30, pH is 7.3. This was done on room air. BMP from yesterday shows a sodium 135, potassium 4.4, chloride 101, serum bicarb down to 12, BUN 67, creatinine 4.49, glucose 376. Lactic acid level was elevated at 4.7 is down to 1.5. CPK is elevated at 1588. 3 A Sodium bicarb and D5W is currently infusing at 100 ML's per hour. Normal saline is infusing at 20 ML's per hour. Urine output is oliguric, but improving around 50-60 ML's per hour. Troponins are 0.076, 0.05, 0.056 respectively. NT proBNP was elevated at 16,800. Toxicology screen positive for benzodiazepines. Patient will be monitored in the intensive care unit. On today's evaluation of 08/10/2023, the patient is doing much better neurologically. She is communicating. She is aware that she is in the hospital. She was better but off on the date and the year. However she was aware that she is in a hospital and she has no focal neurological deficit. The patient had gram-negative sepsis and the patient has gram-negative bacillus in the blood on 2 separate blood cultures. This is most likely generating from an underlying urinary tract infection. The patient is currently hemodynamically stable. The patient remains on IV fluids and she is on a bicarbonate drip at the rate of 100 mL an hour. She remains on IV antibiotics with Rocephin. She is afebrile. She is 100 is stable. She is on no pressors. She is on Levemir insulin 10 units twice a day. Her blood work from today shows a WBC count which is down to 8.0 with a hemoglobin 12.2 and a platelet count of 41. Coagulation profile is within normal limits. The creatinine is gradually improving. Creatinine is down to 3.8 with a BUN of 76. Sodium level is at 134. Serum bicarb is up to 28. As such, the bicarb infusion will be discontinued. Troponins were 0.07 0.05 respectively. CPK was at 1243 consistent with some mild rhabdomyolysis. Echocardiogram was done yesterday and the patient has a normal LV function with an ejection fraction of 60%. The patient has mild concentric LVH. On 08/11/2023, the patient is being seen for a follow-up. After doing some progress neurologically. The patient's sepsis was being treated, the patient overnight became unresponsive, she developed garbled speech and her arms were flaccid along with unresponsiveness. This was quite a change in her neurologic functions and status. Based on that, a code stroke was called and the patient underwent a CT angiogram that showed no acute abnormalities. Based on the records, the patient was only withdrawing to sternal rubs and she was unable to speak and her speech was mumbled and she was unable to maintain a conversation. The CT angiogram was done and the CTA showed no acute abnormalities. CAT scan of the brain was also done that showed no evidence of any bleed or any stroke. Currently the patient is having an EEG. She arouses and she opens her eyes spontaneously. She is breathing withdrawing to painful stimulation and there is no focal neurological deficit. Her speech is not fully recovered yet. She was able to tell me that she was in the hospital and she was doing fine. The white cell count today's of 3.5 with a hemoglobin of 12.5, the sodium is at 136 with a potassium level of 3.6, BUN is at 80 with a creatinine of 3.6. AST is 135, ALT 72, alkaline phosphatase is 486, troponins of 0.03. Also, blood gas was done yesterday that showed a pH of 7.5 with a pCO2 of 35 and a pO2 of 81. She is currently on oxygen at 2 L. Chest x-ray from today shows no areas of consolidation. There is some increase in pulmonary vascular markings bilaterally. Patient denies having any cough or sputum production. As mentioned, her white cell count was gradually improving and the patient remains on IV Rocephin. Her blood culture was positive for E. coli. Had echocardiogram that was done on 08/09/2023 showed a preserved LV function with an ejection fraction of 60% On 08/12/2023, the patient's mentation is improved considerably. She is communicating. She is answering questions appropriately. She has no focal neurological deficit. No seizure activity has been noted. Noted the patient also underwent a MRI of the brain and this was completed yesterday. This was reviewed by neurology and MRI showed multiple small foci of increased signal density compatible with an embolic phenomena. There was also abnormal signal within the right cerebellum, bilateral external and internal capsules, left inferior colliculus with subcortical left temporal region as well as the central semiovale coronary radiata bilaterally. Based on this, and embolic phenomena was suspected. Meanwhile, the patient is still being treated for an underlying septicemia with E. coli. The patient remains on IV Rocephin. The patient remains on normal sed rate of 75 mL an hour. The white cell count of 18.2 on today's evaluation with a hemoglobin 12.4 and a platelet count is improved compared to yesterday to 249. The BUN is at 88 and a creatinine of 3.6 which is essentially stable compared to yesterday. Sodium levels of 139. Height antibodies were negative. EEG was also compared to yesterday that showed background slowing suggestive of encephalopathy. No focal seizure activity was noted. Her rhabdomyolysis also improving. On today's evaluation of 08/13/2023, seeing the patient for a follow-up. The patient is being treated for an E. coli sepsis. This is related underlying affect infection. Also, the MRI of the brain showed various areas of small foci of increased signal density which of his today's concerns for embolic phenomena. Based on that, the patient underwent a ALLISON today and the findings were essentially consistent with normal LV, left atrial appendage was free of any clot, there was no evidence of a PFO, the intra-atrial septum was intact, and the rest of the posterior structures were also within normal limits. The patient continues to be on IV Rocephin. Mental status is adequate and the patient is communicating without any focal neurological deficits. The patient also has a white cell count of 19.7 with a 4.6. Creatinine continues to improve is currently down to 3.1 with a BUN of 92. The patient remains on normal saline at rate of 75 mL an hour. Precedex was all within normal limits. She is afebrile. She is quite weak and debilitated. Platelet counts of also improved and is currently up to 70. Objective - Vital Signs Vital signs: Vital Signs Temp 97.6 F 08/13/23 08:00 Pulse 66 08/13/23 08:00 Resp 20 08/13/23 08:00 BP 149/63 08/13/23 08:00 Pulse Ox 94 L 08/13/23 08:00 FiO2 50 08/09/23 10:00 Intake & Output 08/12/23 08/13/23 08/13/23 18:59 06:59 18:59 Intake Total 205 590 Output Total 245 700 Balance -40 -110 Weight 91.1 kg Intake: IV 205 50 Sodium Chloride 0.9% 1, 205 50 000 ml @ 50 mls/hr IV . Q20H [facility] Rx#:[id number] Oral 540 Output: Urine 245 700 Other: Voiding Method Indwelling Catheter Indwelling Catheter - Exam GENERAL EXAM: Alert and oriented 3 HEAD: Normocephalic and atraumatic EYES: Normal reaction of pupils, equal size. Left periorbital ecchymosis NOSE: Clear with pink turbinates. THROAT: No erythema or exudates. NECK: No masses, no JVD. CHEST: No chest wall deformity. LUNGS: Equal air entry with diminished lung sounds throughout. no crackles, wheeze, rhonchi or dullness. On 2 L/m nasal cannula. No conversational dyspnea or accessory muscle use.. CVS: S1 and S2 normal with no audible murmur, regular rhythm. No extra heart s ounds ABDOMEN: No hepatosplenomegaly, active bowel sounds, no guarding or rigidity. SPINE: No scoliosis or deformity SKIN: No rashes CENTRAL NERVOUS SYSTEM: No focal deficits, tone is normal in all 4 extremities. The patient is communicating. She is alert and oriented 3 which EXTREMITIES: There is no peripheral edema, clubbing, or cyanosis. Peripheral pulses are intact. - Labs CBC & Chem 7: 08/13/23 06:34 08/13/23 06:34 Labs: Abnormal Lab Results - Last 24 Hours (Table) 08/12/23 08/12/23 08/12/23 Range/Units 12:09 16:31 20:23 WBC (3.8-10.6) k/uL Plt Count (150-450) k/uL Neutrophils # (1.3-7.7) k/uL Sodium (137-145) mmol/L BUN (7-17) mg/dL Creatinine (0.52-1.04) mg/dL Glucose (74-99) mg/dL POC Glucose (mg/dL) 155 H 179 H 278 H (70-110) mg/dL Calcium (8.4-10.2) mg/dL AST (14-36) U/L ALT (4-34) U/L Alkaline Phosphatase (38-126) U/L C-Reactive Protein (<1.0) mg/dL Total Protein (6.3-8.2) g/dL Albumin (3.5-5.0) g/dL 08/13/23 08/13/23 08/13/23 Range/Units 06:08 06:34 06:34 WBC 19.9 H (3.8-10.6) k/uL Plt Count 70 L (150-450) k/uL Neutrophils # 17.4 H (1.3-7.7) k/uL Sodium 135 L (137-145) mmol/L BUN 92 H (7-17) mg/dL Creatinine 3.17 H (0.52-1.04) mg/dL Glucose 190 H (74-99) mg/dL POC Glucose (mg/dL) 192 H (70-110) mg/dL Calcium 8.0 L (8.4-10.2) mg/dL AST 50 H (14-36) U/L ALT 49 H (4-34) U/L Alkaline Phosphatase 591 H (38-126) U/L C-Reactive Protein 6.1 H (<1.0) mg/dL Total Protein 4.8 L (6.3-8.2) g/dL Albumin 2.1 L (3.5-5.0) g/dL Microbiology - Last 24 Hours (Table) 08/11/23 08:10 Urine Culture - Final Urine,Voided Assessment and Plan Assessment: Urinary tract infection and Urosepsis, with ECOLI and the patient remains on IV Rocephin, final cultures are equal and the patient remains on IV Rocephin Lactic acidosis, improved Metabolic anion gap acidosis, secondary to above, improved and the patient is on 0.9 at 75 mL an hour Leukocytosis, the white cell count remains elevated Acute kidney injury, secondary to acute tubular necrosis, improving and the creatinine is down to 3.17, stable compared to yesterday Rhabdomyolysis, CPK is still mildly elevated, improving Suspected diabetes mellitus type 2, hyperglycemic and hemoglobin A1c 12.3 Elevated troponins, flat, not felt to reflect ACS Altered mental status, nonenhanced brain CT did not show any acute intracranial abnormality, likely related to toxic metabolic encephalopathy and urosepsis, improving mental status, however this morning at 1 AM, there was an altered mentation and based on that the patient underwent further neuro workup including a CT of the brain and the CAT scan of the brain that showed no acute abnormali ties. She is gradually recovering from that. This morning, the patient is fully alert and awake. 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 Based on that, a ALLISON was recommended. ALLISON was done and the patient has no evidence of any PFO. Left atrial appendage also free of any clots. No evidence of any shunts. No significant valvular disease. Thrombocytopenia, likely consumptive secondary to sepsis. No signs of any DIC. Coagulation profile is within normal limits. The platelet count is improving and the patient had negative HIT antibodies. 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 We'l l continue to follow DVT and GI prophylaxis Increase oral intake monitor platelet count We'll continue to follow.
--- NOTE | 2023-08-13 15:18 | P.PN ---
Subjective Progress Note Date: 08/13/23 77-year-old lady with past medical history significant for hypertension, presents to the emergency department with altered mental status. * Per chart review patient was last well-known 08/06/23. Patient was brought by EMS and was noted to be less responsive and alert and oriented 1 with profound weakness. Patient was apparently found on the floor with broken glass. Patient was last seen by a neighbor and apparently doing well. Upon presentation patient was noted to have profound hypoglycemia Glucose 411, blood pressure 180/22 * Workup initiated included CBC which were WBC of 30.8 hemoglobin 15.2 platelet 124 with elevated neutrophil count. INR of 1.4 serum chemistry showed sodium 134 BUN 57 creatinine 4.26 blood glucose in 400s lactic to 4.7 * Initial troponin obtained 0.076, EKG obtained showed sinus rhythm no significant ST segment changes * Patient was given IV Rocephin, urinalysis is obtained showed large leukocyte esterase WBC and many bacteria * 08/09/23: Patient was seen and evaluated bedside, patient seen in ICU, mentation has improved alert and oriented to person place and situation. Appreciate input from nephrology, continue patient on IV bicarbonate, continue to monitor renal profile * 08/10/23: Patient seen and evaluated bedside, patient alert and oriented to person and situation, patient sitting in recliner. CBC reviewed noted to have thrombocytopenia aspirin discontinued serum chemistry reviewed creatinine 3.87. CK trending down. Blood culture showed E. coli bacteremia antibiotic transitioned to Rocephin * 08/11/23: Patient seen and evaluated bedside, overnight patient had episode of confusion, patient had garbled speech and also flaccid. Patient had a code stroke called and CT angiogram head and neck was done which was negative for acute abnormality CT brain was negative for any acute bleed or stroke as well. Neurology consulted and EEG is ordered patient does open her eyes to verbal stimulus and painful stimulus. MRI brain ordered as stat. Card work reviewed arterial blood gas reviewed as well. Continue close monitoring in ICU. CBC showed improvement in leukocytosis. Patient remains afebrile blood pressure map around 84 * 08/12/23: Patient seen and evaluated bedside, patient alert to person and situation. Mentation has improved significantly. MRI brain completedembolic stroke, patient started on aspirin and Lipitor. Liver profile trending down. A panel negative as well continue to monitor for worsening thrombocytopenia. Cardiology consulted to evaluate for intracardiac thrombus. Planning ALLISON patient nothing by mouth 08/13. Patient seen and examined. Patient mentation is improving, answering questions. WBC 19.9, hemoglobin 12.6, platelet count 70, sodium 139, potassium 4.1, BUN 92, creatinine 3.17. ALLISON scheduled for today REVIEW OF SYSTEMS: CONSTITUTIONAL: No fever, no malaise,. CARDIOVASCULAR: No chest pain, no palpitations, no syncope. PULMONARY: No shortness of breath, no cough, GASTROINTESTINAL: No diarrhea, no nausea, no vomiting, no abdominal pain. NEUROLOGICAL: No headaches, no weakness, PHYSICAL EXAMINATION: GENERAL: The patient is alert and oriented x3, not in any acute distress. Well developed, well nourished. HEENT: Pupils are round and equally reacting to light. EOMI. No scleral icterus. No conjunctival pallor. Normocephalic, atraumatic. No pharyngeal erythema. No thyromegaly. CARDIOVASCULAR: S1 and S2 present. No murmurs, rubs, or gallops. PULMONARY: Chest is clear to auscultation, no wheezing or crackles. ABDOMEN: Soft, nontender, nondistended, normoactive bowel sounds. No palpable organomegaly. MUSCULOSKELETAL: No joint swelling or deformity. EXTREMITIES: No cyanosis, clubbing, or pedal edema. NEUROLOGICAL: Gross neurological examination did not reveal any focal deficits. SKIN: No rashes. Assessment and plan Severe sepsis secondary to urinary tract infection * E. 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 coli bacteremia, urine cultures pending. Continue Rocephin * In regards to elevated troponin, serial troponins ordered echocardiogram shows preserved ejection fraction ,cardiology consulted , continue metoprolol, ALLISON scheduled for today * In regards to thrombocytopenia, hit panel negative, aspirin was intermittently held however resumed after CVA s * In regards to for CVA, CT head CT angina head and neck negative, MRI brain shows embolic stroke, neurology consulted continue patient on aspirin and Lipitor, ALLISON ordered * In regards to renal failure, losartan discontinued continue with IV fluids, nephrology following * In regards to diabetes mellitus, HbA1c 13.7 , patient started on Lantus, continue correctional insulin Labs and medication were reviewed.. Continue same treatment. Continue with symptomatic treatment. Resume home medication. Monitor labs and vitals. DVT and GI prophylaxis. Further recommendations as per clinical course of the patient Dictation was produced using [employer] dictation software. please excuse any grammatical, word or spelling errors. Objective - Vital Signs Vital signs: Vital Signs Temp 97.6 F 08/13/23 08:00 Pulse 66 08/13/23 08:00 Resp 20 08/13/23 08:00 BP 149/63 08/13/23 08:00 Pulse Ox 94 L 08/13/23 08:00 FiO2 50 08/09/23 10:00 Intake & Output 08/12/23 08/13/23 08/13/23 18:59 06:59 18:59 Intake Total 205 590 Output Total 245 700 Balance -40 -110 Weight 91.1 kg Intake: IV 205 50 Sodium Chloride 0.9% 1, 205 50 000 ml @ 50 mls/hr IV . Q20H [facility] Rx#:[id number] Oral 540 Output: Urine 245 700 Other: Voiding Method Indwelling Catheter Indwelling Catheter - Labs CBC & Chem 7: 08/13/23 06:34 08/13/23 06:34 Labs: Abnormal Lab Results - Last 24 Hours (Table) 08/12/23 08/12/23 08/12/23 Range/Units 12:09 16:31 20:23 WBC (3.8-10.6) k/uL Plt Count (150-450) k/uL Neutrophils # (1.3-7.7) k/uL Sodium (137-145) mmol/L BUN (7-17) mg/dL Creatinine (0.52-1.04) mg/dL Glucose (74-99) mg/dL POC Glucose (mg/dL) 155 H 179 H 278 H (70-110) mg/dL Calcium (8.4-10.2) mg/dL AST (14-36) U/L ALT (4-34) U/L Alkaline Phosphatase (38-126) U/L C-Reactive Protein (<1.0) mg/dL Total Protein (6.3-8.2) g/dL Albumin (3.5-5.0) g/dL 08/13/23 08/13/23 08/13/23 Range/Units 06:08 06:34 06:34 WBC 19.9 H (3.8-10.6) k/uL Plt Count 70 L (150-450) k/uL Neutrophils # 17.4 H (1.3-7.7) k/uL Sodium 135 L (137-145) mmol/L BUN 92 H (7-17) mg/dL Creatinine 3.17 H (0.52-1.04) mg/dL Glucose 190 H (74-99) mg/dL POC Glucose (mg/dL) 192 H (70-110) mg/dL Calcium 8.0 L (8.4-10.2) mg/dL AST 50 H (14-36) U/L ALT 49 H (4-34) U/L Alkaline Phosphatase 591 H (38-126) U/L C-Reactive Protein 6.1 H (<1.0) mg/dL Total Protein 4.8 L (6.3-8.2) g/dL Albumin 2.1 L (3.5-5.0) g/dL Microbiology - Last 24 Hours (Table) 08/11/23 08:10 Urine Culture - Final Urine,Voided
[2023-08-13 16:25] LABS: Glucose,Whole Blood 199 mg/dL (70-110)
[2023-08-13 20:14] LABS: Glucose,Whole Blood 310 mg/dL (70-110)
[2023-08-13] MEDS: ATORVASTATIN 40 MG TAB PO SCH (21:48)
[2023-08-14] MEDS: SODIUM CHLORIDE 0.9% 1,000 ML IV SCH ×2 (00:16→11:42)
[2023-08-14 06:09] LABS: Glucose,Whole Blood 158 mg/dL (70-110)
[2023-08-14] MEDS: INSULIN ASPART (NovoLOG) 100 UNIT/ML VIAL SQ SCH ×4 (06:16→22:04)
[2023-08-14 07:35] LABS: African American GFR (CKD) 19 (>60 ml/min/1.73 sqM); Anion Gap 11 mmol/L; Blood Urea Nitrogen 79 mg/dL (7-17); Calcium 7.9 mg/dL (8.4-10.2); Carbon Dioxide 22 mmol/L (22-30); Chloride 103 mmol/L (98-107); Glucose 168 mg/dL (74-99); Magnesium 1.8 mg/dL (1.6-2.3); Non-African American GFR(CKD) 16 (>60 ml/min/1.73 sqM); Sodium 136 mmol/L (137-145)
[2023-08-14] MEDS: INSULIN DETEMIR (LEVEMIR) 100 UNIT/ML SYR SQ SCH ×2 (08:19→22:05)
[2023-08-14] MEDS: PANTOPRAZOLE 40 MG/10 ML VIAL IVP SCH (08:19)
[2023-08-14] MEDS: METOPROLOL TARTRATE 25 MG TAB PO SCH ×3 (08:19→22:05)
[2023-08-14] MEDS: HEPARIN SODIUM,PORCINE 5,000 UNIT/ML 1 ML VIAL SQ SCH ×2 (08:19→22:04)
[2023-08-14] MEDS: ASPIRIN 81 MG PO SCH (08:19)
[2023-08-14 08:22] LABS: Glucose,Whole Blood 176 mg/dL (70-110)
--- NOTE | 2023-08-14 11:19 | P.PN ---
Subjective Progress Note Date: 08/14/23 Patient was initially seen by Dr. Dmitry Garcia. Please refer to his note for details. Patient is a 77-year-old female who presents to the hospital on 08/07/2023 with unresponsiveness and found to have urosepsis and then improved. Patient had stroke symptoms 08/11/2023 for which MRI of the brain was initiated. MRI of the brain revealed bilateral hemispheric stroke. EEG came back negative. Recommend event monitor and in addition to aspirin, start Plavix unless there is A. fib. Patient was seen for a follow-up. Patient's son was also present today. Patient denies any headache. She denies any visual disturbance. She says that she was dizzy when she was standing up, but not anymore. She states that her right side is slightly weaker than the left. Denies any numbness or tingling at this time. Her speech is slightly slurred. She feels slightly tired. Per nursing report, she wanted to move. 2 nurses tried to help her, and she could not make any step with 2 assist. Patient has diabetes for 20 years, used to be on metformin. Patient does not take any antiplatelet medication at home. She denies tobacco use. Some of the workup consisted of: Patient has been afebrile during this hospital visit. Initial white blood cell is 26,000 and most recent ones 8.5 the. Predominantly neutrophilic. Creatinine is 4.26 and most recent ones 3.65 prior to that the her creatinine 2018 last seen in our facility was normal. Magnesium on initial presentation was 1.2 most recent one is 2.1 Urinalysis seen suggestive of acute urinary tract infection. Urine drug screen is positive for benzos otherwise dresses nondetected and acetone is negative. SARS2 PCR was not detected. RSV, influenza A/B are nondetected Blood cultures is positive for E. coli. TSH is 1.650 Ammonia is less than 9. AST is 135 ALT is 72 ESR 74. Hemoglobin A1c is 12.3 and the repeated one day later was 13.7. Lipid panel is triglycerides 217, cholesterol is 137, LDLs 82 and HDL is 11. B12 is more than 3600 Folate is 14.70 CK levels thousand 588 and the repeated is a 9 or 15 2-D echo was reported as normal left ventricular size and systolic function. Ejection fraction the estimated at 60%. No significant regional wall motion abnormality. Mild concentric ventricular hypertrophy. IVC is not dilated and is collapsible. Calcific aortic valve with mild aortic stenosis and mild aortic regurgitation. Routine EEG is abnormal. The background slowing suggestive of moderate to severe encephalopathy. Otherwise there is no focal slowing, epileptiform discharges or seizure on the EEG. MRI the brain is reported as acute embolic processes suspected. It seems that the patient has bilateral hemispheric ischemic stroke upon reviewing the image. Objective - Vital Signs Vital signs: Vital Signs Temp 97.9 F 08/14/23 04:32 Pulse 63 08/14/23 04:32 Resp 16 08/14/23 04:32 BP 155/65 08/14/23 04:32 Pulse Ox 96 08/14/23 04:32 FiO2 50 08/09/23 10:00 Intake & Output 08/13/23 08/14/23 08/14/23 18:59 06:59 18:59 Intake Total 150 Output Total 325 800 Balance -175 -800 Intake: IV 150 Output: Urine 325 800 Other: Voiding Method Indwelling Catheter - Exam Patient is an elderly female, in no acute distress. Patient is alert awake oriented to time place and person. She knows it is July and the year is 2022 and that she is in [facility]. Speech is mildly dysarthric and language functions are normal. Patient can name and repeat very well. Attention, concentration and fund of knowledge is adequate. On cranial nerve examination, pupils are equal, round and reacting to light, visual ramos are full on confrontation, with no neglect on double simultaneous stimulation. Extraocular muscles are intact with no nystagmus. Patient has very minimal right-sided facial weakness. Her tongue protrudes to the midline. Palatal elevation and sensation normal, hearing and shoulder shrug normal, f acial sensation normal. On muscle strength testing, there is no pronator drift and the strength is normal in arms distally and proximally. In the lower limbs her hip flexion is 2, ankle dorsiflexion are 5 bilaterally Sensory to touch is equal with no neglect on double simultaneous stimulation. Cerebellar function showed mild ataxia for [id number] testing only in the left upper limb. No dysdiadochokinesia. Tone and bulk of muscles normal. Gait deferred.. On general examination, there is no carotid bruit or murmur, S1-S2 audible. Chest is clear on consultation. Abdomen is soft nontender. No organomegaly, bowel sounds present. Peripheral pulses are present. No peripheral edema. Patient does have multiple bruises. - Labs CBC & Chem 7: 08/13/23 06:34 08/14/23 06:30 Labs: Abnormal Lab Results - Last 24 Hours (Table) 08/13/23 08/13/23 08/13/23 Range/Units 06:34 12:02 16:23 Plt Count 70 L (150-450) k/uL Neutrophils # 17.4 H (1.3-7.7) k/uL Sodium (137-145) mmol/L BUN (7-17) mg/dL Creatinine (0.52-1.04) mg/dL Glucose (74-99) mg/dL POC Glucose (mg/dL) 187 H 199 H (70-110) mg/dL Calcium (8.4-10.2) mg/dL 08/13/23 08/14/23 08/14/23 Range/Units 20:12 06:07 06:30 Plt Count (150-450) k/uL Neutrophils # (1.3-7.7) k/uL Sodium 136 L (137-145) mmol/L BUN 79 H (7-17) mg/dL Creatinine 2.74 H (0.52-1.04) mg/dL Glucose 168 H (74-99) mg/dL POC Glucose (mg/dL) 310 H 158 H (70-110) mg/dL Calcium 7.9 L (8.4-10.2) mg/dL 08/14/23 Range/Units 08:20 Plt Count (150-450) k/uL Neutrophils # (1.3-7.7) k/uL Sodium (137-145) mmol/L BUN (7-17) mg/dL Creatinine (0.52-1.04) mg/dL Glucose (74-99) mg/dL POC Glucose (mg/dL) 176 H (70-110) mg/dL Calcium (8.4-10.2) mg/dL Microbiology - Last 24 Hours (Table) 08/12/23 15:03 Blood Culture - Preliminary Blood Assessment and Plan Assessment: This is a 77-year-old woman who presented to the emergency department on 07/19 since that she was found down on the floor confused by her neighbor. Unknown downtime. Was felt the patient possibly had an STEMI and she was on heparin drip that. During this hospital stay it was felt the patient had sepsis and that had positive E. coli on the blood cultures as well as possible underlying UTI. Also she has acute kidney insufficiency It seems that the patient was responding during the hospital stay and the overnight the patient developed garbled speech her arms were flaccid then she became unresponsive on 08/11/2023 as a result a code stroke was activated and she had CT of the head CTA head and neck which were unremarkable. Bilateral hemispheric and is seems embolic in nature. She had garbled speech and her arms were flaccid and was unresponsive. Mentation has improved. Rule out cardioembolic. Also rule out infective endocarditis. Altered mental status seems septic encephalopathy as well as underlying stroke--- mentation improved Underlying sepsis blood culture E. coli. and felt urosepsis. Acute kidney insufficiency slightly trending down Slightly elevated AST more than ALT Slight hypomagnesemia resolved Uncontrolled diabetes mellitus and most recent hemoglobin A1c was 13.7 Plan: ALLISON was performed 08/13/2023, which revealed: 1. The aortic valve is tricuspid with normal function with mild aortic regurgitation. 2. The mitral valve appears be normal mild mitral regurgitation. 3. Tricuspid valve and mild tricuspid regurgitation. 4. The interatrial septum is intact. No evidence of PFO. 5. Left atrial appendage is free of clot. 6. Left ventricular ejection fraction 55% She is currently on aspirin 81 mg (new during this admission) and Lipitor 40 mg daily at bedtime. No evidence of infective endocarditis on the ALLISON. I would recommend patient to be placed on aspirin 81 mg daily and Plavix 75 mg daily for 21 days. Thereafter stop Plavix and continue aspirin indefinitely. Recommended aggressive control of all vascular risk factors including diabetes, to target A1c <7.0. Patient was also started on Lipitor 40 mg daily at bedtime by primary team. Continue neuro checks Cardiac monitoring PT OT and DEPUTY SHERIFF GENERALIST/BAILIFF are consulted Cardiology team is a on board Recommend event monitor for 30 days prior to discharge. We'll defer the rest of the medical management to primary team and other specialist. For DVT prophylaxis On subcu heparin 5000 units every 12 hours. Neurologically cleared for transfer to rehab with the above recommendations. Discussed with primary physician, nursing staff and patient's son in detail.
--- NOTE | 2023-08-14 11:33 | P.PN ---
Subjective Progress Note Date: 08/14/23 I am seeing this patient in consultation today 08/09/2023 in the intensive care unit after the patient was found down on the floor and confused by her neighbor. Patient is a 77-year-old female with unknown past medical history. She is currently confused and unable to provide meaningful information in regard to her HPI and events leading this hospitalization. Apparently, the patient was found down on the floor, confused, by her neighbor. Downtime is unknown. Patient was evaluated by EMS and transferred to the emergency room on July. Brain CT on arrival did not show any acute intracranial process. Initially, the patient was placed on a heparin infusion for possible NSTEMI, which has been ruled out. Patient was felt to be septic, and admitted to the intensive care unit. Patient is currently sitting in the bed, on 2 L/m nasal cannula, in no acute distress. Blood pressure is normotensive. Not requiring any vasopressors. Heart rhythm appears normal sinus on bedside monitor. Chest x- ray on arrival showed low lung volumes and slightly increased central vascular congestion. Slightly increased interstitial markings could be related to low lung volumes, edema, or pneumonitis. Patient's urinalysis was consistent with UTI, and the patient's preliminary blood results have come back positive with E. coli. Patient is currently on Rocephin. Most recent CBC from yesterday shows an improvement WBC count down to 15.6, hemoglobin 13, hematocrit 39.2, platelets 77. ABG from yesterday shows a pO2 of 67, pCO2 of 30, pH is 7.3. This was done on room air. BMP from yesterday shows a sodium 135, potassium 4.4, chloride 101, serum bicarb down to 12, BUN 67, creatinine 4.49, glucose 376. Lactic acid level was elevated at 4.7 is down to 1.5. CPK is elevated at 1588. 3 A Sodium bicarb and D5W is currently infusing at 100 ML's per hour. Normal saline is infusing at 20 ML's per hour. Urine output is oliguric, but improving around 50-60 ML's per hour. Troponins are 0.076, 0.05, 0.056 respectively. NT proBNP was elevated at 16,800. Toxicology screen positive for benzodiazepines. Patient will be monitored in the intensive care unit. On today's evaluation of 08/10/2023, the patient is doing much better neurologically. She is communicating. She is aware that she is in the hospital. She was better but off on the date and the year. However she was aware that she is in a hospital and she has no focal neurological deficit. The patient had gram-negative sepsis and the patient has gram-negative bacillus in the blood on 2 separate blood cultures. This is most likely generating from an underlying urinary tract infection. The patient is currently hemodynamically stable. The patient remains on IV fluids and she is on a bicarbonate drip at the rate of 100 mL an hour. She remains on IV antibiotics with Rocephin. She is afebrile. She is 100 is stable. She is on no pressors. She is on Levemir insulin 10 units twice a day. Her blood work from today shows a WBC count which is down to 8.0 with a hemoglobin 12.2 and a platelet count of 41. Coagulation profile is within normal limits. The creatinine is gradually improving. Creatinine is down to 3.8 with a BUN of 76. Sodium level is at 134. Serum bicarb is up to 28. As such, the bicarb infusion will be discontinued. Troponins were 0.07 0.05 respectively. CPK was at 1243 consistent with some mild rhabdomyolysis. Echocardiogram was done yesterday and the patient has a normal LV function with an ejection fraction of 60%. The patient has mild concentric LVH. On 08/11/2023, the patient is being seen for a follow-up. After doing some progress neurologically. The patient's sepsis was being treated, the patient overnight became unresponsive, she developed garbled speech and her arms were flaccid along with unresponsiveness. This was quite a change in her neurologic functions and status. Based on that, a code stroke was called and the patient underwent a CT angiogram that showed no acute abnormalities. Based on the records, the patient was only withdrawing to sternal rubs and she was unable to speak and her speech was mumbled and she was unable to maintain a conversation. The CT angiogram was done and the CTA showed no acute abnormalities. CAT scan of the brain was also done that showed no evidence of any bleed or any stroke. Currently the patient is having an EEG. She arouses and she opens her eyes spontaneously. She is breathing withdrawing to painful stimulation and there is no focal neurological deficit. Her speech is not fully recovered yet. She was able to tell me that she was in the hospital and she was doing fine. The white cell count today's of 3.5 with a hemoglobin of 12.5, the sodium is at 136 with a potassium level of 3.6, BUN is at 80 with a creatinine of 3.6. AST is 135, ALT 72, alkaline phosphatase is 486, troponins of 0.03. Also, blood gas was done yesterday that showed a pH of 7.5 with a pCO2 of 35 and a pO2 of 81. She is currently on oxygen at 2 L. Chest x-ray from today shows no areas of consolidation. There is some increase in pulmonary vascular markings bilaterally. Patient denies having any cough or sputum production. As mentioned, her white cell count was gradually improving and the patient remains on IV Rocephin. Her blood culture was positive for E. coli. Had echocardiogram that was done on 08/09/2023 showed a preserved LV function with an ejection fraction of 60% On 08/12/2023, the patient's mentation is improved considerably. She is communicating. She is answering questions appropriately. She has no focal neurological deficit. No seizure activity has been noted. Noted the patient also underwent a MRI of the brain and this was completed yesterday. This was reviewed by neurology and MRI showed multiple small foci of increased signal density compatible with an embolic phenomena. There was also abnormal signal within the right cerebellum, bilateral external and internal capsules, left inferior colliculus with subcortical left temporal region as well as the central semiovale coronary radiata bilaterally. Based on this, and embolic phenomena was suspected. Meanwhile, the patient is still being treated for an underlying septicemia with E. coli. The patient remains on IV Rocephin. The patient remains on normal sed rate of 75 mL an hour. The white cell count of 18.2 on today's evaluation with a hemoglobin 12.4 and a platelet count is improved compared to yesterday to 249. The BUN is at 88 and a creatinine of 3.6 which is essentially stable compared to yesterday. Sodium levels of 139. Height antibodies were negative. EEG was also compared to yesterday that showed background slowing suggestive of encephalopathy. No focal seizure activity was noted. Her rhabdomyolysis also improving. On today's evaluation of 08/13/2023, seeing the patient for a follow-up. The patient is being treated for an E. coli sepsis. This is related underlying affect infection. Also, the MRI of the brain showed various areas of small foci of increased signal density which of his today's concerns for embolic phenomena. Based on that, the patient underwent a ALLISON today and the findings were essentially consistent with normal LV, left atrial appendage was free of any clot, there was no evidence of a PFO, the intra-atrial septum was intact, and the rest of the posterior structures were also within normal limits. The patient continues to be on IV Rocephin. Mental status is adequate and the patient is communicating without any focal neurological deficits. The patient also has a white cell count of 19.7 with a 4.6. Creatinine continues to improve is currently down to 3.1 with a BUN of 92. The patient remains on normal saline at rate of 75 mL an hour. Precedex was all within normal limits. She is afebrile. She is quite weak and debilitated. Platelet counts of also improved and is currently up to 70. On today's evaluation of 08/14/2023, the patient is resting comfortably in bed. No new onset neurological deficits. She has utilized global weakness. No altered mentation. ALLISON was negative. The patient has no new complaints otherwise. She remains on IV Rocephin. She still being treated for E. coli septicemia. BUN is at 79 with a creatinine of 2.7 and the renal function continues to improve. Sodium levels of 136 with a potassium level of 4.0. Objective - Vital Signs Vital signs: Vital Signs Temp 97.8 F 08/14/23 08:15 Pulse 66 08/14/23 08:15 Resp 17 08/14/23 08:15 BP 167/71 08/14/23 08:15 Pulse Ox 98 08/14/23 08:15 FiO2 50 08/09/23 10:00 Intake & Output 08/13/23 08/14/23 08/14/23 18:59 06:59 18:59 Intake Total 150 Output Total 325 800 Balance -175 -800 Intake: IV 150 Output: Urine 325 800 Other: Voiding Method Indwelling Catheter Indwelling Catheter - Exam GENERAL EXAM: Alert and oriented 3 HEAD: Normocephalic and atraumatic EYES: Normal reaction of pupils, equal size. Left periorbital ecchymosis NOSE: Clear with pink turbinates. THROAT: No erythema or exudates. NECK: No masses, no JVD. CHEST: No chest wall deformity. LUNGS: Equal air entry with diminished lung sounds throughout. no crackles, wheeze, rhonchi or dullness. On 2 L/m nasal cannula. No conversational dyspnea or accessory muscle use.. CVS: S1 and S2 normal with no audible murmur, regular rhythm. No extra heart sounds ABDOMEN: No hepatosplenomegaly, active bowel sounds, no guarding or rigidity. SPINE: No scoliosis or deformity SKIN: No rashes CENTRAL NERVOUS SYSTEM: No focal deficits, tone is normal in all 4 extremities. The patient is communicating. She is alert and oriented 3 which EXTREMITIES: There is no peripheral edema, clubbing, or cyanosis. Peripheral pulses are intact. - Labs CBC & Chem 7: 08/13/23 06:34 08/14/23 06:30 Labs: Abnormal Lab Results - Last 24 Hours (Table) 08/13/23 08/13/23 08/13/23 Range/Units 12:02 16:23 20:12 Sodium (137-145) mmol/L BUN (7-17) mg/dL Creatinine (0.52-1.04) mg/dL Glucose (74-99) mg/dL POC Glucose (mg/dL) 187 H 199 H 310 H (70-110) mg/dL Calcium (8.4-10.2) mg/dL 08/14/23 08/14/23 08/14/23 Range/Units 06:07 06:30 08:20 Sodium 136 L (137-145) mmol/L BUN 79 H (7-17) mg/dL Creatinine 2.74 H (0.52-1.04) mg/dL Glucose 168 H (74-99) mg/dL POC Glucose (mg/dL) 158 H 176 H (70-110) mg/dL Calcium 7.9 L (8.4-10.2) mg/dL Microbiology - Last 24 Hours (Table) 08/12/23 15:03 Blood Culture - Preliminary Blood Assessment and Plan Assessment: Urinary tract infection and Urosepsis, with ECOLI and the patient remains on IV Rocephin, final cultures are equal and the patient remains on IV Rocephin Lactic acidosis, improved Metabolic anion gap acidosis, secondary to above, improved and the patient is on 0.9 at 75 mL an hour Leukocytosis, the white cell count remains elevated Acute kidney injury, secondary to acute tubular necrosis, improving and the creatinine is down to 3.17, stable compared to yesterday Rhabdomyolysis, CPK is still mildly elevated, improving Suspected diabetes mellitus type 2, hyperglycemic and hemoglobin A1c 12.3 Elevated troponins, flat, not felt to reflect ACS Altered mental status, nonenhanced brain CT did not show any acute intracranial abnormality, likely related to toxic metabolic encephalopathy and urosepsis, improving mental status, however this morning at 1 AM, there was an altered mentation and based on that the patient underwent further neuro workup including a CT of the brain and the CAT scan of the brain that showed no acute abnormalities. She is gradually recovering from that. This morning, the patient is fully alert and awake. 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 Based on that, a ALLISON was recommended. ALLISON was done and the patient has no evidence of any PFO. Left atrial appendage also free of any clots. No evidence of any shunts. No significant valvular disease. Thrombocytopenia, likely consumptive secondary to sepsis. No signs of any DIC. Coagulation profile is within normal limits. The platelet count is improving and the patient had negative HIT antibodies. The platelet counts continue to improve Plan: Patient is currently out of the intensive care unit Continue IV Rocephin regarding E. coli septicemia Change IV fluids normal saline at rate of 50 mL an hour and the IV fluids will be continued Echocardiogram was noted and the patient is a preserved LV function, ALLISON was negative for any source of embolism Ultrasound the kidney was done and there is no evidence of any hydronephrosis Renal function continues to improve, creatinine is improving Blood sugar management with Levemir insulin 10 units twice a day Neurologic consultation is appreciated Monitor the mental status EEG showed no seizure activity MRI of the brain was noted I would say there is some improvement in neuro status since syrup mixer assistant. We'll continue to follow DVT and GI prophylaxis Increase oral intake monitor platelet count We'll continue to follow.
[2023-08-14 11:42] LABS: Glucose,Whole Blood 159 mg/dL (70-110)
[2023-08-14] MEDS: CLOPIDOGREL 75 MG TAB PO SCH (11:45)
--- NOTE | 2023-08-14 12:55 | P.PN ---
Subjective Progress Note Date: 08/14/23 77-year-old lady with past medical history significant for hypertension, presents to the emergency department with altered mental status. * Per chart review patient was last well-known 08/06/23. Patient was brought by EMS and was noted to be less responsive and alert and oriented 1 with profound weakness. Patient was apparently found on the floor with broken glass. Patient was last seen by a neighbor and apparently doing well. Upon presentation patient was noted to have profound hypoglycemia Glucose 411, blood pressure 180/22 * Workup initiated included CBC which were WBC of 30.8 hemoglobin 15.2 platelet 124 with elevated neutrophil count. INR of 1.4 serum chemistry showed sodium 134 BUN 57 creatinine 4.26 blood glucose in 400s lactic to 4.7 * Initial troponin obtained 0.076, EKG obtained showed sinus rhythm no significant ST segment changes * Patient was given IV Rocephin, urinalysis is obtained showed large leukocyte esterase WBC and many bacteria * 08/09/23: Patient was seen and evaluated bedside, patient seen in ICU, mentation has improved alert and oriented to person place and situation. Appreciate input from nephrology, continue patient on IV bicarbonate, continue to monitor renal profile * 08/10/23: Patient seen and evaluated bedside, patient alert and oriented to person and situation, patient sitting in recliner. CBC reviewed noted to have thrombocytopenia aspirin discontinued serum chemistry reviewed creatinine 3.87. CK trending down. Blood culture showed E. coli bacteremia antibiotic transitioned to Rocephin * 08/11/23: Patient seen and evaluated bedside, overnight patient had episode of confusion, patient had garbled speech and also flaccid. Patient had a code stroke called and CT angiogram head and neck was done which was negative for acute abnormality CT brain was negative for any acute bleed or stroke as well. Neurology consulted and EEG is ordered patient does open her eyes to verbal stimulus and painful stimulus. MRI brain ordered as stat. Card work reviewed arterial blood gas reviewed as well. Continue close monitoring in ICU. CBC showed improvement in leukocytosis. Patient remains afebrile blood pressure map around 84 * 08/12/23: Patient seen and evaluated bedside, patient alert to person and situation. Mentation has improved significantly. MRI brain completedembolic stroke, patient started on aspirin and Lipitor. Liver profile trending down. A panel negative as well continue to monitor for worsening thrombocytopenia. Cardiology consulted to evaluate for intracardiac thrombus. Planning ALLISON patient nothing by mouth 08/13. Patient seen and examined. Patient mentation is improving, answering questions. WBC 19.9, hemoglobin 12.6, platelet count 70, sodium 139, potassium 4.1, BUN 92, creatinine 3.17. ALLISON scheduled for today 08/08. Patient seen and examined. Patient mental status has improved, sounds at the bedside. States she is doing much better. Patient is still needing assistance with ambulation, will be a candidate for therapy REVIEW OF SYSTEMS: CONSTITUTIONAL: No fever, no malaise,. CARDIOVASCULAR: No chest pain, no palpitations, no syncope. PULMONARY: No shortness of breath, no cough, GASTROINTESTINAL: No diarrhea, no nausea, no vomiting, no abdominal pain. NEUROLOGICAL: No headaches, no weakness, PHYSICAL EXAMINATION: GENERAL: The patient is alert and oriented x3, not in any acute distress. Well developed, well nourished. HEENT: Pupils are round and equally reacting to light. EOMI. No scleral icterus. No conjunctival pallor. Normocephalic, atraumatic. No pharyngeal erythema. No thyromegaly. CARDIOVASCULAR: S1 and S2 present. No murmurs, rubs, or gallops. PULMONARY: Chest is clear to auscultation, no wheezing or crackles. ABDOMEN: Soft, nontender, nondistended, normoactive bowel sounds. No palpable organomegaly. MUSCULOSKELETAL: No joint swelling or deformity. EXTREMITIES: No cyanosis, clubbing, or pedal edema. NEUROLOGICAL: Gross neurological examination did not reveal any focal deficits. SKIN: No rashes. Assessment and plan Severe sepsis secondary to urinary tract infection * E. 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 coli bacteremia, urine cultures pending. Continue Rocephin * In regards to elevated troponin, serial troponins ordered echocardiogram shows preserved ejection fraction ,, continue metoprolol, ALLISON negative for PE or any blood clot in left atrial appendage. Neurology following * In regards to thrombocytopenia, hit panel negative, monitor platelet count * In regards to for CVA, CT head CT angina head and neck negative, MRI brain shows embolic stroke, neurology consulted continue patient on aspirin and Lipitor, ALLISON negative for any blood clots. Neurology recommended dual antiplatelet therapy for 21 days followed by aspirin indefinitely * In regards to renal failure, continue with IV fluids, nephrology following * In regards to diabetes mellitus, HbA1c 13.7 , patient started on Lantus, c ontinue correctional insulin Labs and medication were reviewed.. Continue same treatment. Continue with symptomatic treatment. Resume home medication. Monitor labs and vitals. DVT and GI prophylaxis. Further recommendations as per clinical course of the patient Dictation was produced using [employer] dictation software. please excuse any grammatical, word or spelling errors. Objective - Vital Signs Vital signs: Vital Signs Temp 97.8 F 08/14/23 08:15 Pulse 66 08/14/23 08:15 Resp 17 08/14/23 08:15 BP 167/71 08/14/23 08:15 Pulse Ox 98 08/14/23 08:15 FiO2 50 08/09/23 10:00 Intake & Output 08/13/23 08/14/23 08/14/23 18:59 06:59 18:59 Intake Total 150 Output Total 325 800 Balance -175 -800 Intake: IV 150 Output: Urine 325 800 Other: Voiding Method Indwelling Catheter Indwelling Catheter - Labs CBC & Chem 7: 08/13/23 06:34 08/14/23 06:30 Labs: Abnormal Lab Results - Last 24 Hours (Table) 08/13/23 08/13/23 08/14/23 Range/Units 16:23 20:12 06:07 Sodium (137-145) mmol/L BUN (7-17) mg/dL Creatinine (0.52-1.04) mg/dL Glucose (74-99) mg/dL POC Glucose (mg/dL) 199 H 310 H 158 H (70-110) mg/dL Calcium (8.4-10.2) mg/dL 08/14/23 08/14/23 08/14/23 Range/Units 06:30 08:20 11:38 Sodium 136 L (137-145) mmol/L BUN 79 H (7-17) mg/dL Creatinine 2.74 H (0.52-1.04) mg/dL Glucose 168 H (74-99) mg/dL POC Glucose (mg/dL) 176 H 159 H (70-110) mg/dL Calcium 7.9 L (8.4-10.2) mg/dL Microbiology - Last 24 Hours (Table) 08/12/23 15:03 Blood Culture - Preliminary Blood
--- NOTE | 2023-08-14 13:12 | P.PN ---
Subjective Progress Note Date: 08/14/23 Principal diagnosis: Sepsis and UTI and bacteremia Patient is a 77-year-old female with a past medical history significant for hypertension the patient has been brought into the ER concerning for mental status changes, patient noticed to be septic secondary to urinary s ource and significant prerenal azotemia requiring admission to the ICU, patient did have embolic stroke on MRI subsequently did have a ALLISON on 08/13/2023 that was negative for any vegetation On today's evaluation that is 08/14/2023, the patient remains to be afebrile, the patient is breathing comfortably on room air and denies any shortness of breath, the patient denies any chest pain or cough, patient denies Abdominal pain and no nausea/vomiting or diarrhea Patient white count is slightly up from 19.9 as of yesterday no CBC was done today, creatinine is down to 2.74, blood culture with E. coli, MRI with possible embolic stroke Objective - Vital Signs Vital signs: Vital Signs Temp 97.8 F 08/14/23 08:15 Pulse 66 08/14/23 08:15 Resp 17 08/14/23 08:15 BP 167/71 08/14/23 08:15 Pulse Ox 98 08/14/23 08:15 FiO2 50 08/09/23 10:00 Intake & Output 08/13/23 08/14/23 08/14/23 18:59 06:59 18:59 Intake Total 150 Output Total 325 800 Balance -175 -800 Intake: IV 150 Output: Urine 325 800 Other: Voiding Method Indwelling Catheter Indwelling Catheter - Exam GENERAL DESCRIPTION: An elderly female lying in bed in no distress RESPIRATORY SYSTEM: Unlabored breathing , clear to auscultation anteriorly HEART: S1 S2 regular rate and rhythm , ABDOMEN: Soft , no tenderness EXTREMITIES: No edema feet - Labs CBC & Chem 7: 08/13/23 06:34 08/14/23 06:30 Labs: Abnormal Lab Results - Last 24 Hours (Table) 08/13/23 08/13/23 08/14/23 Range/Units 16:23 20:12 06:07 Sodium (137-145) mmol/L BUN (7-17) mg/dL Creatinine (0.52-1.04) mg/dL Glucose (74-99) mg/dL POC Glucose (mg/dL) 199 H 310 H 158 H (70-110) mg/dL Calcium (8.4-10.2) mg/dL 08/14/23 08/14/23 08/14/23 Range/Units 06:30 08:20 11:38 Sodium 136 L (137-145) mmol/L BUN 79 H (7-17) mg/dL Creatinine 2.74 H (0.52-1.04) mg/dL Glucose 168 H (74-99) mg/dL POC Glucose (mg/dL) 176 H 159 H (70-110) mg/dL Calcium 7.9 L (8.4-10.2) mg/dL Microbiology - Last 24 Hours (Table) 08/13/23 06:34 Blood Culture - Preliminary Blood 08/12/23 15:03 Blood Culture - Preliminary Blood Assessment and Plan (1) Sepsis Current Visit: Yes Status: Acute Code(s): A41.9 - SEPSIS, UNSPECIFIED ORGANISM SNOMED Code(s): 20178466 (2) Penicillin allergy Current Visit: Yes Status: Acute Code(s): Z88.0 - ALLERGY STATUS TO PENICILLIN SNOMED Code(s): 91792760 (3) UTI (urinary tract infection) Current Visit: Yes Status: Acute Code(s): N39.0 - URINARY TRACT INFECTION, SITE NOT SPECIFIED SNOMED Code(s): 14577177 Plan: 1patient presented hospital with weakness mental status changes source is likely multifactorial in this patient with significant dehydration and prerenal also have a positive UA and likely a component of symptomatic urinary tract infection from enteric gram-negative pathogen 2- patient blood culture with an E. coli that is sensitive pathogen 4-patient patient did have significant mental status changes, patient did have MRI of the brain suspicious for embolic phenomena clinical suspicion is low for septic emboli as E. coli not a common pathogen to cause infective endocarditis, patient did have ALLISON that was negative for any vegetation 5- patient to continue with Rocephin . Will repeat a CBC with a.m. lab Dictation was produced using [employer] dictation software. please excuse any grammatical, word or spelling errors. Time with Patient: Less than 30
[2023-08-14 16:15] LABS: Glucose,Whole Blood 170 mg/dL (70-110)
--- NOTE | 2023-08-14 16:23 | P.PN ---
Subjective Progress Note Date: 08/14/23 Follow-up for acute kidney injury. Objective - Vital Signs Vital signs: Vital Signs Temp 97.3 F L 08/14/23 12:00 Pulse 62 08/14/23 12:00 Resp 16 08/14/23 12:00 BP 141/71 08/14/23 12:00 Pulse Ox 96 08/14/23 12:00 FiO2 50 08/09/23 10:00 Intake & Output 08/13/23 08/14/23 08/14/23 18:59 06:59 18:59 Intake Total 150 Output Total 325 800 Balance -175 -800 Intake: IV 150 Output: Urine 325 800 Other: Voiding Method Indwelling Catheter Indwelling Catheter - Exam No acute distress S1-S2 heard Lungs clear No edema - Labs CBC & Chem 7: 08/13/23 06:34 08/14/23 06:30 Labs: Abnormal Lab Results - Last 24 Hours (Table) 08/13/23 08/13/23 08/14/23 Range/Units 16:23 20:12 06:07 Sodium (137-145) mmol/L BUN (7-17) mg/dL Creatinine (0.52-1.04) mg/dL Glucose (74-99) mg/dL POC Glucose (mg/dL) 199 H 310 H 158 H (70-110) mg/dL Calcium (8.4-10.2) mg/dL 08/14/23 08/14/23 08/14/23 Range/Units 06:30 08:20 11:38 Sodium 136 L (137-145) mmol/L BUN 79 H (7-17) mg/dL Creatinine 2.74 H (0.52-1.04) mg/dL Glucose 168 H (74-99) mg/dL POC Glucose (mg/dL) 176 H 159 H (70-110) mg/dL Calcium 7.9 L (8.4-10.2) mg/dL 08/14/23 Range/Units 16:13 Sodium (137-145) mmol/L BUN (7-17) mg/dL Creatinine (0.52-1.04) mg/dL Glucose (74-99) mg/dL POC Glucose (mg/dL) 170 H (70-110) mg/dL Calcium (8.4-10.2) mg/dL Microbiology - Last 24 Hours (Table) 08/13/23 06:34 Blood Culture - Preliminary Blood 08/12/23 15:03 Blood Culture - Preliminary Blood Assessment and Plan Assessment: #1 acute kidney injury secondary to ATN -Baseline creatinine 0.8 MG per DL in 2018 -Admission creatinine of 4.49 MG per DL -Urine analysis [place]. #2 septic shock secondary to E. coli bacteremia. Improving. #3 acute CVA #4 encephalopathy #5 diabetes mellitus Plan: #1 continue with IV fluids. #2 renal function improving. #3 avoid nephrotoxic agents and hypotensive episodes. #4 no acute indication for [facility] at this time.
[2023-08-14 20:18] LABS: Glucose,Whole Blood 204 mg/dL (70-110)
[2023-08-14] MEDS: ATORVASTATIN 40 MG TAB PO SCH (22:04)
[2023-08-15] MEDS: SODIUM CHLORIDE 0.9% 1,000 ML IV SCH (06:07)
[2023-08-15 06:11] LABS: Glucose,Whole Blood 160 mg/dL (70-110)
[2023-08-15] MEDS: INSULIN ASPART (NovoLOG) 100 UNIT/ML VIAL SQ SCH ×4 (06:34→20:58)
[2023-08-15 07:55] LABS: Glucose,Whole Blood 169 mg/dL (70-110)
[2023-08-15] MEDS: HEPARIN SODIUM,PORCINE 5,000 UNIT/ML 1 ML VIAL SQ SCH ×2 (07:56→20:58)
[2023-08-15] MEDS: PANTOPRAZOLE 40 MG/10 ML VIAL IVP SCH (08:00)
[2023-08-15] MEDS: INSULIN DETEMIR (LEVEMIR) 100 UNIT/ML SYR SQ SCH ×2 (08:00→22:07)
[2023-08-15] MEDS: CLOPIDOGREL 75 MG TAB PO SCH (08:00)
[2023-08-15] MEDS: METOPROLOL TARTRATE 25 MG TAB PO SCH ×3 (08:00→21:00)
[2023-08-15] MEDS: ASPIRIN 81 MG PO SCH (08:00)
[2023-08-15 10:07] LABS: HGB 11.2 gm/dL (11.4-16.0); MCH 30.4 pg (25.0-35.0); MCV 92.1 fL (80.0-100.0); Mean Platelet Volume 11.3; RBC 3.69 m/uL (3.80-5.40); RDW 13.7 % (11.5-15.5); WBC 17.7 k/uL (3.8-10.6)
[2023-08-15 10:27] LABS: ALT 43 U/L (4-34); AST 61 U/L (14-36); African American GFR (CKD) 22 (>60 ml/min/1.73 sqM); Albumin 2.2 g/dL (3.5-5.0); Alkaline Phosphatase 591 U/L (38-126); Anion Gap 12 mmol/L; Blood Urea Nitrogen 60 mg/dL (7-17); Calcium 7.8 mg/dL (8.4-10.2); Carbon Dioxide 21 mmol/L (22-30); Chloride 102 mmol/L (98-107); Glucose 165 mg/dL (74-99); Non-African American GFR(CKD) 19 (>60 ml/min/1.73 sqM); Potassium 4.2 mmol/L (3.5-5.1); Sodium 135 mmol/L (137-145); Total Protein 5.3 g/dL (6.3-8.2)
[2023-08-15 10:30] LABS: Platelet Count 119 k/uL (150-450)
[2023-08-15 11:40] LABS: Glucose,Whole Blood 164 mg/dL (70-110)
--- NOTE | 2023-08-15 12:02 | P.PN ---
Subjective Progress Note Date: 08/15/23 I am seeing this patient in consultation today 08/09/2023 in the intensive care unit after the patient was found down on the floor and confused by her neighbor. Patient is a 77-year-old female with unknown past medical history. She is currently confused and unable to provide meaningful information in regard to her HPI and events leading this hospitalization. Apparently, the patient was found down on the floor, confused, by her neighbor. Downtime is unknown. Patient was evaluated by EMS and transferred to the emergency room on July. Brain CT on arrival did not show any acute intracranial process. Initially, the patient was placed on a heparin infusion for possible NSTEMI, which has been ruled out. Patient was felt to be septic, and admitted to the intensive care unit. Patient is currently sitting in the bed, on 2 L/m nasal cannula, in no acute distress. Blood pressure is normotensive. Not requiring any vasopressors. Heart rhythm appears normal sinus on bedside monitor. Chest x- ray on arrival showed low lung volumes and slightly increased central vascular congestion. Slightly increased interstitial markings could be related to low lung volumes, edema, or pneumonitis. Patient's urinalysis was consistent with UTI, and the patient's preliminary blood results have come back positive with E. coli. Patient is currently on Rocephin. Most recent CBC from yesterday shows an improvement WBC count down to 15.6, hemoglobin 13, hematocrit 39.2, platelets 77. ABG from yesterday shows a pO2 of 67, pCO2 of 30, pH is 7.3. This was done on room air. BMP from yesterday shows a sodium 135, potassium 4.4, chloride 101, serum bicarb down to 12, BUN 67, creatinine 4.49, glucose 376. Lactic acid level was elevated at 4.7 is down to 1.5. CPK is elevated at 1588. 3 A Sodium bicarb and D5W is currently infusing at 100 ML's per hour. Normal saline is infusing at 20 ML's per hour. Urine output is oliguric, but improving around 50-60 ML's per hour. Troponins are 0.076, 0.05, 0.056 respectively. NT proBNP was elevated at 16,800. Toxicology screen positive for benzodiazepines. Patient will be monitored in the intensive care unit. On today's evaluation of 08/10/2023, the patient is doing much better neurologically. She is communicating. She is aware that she is in the hospital. She was better but off on the date and the year. However she was aware that she is in a hospital and she has no focal neurological deficit. The patient had gram-negative sepsis and the patient has gram-negative bacillus in the blood on 2 separate blood cultures. This is most likely generating from an underlying urinary tract infection. The patient is currently hemodynamically stable. The patient remains on IV fluids and she is on a bicarbonate drip at the rate of 100 mL an hour. She remains on IV antibiotics with Rocephin. She is afebrile. She is 100 is stable. She is on no pressors. She is on Levemir insulin 10 units twice a day. Her blood work from today shows a WBC count which is down to 8.0 with a hemoglobin 12.2 and a platelet count of 41. Coagulation profile is within normal limits. The creatinine is gradually improving. Creatinine is down to 3.8 with a BUN of 76. Sodium level is at 134. Serum bicarb is up to 28. As such, the bicarb infusion will be discontinued. Troponins were 0.07 0.05 respectively. CPK was at 1243 consistent with some mild rhabdomyolysis. Echocardiogram was done yesterday and the patient has a normal LV function with an ejection fraction of 60%. The patient has mild concentric LVH. On 08/11/2023, the patient is being seen for a follow-up. After doing some progress neurologically. The patient's sepsis was being treated, the patient overnight became unresponsive, she developed garbled speech and her arms were flaccid along with unresponsiveness. This was quite a change in her neurologic functions and status. Based on that, a code stroke was called and the patient underwent a CT angiogram that showed no acute abnormalities. Based on the records, the patient was only withdrawing to sternal rubs and she was unable to speak and her speech was mumbled and she was unable to maintain a conversation. The CT angiogram was done and the CTA showed no acute abnormalities. CAT scan of the brain was also done that showed no evidence of any bleed or any stroke. Currently the patient is having an EEG. She arouses and she opens her eyes spontaneously. She is breathing withdrawing to painful stimulation and there is no focal neurological deficit. Her speech is not fully recovered yet. She was able to tell me that she was in the hospital and she was doing fine. The white cell count today's of 3.5 with a hemoglobin of 12.5, the sodium is at 136 with a potassium level of 3.6, BUN is at 80 with a creatinine of 3.6. AST is 135, ALT 72, alkaline phosphatase is 486, troponins of 0.03. Also, blood gas was done yesterday that showed a pH of 7.5 with a pCO2 of 35 and a pO2 of 81. She is currently on oxygen at 2 L. Chest x-ray from today shows no areas of consolidation. There is some increase in pulmonary vascular markings bilaterally. Patient denies having any cough or sputum production. As mentioned, her white cell count was gradually improving and the patient remains on IV Rocephin. Her blood culture was positive for E. coli. Had echocardiogram that was done on 08/09/2023 showed a preserved LV function with an ejection fraction of 60% On 08/12/2023, the patient's mentation is improved considerably. She is communicating. She is answering questions appropriately. She has no focal neurological deficit. No seizure activity has been noted. Noted the patient also underwent a MRI of the brain and this was completed yesterday. This was reviewed by neurology and MRI showed multiple small foci of increased signal density compatible with an embolic phenomena. There was also abnormal signal within the right cerebellum, bilateral external and internal capsules, left inferior colliculus with subcortical left temporal region as well as the central semiovale coronary radiata bilaterally. Based on this, and embolic phenomena was suspected. Meanwhile, the patient is still being treated for an underlying septicemia with E. coli. The patient remains on IV Rocephin. The patient remains on normal sed rate of 75 mL an hour. The white cell count of 18.2 on today's evaluation with a hemoglobin 12.4 and a platelet count is improved compared to yesterday to 249. The BUN is at 88 and a creatinine of 3.6 which is essentially stable compared to yesterday. Sodium levels of 139. Height antibodies were negative. EEG was also compared to yesterday that showed background slowing suggestive of encephalopathy. No focal seizure activity was noted. Her rhabdomyolysis also improving. On today's evaluation of 08/13/2023, seeing the patient for a follow-up. The patient is being treated for an E. coli sepsis. This is related underlying affect infection. Also, the MRI of the brain showed various areas of small foci of increased signal density which of his today's concerns for embolic phenomena. Based on that, the patient underwent a ALLISON today and the findings were essentially consistent with normal LV, left atrial appendage was free of any clot, there was no evidence of a PFO, the intra-atrial septum was intact, and the rest of the posterior structures were also within normal limits. The patient continues to be on IV Rocephin. Mental status is adequate and the patient is communicating without any focal neurological deficits. The patient also has a white cell count of 19.7 with a 4.6. Creatinine continues to improve is currently down to 3.1 with a BUN of 92. The patient remains on normal saline at rate of 75 mL an hour. Precedex was all within normal limits. She is afebrile. She is quite weak and debilitated. Platelet counts of also improved and is currently up to 70. On today's evaluation of 08/14/2023, the patient is resting comfortably in bed. No new onset neurological deficits. She has utilized global weakness. No altered mentation. ALLISON was negative. The patient has no new complaints otherwise. She remains on IV Rocephin. She still being treated for E. coli septicemia. BUN is at 79 with a creatinine of 2.7 and the renal function continues to improve. Sodium levels of 136 with a potassium level of 4.0. On 08/15/2023, the patient is alert and awake and communicating. No focal neurological deficit. Remains on IV Rocephin. Remains on Plavix and aspirin. ALLISON was negative as mentioned earlier. Family was at the bedside. Continues to be on normal saline at rate of 50 mL an hour. The ends of 60 with a creatinine of 2.39 his sodium levels of 139. Note that the patient's creatinine continues to improve. The echoes at 17.7. Lansoprazole improving. She is weak and she is in need for rehabilitation. She remains on room air oxygen. Objective - Vital Signs Vital signs: Vital Signs Temp 98.2 F 08/15/23 07:58 Pulse 74 08/15/23 07:58 Resp 16 08/15/23 07:58 BP 171/71 08/15/23 07:58 Pulse Ox 95 08/15/23 07:58 FiO2 50 08/09/23 10:00 Intake & Output 08/14/23 08/15/23 08/15/23 18:59 06:59 18:59 Intake Total 118 Output Total 400 Balance 118 -400 Intake: Oral 118 Output: Urine 400 Other: Voiding Method Indwelling Catheter Indwelling Catheter # Bowel Movements 1 - Exam GENERAL EXAM: Alert and oriented 3 HEAD: Normocephalic and atraumatic EYES: Normal reaction of pupils, equal size. Left periorbital ecchymosis NOSE: Clear with pink turbinates. THROAT: No erythema or exudates. NECK: No masses, no JVD. CHEST: No chest wall deformity. LUNGS: Equal air entry with diminished lung sounds throughout. no crackles, wheeze, rhonchi or dullness. On 2 L/m nasal cannula. No conversational dyspnea or accessory muscle use.. CVS: S1 and S2 normal with no audible murmur, regular rhythm. No extra heart sounds ABDOMEN: No hepatosplenomegaly, active bowel sounds, no guarding or rigidity. SPINE: No scoliosis or deformity SKIN: No rashes CENTRAL NERVOUS SYSTEM: No focal deficits, tone is normal in all 4 extremities. The patient is communicating. She is alert and oriented 3 which EXTREMITIES: There is no peripheral edema, clubbing, or cyanosis. Peripheral pulses are intact. - Labs CBC & Chem 7: 08/15/23 08:58 08/15/23 08:58 Labs: Abnormal Lab Results - Last 24 Hours (Table) 08/14/23 08/14/23 08/14/23 Range/Units 11:38 16:13 20:16 POC Glucose (mg/dL) 159 H 170 H 204 H (70-110) mg/dL 08/15/23 08/15/23 Range/Units 06:07 07:54 POC Glucose (mg/dL) 160 H 169 H (70-110) mg/dL Microbiology - Last 24 Hours (Table) 08/12/23 15:03 Blood Culture - Preliminary Blood 08/13/23 06:34 Blood Culture - Preliminary Blood Assessment and Plan Assessment: Urinary tract infection and Urosepsis, with ECOLI and the patient remains on IV Rocephin, final cultures are equal and the patient remains on IV Rocephin Lactic acidosis, improved Metabolic anion gap acidosis, secondary to above, improved and the patient is on 0.9 at 50 mL an hour Leukocytosis, the white cell count remains elevated Acute kidney injury, secondary to acute tubular necrosis, improving and the creatinine is down to 2.3 Rhabdomyolysis, CPK is still mildly elevated, improving Suspected diabetes mellitus type 2, hyperglycemic and hemoglobin A1c 12.3 Elevated troponins, flat, not felt to reflect ACS Altered mental status, nonenhanced brain CT did not show any acute intracranial abnormality, likely related to toxic metabolic encephalopathy and urosepsis, improving mental status, however this morning at 1 AM, there was an altered mentation and based on that the patient underwent further neuro workup including a CT of the brain and the CAT scan of the brain that showed no acute abnormalities. She is gradually recovering from that. This morning, the patient is fully alert and awake. 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 Based on that, a ALLISON was recommended. ALLISON was done and the patient has no evidence of any PFO. Left atrial appendage also free of any clots. No evidence of any shunts. No significant valvular disease. Thrombocytopenia, likely consumptive secondary to sepsis. No signs of any DIC. Coagulation profile is within normal limits. The platelet count is improving and the patient had negative HIT antibodies. The platelet counts continue to improve Plan: Patient currently on room air oxygen Continue IV Rocephin regarding E. 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 We'll continue to follow DVT and GI prophylaxis Increase oral intake monitor platelet count, count continues to improve We'll continue to follow Pulmonary and critical care services will sign off
--- NOTE | 2023-08-15 13:10 | P.PN ---
Subjective Progress Note Date: 08/15/23 77-year-old lady with past medical history significant for hypertension, presents to the emergency department with altered mental status. * Per chart review patient was last well-known 08/06/23. Patient was brought by EMS and was noted to be less responsive and alert and oriented 1 with profound weakness. Patient was apparently found on the floor with broken glass. Patient was last seen by a neighbor and apparently doing well. Upon presentation patient was noted to have profound hypoglycemia Glucose 411, blood pressure 180/22 * Workup initiated included CBC which were WBC of 30.8 hemoglobin 15.2 platelet 124 with elevated neutrophil count. INR of 1.4 serum chemistry showed sodium 134 BUN 57 creatinine 4.26 blood glucose in 400s lactic to 4.7 * Initial troponin obtained 0.076, EKG obtained showed sinus rhythm no significant ST segment changes * Patient was given IV Rocephin, urinalysis is obtained showed large leukocyte esterase WBC and many bacteria * 08/09/23: Patient was seen and evaluated bedside, patient seen in ICU, mentation has improved alert and oriented to person place and situation. Appreciate input from nephrology, continue patient on IV bicarbonate, continue to monitor renal profile * 08/10/23: Patient seen and evaluated bedside, patient alert and oriented to person and situation, patient sitting in recliner. CBC reviewed noted to have thrombocytopenia aspirin discontinued serum chemistry reviewed creatinine 3.87. CK trending down. Blood culture showed E. coli bacteremia antibiotic transitioned to Rocephin * 08/11/23: Patient seen and evaluated bedside, overnight patient had episode of confusion, patient had garbled speech and also flaccid. Patient had a code stroke called and CT angiogram head and neck was done which was negative for acute abnormality CT brain was negative for any acute bleed or stroke as well. Neurology consulted and EEG is ordered patient does open her eyes to verbal stimulus and painful stimulus. MRI brain ordered as stat. Card work reviewed arterial blood gas reviewed as well. Continue close monitoring in ICU. CBC showed improvement in leukocytosis. Patient remains afebrile blood pressure map around 84 * 08/12/23: Patient seen and evaluated bedside, patient alert to person and situation. Mentation has improved significantly. MRI brain completedembolic stroke, patient started on aspirin and Lipitor. Liver profile trending down. A panel negative as well continue to monitor for worsening thrombocytopenia. Cardiology consulted to evaluate for intracardiac thrombus. Planning ALLISON patient nothing by mouth 08/13. Patient seen and examined. Patient mentation is improving, answering questions. WBC 19.9, hemoglobin 12.6, platelet count 70, sodium 139, potassium 4.1, BUN 92, creatinine 3.17. ALLISON scheduled for today 08/14. Patient seen and examined. Patient mental status has improved, sons at the bedside. States she is doing much better. Patient is still needing assistance with ambulation, will be a candidate for therapy 08/15. Patient seen and examined. No acute issues overnight. Labs showing white count 70%, hemoglobin 11.2, sodium 135, potassium 4.2, BUN 60, creatinine 2.39. Denies any lightheadedness or dizziness. Tolerating diet REVIEW OF SYSTEMS: CONSTITUTIONAL: No fever, no malaise,. CARDIOVASCULAR: No chest pain, no palpitations, no syncope. PULMONARY: No shortness of breath, no cough, GASTROINTESTINAL: No diarrhea, no nausea, no vomiting, no abdominal pain. NEUROLOGICAL: No headaches, no weakness, PHYSICAL EXAMINATION: GENERAL: The patient is alert and oriented x3, not in any acute distress. Well developed, well nourished. HEENT: Pupils are round and equally reacting to light. EOMI. No scleral icterus. No conjunctival pallor. Normocephalic, atraumatic. No pharyngeal erythema. No thyromegaly. CARDIOVASCULAR: S1 and S2 present. No murmurs, rubs, or gallops. PULMONARY: Chest is clear to auscultation, no wheezing or crackles. ABDOMEN: Soft, nontender, nondistended, normoactive bowel sounds. No palpable organomegaly. MUSCULOSKELETAL: No joint swelling or deformity. EXTREMITIES: No cyanosis, clubbing, or pedal edema. NEUROLOGICAL: Gross neurological examination did not reveal any focal deficits. SKIN: No rashes. Assessment and plan Severe sepsis secondary to urinary tract infection * E. 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 coli bacteremia, Continue Rocephin * In regards to elevated troponin, serial troponins ordered echocardiogram shows preserved ejection fraction ,, continue metoprolol, ALLISON negative for PE or any blood clot in left atrial appendage. Neurology following * In regards to thrombocytopenia, hit panel negative, monitor platelet count * In regards to for CVA, CT head CT angina head and neck negative, MRI brain shows embolic stroke, neurology consulted continue patient on aspirin and Lipitor, ALLISON negative for any blood clots. Neurology recommended dual antiplatelet therapy for 21 days followed by aspirin indefinitely * In regards to renal failure, continue with IV fluids, nephrology following * In regards to diabetes mellitus, HbA1c 13.7 , patient started on Lantus, cont inue correctional insulin Labs and medication were reviewed.. Continue same treatment. Continue with symptomatic treatment. Resume home medication. Monitor labs and vitals. DVT and GI prophylaxis. Further recommendations as per clinical course of the patient Dictation was produced using [employer] dictation software. please excuse any grammatical, word or spelling errors. Objective - Vital Signs Vital signs: Vital Signs Temp 98.2 F 08/15/23 07:58 Pulse 74 08/15/23 07:58 Resp 16 08/15/23 07:58 BP 171/71 08/15/23 07:58 Pulse Ox 95 08/15/23 07:58 FiO2 50 08/09/23 10:00 Intake & Output 08/14/23 08/15/23 08/15/23 18:59 06:59 18:59 Intake Total 118 240 Output Total 400 Balance 118 -400 240 Intake: Oral 118 240 Output: Urine 400 Other: Voiding Method Indwelling Catheter Indwelling Catheter Indwelling Catheter # Bowel Movements 1 - Labs CBC & Chem 7: 08/15/23 08:58 08/15/23 08:58 Labs: Abnormal Lab Results - Last 24 Hours (Table) 08/14/23 08/14/23 08/15/23 Range/Units 16:13 20:16 06:07 WBC (3.8-10.6) k/uL RBC (3.80-5.40) m/uL Hgb (11.4-16.0) gm/dL Plt Count (150-450) k/uL Sodium (137-145) mmol/L Carbon Dioxide (22-30) mmol/L BUN (7-17) mg/dL Creatinine (0.52-1.04) mg/dL Glucose (74-99) mg/dL POC Glucose (mg/dL) 170 H 204 H 160 H (70-110) mg/dL Calcium (8.4-10.2) mg/dL AST (14-36) U/L ALT (4-34) U/L Alkaline Phosphatase (38-126) U/L Total Protein (6.3-8.2) g/dL Albumin (3.5-5.0) g/dL 08/15/23 08/15/23 08/15/23 Range/Units 07:54 08:58 08:58 WBC 17.7 H (3.8-10.6) k/uL RBC 3.69 L (3.80-5.40) m/uL Hgb 11.2 L (11.4-16.0) gm/dL Plt Count 119 L D (150-450) k/uL Sodium 135 L (137-145) mmol/L Carbon Dioxide 21 L (22-30) mmol/L BUN 60 H (7-17) mg/dL Creatinine 2.39 H (0.52-1.04) mg/dL Glucose 165 H (74-99) mg/dL POC Glucose (mg/dL) 169 H (70-110) mg/dL Calcium 7.8 L (8.4-10.2) mg/dL AST 61 H (14-36) U/L ALT 43 H (4-34) U/L Alkaline Phosphatase 591 H (38-126) U/L Total Protein 5.3 L (6.3-8.2) g/dL Albumin 2.2 L (3.5-5.0) g/dL 08/15/23 Range/Units 11:38 WBC (3.8-10.6) k/uL RBC (3.80-5.40) m/uL Hgb (11.4-16.0) gm/dL Plt Count (150-450) k/uL Sodium (137-145) mmol/L Carbon Dioxide (22-30) mmol/L BUN (7-17) mg/dL Creatinine (0.52-1.04) mg/dL Glucose (74-99) mg/dL POC Glucose (mg/dL) 164 H (70-110) mg/dL Calcium (8.4-10.2) mg/dL AST (14-36) U/L ALT (4-34) U/L Alkaline Phosphatase (38-126) U/L Total Protein (6.3-8.2) g/dL Albumin (3.5-5.0) g/dL Microbiology - Last 24 Hours (Table) 08/13/23 06:34 Blood Culture - Preliminary Blood 08/12/23 15:03 Blood Culture - Preliminary Blood
--- NOTE | 2023-08-15 15:17 | P.PN ---
Subjective Progress Note Date: 08/15/23 Follow-up for acute kidney injury. Objective - Vital Signs Vital signs: Vital Signs Temp 98 F 08/15/23 12:00 Pulse 71 08/15/23 12:00 Resp 17 08/15/23 12:00 BP 175/75 08/15/23 12:00 Pulse Ox 96 08/15/23 12:00 FiO2 50 08/09/23 10:00 Intake & Output 08/14/23 08/15/23 08/15/23 18:59 06:59 18:59 Intake Total 118 240 Output Total 400 1200 Balance 118 -400 -960 Intake: Oral 118 240 Output: Urine 400 1200 Uretheral (Rendon) 1200 Other: Voiding Method Indwelling Catheter Indwelling Catheter Indwelling Catheter # Bowel Movements 1 - Exam No acute distress S1-S2 heard Lungs clear No edema - Labs CBC & Chem 7: 08/15/23 08:58 08/15/23 08:58 Labs: Abnormal Lab Results - Last 24 Hours (Table) 08/14/23 08/14/23 08/15/23 Range/Units 16:13 20:16 06:07 WBC (3.8-10.6) k/uL RBC (3.80-5.40) m/uL Hgb (11.4-16.0) gm/dL Plt Count (150-450) k/uL Sodium (137-145) mmol/L Carbon Dioxide (22-30) mmol/L BUN (7-17) mg/dL Creatinine (0.52-1.04) mg/dL Glucose (74-99) mg/dL POC Glucose (mg/dL) 170 H 204 H 160 H (70-110) mg/dL Calcium (8.4-10.2) mg/dL AST (14-36) U/L ALT (4-34) U/L Alkaline Phosphatase (38-126) U/L Total Protein (6.3-8.2) g/dL Albumin (3.5-5.0) g/dL 08/15/23 08/15/23 08/15/23 Range/Units 07:54 08:58 08:58 WBC 17.7 H (3.8-10.6) k/uL RBC 3.69 L (3.80-5.40) m/uL Hgb 11.2 L (11.4-16.0) gm/dL Plt Count 119 L D (150-450) k/uL Sodium 135 L (137-145) mmol/L Carbon Dioxide 21 L (22-30) mmol/L BUN 60 H (7-17) mg/dL Creatinine 2.39 H (0.52-1.04) mg/dL Glucose 165 H (74-99) mg/dL POC Glucose (mg/dL) 169 H (70-110) mg/dL Calcium 7.8 L (8.4-10.2) mg/dL AST 61 H (14-36) U/L ALT 43 H (4-34) U/L Alkaline Phosphatase 591 H (38-126) U/L Total Protein 5.3 L (6.3-8.2) g/dL Albumin 2.2 L (3.5-5.0) g/dL 08/15/23 Range/Units 11:38 WBC (3.8-10.6) k/uL RBC (3.80-5.40) m/uL Hgb (11.4-16.0) gm/dL Plt Count (150-450) k/uL Sodium (137-145) mmol/L Carbon Dioxide (22-30) mmol/L BUN (7-17) mg/dL Creatinine (0.52-1.04) mg/dL Glucose (74-99) mg/dL POC Glucose (mg/dL) 164 H (70-110) mg/dL Calcium (8.4-10.2) mg/dL AST (14-36) U/L ALT (4-34) U/L Alkaline Phosphatase (38-126) U/L Total Protein (6.3-8.2) g/dL Albumin (3.5-5.0) g/dL Microbiology - Last 24 Hours (Table) 08/13/23 06:34 Blood Culture - Preliminary Blood 08/12/23 15:03 Blood Culture - Preliminary Blood Assessment and Plan Assessment: #1 acute kidney injury secondary to ATN -Baseline creatinine 0.8 MG per DL in 2018 -Admission creatinine of 4.49 MG per DL -Urine analysis Jerome. #2 septic shock secondary to E. coli bacteremia. Improving. #3 acute CVA #4 encephalopathy #5 diabetes mellitus Plan: #1 continue with IV fluids. #2 renal function improving. #3 avoid nephrotoxic agents and hypotensive episodes. #4 no acute indication for [employer] at this time.
--- NOTE | 2023-08-15 15:20 | P.PN ---
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 coli, MRI with possible embolic stroke Objective - Vital Signs Vital signs: Vital Signs Temp 98 F 08/15/23 12:00 Pulse 71 08/15/23 12:00 Resp 17 08/15/23 12:00 BP 175/75 08/15/23 12:00 Pulse Ox 96 08/15/23 12:00 FiO2 50 08/09/23 10:00 Intake & Output 08/14/23 08/15/23 08/15/23 18:59 06:59 18:59 Intake Total 118 240 Output Total 400 1200 Balance 118 -400 -960 Intake: Oral 118 240 Output: Urine 400 1200 Uretheral (Rendon) 1200 Other: Voiding Method Indwelling Catheter Indwelling Catheter Indwelling Catheter # Bowel Movements 1 - Exam GENERAL DESCRIPTION: An elderly female lying in bed in no distress RESPIRATORY SYSTEM: Unlabored breathing , clear to auscultation anteriorly HEART: S1 S2 regular rate and rhythm , ABDOMEN: Soft , no tenderness EXTREMITIES: No edema feet - Labs CBC & Chem 7: 08/15/23 08:58 08/15/23 08:58 Labs: Abnormal Lab Results - Last 24 Hours (Table) 08/14/23 08/14/23 08/15/23 Range/Units 16:13 20:16 06:07 WBC (3.8-10.6) k/uL RBC (3.80-5.40) m/uL Hgb (11.4-16.0) gm/dL Plt Count (150-450) k/uL Sodium (137-145) mmol/L Carbon Dioxide (22-30) mmol/L BUN (7-17) mg/dL Creatinine (0.52-1.04) mg/dL Glucose (74-99) mg/dL POC Glucose (mg/dL) 170 H 204 H 160 H (70-110) mg/dL Calcium (8.4-10.2) mg/dL AST (14-36) U/L ALT (4-34) U/L Alkaline Phosphatase (38-126) U/L Total Protein (6.3-8.2) g/dL Albumin (3.5-5.0) g/dL 08/15/23 08/15/23 08/15/23 Range/Units 07:54 08:58 08:58 WBC 17.7 H (3.8-10.6) k/uL RBC 3.69 L (3.80-5.40) m/uL Hgb 11.2 L (11.4-16.0) gm/dL Plt Count 119 L D (150-450) k/uL Sodium 135 L (137-145) mmol/L Carbon Dioxide 21 L (22-30) mmol/L BUN 60 H (7-17) mg/dL Creatinine 2.39 H (0.52-1.04) mg/dL Glucose 165 H (74-99) mg/dL POC Glucose (mg/dL) 169 H (70-110) mg/dL Calcium 7.8 L (8.4-10.2) mg/dL AST 61 H (14-36) U/L ALT 43 H (4-34) U/L Alkaline Phosphatase 591 H (38-126) U/L Total Protein 5.3 L (6.3-8.2) g/dL Albumin 2.2 L (3.5-5.0) g/dL 08/15/23 Range/Units 11:38 WBC (3.8-10.6) k/uL RBC (3.80-5.40) m/uL Hgb (11.4-16.0) gm/dL Plt Count (150-450) k/uL Sodium (137-145) mmol/L Carbon Dioxide (22-30) mmol/L BUN (7-17) mg/dL Creatinine (0.52-1.04) mg/dL Glucose (74-99) mg/dL POC Glucose (mg/dL) 164 H (70-110) mg/dL Calcium (8.4-10.2) mg/dL AST (14-36) U/L ALT (4-34) U/L Alkaline Phosphatase (38-126) U/L Total Protein (6.3-8.2) g/dL Albumin (3.5-5.0) g/dL Microbiology - Last 24 Hours (Table) 08/13/23 06:34 Blood Culture - Preliminary Blood 08/12/23 15:03 Blood Culture - Preliminary Blood Assessment and Plan (1) Sepsis Current Visit: Yes Status: Acute Code(s): A41.9 - SEPSIS, UNSPECIFIED ORGANISM SNOMED Code(s): 49262682 (2) Penicillin allergy Current Visit: Yes Status: Acute Code(s): Z88.0 - ALLERGY STATUS TO PENICILLIN SNOMED Code(s): 98932929 (3) UTI (urinary tract infection) Current Visit: Yes Status: Acute Code(s): N39.0 - URINARY TRACT INFECTION, SITE NOT SPECIFIED SNOMED Code(s): 87606434 Plan: 1patient presented hospital with weakness mental status changes source is likely multifactorial in this patient with significant dehydration and prerenal also have a positive UA and likely a component of symptomatic urinary tract infection from enteric gram-negative pathogen 2- patient blood culture with an E. coli that is sensitive pathogen 4-patient patient did have significant mental status changes, patient did have MRI of the brain suspicious for embolic phenomena clinical suspicion is low for septic emboli as E. coli not a common pathogen to cause infective endocarditis, patient did have ALLISON that was negative for any vegetation 5- patient had shown clinical improvement and will continue with Rocephin . With the plan to finish therapy with oral antibiotics Dictation was produced using [employer] dictation software. please excuse any gram matical, word or spelling errors. Time with Patient: Less than 30
[2023-08-15 16:29] LABS: Glucose,Whole Blood 174 mg/dL (70-110)
[2023-08-15 20:15] LABS: Glucose,Whole Blood 197 mg/dL (70-110)
[2023-08-15] MEDS: ATORVASTATIN 40 MG TAB PO SCH (20:58)
[2023-08-16] MEDS: SODIUM CHLORIDE 0.9% 1,000 ML IV SCH ×2 (06:00→22:00)
[2023-08-16 06:28] LABS: Glucose,Whole Blood 153 mg/dL (70-110)
[2023-08-16] MEDS: INSULIN ASPART (NovoLOG) 100 UNIT/ML VIAL SQ SCH ×4 (06:38→20:24)
[2023-08-16] MEDS: METOPROLOL TARTRATE 25 MG TAB PO SCH ×3 (09:09→20:26)
[2023-08-16] MEDS: ASPIRIN 81 MG PO SCH (09:09)
[2023-08-16] MEDS: CLOPIDOGREL 75 MG TAB PO SCH (09:09)
[2023-08-16] MEDS: PANTOPRAZOLE 40 MG/10 ML VIAL IVP SCH (09:09)
[2023-08-16] MEDS: HEPARIN SODIUM,PORCINE 5,000 UNIT/ML 1 ML VIAL SQ SCH ×2 (09:09→20:26)
[2023-08-16] MEDS: INSULIN DETEMIR (LEVEMIR) 100 UNIT/ML SYR SQ SCH ×2 (09:10→21:58)
--- NOTE | 2023-08-16 10:47 | P.PN ---
Subjective Patient is seen in follow-up for acute kidney injury. Renal function improving. Receiving IV fluids. Nonoliguric. No active complaints. Oral intake fair. Family present at bedside. Vital signs are stable. General: NAD. HEENT: Head exam is unremarkable. LUNGS: No audible rhonchi or wheezes. HEART: Rate and Rhythm are regular. ABDOMEN: Nontender. EXTREMITITES: No edema. Objective - Vital Signs Vital signs: Vital Signs Temp 97.5 F L 08/16/23 08:00 Pulse 70 08/16/23 08:00 Resp 18 08/16/23 08:00 BP 190/70 08/16/23 08:00 Pulse Ox 94 L 08/16/23 08:00 FiO2 50 08/09/23 10:00 Intake & Output 08/15/23 08/16/23 08/16/23 18:59 06:59 18:59 Intake Total 720 180 Output Total 2000 1800 Balance -1280 -1800 180 Intake: Oral 720 180 Output: Urine 1999 1800 Uretheral (Rendon) 1200 Other: Voiding Method Indwelling Catheter Indwelling Catheter Indwelling Catheter - Labs CBC & Chem 7: 08/15/23 08:58 08/15/23 08:58 Labs: Abnormal Lab Results - Last 24 Hours (Table) 08/15/23 08/15/23 08/15/23 Range/Units 11:38 16:27 20:14 POC Glucose (mg/dL) 164 H 174 H 197 H (70-110) mg/dL 08/16/23 Range/Units 06:27 POC Glucose (mg/dL) 153 H (70-110) mg/dL Microbiology - Last 24 Hours (Table) 08/12/23 15:03 Blood Culture - Preliminary Blood 08/13/23 06:34 Blood Culture - Preliminary Blood Assessment and Plan Plan: Assessment: 1. Acute kidney injury secondary to ATN secondary to septic shock. Creatinine peaked at 4.49 this admission - 2.39 yesterday. No hydronephrosis noted on kidney ultrasound. Creatinine 0.8 in 2018. UA benign dated 08/11/2023. 2. Septic shock secondary to E. coli bacteremia on antibiotics. ID following. 3. Acute CVA being followed by neurology. Concern for embolic process. No clots noted on ALLISON. 4. Encephalopathy related to sepsis, CVA. Improved. 5. Diabetes mellitus. 6. Benign hypertension. Plan: Maintain gentle IV hydration. Encourage oral intake. Avoid nephrotoxins. Continue to monitor renal function and urine output. Add amlodipine 5 mg once daily. Add when necessary hydralazine.
[2023-08-16] MEDS: amLODIPine 5 MG TAB PO SCH (11:31)
[2023-08-16 11:39] LABS: Glucose,Whole Blood 164 mg/dL (70-110)
[2023-08-16] MEDS: hydrALAZINE HCL 20 MG/ML 1 ML VIAL IVP PRN (12:11)
--- NOTE | 2023-08-16 13:32 | P.PN ---
Subjective Progress Note Date: 08/16/23 77-year-old lady with past medical history significant for hypertension, presents to the emergency department with altered mental status. * Per chart review patient was last well-known 08/06/23. Patient was brought by EMS and was noted to be less responsive and alert and oriented 1 with profound weakness. Patient was apparently found on the floor with broken glass. Patient was last seen by a neighbor and apparently doing well. Upon presentation patient was noted to have profound hypoglycemia Glucose 411, blood pressure 180/22 * Workup initiated included CBC which were WBC of 30.8 hemoglobin 15.2 platelet 124 with elevated neutrophil count. INR of 1.4 serum chemistry showed sodium 134 BUN 57 creatinine 4.26 blood glucose in 400s lactic to 4.7 * Initial troponin obtained 0.076, EKG obtained showed sinus rhythm no significant ST segment changes * Patient was given IV Rocephin, urinalysis is obtained showed large leukocyte esterase WBC and many bacteria * 08/09/23: Patient was seen and evaluated bedside, patient seen in ICU, mentation has improved alert and oriented to person place and situation. Appreciate input from nephrology, continue patient on IV bicarbonate, continue to monitor renal profile * 08/10/23: Patient seen and evaluated bedside, patient alert and oriented to person and situation, patient sitting in recliner. CBC reviewed noted to have thrombocytopenia aspirin discontinued serum chemistry reviewed creatinine 3.87. CK trending down. Blood culture showed E. coli bacteremia antibiotic transitioned to Rocephin * 08/11/23: Patient seen and evaluated bedside, overnight patient had episode of confusion, patient had garbled speech and also flaccid. Patient had a code stroke called and CT angiogram head and neck was done which was negative for acute abnormality CT brain was negative for any acute bleed or stroke as well. Neurology consulted and EEG is ordered patient does open her eyes to verbal stimulus and painful stimulus. MRI brain ordered as stat. Card work reviewed arterial blood gas reviewed as well. Continue close monitoring in ICU. CBC showed improvement in leukocytosis. Patient remains afebrile blood pressure map around 84 * 08/12/23: Patient seen and evaluated bedside, patient alert to person and situation. Mentation has improved significantly. MRI brain completedembolic stroke, patient started on aspirin and Lipitor. Liver profile trending down. A panel negative as well continue to monitor for worsening thrombocytopenia. Cardiology consulted to evaluate for intracardiac thrombus. Planning ALLISON patient nothing by mouth 08/13. Patient seen and examined. Patient mentation is improving, answering questions. WBC 19.9, hemoglobin 12.6, platelet count 70, sodium 139, potassium 4.1, BUN 92, creatinine 3.17. ALLISON scheduled for today 08/14. Patient seen and examined. Patient mental status has improved, sons at the bedside. States she is doing much better. Patient is still needing assistance with ambulation, will be a candidate for therapy 08/15. Patient seen and examined. No acute issues overnight. Labs showing white count 70%, hemoglobin 11.2, sodium 135, potassium 4.2, BUN 60, creatinine 2.39. Denies any lightheadedness or dizziness. Tolerating diet 08/16. Patient seen and examined. Blood pressure elevated, will start patient on Norvasc. Patient sitting up in the chair, keen to go to rehab REVIEW OF SYSTEMS: CONSTITUTIONAL: No fever, no malaise,. CARDIOVASCULAR: No chest pain, no palpitations, no syncope. PULMONARY: No shortness of breath, no cough, GASTROINTESTINAL: No diarrhea, no nausea, no vomiting, no abdominal pain. NEUROLOGICAL: No headaches, no weakness, PHYSICAL EXAMINATION: GENERAL: The patient is alert and oriented x3, not in any acute distress. Well developed, well nourished. HEENT: Pupils are round and equally reacting to light. EOMI. No scleral icterus. No conjunctival pallor. Normocephalic, atraumatic. No pharyngeal erythema. No thyromegaly. CARDIOVASCULAR: S1 and S2 present. No murmurs, rubs, or gallops. PULMONARY: Chest is clear to auscultation, no wheezing or crackles. ABDOMEN: Soft, nontender, nondistended, normoactive bowel sounds. No palpable organomegaly. MUSCULOSKELETAL: No joint swelling or deformity. EXTREMITIES: No cyanosis, clubbing, or pedal edema. NEUROLOGICAL: Gross neurological examination did not reveal any focal deficits. SKIN: No rashes. Assessment and plan Severe sepsis secondary to urinary tract infection * E. 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 coli bacteremia, Continue Rocephin, planning to change to oral antibiotics at discharge * In regards to elevated troponin, serial troponins ordered echocardiogram shows preserved ejection fraction ,, continue metoprolol, ALLISON negative for vegetation or any blood clot in left atrial appendage. Neurology following * In regards to thrombocytopenia, hit panel negative, monitor platelet count * In regards to for CVA, CT head CT angina head and neck negative, MRI brain shows embolic stroke, neurology consulted continue patient on aspirin and Lipitor, ALLISON negative for any blood clots. Neurology recommended dual antiplatelet therapy for 21 days followed by aspirin indefinitely * In regards to renal failure, continue with IV fluids, nephrology following * In regards to diabetes mellitus, HbA1c 13.7 , continue current insulin regimen Labs and medication were reviewed.. Continue same treatment. Continue with symptomatic treatment. Resume home medication. Monitor labs and vitals. DVT and GI prophylaxis. Further recommendations as per clinical course of the patient Dictation was produced using [employer] dictation software. please excuse any grammatical, word or spelling errors. Objective - Vital Signs Vital signs: Vital Signs Temp 98.2 F 08/16/23 00:00 Pulse 74 08/16/23 00:00 Resp 18 08/16/23 00:00 BP 172/67 08/16/23 00:00 Pulse Ox 95 08/16/23 00:00 FiO2 50 08/09/23 10:00 Intake & Output 08/15/23 08/16/23 08/16/23 18:59 06:59 18:59 Intake Total 720 180 Output Total 2000 1800 Balance -1280 -1800 180 Intake: Oral 720 180 Output: Urine 2000 1800 Uretheral (Rendon) 1200 Other: Voiding Method Indwelling Catheter Indwelling Catheter - Labs CBC & Chem 7: 08/15/23 08:58 08/15/23 08:58 Labs: Abnormal Lab Results - Last 24 Hours (Table) 08/15/23 08/15/23 08/15/23 Range/Units 08:58 08:58 11:38 WBC 17.7 H (3.8-10.6) k/uL RBC 3.69 L (3.80-5.40) m/uL Hgb 11.2 L (11.4-16.0) gm/dL Plt Count 119 L D (150-450) k/uL Sodium 135 L (137-145) mmol/L Carbon Dioxide 21 L (22-30) mmol/L BUN 60 H (7-17) mg/dL Creatinine 2.39 H (0.52-1.04) mg/dL Glucose 165 H (74-99) mg/dL POC Glucose (mg/dL) 164 H (70-110) mg/dL Calcium 7.8 L (8.4-10.2) mg/dL AST 61 H (14-36) U/L ALT 43 H (4-34) U/L Alkaline Phosphatase 591 H (38-126) U/L Total Protein 5.3 L (6.3-8.2) g/dL Albumin 2.2 L (3.5-5.0) g/dL 08/15/23 08/15/23 08/16/23 Range/Units 16:27 20:14 06:27 WBC (3.8-10.6) k/uL RBC (3.80-5.40) m/uL Hgb (11.4-16.0) gm/dL Plt Count (150-450) k/uL Sodium (137-145) mmol/L Carbon Dioxide (22-30) mmol/L BUN (7-17) mg/dL Creatinine (0.52-1.04) mg/dL Glucose (74-99) mg/dL POC Glucose (mg/dL) 174 H 197 H 153 H (70-110) mg/dL Calcium (8.4-10.2) mg/dL AST (14-36) U/L ALT (4-34) U/L Alkaline Phosphatase (38-126) U/L Total Protein (6.3-8.2) g/dL Albumin (3.5-5.0) g/dL Microbiology - Last 24 Hours (Table) 08/12/23 15:03 Blood Culture - Preliminary Blood 08/13/23 06:34 Blood Culture - Preliminary Blood
--- NOTE | 2023-08-16 15:10 | P.PN ---
Subjective Progress Note Date: 08/16/23 Principal diagnosis: Acute urosepsis I am seeing this patient in consultation today 08/09/2023 in the intensive care unit after the patient was found down on the floor and confused by her neighbor. Patient is a 77-year-old female with unknown past medical history. She is curr ently confused and unable to provide meaningful information in regard to her HPI and events leading this hospitalization. Apparently, the patient was found down on the floor, confused, by her neighbor. Downtime is unknown. Patient was evaluated by EMS and transferred to the emergency room on July. Brain CT on arrival did not show any acute intracranial process. Initially, the patient was placed on a heparin infusion for possible NSTEMI, which has been ruled out. Patient was felt to be septic, and admitted to the intensive care unit. Patient is currently sitting in the bed, on 2 L/m nasal cannula, in no acute distress. Blood pressure is normotensive. Not requiring any vasopr essors. Heart rhythm appears normal sinus on bedside monitor. Chest x-ray on arrival showed low lung volumes and slightly increased central vascular congestion. Slightly increased interstitial markings could be related to low lung volumes, edema, or pneumonitis. Patient's urinalysis was consistent with UTI, and the patient's preliminary blood results have come back positive with E. coli. Patient is currently on Rocephin. Most recent CBC from yesterday shows an improvement WBC count down to 15.6, hemoglobin 13, hematocrit 39.2, platelets 77. ABG from yesterday shows a pO2 of 67, pCO2 of 30, pH is 7.3. This was done on room air. BMP from yesterday shows a sodium 135, potassium 4.4, chloride 101, serum bicarb down to 12, BUN 67, creatinine 4.49, glucose 376. Lactic acid level was elevated at 4.7 is down to 1.5. CPK is elevated at 1588. 3 A Sodium bicarb and D5W is currently infusing at 100 ML's per hour. Normal saline is infusing at 20 ML's per hour. Urine output is oliguric, but improving around 50-60 ML's per hour. Troponins are 0.076, 0.05, 0.056 respectively. NT proBNP was elevated at 16,800. Toxicology screen positive for benzodiazepines. Patient will be monitored in the intensive care unit. On today's evaluation of 08/10/2023, the patient is doing much better neurologically. She is communicating. She is aware that she is in the hospital. She was better but off on the date and the year. However she was aware that she is in a hospital and she has no focal neurological deficit. The patient had gram-negative sepsis and the patient has gram-negative bacillus in the blood on 2 separate blood cultures. This is most likely generating from an underlying urinary tract infection. The patient is currently hemodynamically stable. The patient remains on IV fluids and she is on a bicarbonate drip at the rate of 100 mL an hour. She remains on IV antibiotics with Rocephin. She is afebrile. She is 100 is stable. She is on no pressors. She is on Levemir insulin 10 units twice a day. Her blood work from today shows a WBC count which is down to 8.0 with a hemoglobin 12.2 and a platelet count of 41. Coagulation profile is within normal limits. The creatinine is gradually improving. Creatinine is down to 3.8 with a BUN of 76. Sodium level is at 134. Serum bicarb is up to 28. As such, the bicarb infusion will be discontinued. Troponins were 0.07 0.05 respectively. CPK was at 1243 consistent with some mild rhabdomyolysis. Echocardiogram was done yesterday and the patient has a normal LV function with an ejection fraction of 60%. The patient has mild concentric LVH. On 08/11/2023, the patient is being seen for a follow-up. After doing some progress neurologically. The patient's sepsis was being treated, the patient overnight became unresponsive, she developed garbled speech and her arms were flaccid along with unresponsiveness. This was quite a change in her neurologic functions and status. Based on that, a code stroke was called and the patient underwent a CT angiogram that showed no acute abnormalities. Based on the records, the patient was only withdrawing to sternal rubs and she was unable to speak and her speech was mumbled and she was unable to maintain a conversation. The CT angiogram was done and the CTA showed no acute abnormalities. CAT scan of the brain was also done that showed no evidence of any bleed or any stroke. Currently the patient is having an EEG. She arouses and she opens her eyes sp ontaneously. She is breathing withdrawing to painful stimulation and there is no focal neurological deficit. Her speech is not fully recovered yet. She was able to tell me that she was in the hospital and she was doing fine. The white cell count today's of 3.5 with a hemoglobin of 12.5, the sodium is at 136 with a potassium level of 3.6, BUN is at 80 with a creatinine of 3.6. AST is 135, ALT 72, alkaline phosphatase is 486, troponins of 0.03. Also, blood gas was done yesterday that showed a pH of 7.5 with a pCO2 of 35 and a pO2 of 81. She is currently on oxygen at 2 L. Chest x-ray from today shows no areas of consolidation. There is some increase in pulmonary vascular markings bilat erally. Patient denies having any cough or sputum production. As mentioned, her white cell count was gradually improving and the patient remains on IV Rocephin. Her blood culture was positive for E. coli. Had echocardiogram that was done on 08/09/2023 showed a preserved LV function with an ejection fraction of 60% On 08/12/2023, the patient's mentation is improved considerably. She is commun icating. She is answering questions appropriately. She has no focal neurological deficit. No seizure activity has been noted. Noted the patient also underwent a MRI of the brain and this was completed yesterday. This was reviewed by neurology and MRI showed multiple small foci of increased signal density compatible with an embolic phenomena. There was also abnormal signal within the right cerebellum, bilateral external and internal capsules, left inferior colliculus with subcortical left temporal region as well as the central semiovale coronary radiata bilaterally. Based on this, and embolic phenomena was suspected. Meanwhile, the patient is still being treated for an underlying septicemia with E. coli. The patient remains on IV Rocephin. The patient remains on normal sed rate of 75 mL an hour. The white cell count of 18.2 on today's evaluation with a hemoglobin 12.4 and a platelet count is improved compared to yesterday to 249. The BUN is at 88 and a creatinine of 3.6 which is essentially stable compared to yesterday. Sodium levels of 139. Height antibodies were negative. EEG was also compared to yesterday that showed background slowing suggestive of encephalopathy. No focal seizure activity was noted. Her rhabdomyolysis also improving. On today's evaluation of 08/13/2023, seeing the patient for a follow-up. The patient is being treated for an E. coli sepsis. This is related underlying affect infection. Also, the MRI of the brain showed various areas of small foci of increased signal density which of his today's concerns for embolic phenomena. Based on that, the patient underwent a ALLISON today and the findings were essentially consistent with normal LV, left atrial appendage was free of any clot, there was no evidence of a PFO, the intra-atrial septum was intact, and the rest of the posterior structures were also within normal limits. The patien t continues to be on IV Rocephin. Mental status is adequate and the patient is communicating without any focal neurological deficits. The patient also has a white cell count of 19.7 with a 4.6. Creatinine continues to improve is currently down to 3.1 with a BUN of 92. The patient remains on normal saline at rate of 75 mL an hour. Precedex was all within normal limits. She is afebrile. She is quite weak and debilitated. Platelet counts of also improved and is currently up to 70. On today's evaluation of 08/14/2023, the patient is resting comfortably in bed. No new onset neurological deficits. She has utilized global weakness. No altered mentation. ALLISON was negative. The patient has no new complaints otherwise. She remains on IV Rocephin. She still being treated for E. coli se pticemia. BUN is at 79 with a creatinine of 2.7 and the renal function continues to improve. Sodium levels of 136 with a potassium level of 4.0. On 08/15/2023, the patient is alert and awake and communicating. No focal neurological deficit. Remains on IV Rocephin. Remains on Plavix and aspirin. ALLISON was negative as mentioned earlier. Family was at the bedside. Continues to be on normal saline at rate of 50 mL an hour. The ends of 60 with a creatinine of 2.39 his sodium levels of 139. Note that the patient's creatinine continues to improve. The echoes at 17.7. Lansoprazole improving. She is weak and she is in need for rehabilitation. She remains on room air oxygen. Reevaluated today on 08/16/23, patient is doing, sitting a bedside chair, does not seem to be in any distress, patient is on room air, and family is at bedside. No active pulmonary issues, no cough no wheezing no shortness of breath. No labs today except for blood sugar of 164. Patient will likely be tr ansferred to rehab in the next 24 hours. Objective - Vital Signs Vital signs: Vital Signs Temp 97.5 F L 08/16/23 08:00 Pulse 64 08/16/23 12:00 Resp 18 08/16/23 12:00 BP 151/74 08/16/23 14:00 Pulse Ox 96 08/16/23 12:00 FiO2 50 08/09/23 10:00 Intake & Output 08/15/23 08/16/23 08/16/23 18:59 06:59 18:59 Intake Total 720 360 Output Total 2000 1800 1500 Balance -1280 -1800 -1140 Weight 91.1 kg Intake: Oral 720 360 Output: Urine 1999 1800 1500 Uretheral (Rendon) 1200 Other: Voiding Method Indwelling Catheter Indwelling Catheter Indwelling Catheter - Exam Physical Exam: Revealed 77-year-old female pleasant in no distress on room air Head: Atraumatic, normocephalic. HEENT:[Neck is supple.] [No neck masses.] [No thyromegaly.] [No JVD.] Chest: [Clear throughout, no crackles, no rhonchi, no wheezes.] Cardiac Exam: [Normal S1 and S2, no S3 gallop, no murmur.] Abdomen: [Soft, nontender, no megaly, no rebound, no guarding, normal bowel sounds.] Extremities: [No clubbing, no edema, no cyanosis.] Neurological Exam: [No focal neurologic deficit.] Alert and oriented 3 Psychiatric: Normal mood, affect and normal self examination. Skin: No rashes - Labs CBC & Chem 7: 08/15/23 08:58 08/15/23 08:58 Labs: Abnormal Lab Results - Last 24 Hours (Table) 08/15/23 08/15/23 08/16/23 Range/Units 16:27 20:14 06:27 POC Glucose (mg/dL) 174 H 197 H 153 H (70-110) mg/dL 08/16/23 Range/Units 11:37 POC Glucose (mg/dL) 164 H (70-110) mg/dL Microbiology - Last 24 Hours (Table) 08/13/23 06:34 Blood Culture - Preliminary Blood 08/12/23 15:03 Blood Culture - Preliminary Blood Assessment and Plan Assessment: Impression: Acute urosepsis Acute anion gap metabolic acidosis Acute leukocytosis Acute kidney injury secondary to tubular necrosis and sepsis Acute rhabdomyolysis Acute metabolic encephalopathy, resolved Recommendation: Continue present supportive care measures Continue antibiotics, consider transitioning to oral antibiotics as per ID on the case Continue GI and DVT prophylaxis Continue to advance diet as tolerated Monitor platelets Consider discharge planning once cleared by infectious disease Will follow as the Time with Patient: Less than 30
[2023-08-16 16:41] LABS: Glucose,Whole Blood 175 mg/dL (70-110)
--- NOTE | 2023-08-16 17:37 | P.PN ---
Subjective Progress Note Date: 08/16/23 08/16/2023: Patient was seen for a follow-up. Patient is sitting in the recliner, offers no complaints. No new focal symptoms. No syncope. No headache. 08/14/2023: Patient was initially seen by Dr. Dmitry Garcia. Please refer to his note for details. Patient is a 77-year-old female who presents to the hospital on 08/07/2023 with unresponsiveness and found to have urosepsis and then improved. Patient had stroke symptoms 08/11/2023 for which MRI of the brain was initiated. MRI of the brain revealed bilateral hemispheric stroke. EEG came back negative. Recommend event monitor and in addition to aspirin, start Plavix unless there is A. fib. Patient was seen for a follow-up. Patient's son was also present today. Patient denies any headache. She denies any visual disturbance. She says that she was dizzy when she was standing up, but not anymore. She states that her right side is slightly weaker than the left. Denies any numbness or tingling at this time. Her speech is slightly slurred. She feels slightly tired. Per nursing report, she wanted to move. 2 nurses tried to help her, and she could not make any step with 2 assist. Patient has diabetes for 20 years, used to be on metformin. Patient does not take any antiplatelet medication at home. She denies tobacco use. Some of the workup consisted of: Patient has been afebrile during this hospital visit. Initial white blood cell is 26,000 and most recent ones 8.5 the. Predominantly neutrophilic. Creatinine is 4.26 and most recent ones 3.65 prior to that the her creatinine 2018 last seen in our facility was normal. Magnesium on initial presentation was 1.2 most recent one is 2.1 Urinalysis seen suggestive of acute urinary tract infection. Urine drug screen is positive for benzos otherwise dresses nondetected and acetone is negative. SARS2 PCR was not detected. RSV, influenza A/B are nondetected Blood cultures is positive for E. coli. TSH is 1.650 Ammonia is less than 9. AST is 135 ALT is 72 ESR 74. Hemoglobin A1c is 12.3 and the repeated one day later was 13.7. Lipid panel is triglycerides 217, cholesterol is 137, LDLs 82 and HDL is 11. B12 is more than 3600 Folate is 14.70 CK levels thousand 588 and the repeated is a 9 or 15 2-D echo was reported as normal left ventricular size and systolic function. Ejection fraction the estimated at 60%. No significant regional wall motion abnormality. Mild concentric ventricular hypertrophy. IVC is not dilated and is collapsible. Calcific aortic valve with mild aortic stenosis and mild aortic regurgitation. Routine EEG is abnormal. The background slowing suggestive of moderate to severe encephalopathy. Otherwise there is no focal slowing, epileptiform discharges or seizure on the EEG. MRI the brain is reported as acute embolic processes suspected. It seems that the patient has bilateral hemispheric ischemic stroke upon reviewing the image. Objective - Vital Signs Vital signs: Vital Signs Temp 98.1 F 08/16/23 16:00 Pulse 70 08/16/23 16:00 Resp 18 08/16/23 16:00 BP 154/70 08/16/23 16:00 Pulse Ox 96 08/16/23 16:00 FiO2 50 08/09/23 10:00 Intake & Output 08/15/23 08/16/23 08/16/23 18:59 06:59 18:59 Intake Total 720 360 Output Total 2000 1800 1500 Balance -1280 -1800 -1140 Weight 91.1 kg Intake: Oral 720 360 Output: Urine 1999 1800 1500 Uretheral (Rendon) 1200 Other: Voiding Method Indwelling Catheter Indwelling Catheter Indwelling Catheter - Exam Patient is an elderly female, in no acute distress. Patient is alert awake oriented to time place and person. She knows it is July and the year is 2022 and that she is in [facility]. Speech is mildly dysarthric and language functions are normal. Patient can name and repeat very well. Attention, concentration and fund of knowledge is adequate. On cranial nerve examination, pupils are equal, round and reacting to light, visual ramos are full on confrontation, with no neglect on double simultaneous stimulation. Extraocular muscles are intact with no nystagmus. Patient has very minimal right-sided facial weakness. Her tongue protrudes to the midline. Palatal elevation and sensation normal, hearing and shoulder shrug normal, facial sensation normal. On muscle strength testing, there is no pronator drift and the strength is normal in arms distally and proximally. In the lower limbs her hip flexion is 2, ankle dorsiflexion are 5 bilaterally Sensory to touch is equal with no neglect on double simultaneous stimulation. Cerebellar function showed mild ataxia for [id number] testing only in the left upper limb. No dysdiadochokinesia. Tone and bulk of muscles normal. Gait deferred.. On general examination, there is no carotid bruit or murmur, S1-S2 audible. Chest is clear on consultation. Abdomen is soft nontender. No organomegaly, bowel sounds present. Peripheral pulses are present. No peripheral edema. Patient does have multiple bruises. - Labs CBC & Chem 7: 08/15/23 08:58 08/15/23 08:58 Labs: Abnormal Lab Results - Last 24 Hours (Table) 08/15/23 08/16/23 08/16/23 Range/Units 20:14 06:27 11:37 POC Glucose (mg/dL) 197 H 153 H 164 H (70-110) mg/dL 08/16/23 Range/Units 16:39 POC Glucose (mg/dL) 175 H (70-110) mg/dL Microbiology - Last 24 Hours (Table) 08/13/23 06:34 Blood Culture - Preliminary Blood 08/12/23 15:03 Blood Culture - Preliminary Blood Assessment and Plan Assessment: This is a 77-year-old woman who presented to the emergency department on 08/07/2023 since that she was found down on the floor confused by her neighbor. Unknown downtime. Was felt the patient possibly had an STEMI and she was on heparin drip that. During this hospital stay it was felt the patient had sepsis and that had positive E. coli on the blood cultures as well as possible underlying UTI. Also she has acute kidney insufficiency It seems that the patient was responding during the hospital stay and the overnight the patient developed garbled speech her arms were flaccid then she became unresponsive on 08/11/2023 as a result a code stroke was activated and she had CT of the head CTA head and neck which were unremarkable. Bilateral hemispheric CVA seems in anterior and posterior cerebral lesion, most likely embolic in nature. She had garbled speech and her arms were flaccid and was unresponsive. Mentation has improved. Cardioembolism ruled out. No evidence of infective endocarditis on ALLISON. Altered mental status seems septic encephalopathy as well as underlying st roke--- mentation improved Underlying sepsis blood culture E. coli. and felt urosepsis. Acute kidney insufficiency slightly trending down Slightly elevated AST more than ALT Slight hypomagnesemia resolved Uncontrolled diabetes mellitus and most recent hemoglobin A1c was 13.7 Plan: ALLISON was performed 08/13/2023, which revealed: 1. The aortic valve is tricuspid with normal function with mild aortic regurgitation. 2. The mitral valve appears be normal mild mitral regurgitation. 3. Tricuspid valve and mild tricuspid regurgitation. 4. The interatrial septum is intact. No evidence of PFO. 5. Left atrial appendage is free of clot. 6. Left ventricular ejection fraction 55% She is currently on aspirin 81 mg (new during this admission) and Lipitor 40 mg daily at bedtime. No evidence of infective endocarditis on the ALLISON. I would recommend patient to be placed on aspirin 81 mg daily and Plavix 75 mg daily for 21 days. Thereafter stop Plavix and continue aspirin indefinitely. Recommended aggressive control of all vascular risk factors including diabetes, to target A1c <7.0. Patient was also started on Lipitor 40 mg daily at bedtime by primary team. Continue neuro checks Cardiac monitoring PT OT and NAPHTHALENE OPERATOR are consulted Cardiology team is a on board Recommend event monitor for 30 days prior to discharge. We'll defer the rest of the medical management to primary team and other specialist. For DVT prophylaxis On subcu heparin 5000 units every 12 hours. Neurologically cleared for transfer to rehab with the above recommendations.
[2023-08-16 20:17] LABS: Glucose,Whole Blood 183 mg/dL (70-110)
[2023-08-16] MEDS: ATORVASTATIN 40 MG TAB PO SCH (20:26)
[2023-08-16] MEDS ORDERED: LORazepam 0.5 MG TAB PO STA (23:45)
[2023-08-17] MEDS: hydrALAZINE HCL 20 MG/ML 1 ML VIAL IVP PRN (04:20)
[2023-08-17 06:26] LABS: Glucose,Whole Blood 139 mg/dL (70-110)
[2023-08-17] MEDS: INSULIN ASPART (NovoLOG) 100 UNIT/ML VIAL SQ SCH ×2 (06:26→12:15)
[2023-08-17 07:30] LABS: HCT 34.6 % (34.0-46.0); Hypochromasia Slight; MCH 30.2 pg (25.0-35.0); MCHC 31.7 g/dL (31.0-37.0); MCV 95.2 fL (80.0-100.0); Mean Platelet Volume 9.9; Platelet Count 209 k/uL (150-450); RBC 3.64 m/uL (3.80-5.40); RDW 13.7 % (11.5-15.5); WBC 16.6 k/uL (3.8-10.6)
[2023-08-17 07:45] LABS: ALT 31 U/L (4-34); AST 43 U/L (14-36); African American GFR (CKD) 31 (>60 ml/min/1.73 sqM); Albumin 2.4 g/dL (3.5-5.0); Alkaline Phosphatase 473 U/L (38-126); Anion Gap 10 mmol/L; Blood Urea Nitrogen 44 mg/dL (7-17); Calcium 8.2 mg/dL (8.4-10.2); Carbon Dioxide 21 mmol/L (22-30); Chloride 105 mmol/L (98-107); Glucose 133 mg/dL (74-99); Magnesium 1.5 mg/dL (1.6-2.3); Non-African American GFR(CKD) 27 (>60 ml/min/1.73 sqM); Potassium 4.3 mmol/L (3.5-5.1); Sodium 136 mmol/L (137-145); Total Bilirubin 0.7 mg/dL (0.2-1.3); Total Protein 5.7 g/dL (6.3-8.2)
[2023-08-17] MEDS: amLODIPine 5 MG TAB PO SCH (08:17)
[2023-08-17] MEDS: CLOPIDOGREL 75 MG TAB PO SCH (08:17)
[2023-08-17] MEDS: METOPROLOL TARTRATE 25 MG TAB PO SCH (08:17)
[2023-08-17] MEDS: ASPIRIN 81 MG PO SCH (08:17)
[2023-08-17] MEDS: PANTOPRAZOLE 40 MG/10 ML VIAL IVP SCH (08:40)
[2023-08-17] MEDS: INSULIN DETEMIR (LEVEMIR) 100 UNIT/ML SYR SQ SCH (08:40)
[2023-08-17] MEDS: HEPARIN SODIUM,PORCINE 5,000 UNIT/ML 1 ML VIAL SQ SCH (08:50)
--- NOTE | 2023-08-17 10:56 | P.PN ---
Subjective Patient is seen in follow-up for acute kidney injury. Renal function improving. Nonoliguric. No active complaints. Oral intake fair. Family present at bedside. Vital signs are stable. General: NAD. HEENT: Head exam is unremarkable. LUNGS: No audible rhonchi or wheezes. HEART: Rate and Rhythm are regular. ABDOMEN: Nontender. EXTREMITITES: No edema. Objective - Vital Signs Vital signs: Vital Signs Temp 96.3 F L 08/17/23 08:30 Pulse 72 08/17/23 10:31 Resp 16 08/17/23 10:31 BP 163/69 08/17/23 08:30 Pulse Ox 97 08/17/23 08:30 FiO2 50 08/09/23 10:00 Intake & Output 08/16/23 08/17/23 08/17/23 18:59 06:59 18:59 Intake Total 360 200 118 Output Total 2700 1700 650 Balance -2340 -1500 -532 Weight 91.1 kg Intake: Oral 360 200 118 Output: Urine 2700 1700 650 Other: Voiding Method Indwelling Catheter Indwelling Catheter Indwelling Catheter - Labs CBC & Chem 7: 08/17/23 06:44 08/17/23 06:44 Labs: Abnormal Lab Results - Last 24 Hours (Table) 08/16/23 08/16/23 08/16/23 Range/Units 11:37 16:39 20:15 WBC (3.8-10.6) k/uL RBC (3.80-5.40) m/uL Hgb (11.4-16.0) gm/dL Sodium (137-145) mmol/L Carbon Dioxide (22-30) mmol/L BUN (7-17) mg/dL Creatinine (0.52-1.04) mg/dL Glucose (74-99) mg/dL POC Glucose (mg/dL) 164 H 175 H 183 H (70-110) mg/dL Calcium (8.4-10.2) mg/dL Magnesium (1.6-2.3) mg/dL AST (14-36) U/L Alkaline Phosphatase (38-126) U/L Total Protein (6.3-8.2) g/dL Albumin (3.5-5.0) g/dL 08/17/23 08/17/23 08/17/23 Range/Units 06:25 06:44 06:44 WBC 16.6 H (3.8-10.6) k/uL RBC 3.64 L (3.80-5.40) m/uL Hgb 11.0 L (11.4-16.0) gm/dL Sodium 136 L (137-145) mmol/L Carbon Dioxide 21 L (22-30) mmol/L BUN 44 H (7-17) mg/dL Creatinine 1.79 H (0.52-1.04) mg/dL Glucose 133 H (74-99) mg/dL POC Glucose (mg/dL) 139 H (70-110) mg/dL Calcium 8.2 L (8.4-10.2) mg/dL Magnesium 1.5 L (1.6-2.3) mg/dL AST 43 H (14-36) U/L Alkaline Phosphatase 473 H (38-126) U/L Total Protein 5.7 L (6.3-8.2) g/dL Albumin 2.4 L (3.5-5.0) g/dL Microbiology - Last 24 Hours (Table) 08/13/23 06:34 Blood Culture - Preliminary Blood Assessment and Plan Plan: Assessment: 1. Acute kidney injury secondary to ATN secondary to septic shock. Creatinine peaked at 4.49 this admission - 1.7 today. No hydronephrosis noted on kidney ultrasound. Creatinine 0.8 in 2018. UA benign dated 08/11/2023. 2. Septic shock secondary to E. coli bacteremia on antibiotics. ID following. 3. Acute CVA being followed by neurology. Concern for embolic process. No c lots noted on ALLISON. 4. Encephalopathy related to sepsis, CVA. Improved. 5. Diabetes mellitus. 6. Benign hypertension. 7. Hypomagnesemia from poor intake. Plan: Maintain gentle IV hydration. Encourage oral intake. Avoid nephrotoxins. Continue to monitor renal function and urine output. Increase amlodipine frequency to 5 mg twice daily. Replace magnesium.
[2023-08-17 11:38] LABS: Glucose,Whole Blood 162 mg/dL (70-110)
[2023-08-17 12:14] VITALS: BP 141/70; PULSE 73; RESP 15; TEMP 97.7
[2023-08-17] MEDS: MAGNESIUM SULFATE-D5W PMX 1 GM in DEXTROSE/WATER 1 100ML.BAG IVPB SCH ×2 (12:15→13:18)
--- NOTE | 2023-08-17 12:21 | P.DS ---
Providers Date of admission: 08/07/23 22:41 Expected date of discharge: 08/17/23 Attending physician: Pedro Boucher Consults: 08/07/23 22:41 Consult Physician Routine Consulting Provider: Justine Vaughn Consult Reason/Comments: Acute kidney injury Do you want consulting provider notified?: Yes 08/08/23 09:23 Consult Physician Routine Consulting Provider: Estefania Lewis Consult Reason/Comments: Severe sepsis Do you want consulting provider notified?: Yes 08/08/23 14:03 Consult Physician Routine Consulting Provider: Jean Marie Garcia Consult Reason/Comments: severe sepsis, NSTEMI, Encephalopathy Do you want consulting provider notified?: Yes 08/11/23 06:11 Consult Physician Stat Consulting Provider: Dmitry Garcia Consult Reason/Comments: Acute encephalopathy, AMS Do you want consulting provider notified?: Already Contacted 08/11/23 17:12 Consult Physician Routine Consulting Provider: Sebastián Ferrer Consult Reason/Comments: embolic emboli, possible ALLISON Do you want consulting provider notified?: Already Contacted Primary care physician: Alvin Montez [facility] Course: Discharge diagnoses; Severe sepsis secondary to urinary tract infection * E. 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 * Per chart review patient was last well-known 08/06/23. Patient was brought by EMS and was noted to be less responsive and alert and oriented 1 with profound weakness. Patient was apparently found on the floor with broken glass. Patient was last seen by a neighbor and apparently doing well. Upon presentation patient was noted to have profound hypoglycemia Glucose 411, blood pressure 180/22 * Workup initiated included CBC which were WBC of 30.8 hemoglobin 15.2 platelet 124 with elevated neutrophil count. INR of 1.4 serum chemistry showed sodium 134 BUN 57 creatinine 4.26 blood glucose in 400s lactic to 4.7 * Initial troponin obtained 0.076, EKG obtained showed sinus rhythm no significant ST segment changes * Patient was given IV Rocephin, urinalysis is obtained showed large leukocyte esterase WBC and many bacteria * 08/09/23: Patient was seen and evaluated bedside, patient seen in ICU, mentation has improved alert and oriented to person place and situation. Appreciate input from nephrology, continue patient on IV bicarbonate, continue to monitor renal profile * 08/10/23: Patient seen and evaluated bedside, patient alert and oriented to person and situation, patient sitting in recliner. CBC reviewed noted to have thrombocytopenia aspirin discontinued serum chemistry reviewed creatinine 3.87. CK trending down. Blood culture showed E. coli bacteremia antibiotic transitioned to Rocephin * 08/11/23: Patient seen and evaluated bedside, overnight patient had episode of confusion, patient had garbled speech and also flaccid. Patient had a code stroke called and CT angiogram head and neck was done which was negative for acute abnormality CT brain was negative for any acute bleed or stroke as well. Neurology consulted and EEG is ordered patient does open her eyes to verbal stimulus and painful stimulus. MRI brain ordered as stat. Card work reviewed arterial blood gas reviewed as well. Continue close monitoring in ICU. CBC showed improvement in leukocytosis. Patient remains afebrile blood pressure map around 84 * 08/12/23: Patient seen and evaluated bedside, patient alert to person and situation. Mentation has improved significantly. MRI brain completedembolic stroke, patient started on aspirin and Lipitor. Liver profile trending down. A panel negative as well continue to monitor for worsening thrombocytopenia. Cardiology consulted to evaluate for intracardiac thrombus. Planning ALLISON patient nothing by mouth 08/13. Patient seen and examined. Patient mentation is improving, answering questions. WBC 19.9, hemoglobin 12.6, platelet count 70, sodium 139, potassium 4.1, BUN 92, creatinine 3.17. ALLISON scheduled for today 08/14. Patient seen and examined. Patient mental status has improved, sons at the bedside. States she is doing much better. Patient is still needing assistance with ambulation, will be a candidate for therapy 08/15. Patient seen and examined. No acute issues overnight. Labs showing white count 70%, hemoglobin 11.2, sodium 135, potassium 4.2, BUN 60, creatinine 2.39. Denies any lightheadedness or dizziness. Tolerating diet 08/16. Patient seen and examined. Blood pressure elevated, will start patient on Norvasc. Patient sitting up in the chair, keen to go to rehab 08/17. Patient seen and examined. Being discharged on Ceftin for one week. Magnesium was replaced prior to discharge. Outpatient follow-up with ID, neurology and nephrology PHYSICAL EXAMINATION: GENERAL: The patient is alert and oriented x3, not in any acute distress. Well developed, well nourished. HEENT: Pupils are round and equally reacting to light. EOMI. No scleral icterus. No conjunctival pallor. Normocephalic, atraumatic. No pharyngeal erythema. No thyromegaly. CARDIOVASCULAR: S1 and S2 present. No murmurs, rubs, or gallops. PULMONARY: Chest is clear to auscultation, no wheezing or crackles. ABDOMEN: Soft, nontender, nondistended, normoactive bowel sounds. No palpable organomegaly. MUSCULOSKELETAL: No joint swelling or deformity. EXTREMITIES: No cyanosis, clubbing, or pedal edema. NEUROLOGICAL: Gross neurological examination did not reveal any focal deficits. SKIN: No rashes. Dictation was produced using [employer] dictation software. please excuse any grammatical, word or spelling errors. Patient Condition at Discharge: Fair Plan - Discharge Summary Discharge Rx Participant: Yes New Discharge Prescriptions: New cefUROXime axetiL [Cefuroxime] 500 mg PO BID 7 Days #14 tab Atorvastatin [Lipitor] 40 mg PO HS 30 Days #30 tab INSULIN ASPART (NovoLOG) [NovoLOG (formulary)] 0 unit SQ ACHS 30 Days #1 each Aspirin 81 mg PO DAILY 30 Days #30 tab Insulin Detemir (Levemir) [Levemir] 10 unit SQ BID 30 Days #1 each amLODIPine [Norvasc] 5 mg PO BID 30 Days #60 tab Clopidogrel [Plavix] 75 mg PO DAILY 21 Days #21 tab Continue Metoprolol Tartrate [Lopressor] 25 mg PO TID Discontinued LORazepam [Ativan] 1 mg PO TID PRN PRN Reason: Anxiety Losartan Potassium 100 mg PO DAILY Discharge Medication List Metoprolol Tartrate [Lopressor] 25 mg PO TID 08/07/23 [History] Aspirin 81 mg PO DAILY 30 Days #30 tab 08/17/23 [Rx] Atorvastatin [Lipitor] 40 mg PO HS 30 Days #30 tab 08/17/23 [Rx] Clopidogrel [Plavix] 75 mg PO DAILY 21 Days #21 tab 08/17/23 [Rx] INSULIN ASPART (NovoLOG) [NovoLOG (formulary)] 0 unit SQ ACHS 30 Days #1 each 10/31/23 [Rx] Insulin Detemir (Levemir) [Levemir] 10 unit SQ BID 30 Days #1 each 08/17/23 [Rx] amLODIPine [Norvasc] 5 mg PO BID 30 Days #60 tab 08/17/23 [Rx] cefUROXime axetiL [Cefuroxime] 500 mg PO BID 7 Days #14 tab 08/17/23 [Rx] Follow up Appointment(s)/Referral(s): Alvin Montez [Primary Care Provider] - 1-2 days Estefania Lewis MD [STAFF PHYSICIAN] - 1 Week Roman Christian MD [Medical Doctor] - 1 Week Discharge Disposition: TRANSFER TO SNF/ECF
--- NOTE | 2023-08-17 12:54 | P.PN ---
Subjective Progress Note Date: 08/16/23 Principal diagnosis: Sepsis and UTI and bacteremia Patient is a 77-year-old female with a past medical history significant for hypertension the patient has been brought into the ER concerning for mental status changes, patient noticed to be septic secondary to urinary s ource and significant prerenal azotemia requiring admission to the ICU, patient did have embolic stroke on MRI subsequently did have a ALLISON on 08/13/2023 that was negative for any vegetation On today's evaluation that is 08/16/2023, the patient continues to be afebrile , the patient is breathing comfortably on room air and denies any shortness of breath, the patient denies any chest pain or cough, patient denies abdominal pain and no nausea/vomiting or diarrhea Patient white count is slightly down to 17.7, creatinine is down to 2.39 as of yesterday no lab draw today blood culture with E. coli, MRI with possible embolic stroke Objective - Vital Signs Vital signs: Vital Signs Temp 97.5 F L 08/16/23 08:00 Pulse 70 08/16/23 08:00 Resp 18 08/16/23 08:00 BP 190/70 08/16/23 08:00 Pulse Ox 94 L 08/16/23 08:00 FiO2 50 08/09/23 10:00 Intake & Output 08/15/23 08/16/23 08/16/23 18:59 06:59 18:59 Intake Total 720 180 Output Total 2000 1800 Balance -1280 -1800 180 Intake: Oral 720 180 Output: Urine 1999 1800 Uretheral (Rendon) 1200 Other: Voiding Method Indwelling Catheter Indwelling Catheter Indwelling Catheter - Exam GENERAL DESCRIPTION: An elderly female lying in bed in no distress RESPIRATORY SYSTEM: Unlabored breathing , clear to auscultation anteriorly HEART: S1 S2 regular rate and rhythm , ABDOMEN: Soft , no tenderness EXTREMITIES: No edema feet - Labs CBC & Chem 7: 08/17/23 06:44 08/17/23 06:44 Labs: Abnormal Lab Results - Last 24 Hours (Table) 08/15/23 08/15/23 08/16/23 Range/Units 16:27 20:14 06:27 POC Glucose (mg/dL) 174 H 197 H 153 H (70-110) mg/dL 08/16/23 Range/Units 11:37 POC Glucose (mg/dL) 164 H (70-110) mg/dL Microbiology - Last 24 Hours (Table) 08/12/23 15:03 Blood Culture - Preliminary Blood 08/13/23 06:34 Blood Culture - Preliminary Blood Assessment and Plan (1) Sepsis Current Visit: Yes Status: Acute Code(s): A41.9 - SEPSIS, UNSPECIFIED ORGANISM SNOMED Code(s): 14629355 (2) Penicillin allergy Current Visit: Yes Status: Acute Code(s): Z88.0 - ALLERGY STATUS TO PENICILLIN SNOMED Code(s): 99316830 (3) UTI (urinary tract infection) Current Visit: Yes Status: Acute Code(s): N39.0 - URINARY TRACT INFECTION, SITE NOT SPECIFIED SNOMED Code(s): 73388765 Plan: 1patient presented hospital with weakness mental status changes source is likely multifactorial in this patient with significant dehydration and prerenal also have a positive UA and likely a component of symptomatic urinary tract infection from enteric gram-negative pathogen 2- patient blood culture with an E. coli that is sensitive pathogen 4-patient patient did have significant mental status changes, patient did have MRI of the brain suspicious for embolic phenomena clinical suspicion is low for septic emboli as E. coli not a common pathogen to cause infective endocarditis, patient did have ALLISON that was negative for any vegetation 5- patient had shown clinical improvement and will continue with Rocephin however plan is to finish therapy with oral Ceftin Family the bedside questions were answered Dictation was produced using [employer] dictation software. please excuse any grammatical, word or spelling errors. Time with Patient: Less than 30
--- NOTE | 2023-08-17 12:55 | P.PN ---
Subjective Progress Note Date: 08/17/23 Principal diagnosis: Sepsis and UTI and bacteremia Patient is a 77-year-old female with a past medical history significant for hypertension the patient has been brought into the ER concerning for mental status changes, patient noticed to be septic secondary to urinary s ource and significant prerenal azotemia requiring admission to the ICU, patient did have embolic stroke on MRI subsequently did have a ALLISON on 08/13/2023 that was negative for any vegetation On today's evaluation that is 08/17/2023, the patient remains to be afebrile , the patient is breathing comfortably on room air without need for supplemental oxygen, the patient denies any chest pain and no significant cough or sputum production, patient denies abdominal pain and no nausea/vomiting or diarrhea Patient white count is 16.6, creatinine is 1.79, blood culture with E. coli, MRI with possible embolic stroke Objective - Vital Signs Vital signs: Vital Signs Temp 97.7 F 08/17/23 11:53 Pulse 73 08/17/23 11:53 Resp 15 08/17/23 11:53 BP 141/70 08/17/23 11:53 Pulse Ox 97 08/17/23 08:30 FiO2 50 08/09/23 10:00 Intake & Output 08/16/23 08/17/23 08/17/23 18:59 06:59 18:59 Intake Total 360 200 358 Output Total 2700 1700 650 Balance -8820 -1500 -292 Weight 91.1 kg Intake: Oral 360 200 358 Output: Urine 2700 1700 650 Other: Voiding Method Indwelling Catheter Indwelling Catheter Indwelling Catheter - Exam GENERAL DESCRIPTION: An elderly female lying in bed in no distress RESPIRATORY SYSTEM: Unlabored breathing , clear to auscultation anteriorly HEART: S1 S2 regular rate and rhythm , ABDOMEN: Soft , no tenderness EXTREMITIES: No edema feet - Labs CBC & Chem 7: 08/17/23 06:44 08/17/23 06:44 Labs: Abnormal Lab Results - Last 24 Hours (Table) 08/16/23 08/16/23 08/17/23 Range/Units 16:39 20:15 06:25 WBC (3.8-10.6) k/uL RBC (3.80-5.40) m/uL Hgb (11.4-16.0) gm/dL Sodium (137-145) mmol/L Carbon Dioxide (22-30) mmol/L BUN (7-17) mg/dL Creatinine (0.52-1.04) mg/dL Glucose (74-99) mg/dL POC Glucose (mg/dL) 175 H 183 H 139 H (70-110) mg/dL Calcium (8.4-10.2) mg/dL Magnesium (1.6-2.3) mg/dL AST (14-36) U/L Alkaline Phosphatase (38-126) U/L Total Protein (6.3-8.2) g/dL Albumin (3.5-5.0) g/dL 08/17/23 08/17/23 08/17/23 Range/Units 06:44 06:44 11:33 WBC 16.6 H (3.8-10.6) k/uL RBC 3.64 L (3.80-5.40) m/uL Hgb 11.0 L (11.4-16.0) gm/dL Sodium 136 L (137-145) mmol/L Carbon Dioxide 21 L (22-30) mmol/L BUN 44 H (7-17) mg/dL Creatinine 1.79 H (0.52-1.04) mg/dL Glucose 133 H (74-99) mg/dL POC Glucose (mg/dL) 162 H (70-110) mg/dL Calcium 8.2 L (8.4-10.2) mg/dL Magnesium 1.5 L (1.6-2.3) mg/dL AST 43 H (14-36) U/L Alkaline Phosphatase 473 H (38-126) U/L Total Protein 5.7 L (6.3-8.2) g/dL Albumin 2.4 L (3.5-5.0) g/dL Microbiology - Last 24 Hours (Table) 08/13/23 06:34 Blood Culture - Preliminary Blood Assessment and Plan (1) Sepsis Current Visit: Yes Status: Acute Code(s): A41.9 - SEPSIS, UNSPECIFIED ORGANISM SNOMED Code(s): 31923206 (2) Penicillin allergy Current Visit: Yes Status: Acute Code(s): Z88.0 - ALLERGY STATUS TO PENICILLIN SNOMED Code(s): 34500553 (3) UTI (urinary tract infection) Current Visit: Yes Status: Acute Code(s): N39.0 - URINARY TRACT INFECTION, SITE NOT SPECIFIED SNOMED Code(s): 81675049 Plan: 1patient presented hospital with weakness mental status changes source is likely multifactorial in this patient with significant dehydration and prerenal also have a positive UA and likely a component of symptomatic urinary tract infection from enteric gram-negative pathogen 2- patient blood culture with an E. coli that is sensitive pathogen 4-patient patient did have significant mental status changes, patient did have MRI of the brain suspicious for embolic phenomena clinical suspicion is low for septic emboli as E. coli not a common pathogen to cause infective endocarditis, patient did have ALLISON that was negative for any vegetation 5- patient had shown clinical improvement and will finish therapy with oral Ceftin 7 days on discharge discussed with the admitting team working on discharge Daughter at the bedside questions were answered Dictation was produced using [employer] dictation software. please excuse any grammatical, word or spelling errors. Time with Patient: Less than 30
[2023-08-17] MEDS ORDERED: amLODIPine 5 MG TAB PO SCH (21:00)
--- NOTE | 2023-08-18 20:42 | CDI ---
Documentation Clarification Form Date: 08/18/2023 08:20:06 PM From: Cher Damico Phone: Admit Date: 08/07/2023 10:41:00 PM Patient Name: Deb Salas Visit Number: [id number] Discharge Date: 08/17/2023 02:57:00 PM ATTENTION: The Clinical Documentation Specialists (CDI) and [facility] Coding Staff appreciate your assistance in clarifying documentation. Please respond to the clarification below the line at the bottom and electronically sign. The CDI & [facility] Coding staff will review the response and follow-up if needed. Please note: Queries are made part of the Legal Health Record. If you have any questions, please contact the author of this message via ITS. Dr. Augustin Buck Rhabdomyolysis is documented per 08/09 Consult Note. Additional clarification regarding the type of rhabdomyolysis is requested. History/Risk Factors: 77yo F, E. coli sepsis w shock, UTI, acidosis, DMII with hyperglycemia, ATN, CVA, toxic metabolic encephalopathy, acutethrombocytopenia Clinical Indicators: patient was less responsive only awake alert oriented times one withgeneralized weaknessshe apparently found on the floor CPK was at 1243 Treatment: Continue present supportive care measures. Continue antibiotics, consider transitioning to oral antibiotics as per ID on the case. Continue GI andDVTprophylaxis. Continue to advance diet as tolerated. Monitor platelets. Consider discharge planning once cleared byID. Please clarify the type of rhabdomyolysis, if known: [x ] Traumatic rhabdomyolysis due to fall [ ] Traumatic rhabdomyolysis due to prolonged immobility [ ] Non traumatic rhabdomyolysis due to infection (please specify) [ ] Other, please specify [ ] Unable to Determine (Template Last Revised: December 2020) MTDD
--- NOTE | 2023-08-24 10:47 | CDI ---
Documentation Clarification Form Date: 08/24/2023 10:37:40 AM From: Cher Damico Phone: Admit Date: 08/07/2023 10:41:00 PM Patient Name: Deb Salas Visit Number: [id number] Discharge Date: 08/17/2023 02:57:00 PM ATTENTION: The Clinical Documentation Specialists (CDI) and [facility] Coding Staff appreciate your assistance in clarifying documentation. Please respond to the clarification below the line at the bottom and electronically sign. The CDI & [facility] Coding staff will review the response and follow-up if needed. Please note: Queries are made part of the Legal Health Record. If you have any questions, please contact the author of this message via ITS. Dr. Sebastián Ferrer The document for Card Cath was signed by you on 08/08; however, additional clarification is requested. It appears the incorrect document type was used to dictate the Progress Note History/Risk Factors: 77yo F, E. coliseptic shockd/Kristyn, acutemetabolic encephalopathy, JUNIOR, Lactic acidosis, poorly controlled DMII, Acutethrombocytopenia Clinical Indicators: N/A Treatment: only procedure that was done was a ALLISON with Dr. Toth. Can you please clarify was a Card Cath preformed? [ ] Yes, corrected documentation for Card Cath is pending [ ] No, incorrect document type was used to dictate the Progress Note [ ] Other, please specify [ ] Unable to determine (Template Last Revised: December 2020) MTDD
--- NOTE | 2023-08-25 13:52 | CDI ---
Documentation Clarification Form Date: 08/25/2023 01:50:06 PM From: Cher Damico Phone: Admit Date: 08/07/2023 10:41:00 PM Patient Name: Deb Salas Visit Number: [id number] Discharge Date: 08/17/2023 02:57:00 PM ATTENTION: The Clinical Documentation Specialists (CDI) and [facility] Coding Staff appreciate your assistance in clarifying documentation. Please respond to the clarification below the line at the bottom and electronically sign. The CDI & [facility] Coding staff will review the response and follow-up if needed. Please note: Queries are made part of the Legal Health Record. If you have any questions, please contact the author of this message via ITS. Dr. Sebastián Ferrer Thank you for acknowledging the previous query; however, it lacked clarification. The document for Card Cath was signed by you on 08/08; however, additional clarification is requested. It appears the incorrect document type was used to dictate the Progress Note History/Risk Factors: 77yo F, E. coli septic shock d/t UTI, acute metabolic encephalopathy, JUNIOR, Lactic acidosis, poorly controlled DMII, Acute thrombocytopenia Clinical Indicators: N/A Treatment: only procedure that was done was a ALLISON with Dr. Toth. Can you please clarify was a Card Cath preformed? [ ] Yes, corrected documentation for Card Cath is pending [X ] No, incorrect document type was used to dictate the Progress Note [ ] Other, please specify [ ] Unable to determine (Template Last Revised: December 2020) Explanation I intended to date of consult note but instead I selected cardiac catheterization note by mistake. The intention was to dictate a consult note. MTDD
== END 2023-08-17 14:57 | DRG 871 ==
LOC: EC 18:30 → SUPCPDRO 18:30 → 3SCARD 22:41 → 2SICU 08-08 13:31 → 3SCARD 08-12 12:46
PROVIDERS: ADMIT Hospitalist; ATTEND Hospitalist
PROC: B24BZZ4 Ultrasonography of Heart with Aorta, Transesophageal (ICD-10-PCS; principal; 2023-08-13 17:00)
DX: A41.51 Sepsis due to Escherichia coli [E. coli] (principal); G92.8 Other toxic encephalopathy; N17.0 Acute kidney failure with tubular necrosis; I63.40 Cerebral infarction due to embolism of unspecified cerebral artery; R65.21 Severe sepsis with septic shock; I21.A1 Myocardial infarction type 2; E87.20 Acidosis, unspecified; N39.0 Urinary tract infection, site not specified; D69.6 Thrombocytopenia, unspecified; E11.65 Type 2 diabetes mellitus with hyperglycemia; T79.6XXA Traumatic ischemia of muscle, initial encounter; I11.9 Hypertensive heart disease without heart failure; I08.3 Combined rheumatic disorders of mitral, aortic and tricuspid valves; E07.9 Disorder of thyroid, unspecified; E86.0 Dehydration; W19.XXXA Unspecified fall, initial encounter; Y92.009 Unspecified place in unspecified non-institutional (private) residence as the place of occurrence of the external cause; E83.42 Hypomagnesemia; R47.81 Slurred speech; Z20.822 Contact with and (suspected) exposure to COVID-19; Z28.310 Unvaccinated for COVID-19; Z88.0 Allergy status to penicillin; Z88.8 Allergy status to other drugs, medicaments and biological substances; Z79.899 Other long term (current) drug therapy
CPT/HCPCS: 36415; 36600; 70450; 70460; 70496; 70498; 70551; 71045; 76705; 76770; 80048; 80053; 80061; 80306; 81001; 82009; 82140; 82550; 82607; 82746; 82803; 82805; 83036; 83605; 83735; 83880; 84443; 84484; 85025; 85027; 85610; 85652; 85730; 86022; 86140; 87040; 87077; 87086; 87186; 87636; 93005; 93306; 93312; 93320; 93325; 95819; 96361; 96365; 96366; 96367; 96375; 99291